=== PATIENT | male | born 1950 | race Caucasian/White ===

== ENCOUNTER 2022-01-23 22:58 | Emergency (ER) | payer MEDICARE, MEDICAID, SELFPAY ==
[2022-01-23 23:01] VITALS: BP 111/49; BP 128/71; PULSE 48; PULSE 75; RESP 16; TEMP 36.4; O2SAT 95; BMI 37.1
[2022-01-23 23:12] LABS: Glucose, Whole Blood 70 mg/dL (60-115)
[2022-01-23 23:23] VITALS: BP 108/51; PULSE 47; RESP 22; O2SAT 96
--- NOTE | 2022-01-23 23:46 | ECG_ITS ---
Test Reason : MD ORDERED Blood Pressure : / mmHG Vent. Rate : 052 BPM Atrial Rate : 052 BPM P-R Int : 178 ms QRS Dur : 162 ms QT Int : 514 ms P-R-T Axes : 037 087 035 degrees QTc Int : 478 ms Sinus bradycardia Right bundle branch block Abnormal ECG No previous ECGs available Referred By: Tita Pérez Electronically Signed By:SVEN CALZADA
[2022-01-24 00:34] LABS: MANUAL DIFF FLAG NO
[2022-01-24 00:38] LABS: Glucose, Whole Blood 109 mg/dL (60-115)
[2022-01-24 00:38] LABS: Basophils Absolute Auto 0.1 X10*3/uL (0.0-0.2); Basophils Percent Auto 0.8 % (0-2); Eosinophils Absolute Auto 0.1 X10*3/uL (0.0-0.4); Eosinophils Percent Auto 1.2 % (0-4); Hematocrit 38.8 % (42.0-52.0); Hemoglobin 12.4 g/dl (14.0-18.0); Imm Gran Abs Auto 0.09 X10*3/uL (0.00-0.03); Imm Gran Pct Auto 0.8 % (0.0-0.4); Lymphocytes Absolute Auto 1.6 X10*3/uL (1.2-4.9); Lymphocytes Percent Auto 14.6 % (20-40); Mean Corpuscular Hemoglobin 28.6 pg (27.0-33.0); Mean Corpuscular Volume 89.4 fL (80.0-98.0); Mean Platelet Volume 10.3 fL (9.4-12.4); Monocytes Absolute Auto 0.8 X10*3/uL (0.1-1.2); Monocytes Percent Auto 7.5 % (2-11); Neutrophils Absolute Auto 8.3 x10*3/uL (2.0-8.3); Neutrophils Percent Auto 75.1 % (45-73); Platelet Count 209 X10*3/uL (160-400); Red Blood Count 4.34 X10*6/uL (4.60-5.80); Red Cell Distribution Width 17.4 % (11.0-16.0)
--- NOTE | 2022-01-24 00:38 | ED_ITS ---
HPI - General Adult General Chief complaint: Altered Mental Status Stated complaint: hypoglycemia Time Seen by Provider: 01/23/22 23:45 Source: patient and EMS Mode of arrival: EMS History of Present Illness HPI narrative: 71-year-old male with history of CKD, diabetes, dementia, who is brought in by EMS from [facility] for acute hypoglycemia with a point of care of 38. Oral glucose was given and when EMS arrived repeat point of care was 47 with additional administration of oral glucose. Patient states that he is otherwise feeling well and denies any shortness of breath/chest pain/palpitations and denies any abdominal pain at this time Related Data Allergies Allergy/AdvReac Type Severity Reaction Status Date / Time No Known Allergies Allergy Verified 01/23/22 23:34 Review of Systems Review of Systems: Pertinent positives and negatives as stated in HPI 10 point review of systems otherwise negative. [facility] Past Medical History Source: nursing notes reviewed Physical Exam ED Vital Signs: Vital Signs - 24 hr 01/23/22 23:01 01/23/22 23:23 01/24/22 02:00 Temperature 97.5 F Pulse Rate 48 L 47 L 61 Respiratory Rate 16 22 H 13 Blood Pressure 111/49 L 108/51 L 168/63 H Pulse Oximetry 96 94 Oxygen Delivery Method Room Air Room Air BMI result Body Mass Index 37.1 VITAL SIGNS: Reviewed. GENERAL: Elderly, chronically ill,, in no acute distress. HEAD: Normocephalic/atraumatic EYES: PERRLA, EOMI EARS: Ext canals without abnormality OROPHARYNX: no oral lesions noted, posterior pharynx clear LUNGS: Normal breath sounds, no tachypnea/wheeze/rhonchi/rales. SpO2<96> CARDIOVASCULAR: Regular rate and rhythm without noted murmurs, no JVD or lower extremity edema. ABDOMEN: Soft, non-tender, non-distended with bowel sounds. MUSCULOSKELETAL: No tenderness, deformities, or effusions noted on gross inspection. EXTREMITIES: No cyanosis, clubbing or edema. SKIN: Inspection of the skin reveals no rashes NEUROLOGIC: Alert and oriented x 4. Strength and sensation to light touch were grossly intact x 4. Course Course Course Narrative: 71-year-old male with history and clinical presentation consistent with acute hypoglycemia likely due to mismatch between insulin administration and oral intake. On review of all investigations there are no acute findings to better explain patient's low blood sugar. Patient has baseline CKD and the noted BUN and creatinine are not felt to be consistent with RODO. Repeat glucose is 140 in patient is otherwise stable for discharge back to the facility. Medical Decision Making Lab Data Result diagrams: 01/24/22 00:29 01/24/22 00:29 Labs: Lab Results 01/23/22 01/24/22 01/24/22 Range/Units 23:08 00:29 00:29 WBC (4.8-10.8) X10*3/uL RBC (4.60-5.80) X10*6/uL Hgb (14.0-18.0) g/dl Hct (42.0-52.0) % MCV (80.0-98.0) fL MCH (27.0-33.0) pg MCHC (31.0-36.0) g/dl RDW (11.0-16.0) % Plt Count (160-400) X10*3/uL MPV (9.4-12.4) fL Immature Gran % (Auto) (0.0-0.4) % Neut % (Auto) (45-73) % Lymph % (Auto) (20-40) % [place] % (Auto) (2-11) % Eos % (Auto) (0-4) % Baso % (Auto) (0-2) % Lymph # (Auto) (1.2-4.9) X10*3/uL [place] # (Auto) (0.1-1.2) X10*3/uL Eos # (Auto) (0.0-0.4) X10*3/uL Baso # (Auto) (0.0-0.2) X10*3/uL Abs Immat Gran (auto) (0.00-0.03) X10*3/uL Absolute Neuts (auto) (2.0-8.3) x10*3/uL Absolute Nucleated RBC (0.0-0.012) X10*3/uL Nucleated RBC % (auto) (0.0-0.2) /100WBC Sodium (135-145) mmol/L Potassium (3.3-5.1) mmol/L Chloride (96-108) mmol/L Carbon Dioxide (22-29) mmol/L Anion Gap (12-20) BUN (9-16) mg/dL Creatinine (0.5-1.4) mg/dL Estim Creat Clear Calc Estimated GFR POC Glucose 70 (60-115) mg/dL Random Glucose (60-115) mg/dL Calcium (8.4-10.2) mg/dL Total Bilirubin (0.0-1.0) mg/dL AST (5-37) U/L ALT (0-40) U/L Alkaline Phosphatase (39-117) U/L Troponin I High Sens 6.0 (<3.5-35.0) ng/L B-Natriuretic Peptide 51 (<100) pg/mL Total Protein (6.5-8.0) g/dL Albumin (3.5-5.0) g/dL COVID-19 (JIMY) Negative (Negative) COVID-19 Clin Com See Note 01/24/22 01/24/22 01/24/22 Range/Units 00:29 00:29 00:33 WBC 11.0 H (4.8-10.8) X10*3/uL RBC 4.34 L (4.60-5.80) X10*6/uL Hgb 12.4 L (14.0-18.0) g/dl Hct 38.8 L (42.0-52.0) % MCV 89.4 (80.0-98.0) fL MCH 28.6 (27.0-33.0) pg MCHC 32.0 (31.0-36.0) g/dl RDW 17.4 H (11.0-16.0) % Plt Count 209 (160-400) X10*3/uL MPV 10.3 (9.4-12.4) fL Immature Gran % (Auto) 0.8 H (0.0-0.4) % Neut % (Auto) 75.1 H (45-73) % Lymph % (Auto) 14.6 L (20-40) % [place] % (Auto) 7.5 (2-11) % Eos % (Auto) 1.2 (0-4) % Baso % (Auto) 0.8 (0-2) % Lymph # (Auto) 1.6 (1.2-4.9) X10*3/uL [place] # (Auto) 0.8 (0.1-1.2) X10*3/uL Eos # (Auto) 0.1 (0.0-0.4) X10*3/uL Baso # (Auto) 0.1 (0.0-0.2) X10*3/uL Abs Immat Gran (auto) 0.09 H (0.00-0.03) X10*3/uL Absolute Neuts (auto) 8.3 (2.0-8.3) x10*3/uL Absolute Nucleated RBC 0.000 (0.0-0.012) X10*3/uL Nucleated RBC % (auto) 0.0 (0.0-0.2) /100WBC Sodium 138 (135-145) mmol/L Potassium 4.3 (3.3-5.1) mmol/L Chloride 104 (96-108) mmol/L Carbon Dioxide 25 (22-29) mmol/L Anion Gap 13 (12-20) BUN 36 H (9-16) mg/dL Creatinine 1.82 H (0.5-1.4) mg/dL Estim Creat Clear Calc 45.5 Estimated GFR 37 POC Glucose 109 (60-115) mg/dL Random Glucose 105 (60-115) mg/dL Calcium 8.7 (8.4-10.2) mg/dL Total Bilirubin 0.3 (0.0-1.0) mg/dL AST 10 (5-37) U/L ALT 11 (0-40) U/L Alkaline Phosphatase 67 (39-117) U/L Troponin I High Sens (<3.5-35.0) ng/L B-Natriuretic Peptide (<100) pg/mL Total Protein 6.3 L (6.5-8.0) g/dL Albumin 3.7 (3.5-5.0) g/dL COVID-19 (JIMY) (Negative) COVID-19 Clin Com 01/24/22 Range/Units 02:01 WBC (4.8-10.8) X10*3/uL RBC (4.60-5.80) X10*6/uL Hgb (14.0-18.0) g/dl Hct (42.0-52.0) % MCV (80.0-98.0) fL MCH (27.0-33.0) pg MCHC (31.0-36.0) g/dl RDW (11.0-16.0) % Plt Count (160-400) X10*3/uL MPV (9.4-12.4) fL Immature Gran % (Auto) (0.0-0.4) % Neut % (Auto) (45-73) % Lymph % (Auto) (20-40) % [place] % (Auto) (2-11) % Eos % (Auto) (0-4) % Baso % (Auto) (0-2) % Lymph # (Auto) (1.2-4.9) X10*3/uL [place] # (Auto) (0.1-1.2) X10*3/uL Eos # (Auto) (0.0-0.4) X10*3/uL Baso # (Auto) (0.0-0.2) X10*3/uL Abs Immat Gran (auto) (0.00-0.03) X10*3/uL Absolute Neuts (auto) (2.0-8.3) x10*3/uL Absolute Nucleated RBC (0.0-0.012) X10*3/uL Nucleated RBC % (auto) (0.0-0.2) /100WBC Sodium (135-145) mmol/L Potassium (3.3-5.1) mmol/L Chloride (96-108) mmol/L Carbon Dioxide (22-29) mmol/L Anion Gap (12-20) BUN (9-16) mg/dL Creatinine (0.5-1.4) mg/dL Estim Creat Clear Calc Estimated GFR POC Glucose 142 H (60-115) mg/dL Random Glucose (60-115) mg/dL Calcium (8.4-10.2) mg/dL Total Bilirubin (0.0-1.0) mg/dL AST (5-37) U/L ALT (0-40) U/L Alkaline Phosphatase (39-117) U/L Troponin I High Sens (<3.5-35.0) ng/L B-Natriuretic Peptide (<100) pg/mL Total Protein (6.5-8.0) g/dL Albumin (3.5-5.0) g/dL COVID-19 (JIMY) (Negative) COVID-19 Clin Com ECG Data Attestation: I personally reviewed and interpreted this ECG as follows: Prior ECG tracings: not available for review Interpretation: Sinus bradycardia, HR -50, RBBB, no STEMI, UT/QTC are within normal limits. Discharge Plan Discharge Clinical Impression: Hypoglycemia, Dementia Patient Disposition: [facility] Instructions: Dementia (ED), Hypoglycemia in a Person with Diabetes (ED) Additional Instructions: 1. Resume all home medications as prescribed. 2. Follow-up with your primary care physician for re-evaluation further outpatient management. Continue to monitor glucose readings every 2 hours until 06:00 Return to the ER for worsening symptoms.
[2022-01-24 00:49] LABS: Alanine Aminotransferase 11 U/L (0-40); Albumin Level 3.7 g/dL (3.5-5.0); Alkaline Phosphatase 67 U/L (39-117); Anion Gap 13 (12-20); Aspartate Amino Transferase 10 U/L (5-37); Bilirubin Total 0.3 mg/dL (0.0-1.0); Blood Urea Nitrogen 36 mg/dL (9-16); Calcium 8.7 mg/dL (8.4-10.2); Carbon Dioxide 25 mmol/L (22-29); Chloride 104 mmol/L (96-108); Creatinine Clr Calc Pharmacy 45.5; Estimated Glomerular Filt Rate 37; Glucose Random 105 mg/dL (60-115); Potassium 4.3 mmol/L (3.3-5.1); Sodium 138 mmol/L (135-145); Total Protein 6.3 g/dL (6.5-8.0)
[2022-01-24 00:50] LABS: COVID-19 Test Negative (Negative)
[2022-01-24 00:54] LABS: B Type Natriuretic Peptide 51 pg/mL (<100)
[2022-01-24] MEDS: 0.9 % Sodium Chloride 1,000 ML 999 ML IV (01:23)
[2022-01-24 02:00] VITALS: BP 168/63; PULSE 61; RESP 13; O2SAT 94
[2022-01-24 02:07] LABS: Glucose, Whole Blood 142 mg/dL (60-115)
--- NOTE | 2022-01-24 02:55 | PC.NURSE ---
CALLED [facility] @0255 SPOKE TO BENJAMIN REGARDING TRANSPORT OF PATIENT WHO IS RETURNING BACK TO [facility]. BENJAMIN GAVE ME AN ETA OF [phone]- [phone] WHEN MORE STAFF IS AVAILABLE
[2022-01-24 07:40] VITALS: BP 166/74; PULSE 61; RESP 14; O2SAT 97
--- NOTE | 2022-01-24 08:55 | PC.NURSE ---
Pt alert and oriented x4. Respirations even and unlabored. Pt resting quietly drinking coffee. Awaiting transport back to [facility]
[2022-01-24 08:57] LABS: Glucose, Whole Blood 149 mg/dL (60-115)
== END 2022-01-24 09:04 | disposition skilled nursing facility (03) ==
PROVIDERS: Emergency Provider Student in an Organized Health Care Education/Training Program
DX: E11.649 Type 2 diabetes mellitus with hypoglycemia without coma (principal); F03.90 Unspecified dementia, unspecified severity, without behavioral disturbance, psychotic disturbance, mood disturbance, and anxiety; E11.22 Type 2 diabetes mellitus with diabetic chronic kidney disease; I12.9 Hypertensive chronic kidney disease with stage 1 through stage 4 chronic kidney disease, or unspecified chronic kidney disease; N18.9 Chronic kidney disease, unspecified; Z20.822 Contact with and (suspected) exposure to COVID-19; Z79.4 Long term (current) use of insulin
CPT/HCPCS: 36415; 80053; 82947; 83880; 84484; 85025; 87635; 93005; 96360; 99284

== ENCOUNTER 2024-05-14 09:57 | Emergency (ER) | payer MEDICARE, MEDICAID, SELFPAY ==
--- NOTE | ~2024-05-14 | XR_ITS ---
EXAMINATION: XR FOOT, LEFT CLINICAL INFORMATION: Rule out osteomyelitis of left foot. COMPARISON: None available. TECHNIQUE: AP and lateral views of the left foot. FINDINGS: No displaced fracture. No dislocation. No periosteal reaction or cortical erosion. No concerning lytic or blastic osseous lesion. No joint space narrowing or marginal osteophytes. No abnormal soft tissue calcification. XR/XR foot LT min 3V IMPRESSION: No displaced fracture or dislocation. No periosteal reaction or cortical erosion to suggest osteomyelitis. Early osteomyelitis may be occult on plain radiographs and if there is clinical concern, MRI of the foot without and with contrast could help further evaluate. Electronically signed by: Jesse Barnett MD 05/14/2024 12:59 PM EST
[2024-05-14 10:11] VITALS: BP 154/67; BP 162/74; PULSE 60; PULSE 74; RESP 18; TEMP 36.5; O2SAT 95; BMI 34.5
--- OUTSIDE RECORDS SUMMARY | 2024-05-14 11:05 | XMS_ITS | Continuity of Care Document ---
Author Organization [facility] Infectious Disease Address [address] [place] [address]- Care Team Providers Care Real Estate Representative Name Role Phone Isac Velazquez MD Primary Care Phys[id number] Date(s[facility]/08/20 - 08/16/20 [facility] Infect[facility] Disease [address] [place] [phone]- Attending Physician: Apollo Godfrey MD Admitting Physician: Apollo Godfrey MD Referring Physician: Isac Velazquez MD Allergies, Adverse Reactions, Alerts Substance Reaction Severity Status Percocet 5/325 1 Persistent Moderate Acti ve 1Rash Medications acetaminophen 325 mg oral tablet 650 mg, By Mouth, Every 4 hours, PRN, greater than 101F or Mild Pain, Refills 0, Maintenance, Temperature, 06/11/20 11:51:00 EST, Partial fill upon patient request if the prescription is for a schedule II opioid drug. Start Date: 06/11/20 Status: Ordered amiodarone 200 mg oral tablet 200 mg, 1, tablet, By Mouth, 2 times a day, # 60 tablet, Refills 0, Tot. Refills 0, Maintenance, 06/07/20 13:16:00 EST, [id number], Partial fill upon patient request if the prescription is for a sched... Start Date: 06/07/20 Status: Ordered amLODIPine 5 mg oral tablet 1 tablet = 5 mg, By Mouth, Daily, # 30 tablet, 0 Refills, Maintenance, 05/19/20 22:11:00 EST, Tablet, Partial fill upon patient request if the prescription is for a schedule II opioid drug. Start Date: 05/19/20 Status: Ordered aspirin 81 mg oral tablet, chewable 81 mg, 1, tablet, Chew, Daily, Refills 0, Maintenance, 05/19/20 22:12:00 EST, Partial fill upon patient request if the prescription is for a schedule II opioid drug. Start Date: 05/19/20 Stop Date: 06/18/20 Status: Ordered atorvastatin 40 mg oral tablet 1 tablet = 40 mg, By Mouth, Daily, # 30 tablet, 0 Refills, Maintenance, 05/22/20 10:29:00 EST, Tablet, [facility], Partial fill upon patient request if the prescription is for a schedule II opioid drug., 174, cm, 05/22/20 8:22:00 EST, He... Start Date: 05/22/20 Status: Ordered clopidogrel 75 mg oral tablet 75 mg, 1, tablet, By Mouth, Daily, # 30 tablet, Refills 0, Tot. Refills 0, Maintenance, 06/07/20 13:16:00 EST, Route to Pharmacy Electronically, [facility] #[id number], Partial fill upon patientrequest if the prescription is for a schedule II op... Start Date: 06/07/20 Status: Ordered Docusate Sodium Capsule 100 mg, 1, capsule, By Mouth, 2 times a day, Refills 0, Maintenance, 06/11/20 11:51:00 EST, Partialfill upon patient request if the prescription is for a schedule II opioid drug. Start Date: 06/11/20 Status: Ordered Enoxaparin 0.4 mL = 40 mg, Subcutaneous Injection, Daily, 0 Refills, Maintenance, 06/11/20 11:51:00 EST, Injection, Partial fill upon patient request if the prescription is for a schedule II opioid drug. Start Date: 06/11/20 Status: Ordered Humalog Kwik Pen 100 units/mL subcutaneous injection See Instructions, Subcutaneous Infusion, << Sliding Scale Comments >> 120 - 159 6 unitsCall if less than 100 160 - 199 8 units 200 - 239 10 units 240 - 279 12 units 280 - 319 14 units Call if greater than 400 15 minutes before or i... Start Date: 06/07/20 Stop Date: 12/04/20 Status: Ordered Lantus 100 u/ml subcutaneous solution = 25 units, Subcutaneous Injection, Daily at bedtime, 2 Refills, Maintenance, 05/20/20 0:21:00 EST,Partial fill upon patient request if the prescription is for a schedule II opioid drug. Start Date: 05/20/20 Stop Date: 08/18/20 Status: Ordered Lasix 40 mg oral tablet 40 mg, 1, tablet, By Mouth, Daily, Refills 0, Maintenance, 06/11/20 11:57:00 EST, Partial fill uponpatient request if the prescription is for a schedule II opioid drug. Start Date: 06/11/20 Status: Ordered Maalox Plus Liquid 15 mL, By Mouth, Every 6 hours, PRN Dyspepsia, 0 Refills, Maintenance, 06/11/20 11:51:00 EST, Suspension, Partial fill upon patient request if the prescription is for a schedule II opioid drug. Start Date: 06/11/20 Status: Ordered metoprolol 50 mg oral tablet 50 mg, 1, tablet, By Mouth, 2 times a day, # 60 tablet, Refills 0, Tot. Refills 0, Maintenance, 06/07/20 13:15:00 EST, Route to Pharmacy Electronically, [facility] #[id number], Partial fill uponpatient request if the prescription is for a schedu... Start Date: 06/07/20 Status: Ordered Milk of Magnesia Liquid 30 mL, By Mouth, Every 8 hours, PRN Constipation, 0 Refills, Maintenance, 06/11/20 11:52:00 EST, Suspension, Partial fill upon patient request if the prescription is for a schedule II opioid drug. Start Date: 06/11/20 Status: Ordered Pen [place], 30 G x 8 mm BD Ultra Fine II See Instructions, # 100 each, Refills 5, Tot. Refills 5, Maintenance, use as directed for Type 2 Diabetes Mellitus, 06/07/20 13:19:00 EST, Supply, 174, cm, 06/07/20 12:34:00 EST, Height, 113.9, kg, 06/02/20 9:14:00 EST, Dry Weight Start Date: 06/07/20 Stop Date: 12/04/20 Status: Ordered tamsulosin 0.4 mg oral capsule 0.4 mg, 1, capsule, By Mouth, Daily at bedtime, # 30 capsule, Refills 0, Maintenance, 05/19/20 22:11:00 EST, Partial fill upon patient request if the prescription is for a schedule II opioid drug. Start Date: 05/19/20 Status: Ordered Problem List Condition Effective Dates Status Health Status Inform ant Chronic kidney disease, stag e 3(Confirmed) Active S/P CABG x 4(Confirmed) Active Hypertension(Confirmed) Active Type 2 diabetes mellitus(Confirmed) Active Social History Social History Type Response Tobacco Use: quit 10 months ago. Sex
--- OUTSIDE RECORDS SUMMARY | 2024-05-14 11:05 | XMS_ITS | Continuity of Care Document ---
Author Organization [facility] Kathy sheila Address [address] [place] [phone]- Care Team Providers Care Barrel Lathe Operator Outside Name Role Phone Sasha CORDERO, Marzena Lee Primary Care Physician Encounter [facility] Date(s): 09/28/20 - 10/28/20 [facility] Cardiac Surgery [address] [phone]- Allergies, Adverse Reactions, Alerts Substance Reaction Severity Status Percocet 5/325 1 Persistent Moderate Acti ve 1Rash Medications acetaminophen 325 mg oral tablet 650 mg, By Mouth, Every 4 hours, PRN, Temperature Greater than 100.5, Refills 0, Maintenance, Pain , Mild, 10/20/20 12:06:00 EDT, Partial fill upon patient request if the prescription is for a schedule II opioid drug. Start Date: 10/20/20 Status: Ordered albuterol CFC free 90 mcg/inh inhalation aerosol 180 mcg, 2, puffs, Inhalation, 3 times a day, Refills 0, Maintenance, 08/19/20 12:51:00 EST, Inhaler Start Date: 08/19/20 Status: Ordered aspirin 81 mg oral tablet, chewable 81 mg, 1, tablet, Chew, Daily, Refills 0, Maintenance, 05/19/20 22:12:00 EST Start Date: 05/19/20 Stop Date: 06/18/20 Status: Ordered atorvastatin 40 mg oral tablet 1 tablet = 40 mg, By Mouth, Daily, # 30 tablet, 0 Refills, Maintenance, 05/22/20 10:29:00 EST, Tablet, [facility], Partial fill upon patient request if the prescription is for a schedule II opioid drug., 174, cm, 05/22/20 8:22:00 EST, He... Start Date: 05/22/20 Status: Ordered Carafate 1 gm oral tablet 1 Gm, 1, tablet, By Mouth, 4 times a day, Refills 0, Maintenance, 08/19/20 12:51:00 EST Start Date: 08/19/20 Status: Ordered ceftriaxone 1 gm/50 ml intravenous solution = 2 Gm, IV Infusion, Daily, for 42 days, # 42 each, 0 Refills, Acute 12/01/20 12:12:00 EDT, 10/20/20 12:12:00 EDT, Partial fill upon patient request if the prescription is for a schedule II opioid drug. Start Date: 10/20/20 Stop Date: 12/01/20 Status: Ordered docusate sodium 100 mg oral capsule 100 mg, 1, capsule, By Mouth, 2 times a day, PRN, Refills 0, Maintenance, Constipation, 10/20/20 12:07:00 EDT, Partial fill upon patient request if the prescription is for a schedule II opioid drug. Start Date: 10/20/20 Status: Ordered Flomax 0.4 mg oral capsule 0.4 mg, 1, capsule, By Mouth, Daily at bedtime, Refills 0, Maintenance, 10/20/20 12:08:00 EDT, Partial fill upon patient request if the prescription is for a schedule II opioid drug. Start Date: 10/20/20 Status: Ordered folic acid 1 mg oral tablet 1 mg, 1, tablet, By Mouth, Daily, Refills 0, Maintenance, 08/19/20 12:51:00 EST Start Date: 08/19/20 Status: Ordered gabapentin 250 mg/5 mL oral solution 1 mL = 50 mg, By Mouth, Daily before dinner, at 5pm, 0 Refills, Maintenance, 08/19/20 12:52:00 EST,Liquid Start Date: 08/19/20 Status: Ordered heparin flush 10 units/mL intravenous solution 5 mL = 50 units, IV Push, Daily, 0 Refills, Maintenance, 10/20/20 12:07:00 EDT, Injection, Partial fill upon patient request if the prescription is for a schedule II opioid drug. Start Date: 10/20/20 Status: Ordered heparin flush 10 units/mL intravenous solution 5 mL = 50 units, IV Push, Every hour, PRN Line/Tube Patency, Post administration of Saline Flush, use 10 mL syringe, Heparin is last med left in line, 0 Refills, Maintenance, 10/20/20 12:07:00 EDT, Injection, Partial fill upon patient request if the p... Start Date: 10/20/20 Status: Ordered Insulin Lispro 12-24 units, Subcutaneous Injection, 3 times a day before meals, 0 Refills, Maintenance, 10/20/20 12:07:00 EDT, Injection, Partial fill upon patient request if the prescription is for a schedule II opioid drug. Start Date: 10/20/20 Status: Ordered Lantus Inj = 26 units, Subcutaneous Injection, Daily at bedtime, 0 Refills, Maintenance, 09/28/20 8:59:00 EDT,Injection Start Date: 09/28/20 Status: Ordered metoprolol 25 mg oral tablet 25 mg, 1, tablet, By Mouth, 2 times a day, Refills 0, Maintenance, 08/19/20 12:50:00 EST Start Date: 08/19/20 Status: Ordered Multivitamin Tablet 1 tablet, By Mouth, Daily, 0 Refills, Maintenance, 10/20/20 12:07:00 EDT, Tablet, Partial fill uponpatient request if the prescription is for a schedule II opioid drug. Start Date: 10/20/20 Status: Ordered Namenda 5 mg oral tablet 1 tablet = 5 mg, By Mouth, 2 times a day before breakfast and dinne, 0 Refills, Maintenance, 08/26/20 13:46:00 EST, Tablet Start Date: 08/26/20 Status: Ordered thiamine 100 mg oral tablet 100 mg, 1, tablet, By Mouth, Daily, Refills 0, Maintenance, 08/19/20 12:52:00 EST Start Date: 08/19/20 Status: Ordered vancomycin 1.5 g intravenous injection = 1.5 Gm, IV Infusion, Every 24 hours, for 42 days, # 42 each, 0 Refills, Acute 12/01/20 12:08:00 EDT, 10/20/20 12:08:00 EDT, Partial fill upon patient request if the prescription is for a schedule II opioid drug. Start Date: 10/20/20 Stop Date: 12/01/20 Status: Ordered Vitamin C 500 mg oral tablet 1 tablet = 500 mg, By Mouth, Daily, 0 Refills, Maintenance, 08/19/20 12:51:00 EST, Tablet Start Date: 08/19/20 Status: Ordered Problem List Condition Effective Dates Status Health Status Inform ant Asthma(Confirmed) Active Chronic kidney disease, stag e 3(Confirmed) Active CAD in [place] artery(Confirmed) Active Alzheimer's disease with delusions(Confirmed) Active Dementia(Confirmed) Active GERD (gastroesophageal reflu x disease)(Confirmed) Active S/P CABG x 4(Confirmed) Active Hyperlipidemia(Confirmed) Active Hypertension(Confirmed) Active Type 2 diabetes mellitus(Confirmed) Active Social History Social History Type Response Tobacco Use: quit 10 months ago. Sex
--- OUTSIDE RECORDS SUMMARY | 2024-05-14 11:05 | XMS_ITS | Continuity of Care Document ---
Author Organization [facility] Kathy sheila Address [address] [place] [phone]- Care Team Providers Care Warranty Manager Name Role Phone Sasha CORDERO, Marzena Lee Primary Care Physician Encounter [facility] [place] Date(s): 10/22/20 - 10/29/20 [facility] Cardiac Surgery [address] [place] [phone]- Attending Physician: Byron GRIFFIN, Lolly Andersen Referring Physician: Sasha CORDERO, Marzena Lee Allergies, Adverse Reactions, Alerts Substance Reaction Severity [...] 0 Refills, Maintenance, 05/22/20 10:29:00 EST, Tablet, [facility], Partial fill upon patient [...] disease, stag e 3(Confirmed) Active CAD in [place] artery(Confirmed) Active Alzheimer's disease with delusions(Confirmed) Active Dementia(Confirmed) Active GERD (gastroesophageal reflu x disease)(Confirmed) Active S/P CABG x 4(Confirmed) Active Hyperlipidemia(Confirmed) Active Hypertension(Confirmed) Active Type 2 diabetes mellitus(Confirmed) Active Vital Signs Most recent to oldest [Reference Range]: 1 Height 174 cm (10/22/20 3:10 PM) Weight 102 kg (10/22/20 3:10 PM) Oxygen Saturation [94-100 %] 99 % (10/22/20 3:10 PM) Pulse Rate [55-90 bpm] 71 bpm (10/22/20 3:10 PM) Body Mass Index [18.5-24.99] 33.69 *>HHI* (10/22/20 3:10 PM) Blood Pressure [90-138/55-84 mm Hg] 116/ 66mm Hg (10/22/20 3:10 PM) Respiratory Rate [16-30 br/min] 18 br/mi n (10/22/20 3:10 PM) Mode of Delivery (Oxygen) Room air (10/22/20 3:10 PM) Blood pressure sites Arm, left (10/22/20 3:10 PM) Weight Obtained Via Patient/family state d (10/22/20 3:10 PM) Social History Social History Type Response Tobacco Use: quit 10 months ago. Sex
--- OUTSIDE RECORDS SUMMARY | 2024-05-14 11:05 | XMS_ITS | Continuity of Care Document ---
Author Organization [facility] Kathy sheila Address [address] [place] [address]- Care Team Providers Care Steam Hammer Operator Name Role Phone Sasha CORDERO, Marzena Lee Primary Care Physician Encounter [facility] [place] Date(s): 12/23/20 - 01/30/21 [facility] [address] [place] [phone]- Attending Physician: David Alexandre MD Referring Physician: Marzena Baez NP Allergies, Adverse Reactions, Alerts Substance Reaction Severity [...] 0 Refills, Maintenance, 05/22/20 10:29:00 EST, Tablet, [facility], Partial fill upon patient request if the prescription is for a schedule II opioid drug., 174, cm, 12/04/20 8:22:00 EST, He... Start Date: 05/22/20 Status: Ordered Carafate 1 gm oral tablet 1 Gm, 1, tablet, By Mouth, 4 times a day, Refills 0, Maintenance, 08/19/20 12:51:00 EST Start Date: 08/19/20 Status: Ordered docusate sodium 100 mg oral [...] mL = 50 units, IV Push, Every 8 hours, 0 Refills, Maintenance, 10/20/20 12:07:00 EDT, Injection, Partial fill upon patient request if the prescription is for a schedule II opioid drug. Start Date: 10/20/20 Status: Ordered Insulin Lispro 5-15 units, Subcutaneous Injection, 3 times a day before meals, << Sliding Scale Comments >> 100 - 149 5 units Call if less than 80 150 - 199 7 units 200 - 249 9 units 250 - 299 11 units 300 - 349 13 units 350 - 399 15 units Call... Start Date: 11/10/20 Status: Ordered Lantus Inj 0.3 mL = 30 units, Subcutaneous Injection, Daily at bedtime, 0 Refills, Maintenance, 11/10/20 9:24:00 EDT, Injection, Partial fill upon patient request if the prescription is for a schedule II opioiddrug. Start Date: 11/10/20 Status: Ordered Lovenox 40 mg/0.4 mL injectable solution = 40 mg, Subcutaneous Injection, Daily, # 7 each, 0 Refills, Maintenance, 11/01/20 1:34:00 EDT, Partial fill upon patient request if the prescription is for a schedule II opioid drug. Start Date: 11/01/20 Status: Ordered metoprolol 25 mg oral tablet [...] 12:52:00 EST Start Date: 08/19/20 Status: Ordered Vitamin C 500 mg oral tablet 1 tablet = 500 mg, By Mouth, Daily, 0 Refills, Maintenance, 08/19/20 12:51:00 EST, Tablet Start Date: 08/19/20 Status: Ordered Problem List Condition Effective Dates Status Health Status Inform ant Asthma(Confirmed) Active Chronic kidney disease, stag e 3(Confirmed) Active CAD in [place] artery(Confirmed) Active Alzheimer's disease with delusions(Confirmed) Active Dementia(Confirmed) Active GERD (gastroesophageal reflu x disease)(Confirmed) Active S/P CABG x 4(Confirmed) Active Hyperlipidemia(Confirmed) Active Hypertension(Confirmed) Active Sternal wound infection(Confirmed) Active Type 2 diabetes mellitus(Confirmed) Active Social History Social History Type Response Tobacco Use: quit 10 months ago. Sex
--- OUTSIDE RECORDS SUMMARY | 2024-05-14 11:05 | XMS_ITS | Continuity of Care Document ---
Author Organization [facility] ter Address [address] [place] [phone]- Care Team Providers Care Senior Recruitment Consultant Name Role Phone Sasha CORDERO, Marzena Lee Primary Care Physician Encounter [facility] [place] Date(s): 01/22/22 - 01/23/[address] [address]- Encounter Diagnosis Aggression(Final) - 01/22/22 UTI (urinary tract infection)(Final) - 01/22/22 Dementia(Final) - 01/23/22 Discharge Disposition: A-D/C Home Attending Physician: Dale Jo MD Admitting Physician: Dale Jo MD Referring Physician: Not on Staff, Referring MD Allergies, Adverse Reactions, Alerts Substance Reaction Severity Status Percocet 1 Persistent Moderate Acti ve 1Rash Immunizations Not Given Vaccine Date Status Refusal Reason SARS-CoV-2 (COVID-19) mRNA-1273 vaccine 11/03/21 N ot Given Patient Refuses Medications acetaminophen 325 mg oral tablet 650 [...] 0 Refills, Maintenance, 05/22/20 10:29:00 EST, Tablet, [facility], Partial fill upon patient request if [...] opioid drug. Start Date: 10/20/20 Status: Ordered Docusate/Senna Tablet 2 tablet, By Mouth, 2 times a day, 0 Refills, Maintenance, 11/07/21 12:44:00 EDT, Tablet, Partial fill upon patient request if the prescription is for a schedule II opioid drug. Start Date: 11/07/21 Status: Ordered Flomax 0.4 mg oral capsule [...] opioid drug. Start Date: 10/20/20 Status: Ordered insulin lispro 100 u/ml subcutaneous injection 12-22 units, Subcutaneous Injection, 3 times a day before meals, << Sliding Scale Comments >> 100 - 149 12 units Call if less than 70 150 - 199 14 units 200 - 249 16 units 250 - 299 18 units 300 - 349 20 units 350 - 399 22 units... Start Date: 11/11/21 Status: Ordered Lantus Inj = 25 units, Subcutaneous Injection, Daily at bedtime, 0 Refills, Maintenance, 11/07/21 12:43:00 EDT, Injection, Partial fill upon patient request if the prescription is for a schedule II opioid drug. Start Date: 11/07/21 Status: Ordered metoprolol 25 mg oral tablet [...] EST, Tablet Start Date: 08/26/20 Status: Ordered pantoprazole 40 mg oral delayed release tablet = 40 mg, By Mouth, Daily, 0 Refills, Maintenance, 11/07/21 12:44:00 EDT, EC Tablet Start Date: 11/07/21 Status: Ordered thiamine 100 mg oral tablet 100 mg, 1, tablet, By Mouth, Daily, Refills 0, Maintenance, 08/19/20 12:52:00 EST Start Date: 08/19/20 Status: Ordered traZODone 50 mg oral tablet 50 mg, 1, tablet, By Mouth, Daily at bedtime, PRN, Refills 0, Maintenance, Sleep, 11/07/21 12:44:00EDT, Partial fill upon patient request if the prescription is for a schedule II opioid drug. Start Date: 11/07/21 Status: Ordered Vitamin C 500 mg oral tablet 1 tablet = 500 mg, By Mouth, Daily, 0 Refills, Maintenance, 08/19/20 12:51:00 EST, Tablet Start Date: 08/19/20 Status: Ordered Problem List Condition Effective Dates Status Health Status Inform ant Asthma(Confirmed) Active Chronic kidney disease, stag e 3(Confirmed) Active CAD in [place] artery(Confirmed) Active Alzheimer's disease with delusions(Confirmed) Active Dementia(Confirmed) Active GERD (gastroesophageal reflu x disease)(Confirmed) Active S/P CABG x 4(Confirmed) Active Hyperlipidemia(Confirmed) Active Hypertension(Confirmed) Active Sternal wound infection(Confirmed) Active Obese class I(Confirmed) Active Type 2 diabetes mellitus(Confirmed) Active Vital Signs Most recent to oldest [Reference Range]: 1 2 Oxygen Saturation [94-100 %] 97 % (01/22/22 7:50 PM) 99 % (01/22/22 4:42 PM) Pulse Rate [55-90 bpm] 67 bpm (01/22/22 7:50 PM) 60 bpm (01/22/22 4:42 PM) Blood Pressure [90-138/55-84 mm Hg] 154/ 82mm Hg *H* (01/22/22 7:50 PM) 139/55mm Hg *H* (01/22/22 4:42 PM) Respiratory Rate [16-30 br/min] 18 br/mi n (01/22/22 7:50 PM) 16 br/min (01/22/22 4:42 PM) Temperature [96.8-100.4 DegF] 98.1 DegF (01/22/22 7:50 PM) 98.7 DegF (01/22/22 4:42 PM) Mode of Delivery (Oxygen) Room air (01/22/22 7:50 PM) Room air (01/22/22 4:42 PM) Blood pressure sites Arm, left (01/22/22 7:50 PM) Arm, left (01/22/22 4:42 PM) Temperature Route Oral (01/22/22 7:50 PM) Oral (01/22/22 4:42 PM) Social History Social History Type Response Tobacco Use: quit 10 months ago. Sex
--- OUTSIDE RECORDS SUMMARY | 2024-05-14 11:05 | XMS_ITS | Continuity of Care Document ---
Author Organization [facility] Cardiac Kathy sheila Address [address] [place] [phone]- Care Team Providers Care Chiller Operator Name Role Phone Caroline GRIFFIN, Isac Haas Primary Care Physician Encounter [facility] [place] Date(s): 06/08/20 - 07/17/20 [facility] Cardiac Surgery [address] [place] [address]- Attending Physician: Byron GRIFFIN, Lolly Andersen Referring Physician: Jaylen GRIFFIN, Pilo Ramires Allergies, Adverse Reactions, Alerts Substance Reaction Severity [...] 06/07/20 13:16:00 EST, Route to Pharmacy Electronically, [id number], Partial fill upon patient request if the [...] 0 Refills, Maintenance, 05/22/20 10:29:00 EST, Tablet, [facility], Partial fill upon patient request if the prescription is for a schedule II opioid drug., 174, cm, 05/22/20 8:22:00 EST, He... Start Date: 05/22/20 Status: Ordered clopidogrel 75 mg oral tablet 75 mg, 1, tablet, By Mouth, Daily, # 30 tablet, Refills 0, Tot. Refills 0, Maintenance, 06/07/20 13:16:00 EST, Route to Pharmacy Electronically, [facility][id number], Partial fill upon patientrequest if the prescription [...] 06/07/20 13:15:00 EST, Route to Pharmacy Electronically, [facility] #[id number], Partial fill uponpatient request if the prescription is for a schedu... Start Date: 06/07/20 Status: Ordered Milk of Magnesia Liquid 30 mL, By Mouth, Every 8 hours, PRN Constipation, 0 Refills, Maintenance, 06/11/20 11:52:00 EST, Suspension, Partial fill upon patient request if the prescription is for a schedule II opioid drug. Start Date: 06/11/20 Status: Ordered Pen [place], 30 G x 8 mm BD Ultra [...]
--- OUTSIDE RECORDS SUMMARY | 2024-05-14 11:05 | XMS_ITS | Continuity of Care Document ---
Author Organization [facility] ter Address [address] [place] [phone]- Care Team Providers Care Investigator Narcotics Name Role Phone Sasha CORDERO, Marzena Lee Primary Care Physician [id number] Date(s): 06/02/21 - 07/02/[address] [address] Attending Physician: Anne-Marie Ventura NP Admitting Physician: Anne-Marie Ventura NP Referring Physician: Anne-Marie Ventura NP Allergies, Adverse Reactions, Alerts Substance Reaction [...] 0 Refills, Maintenance, 05/22/20 10:29:00 EST, Tablet, [facility], Partial fill upon patient request [...] disease, stag e 3(Confirmed) Active CAD in [place] artery(Confirmed) Active Alzheimer's disease with delusions(Confirmed) Active Dementia(Confirmed) Active GERD (gastroesophageal reflu x disease)(Confirmed) Active S/P CABG x 4(Confirmed) Active Hyperlipidemia(Confirmed) Active Hypertension(Confirmed) Active Sternal wound infection(Confirmed) Active Obese class II(Confirmed) Active Type 2 diabetes mellitus(Confirmed) Active Social History Social History Type Response Tobacco Use: quit 10 months ago. Sex
--- OUTSIDE RECORDS SUMMARY | 2024-05-14 11:05 | XMS_ITS | Continuity of Care Document ---
Author Organization [facility] ter Address [address] [place] [phone]- Care Team Providers Care Sox Analyst Name Role Phone Sasha CORDEOR, Marzena Lee Primary Care Physician [place] [facility] [place] [facility] [place] Date(s): 11/01/20 - 11/10/[address] [address]- Discharge Disposition: A-Transfer SNF Attending Physician: Byron GRIFFIN, Lolly Andersen Admitting Physician: Atiya Mcdaniel MD Referring Physician: Not on Staff, Referring [...] 0 Refills, Maintenance, 05/22/20 10:29:00 EST, Tablet, [facility], Partial fill upon patient [...] 12:50:00 EST Start Date: 08/19/20 Status: Ordered metoprolol 25 mg oral tablet 25 mg, Tablet, By Mouth, 11/10/20 9:00:00 EDT Start Date: 11/10/20 Stop Date: 11/10/20 Status: Completed Multivitamin Tablet 1 tablet, By Mouth, Daily, [...] EST Start Date: 08/19/20 Status: Ordered vancomycin 1.25 g intravenous injection = 1.25 Gm, IV Infusion, Every 24 hours, for 21 days, # 21 each, 0 Refills, Acute 12/01/20 9:27:00 EDT, 11/10/20 9:27:00 EDT, [facility], Partial fill upon patient request if the prescription is for a schedule II opioid drug., 173, cm, 10/18... Start Date: 11/10/20 Stop Date: 12/01/20 Status: Ordered Vitamin C 500 mg oral tablet 1 tablet = 500 mg, By Mouth, Daily, 0 Refills, Maintenance, 08/19/20 12:51:00 EST, Tablet Start Date: 08/19/20 Status: Ordered Problem List Condition Effective Dates Status Health Status Inform ant Asthma(Confirmed) Active Chronic kidney disease, stag e 3(Confirmed) Active CAD in [place] artery(Confirmed) Active Alzheimer's disease with delusions(Confirmed) Active Dementia(Confirmed) Active GERD (gastroesophageal reflu x disease)(Confirmed) Active S/P CABG x 4(Confirmed) Active Hyperlipidemia(Confirmed) Active Hypertension(Confirmed) Active Sternal wound infection(Confirmed) Active Type 2 diabetes mellitus(Confirmed) Active Results Orders for Microbiology Reports Name Date AFB Culture w/ AFB Smear, Nonrespiratory (ACID FAST CULT,NON-RESP) 11/02/20 Anaerobic Culture (ANAEROBIC CULTURE) Fungal Culture, Nonrespiratory (FUNGAL C ULT,NON-RESPIRATORY) 11/02/20 Tissue Culture w/ Gram Smear (TISSUE/BIO PSY CULT.) 11/02/20 Blood Culture 10/31/20 Blood Culture #2 10/31/20 Microbiology Reports TEST:Anaerobic Culture STATUS:Auth (Verified) BODY SITE: SOURCE:TISSUE1 COLLECTED DATE/TIME:11/02/20 7:00 PM Anaerobic Culture SPECIMEN DESCRIPTION : TISSUE MANUBRIUM SPECIAL REQUESTS : NONE CULTURE : NO ANAEROBES ISOLATED REPORT STATUS : FINAL 11/08/2020 TEST:Tissue/Biopsy Culture STATUS:Auth (Verified) BODY SITE: SOURCE:TISSUE1 COLLECTED DATE/TIME:11/02/20 7:00 PM Tissue/Biopsy Culture SPECIMEN DESCRIPTION : TISSUE MANUBRIUM SPECIAL REQUESTS : NONE GRAM STAIN : 1+ TISSUE CELLS 1+ RBC'S NO ORGANISMS SEEN CULTURE : NO GROWTH 2 DAYS REPORT STATUS : FINAL 11/05/2020 TEST:Fungal Culture, Non-Respiratory STATUS:Unauthenticated BODY SITE: SOURCE:TISSUE1 COLLECTED DATE/TIME:11/02/20 7:00 PM Fungal Culture, Non-Respiratory SPECIMEN DESCRIPTION : TISSUE MANUBRIUM SPECIAL REQUESTS : NONE DIRECT EXAM : NO FUNGAL ELEMENTS OBSERVED CULTURE : NO FUNGI ISOLATED AFTER 7 DAYS REPORT STATUS : PRELIMINARY REPORT TEST:AFB Culture w/AFB Smear, Non-Respiratory STATUS:Unauthenticated BODY SITE: SOURCE:TISSUE1 COLLECTED DATE/TIME:11/02/20 7:00 PM AFB Culture w/AFB Smear, Non-Respiratory SPECIMEN DESCRIPTION : TISSUE MANUBRIUM SPECIAL REQUESTS : NONE DIRECT EXAM : NO ACID FAST BACILLI SEEN ON DIRECT SMEAR, TEST PERFORMED AT [facility] No acid fast bacilli seen on concentrated smear. Per [facility] protocol, this specimen was concentrated prior to smear preparation. [facility], [address] [place] [id number]. CULTURE : SPECIMEN SENT TO [facility]PT OF [facility], [place], [place] REPORT STATUS : PRELIMINARY REPORT TEST:Blood Culture STATUS:Auth (Verified) BODY SITE: SOURCE:Blood COLLECTED DATE/TIME:10/31/20 8:34 PM Blood Culture SPECIMEN DESCRIPTION : BLOOD LAC SPECIAL REQUESTS : NONE CULTURE : NO GROWTH 5 DAYS. REPORT STATUS : FINAL 11/05/2020 TEST:Blood Culture, Second Order STATUS:Auth (Verified) BODY SITE: SOURCE:Blood COLLECTED DATE/TIME:10/31/20 7:57 PM Blood Culture, Second Order SPECIMEN DESCRIPTION : BLOOD L HAND SPECIAL REQUESTS : NONE CULTURE : NO GROWTH 5 DAYS. REPORT STATUS : FINAL 11/05/2020 Radiology Reports * Exam Date Time Procedure Performing Provider Status 10/31/20 8:38 PM Chest Portable Kellie Matthews; Auth (Verified) Notes: (Chest Portable) Reason For Exam: Shortness of Breath RESULT: Chest Portable Chest Portable Hx of Present Illness: pt found unresponsive and hypoglycemic in [facility] today pt given 1 mgof glucagon pt awoke during transport. Pt is dementia at baseline; Reason: Shortness of Breath; Clinical Question(s): CHF COMPARISON: 10/13/2020 FINDINGS: LINES AND TUBES: Spinal stimulator noted. LUNGS AND PLEURA: Clear lungs. Normal pulmonary vascularity. No pleural effusion. No pneumothorax. HEART, MEDIASTINUM AND CEE: Heart is normal in size. Normal upper mediastinal and hilar contour. BONES AND SOFT TISSUES: No acute abnormality. IMPRESSION: No acute abnormality. WSN: [id number] Ordering Physician: Goldie Reese Dictated By: Yovanny Escobar MD Dictated Date/Time: 10/31/20 8:43 pm Reviewed By: Yovanny Escobar MD Signed By: Yovanny Escobar MD Signed Date/Time: 10/31/20 8:43 pm Transcribed By: MIKALA Transcribed Date/Time: 10/31/20 8:43 pm Vital Signs Most recent to oldest [Reference Range]: 1 2 3 Height 173 cm (11/10/20 7:39 AM) 173 cm (11/10/20 3:58 AM) 173 cm (11/09/20 11:13 PM) Weight 100.0 kg (11/08/20 6:22 AM) 101.1 kg (11/07/20 7:02 AM) 103.6 kg (11/05/20 8:00 AM) Oxygen Saturation [94-100 %] 99 % (11/10/20 7:39 AM) 96 % (11/10/20 3:58 AM) 99 % (11/09/20 11:13 PM) Pulse Rate [55-90 bpm] 84 bpm (11/10/20 8:50 AM) 84 bpm (11/10/20 7:39 AM) 66 bpm (11/10/20 3:58 AM) Body Mass Index [18.5-24.99] 34.62 *>HHI* (11/05/20 8:00 AM) 34.18 *>HHI* (11/02/20 2:39 PM) 34.48 *>HHI* (11/01/20 1:08 AM) Blood Pressure [90-138/55-84 mm Hg] 134/81mm Hg (11/10/20 8:50 AM) 134/81mm Hg (11/10/20 7:39 AM) 137/64mm Hg (11/10/20 3:58 AM) Respiratory Rate [16-30 br/min] 18 br/min (11/10/20 7:39 AM) 18 br/min (11/10/20 3:58 AM) 18 br/min (11/09/20 11:13 PM) Temperature [96.8-100.4 DegF] 98.7 DegF (11/10/20 7:39 AM) 98 DegF (11/10/20 3:58 AM) 98.1 DegF (11/09/20 11:13 PM) Liters per Minute 0 L/min (11/01/20 7:58 AM) 0 L/min (10/31/20 6:50 PM) 2 L/min (10/31/20 6:47 PM) Mode of Delivery (Oxygen) Room air (11/10/20 7:39 AM) Room air (11/10/20 3:58 AM) Room air (11/09/20 11:13 PM) Blood pressure sites Arm, left (11/10/20 7:39 AM) Arm, left (11/10/20 3:58 AM) Arm, left (11/09/20 11:13 PM) Temperature Route Oral (11/10/20 7:39 AM) Oral (11/10/20 3:58 AM) Oral (11/09/20 11:13 PM) Weight Obtained Via Bed scale (11/08/20 6:22 AM) Standing scale (11/07/20 7:02 AM) Bed scale (11/03/20 3:58 AM) Social History Social History Type Response Tobacco Use: quit 10 months ago. Sex
--- OUTSIDE RECORDS SUMMARY | 2024-05-14 11:05 | XMS_ITS | Continuity of Care Document ---
Author Organization [facility] Cardiac Kathy sheila Address [address] [place] [phone]- Care Team Providers Care Motor Vehicle License Clerk Name Role Phone Caroline GRIFFIN, Isac Haas Primary Care Physician [phone] [facility] [place] Date(s): 06/17/20 - 07/26/20 [facility] Cardiac Surgery [address] [place] [phone]- Attending Physician: Lolly [place] MD Allergies, Adverse Reactions, Alerts Substance Reaction [...] 06/07/20 13:16:00 EST, Route to Pharmacy Electronically, [facility] #[id number], Partial fill upon patient request if the [...] 0 Refills, Maintenance, 05/22/20 10:29:00 EST, Tablet, [facility], Partial fill upon patient request if the prescription is for a schedule II opioid drug., 174, cm, 05/22/20 8:22:00 EST, He... Start Date: 05/22/20 Status: Ordered clopidogrel 75 mg oral tablet 75 mg, 1, tablet, By Mouth, Daily, # 30 tablet, Refills 0, Tot. Refills 0, Maintenance, 06/07/20 13:16:00 EST, Route to Pharmacy Electronically, [facility] #[id number], Partial fill upon patientrequest if the prescription [...] 06/07/20 13:15:00 EST, Route to Pharmacy Electronically, [facility] #[id number], Partial fill uponpatient request if the prescription is for a schedu... Start Date: 06/07/20 Status: Ordered Milk of Magnesia Liquid 30 mL, By Mouth, Every 8 hours, PRN Constipation, 0 Refills, Maintenance, 06/11/20 11:52:00 EST, Suspension, Partial fill upon patient request if the prescription is for a schedule II opioid drug. Start Date: 06/11/20 Status: Ordered Pen [place], 30 G x 8 mm BD Ultra [...]
--- OUTSIDE RECORDS SUMMARY | 2024-05-14 11:05 | XMS_ITS | Continuity of Care Document ---
Author Organization [facility] Cardiac Kathy sheila Address [address] [place] [phone]- Care Team Providers Care Emission Technician Name Role Phone Sasha CORDERO, Marzena Lee Primary Care Physician Encounter [facility] Date(s): 11/26/20 - 12/03/20 [facility] Cardiac Surgery [address] [place] [phone]- Attending Physician: David Alexandre MD Referring Physician: [...] 0 Refills, Maintenance, 05/22/20 10:29:00 EST, Tablet, [facility], Partial fill upon [...] disease, stag e 3(Confirmed) Active CAD in [place] artery(Confirmed) Active Alzheimer's disease with delusions(Confirmed) Active Dementia(Confirmed) Active GERD (gastroesophageal reflu x disease)(Confirmed) Active S/P CABG x 4(Confirmed) Active Hyperlipidemia(Confirmed) Active Hypertension(Confirmed) Active Sternal wound infection(Confirmed) Active Type 2 diabetes mellitus(Confirmed) Active Social History Social History Type Response Tobacco Use: quit 10 months ago. Sex
--- OUTSIDE RECORDS SUMMARY | 2024-05-14 11:05 | XMS_ITS | Continuity of Care Document ---
Author Organization [facility] ter Address [address] [place] [address]- Care Team Providers Care Adult Basic Education Teacher Name Role Phone Caroline GRIFFIN, Isac Haas Primary Care Physician [place] [facility] [place] - 08/26/[address] [address]- Discharge Disposition: A-Transfer SNF Attending Physician: Lolly Matthews MD Admitting Physician: Blank Estes MD Referring Physician: Not on Staff, Referring [...] opioid drug. Start Date: 06/11/20 Status: Ordered albuterol CFC free 90 mcg/inh [...] 0 Refills, Maintenance, 05/22/20 10:29:00 EST, Tablet, [facility], Partial fill upon patient request if the prescription is for a schedule II opioid drug., 174, cm, 05/22/20 8:22:00 EST, He... Start Date: 05/22/20 Status: Ordered Carafate 1 gm oral tablet 1 Gm, 1, tablet, By Mouth, 3 times a day before meals and bedtime, Refills 0, Maintenance, 08/20/2111:51:00 EST, Partial fill upon patient request if the prescription is for a schedule II opioid drug. Start Date: 08/19/20 Status: Ordered Docusate Sodium Capsule 100 mg, 1, capsule, By Mouth, 2 times a day, Refills 0, Maintenance, 06/11/20 11:51:00 EST, Partialfill upon patient request if the prescription is for a schedule II opioid drug. Start Date: 06/11/20 Status: Ordered Fleet Enema 19 gm-7 gm rectal enema 1 each, Rectally, Once, PRN as needed for constipation, Maintenance, 08/24/20 14:46:00 EST, Enema Start Date: 08/24/20 Status: Ordered folic acid 1 mg oral tablet 1 mg, 1, tablet, By Mouth, Daily, Refills 0, Maintenance, 08/19/20 12:51:00 EST, Partial fill upon patient request if the prescription is for a schedule II opioid drug. Start Date: 08/19/20 Status: Ordered gabapentin 250 mg/5 mL oral solution 1 mL = 50 mg, By Mouth, Daily before dinner, 0 Refills, Maintenance, 08/19/20 12:52:00 EST, Liquid,Partial fill upon patient request if the prescription is for a schedule II opioid drug. Start Date: 08/19/20 Status: Ordered Heparin Inj 1 mL = 5,000 units, Subcutaneous Injection, 3 times a day, 0 Refills, Maintenance, 08/19/20 12:51:00 EST, Injection, Partial fill upon patient request if the prescription is for a schedule II opioid drug. Start Date: 08/19/20 Status: Ordered HydroCORTisone 1% Topical 1 applicator, Topically, 2 times a day, 0 Refills, Maintenance, Cream Start Date: 08/19/20 Status: Ordered hydrOXYzine hydrochloride 10 mg oral tablet 1 tablet = 10 mg, By Mouth, 4 times a day, PRN Agitation, and itchiness, 0 Refills, Maintenance, 08/19/20 12:51:00 EST, Tablet, Partial fill upon patient request if the prescription is for a scheduleII opioid drug. Start Date: 08/19/20 Status: Ordered Insulin Lispro 10-18 units, Subcutaneous Injection, 3 times a day before meals, << Sliding Scale Comments >> 100 - 149 10 units Call if less than 100 150 - 199 12 units 200 - 249 14 units 250 - 299 16 units 300 - 349 18 units Call if greater than 4... Start Date: 08/26/20 Status: Ordered Lantus Inj 0.26 mL = 26 units, Subcutaneous Injection, Daily before dinner, 0 Refills, Maintenance, 08/26/20 13:45:00 EST, Injection, Partial fill upon patient request if the prescription is for a schedule II opioid drug. Start Date: 08/26/20 Status: Ordered Maalox Plus Liquid 15 mL, By Mouth, Every 6 hours, PRN Dyspepsia, 0 Refills, Maintenance, 06/11/20 11:51:00 EST, Suspension, Partial fill upon patient request if the prescription is for a schedule II opioid drug. Start Date: 06/11/20 Status: Ordered metoprolol 25 mg oral tablet 25 mg, Tablet, By Mouth, 08/26/20 9:00:00 EST Start Date: 08/26/20 Stop Date: 08/26/20 Status: Completed metoprolol 25 mg oral tablet 25 mg, 1, tablet, By Mouth, 2 times a day, Refills 0, Maintenance, 08/19/20 12:50:00 EST, Partial fill upon patient request if the prescription is for a schedule II opioid drug. Start Date: 08/19/20 Status: Ordered Miconazole 2% Topical Ointment 1 applicator, Topically, Daily, 0 Refills, Maintenance, Ointment Start Date: 08/19/20 Status: Ordered Milk of Magnesia Liquid 30 mL, By Mouth, Every 8 hours, PRN Constipation, 0 Refills, Maintenance, 06/11/20 11:52:00 EST, Suspension, Partial fill upon patient request if the prescription is for a schedule II opioid drug. Start Date: 06/11/20 Status: Ordered Multivitamin Tablet 1 tablet, By Mouth, Daily, Maintenance, 08/24/20 14:50:00 EST, Tablet Start Date: 08/24/20 Status: Ordered Namenda 5 mg oral tablet 1 tablet = 5 mg, By Mouth, 2 times a day before breakfast and dinne, 0 Refills, Maintenance, 08/26/20 13:46:00 EST, Tablet, Partial fill upon patient request if the prescription is for a schedule II opioid drug. Start Date: 08/26/20 Status: Ordered Nystatin Powder 1 applicator, Topically, 2 times a day, 0 Refills, Maintenance, Powder Start Date: 08/19/20 Status: Ordered olanzapine 2.5 mg oral tablet 2.5 mg, 1, tablet, By Mouth, Daily at bedtime, PRN, Refills 0, Maintenance, Agitation, 08/19/20 12:51:00 EST, Partial fill upon patient request if the prescription is for a schedule II opioid drug. Start Date: 08/19/20 Status: Ordered Pen [place], 30 G x 8 mm BD Ultra Fine II See Instructions, # 100 each, Refills 5, Tot. Refills 5, Maintenance, use as directed for Type 2 Diabetes Mellitus, 06/07/20 13:19:00 EST, Supply, 174, cm, 06/07/20 12:34:00 EST, Height, 113.9, kg, 06/02/20 9:14:00 EST, Dry Weight Start Date: 06/07/20 Stop Date: 12/04/20 Status: Ordered tamsulosin 0.4 mg oral capsule 0.8 mg, 2, capsule, By Mouth, Daily at bedtime, Refills 0, Maintenance, 08/19/20 12:50:00 EST, Partial fill upon patient request if the prescription is for a schedule II opioid drug. Start Date: 08/19/20 Status: Ordered thiamine 100 mg oral tablet 100 mg, 1, tablet, By Mouth, Daily, Refills 0, Maintenance, 08/19/20 12:52:00 EST, Partial fill upon patient request if the prescription is for a schedule II opioid drug. Start Date: 08/19/20 Status: Ordered Vitamin C 500 mg oral tablet 2 tablet = 1,000 mg, By Mouth, Daily, 0 Refills, Maintenance, 08/19/20 12:51:00 EST, Tablet, Partial fill upon patient request if the prescription is for a schedule II opioid drug. Start Date: 08/19/20 Status: Ordered zinc sulfate 220 mg oral capsule 220 mg, 1, capsule, By Mouth, Daily, Refills 0, Maintenance, 08/19/20 12:52:00 EST, Partial fill upon patient request if the prescription is for a schedule II opioid drug. Start Date: 08/19/20 Status: Ordered Problem List Condition Effective Dates Status Health Status Inform ant Chronic kidney disease, stag e 3(Confirmed) Active Alzheimer's disease with delusions(Confirmed) Active Dementia(Confirmed) Active S/P CABG x 4(Confirmed) Active Hypertension(Confirmed) Active Type 2 diabetes mellitus(Confirmed) Active Results Radiology Reports * Exam Date Time Procedure Performing Provider Status 08/24/20 12:51 AM Chest 2 Views Frontal and Lat Kayden Rubio (Verified) Notes: (Chest 2 Views Frontal and Lat) Reason For Exam: Pain;Other: RESULT: Chest 2 Views Frontal and Lat AP and lateral chest x-ray dated August 24, 2020. Comparison films are from July 29, 2020. HISTORY: Pain. FINDINGS: The cardiac silhouette is increased in size and is unchanged in the prior study. The patient is status post median sternotomy. Since the previous examination, a right-sided chest tube has been removed. A spinal stimulator is present. It extends to the level of T8. No airspace infiltrate or pleural effusion is identified. Minimal elevation of left diaphragm is stable. IMPRESSION: No evidence of acute pulmonary disease and no significant interval change. Examination 39598. Thank you for allowing me to participate in the care of this patient. WSN: [id number] Ordering Physician: Ashley Macedo Dictated By: Paco Guadarrama MD Dictated Date/Time: 08/24/20 7:28 am Reviewed By: Paco Guadarrama MD Signed By: Paco Guadarrama MD Signed Date/Time: 08/24/20 7:28 am Transcribed By: MIKALA Transcribed Date/Time: 08/24/20 7:28 am * Exam Date Time Procedure Performing Provider Status 08/24/20 12:51 AM Shoulder Min 2 Views Right Kayden Rubio (Verified) Notes: (Shoulder Min 2 Views Right) Reason For Exam: with Pain;Trauma RESULT: Shoulder Min 2 Views Right Right shoulder 2 views dated August 24, 2020. Comparison films are from July 10, 2020. HISTORY: Pain. FINDINGS: This examination shows no evidence of fracture or dislocation. Joint spaces are well preserved. Partially imaged are median sternotomy closure devices and a spinal stimulator. IMPRESSION: No evidence of acute osseous abnormality. Examination 03012. Thank you for allowing me to participate in the care of this patient. WSN: [id number] Ordering Physician: Ashley Macedo Dictated By: Paco Guadarrama MD Dictated Date/Time: 08/24/20 7:24 am Reviewed By: Paco Guadarrama MD Signed By: Paco Guadarrama MD Signed Date/Time: 08/24/20 7:24 am Transcribed By: MIKALA Transcribed Date/Time: 08/24/20 7:24 am * Exam Date Time Procedure Performing Provider Status 08/24/20 12:51 AM Humerus Min 2 Views Right Keyla Rubio; Avtar (Verified) Notes: (Humerus Min 2 Views Right) Reason For Exam: with Pain;Trauma RESULT: Humerus Min 2 Views Right Right humerus 2 views dated August 24, 2020. No comparison studies available. HISTORY: Pain. FINDINGS: This examination shows no evidence of fracture or dislocation. In the cortex of the righthumerus this is just distal to the midpoint of the humerus and best seen posteriorly. No radiopaqueforeign body or soft tissue gas is seen. IMPRESSION: No evidence of acute osseous abnormality. Small lucency in the cortex. 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 Other etiologies including multiple myeloma could not be completely excluded. Examination 64287. Thank you for allowing me to participate in the care of this patient. WSN: [id number] Ordering Physician: Ashley Macedo Dictated By: Paco Guadarrama MD Dictated Date/Time: 08/24/20 7:22 am Reviewed By: Paco Guadarrama MD Signed By: Paco Guadarrama MD Signed Date/Time: 08/24/20 7:22 am Transcribed By: MIKALA Transcribed Date/Time: 08/24/20 7:21 am * Exam Date Time Procedure Performing Provider Status 08/24/20 12:51 AM Wrist Comp Min 3 Views Right Kayden Rubio (Verified) Notes: (Wrist Comp Min 3 Views Right) Reason For Exam: with Pain;Trauma RESULT: Wrist Comp Min 3 Views Right Right wrist 3 views dated August 24, 2020. No prior studies are available. HISTORY: Pain. FINDINGS: This examination shows no evidence of fracture or dislocation. Joint spaces are fairly well-preserved. No radiopaque foreign body or soft tissue gas is identified. IMPRESSION: No evidence of acute osseous abnormality. Examination 15603. Thank you for allowing me to participate in the care of this patient. WSN: [id number] Ordering Physician: Ashley Macedo Dictated By: Paco Guadarrama MD Dictated Date/Time: 08/24/20 7:21 am Reviewed By: Paco Guadarrama MD Signed By: Paco Guadarrama MD Signed Date/Time: 08/24/20 7:21 am Transcribed By: MIKALA Transcribed Date/Time: 08/24/20 7:21 am Vital Signs Most recent to oldest [Reference Range]: 1 2 3 Height 174 cm (08/26/20 11:52 AM) 174 cm (08/26/20 8:23 AM) 174 cm (08/26/20 3:34 AM) Weight 99.5 kg (08/26/20 3:35 AM) 101.6 kg (08/25/20 6:41 PM) 101.6 kg (08/25/20 5:53 AM) Oxygen Saturation [94-100 %] 97 % (08/26/20 11:52 AM) 97 % (08/26/20 8:23 AM) 98 % (08/26/20 3:34 AM) Pulse Rate [55-90 bpm] 87 bpm (08/26/20 11:52 AM) 93 bpm *H* (08/26/20 8:50 AM) 93 bpm *H* (08/26/20 8:23 AM) Body Mass Index [18.5-24.99] 33.56 *>HHI* (08/25/20 6:41 PM) Blood Pressure [90-138/55-84 mm Hg] 126/77mm Hg (08/26/20 11:52 AM) 117/70mm Hg (08/26/20 8:50 AM) 117/70mm Hg (08/26/20 8:23 AM) Respiratory Rate [16-30 br/min] 18 br/min (08/26/20 11:52 AM) 18 br/min (08/26/20 8:23 AM) 18 br/min (08/26/20 3:34 AM) Temperature [96.8-100.4 DegF] 98.1 DegF (08/26/20 11:52 AM) 98.7 DegF (08/26/20 8:23 AM) 98.2 DegF (08/26/20 3:34 AM) Mode of Delivery (Oxygen) Room air (08/26/20 11:52 AM) Room air (08/26/20 8:23 AM) Room air (08/26/20 3:34 AM) Blood pressure sites Arm, left (08/26/20 11:52 AM) Arm, left (08/26/20 8:23 AM) Arm, left (08/26/20 3:34 AM) Temperature Route Oral (08/26/20 11:52 AM) Oral (08/26/20 8:23 AM) Oral (08/26/20 3:34 AM) Dry Weight 118 kg (08/25/20 6:41 PM) Weight Obtained Via Bed scale (08/26/20 3:35 AM) Bed scale (08/25/20 5:53 AM) Social History Social History Type Response Tobacco Use: quit 10 months ago. Sex
--- OUTSIDE RECORDS SUMMARY | 2024-05-14 11:05 | XMS_ITS | Continuity of Care Document ---
Author Organization [facility] sheila Address [address] [address]- Care Team Providers Care Gift Consultant Name Role Phone Isac Velazquez MD Primary Care Physician Encounter [facility] [place] Date(s): 09/03/20 - 09/10/20 [facility] [address] [address]- Attending Physician: Lolly Matthews MD Referring Physician: Isac Velazquez MD Allergies, [...] 0 Refills, Maintenance, 05/22/20 10:29:00 EST, Tablet, [facility], Partial fill upon patient [...] drug. Start Date: 08/19/20 Status: Ordered Pen [place], 30 G x 8 mm BD Ultra [...]
--- OUTSIDE RECORDS SUMMARY | 2024-05-14 11:05 | XMS_ITS | Continuity of Care Document ---
Author Organization [facility] sheila Address [address] [place] [phone]- Care Team Providers Care Office Equipment Technician Name Role Phone Sasha CORDERO, Marzena Lee Primary Care Physician Encounter [facility] [place] Date(s): 06/02/21 - 06/09/21 [facility] [address] [place] [id number] Attending Physician: Lolly Matthews MD Referring Physician: Sasha CORDERO, Marzena Lee Allergies, [...] 0 Refills, Maintenance, 05/22/20 10:29:00 EST, Tablet, [facility], Partial fill upon patient request [...] disease, stag e 3(Confirmed) Active CAD in [place] artery(Confirmed) Active Alzheimer's disease with delusions(Confirmed) Active Dementia(Confirmed) Active GERD (gastroesophageal reflu x disease)(Confirmed) Active S/P CABG x 4(Confirmed) Active Hyperlipidemia(Confirmed) Active Hypertension(Confirmed) Active Sternal wound infection(Confirmed) Active Obese class II(Confirmed) Active Type 2 diabetes mellitus(Confirmed) Active Vital Signs Most recent to oldest [Reference Range]: 1 Blood Pressure [90-138/55-84 mm Hg] 136/ 78mm Hg (06/02/21 8:38 AM) Social History Social History Type Response Tobacco Use: quit 10 months ago. Sex
--- OUTSIDE RECORDS SUMMARY | 2024-05-14 11:05 | XMS_ITS | Continuity of Care Document ---
Author Organization [facility] Kathy sheila Address [address] [place] [phone]- Care Team Providers Care Board Certified Family Physician Name Role Phone Sasha CORDERO, Marzena Lee Primary Care Physician Encounter [facility] [place] Date(s): 11/24/20 - 01/06/21 [facility] [address] [place] [address]- Attending Physician: Moose Alonzo MD Referring Physician: Sasha CORDERO, Marzena Lee [...] 0 Refills, Maintenance, 05/22/20 10:29:00 EST, Tablet, [facility], Partial fill upon patient [...] disease, stag e 3(Confirmed) Active CAD in [place] artery(Confirmed) Active Alzheimer's disease with delusions(Confirmed) Active Dementia(Confirmed) Active GERD (gastroesophageal reflu x disease)(Confirmed) Active S/P CABG x 4(Confirmed) Active Hyperlipidemia(Confirmed) Active Hypertension(Confirmed) Active Sternal wound infection(Confirmed) Active Type 2 diabetes mellitus(Confirmed) Active Social History Social History Type Response Tobacco Use: quit 10 months ago. Sex
--- OUTSIDE RECORDS SUMMARY | 2024-05-14 11:05 | XMS_ITS | Continuity of Care Document ---
Author Organization [facility] ter Address [address] [place] [address]- Care Team Providers Care Tattooer Name Role Phone Sasha CORDERO, Marzena Lee Primary Care Physician Encounter [facility] [place] Date(s): 11/02/21 - 11/12/[address] [address]- Discharge Disposition: A-Transfer SNF Attending Physician: Carmita Olmos MD Admitting Physician: Becky GRIFFIN, Deepali Referring Physician: Not on Staff, Referring MD Allergies, Adverse Reactions, Alerts Substance Reaction Severity Status Percocet 1 Persistent Moderate Acti ve 1Rash Immunizations Not Given Vaccine Date Status Refusal Reason SARS-CoV-2 (COVID-19) [id number] vaccine 11/03/21 N ot Given Patient Refuses [...] EST, Tablet, [facility], Partial fill upon patient request [...] oral tablet 25 mg, Tablet, By Mouth, Hold for: bp< 100, hr < 60, 11/12/21 9:00:00 EDT Start Date: 11/12/21 Stop Date: 11/12/21 Status: Completed metoprolol 25 mg oral tablet 25 mg, 1, tablet, By Mouth, 2 times a day, Refills 0, Maintenance, 08/19/20 12:50:00 EST Start Date: 08/19/20 Status: Ordered metoprolol 25 mg oral tablet 25 mg, Tablet, By Mouth, Hold for: bp< 100, hr < 60, 11/11/21 21:00:00 EDT Start Date: 11/11/21 Stop Date: 11/11/21 Status: Completed Multivitamin Tablet 1 tablet, By [...] disease, stag e 3(Confirmed) Active CAD in [place] artery(Confirmed) Active Alzheimer's disease with delusions(Confirmed) Active Dementia(Confirmed) Active GERD (gastroesophageal reflu x disease)(Confirmed) Active S/P CABG x 4(Confirmed) Active Hyperlipidemia(Confirmed) Active Hypertension(Confirmed) Active Sternal wound infection(Confirmed) Active Obese class I(Confirmed) Active Type 2 diabetes mellitus(Confirmed) Active Vital Signs Most recent to oldest [Reference Range]: 1 2 3 Height 174 cm (11/12/21 5:00 AM) 174 cm (11/11/21 7:58 PM) 174 cm (11/11/21 10:33 AM) Weight 96.5 kg (11/02/21 11:32 PM) Oxygen Saturation [94-100 %] 98 % (11/12/21 5:00 AM) 97 % (11/11/21 7:58 PM) 99 % (11/11/21 2:00 PM) Pulse Rate [55-90 bpm] 80 bpm (11/12/21 9:47 AM) 61 bpm (11/12/21 5:00 AM) 76 bpm (11/11/21 9:43 PM) Body Mass Index [18.5-24.99] 31.87 *>HHI* (11/02/21 11:32 PM) Blood Pressure [90-138/55-84 mm Hg] 176/81mm Hg *H* (11/12/21 9:47 AM) 139/71mm Hg *H* (11/12/21 5:00 AM) 162/74mm Hg *H* (11/11/21 9:43 PM) Respiratory Rate [16-30 br/min] 18 br/min (11/12/21 5:00 AM) 18 br/min (11/11/21 7:58 PM) 18 br/min (11/11/21 2:00 PM) Temperature [96.8-100.4 DegF] 97.8 DegF (11/12/21 5:00 AM) 98.0 DegF (11/11/21 7:58 PM) 97.8 DegF (11/11/21 2:00 PM) Mode of Delivery (Oxygen) Room air (11/12/21 5:00 AM) Room air (11/11/21 7:58 PM) Room air (11/11/21 2:00 PM) Blood pressure sites Arm, right (11/12/21 5:00 AM) Arm, left (11/11/21 7:58 PM) Arm, right (11/11/21 2:00 PM) Temperature Route Oral (11/12/21 5:00 AM) Oral (11/11/21 7:58 PM) Oral (11/11/21 2:00 PM) Dry Weight 96.5 kg (11/05/21 11:42 PM) 96.5 kg (11/02/21 11:32 PM) Weight Obtained Via Bed scale (11/02/21 11:32 PM) Dry Weight Obtained Via 97.9 (11/02/21 11:32 PM) Social History Social History Type Response Tobacco Use: quit 10 months ago. Sex
--- OUTSIDE RECORDS SUMMARY | 2024-05-14 11:05 | XMS_ITS | Continuity of Care Document ---
Author Organization [facility] Address [address] [place] [address]- Care Team Providers Care Wood Polisher Name Role Phone Sasha CORDERO, Marzena Lee Primary Care Physician Encounter [facility] Date(s): 02/08/21 - 02/09/[address] [address]- Discharge Disposition: A-D/C Home Attending Physician: Carolina Hampton MD Admitting Physician: Carolina Hampton MD Referring Physician: Not on Staff, Referring [...] Refills, Maintenance, 05/22/20 10:29:00 EST, Tablet, [facility], Partial fill upon [...] disease, stag e 3(Confirmed) Active CAD in [place] artery(Confirmed) Active Alzheimer's disease with delusions(Confirmed) Active Dementia(Confirmed) Active GERD (gastroesophageal reflu x disease)(Confirmed) Active S/P CABG x 4(Confirmed) Active Hyperlipidemia(Confirmed) Active Hypertension(Confirmed) Active Sternal wound infection(Confirmed) Active Type 2 diabetes mellitus(Confirmed) Active Vital Signs Most recent to oldest [Reference Range]: 1 2 3 Height 173 cm (02/09/21 7:19 AM) 173 cm (02/09/21 5:09 AM) 173 cm (02/08/21:17 PM) Weight 105 kg (02/08/21: PM) Oxygen Saturation [94-100 %] 98 % (02/09/21 7:19 AM) 99 % (02/09/21 5:09 AM) 95 % (02/08/21: PM) Pulse Rate [55-90 bpm] 82 bpm (02/09/21:19 AM) 78 bpm (02/09/21 5:09 AM) 66 bpm (02/08/21:17 PM) Blood Pressure [90-138/55-84 mm Hg] 137/90mm Hg (02/09/21: AM) 157/86mm Hg *H* (02/09/21 5:09 AM) 166/79mm Hg *H* (02/08/21: PM) Respiratory Rate [16-30 br/min] 16 br/min (02/09/21 7:19 AM) 18 br/min (02/09/21:09 AM) 20 br/min (02/08/21:17 PM) Temperature [96.8-100.4 DegF] 98.6 DegF (02/08/21: PM) Mode of Delivery (Oxygen) Room air (02/09/21 7:19 AM) Room air (02/09/21 5:09 AM) Room air (02/08/21:17 PM) Blood pressure sites Arm, right (02/09/21 7:19 AM) Arm, right (02/09/21:09 AM) Temperature Route Oral (02/08/21 11:17 PM) Dry Weight 105 kg (02/08/21 11:17 PM) Social History Social History Type Response Tobacco Use: quit 10 months ago. Sex
--- OUTSIDE RECORDS SUMMARY | 2024-05-14 11:05 | XMS_ITS | Continuity of Care Document ---
Author Organization [facility] Address [address] [place] [id number]- Care Team Providers Care Front Office Assistant Name Role Phone Sasha CORDERO, Marzena Lee Primary Care Physician Encounter [facility] [place] Date(s): 11/24/20 - 12/24/20 [facility] [address] [place] [id number] Attending Physician: Trent Diaz Admitting Physician: AdmTrent rock Referring Physician: AdmtrTrent Allergies, Adverse Reactions, Alerts Substance Reaction Severity [...] 0 Refills, Maintenance, 05/22/20 10:29:00 EST, Tablet, [facility], Partial fill upon patient [...] disease, stag e 3(Confirmed) Active CAD in [place] artery(Confirmed) Active Alzheimer's disease with delusions(Confirmed) Active Dementia(Confirmed) Active GERD (gastroesophageal reflu x disease)(Confirmed) Active S/P CABG x 4(Confirmed) Active Hyperlipidemia(Confirmed) Active Hypertension(Confirmed) Active Sternal wound infection(Confirmed) Active Type 2 diabetes mellitus(Confirmed) Active Social History Social History Type Response Tobacco Use: quit 10 months ago. Sex
--- OUTSIDE RECORDS SUMMARY | 2024-05-14 11:05 | XMS_ITS | Continuity of Care Document ---
Author Organization [facility] ter Address [address] [place] [id number]- Care Team Providers Care Ground Water Contractor Name Role Phone Negra GRIFFIN, Angie Crump Primary Care Physician [phone] Encounter [facility] Date(s): 05/30/20 - 06/07/[address] [address]- Discharge Disposition: A-D/C Home Attending Physician: Byron GRIFFIN, Lolly Andersen Admitting Physician: Ivette GRIFFIN, Tad Referring Physician: Not on Staff, Referring MD Allergies, Adverse Reactions, Alerts Substance Reaction Severity Status Percocet 5/325 1 Persistent Moderate Acti ve 1Rash Medications acetaminophen 325 mg oral tablet 975 mg, By Mouth, Every 6 hours, for 3 days, # 36 tablet, Refills 0, Tot. Refills 0, Acute 06/10/2013:16:00 EST, 06/07/20 13:16:00 EST, Route to Pharmacy Electronically, [facility] #[id number],Partial fill upon patient request if the prescripti... Start Date: 06/07/20 Stop Date: 06/10/20 Status: Ordered amiodarone 200 mg oral tablet 200 mg, 1, tablet, By Mouth, 2 times a day, # 60 tablet, Refills 0, Tot. Refills 0, Maintenance, 06/07/20 13:16:00 EST, Route to Pharmacy Electronically, [facility] #[id number], Partial fill upon patient request if the [...] Maintenance, 05/22/20 10:29:00 EST, Tablet, [facility], Partial fill upon patient request if the prescription is for a schedule II opioid drug., 174, cm, 05/22/20 8:22:00 EST, He... Start Date: 05/22/20 Status: Ordered clopidogrel 75 mg oral tablet 75 mg, 1, tablet, By Mouth, Daily, # 30 tablet, Refills 0, Tot. Refills 0, Maintenance, 06/07/20 13:16:00 EST, Route to Pharmacy Electronically, [facility] #[id number], Partial fill upon patientrequest if the prescription is for a schedule II op... Start Date: 06/07/20 Status: Ordered Humalog Kwik Pen 100 units/mL [...] tablet 40 mg, 1, tablet, By Mouth, 2 times a day before breakfast and dinne, # 60 tablet, Refills 0, Tot. Refills 0, Maintenance, 06/07/20 13:17:00 EST, Route to Pharmacy Electronically, [facility] #[id number], Partial fill upon patient request if the p... Start Date: 06/07/20 Status: Ordered metoprolol 50 mg oral tablet 50 mg, 1, tablet, By Mouth, 2 times a day, # 60 tablet, Refills 0, Tot. Refills 0, Maintenance, 06/07/20 13:15:00 EST, Route to Pharmacy Electronically, [facility] #[id number], Partial fill uponpatient request if the prescription is for a schedu... Start Date: 06/07/20 Status: Ordered Pen [place], 30 G x 8 mm BD Ultra [...] opioid drug. Start Date: 05/19/20 Status: Ordered traMADol 50 mg oral tablet 1 tablet = 50 mg, By Mouth, Every 6 hours, PRN Pain , Moderate, for 3 days, # 12 tablet, 0 Refills,Acute 06/10/20 13:20:00 EST, 06/07/20 13:20:00 EST, Tablet, [facility] #[id number], Partial fill upon patient request if the prescription is for a... Start Date: 06/07/20 Stop Date: 06/10/20 Status: Ordered Problem List Condition Effective Dates Status Health Status Inform ant Chronic kidney disease, stag e 3(Confirmed) Active Hypertension(Confirmed) Active Type 2 diabetes mellitus(Confirmed) Active Results Radiology Reports * Exam Date Time Procedure Performing Provider Status 06/03/20 6:20 AM Chest Portable Yanique Jeff; Au th (Verified) Notes: (Chest Portable) Reason For Exam: S/P Cardiac Surgery RESULT: Chest Portable Chest Portable INDICATION: S/p gastric surgery COMPARISON: 06/02/2020 FINDINGS: LINES AND TUBES: Right IJ [place] catheter tip overlies the main pulmonary outflow tract. Left- sided chest tube unchanged. Interval removal of the enteric and endotracheal tubes. LUNGS AND PLEURA: Low lung volumes with persistent pulmonary vascular congestion and prominent interstitial markings.Increased hazy bibasilar opacities. Persistent linear discoid atelectasis in the left lower lung. No pleural effusion. No pneumothorax. HEART, MEDIASTINUM AND CEE: Evidence of cardiac surgery. Heart is normal in size. Normal upper mediastinal and hilar contour. BONES AND SOFT TISSUES: No acute abnormality. A spinal stimulator overlies the mid thoracic spine. Median sternotomy hardware is present. IMPRESSION: 1. Persistent mild interstitial edema. Site worsening of bibasilar hazy airspace opacities. 2. Evidence of cardiac surgery. 3. [place] catheter and left chest tube are unchanged. Interval removal of enteric and endotracheal tubes. I have personally reviewed the images and I agree with this report. WSN: [id number] Ordering Physician: Corky Mccracken Dictated By: Deanne Gaviria MD Dictated Date/Time: 06/03/20 9:23 am Reviewed By: Hawk Blancas MD Signed By: Hawk Blancas MD Signed Date/Time: 06/03/20 9:28 am Transcribed By: MIKALA Transcribed Date/Time: 06/03/20 9:15 am * Exam Date Time Procedure Performing Provider Status 06/02/20 6:00 PM Chest Portable Yovanny Ennis; Auth (V erified) Notes: (Chest Portable) Reason For Exam: S/P Cardiac Surgery RESULT: Chest Portable Chest Portable Reason: S P Cardiac Surgery; Clinical Question(s): Other:; Cardiac Tamponade; Special Instructions:On Admission to [facility] COMPARISON: 05/29/2020 FINDINGS: LINES AND TUBES: Endotracheal tube terminates 2.6 cm above racheal. Right central venous sheath with [place] catheter in place. Enteric tube terminates beyond the GE junction. Partially imaged epidural stimulator terminates over the T7-T9 level. Left-sided chest tube terminates lateral mid hemithorax. Line coursing over the left clavicular region may represent a left-sided central venous catheter. LUNGS AND PLEURA: Low lung volume with prominent central pulmonary vascular markings. Consolidation of the medial lower lungs. No pleural effusion. No pneumothorax. HEART, MEDIASTINUM AND CEE: Postsurgical changes consistent with recent cardiac surgery. BONES AND SOFT TISSUES: Median sternotomy. Soft tissue emphysema left lateral chest wall. IMPRESSION: 1. Support lines and tubes appear well-positioned as above. 2. Postsurgical changes consistent with cardiac surgery. 3. Suspect mild lower lobe atelectasis bilaterally and mild pulmonary vascular congestion. No pneumothorax. WSN: [id number] Ordering Physician: Corky Mccracken Dictated By: Compa Flores DO Dictated Date/Time: 06/02/20 6:08 pm Reviewed By: Compa Flores DO Signed By: Compa Flores DO Signed Date/Time: 06/02/20 6:08 pm Transcribed By: MIKALA Transcribed Date/Time: 06/02/20 6:04 pm * Exam Date Time Procedure Performing Provider Status 06/01/20 4:10 PM Knee 1 or 2 Views Right Phyllis White er; Auth (Verified) Notes: (Knee 1 or 2 Views Right) Reason For Exam: Pain RESULT: Knee 1 or 2 Views Right Knee 1 or 2 Views Right, views Reason: Pain; Clinical Question(s): Fracture COMPARISON: None. FINDINGS: There is no evidence of acute or healing or dislocation. There is a ridgelike bony protuberances from the posterior aspect of the distal femoral metadiaphysis measuring 7 cm craniocaudal and protruding 1.8 cm posterior to the expected cortical margin, with well-defined bony contours, consistent with an exostosis. No arthritic changes. No osteochondral defects or intra-articular loose bodies. No evidence of joint effusion. There appears to be soft tissue swelling of the knee anteriorly. There are several ovoid calcific densities in the soft tissues just superficial to the distal quadriceps tendon, probably incidental calcifications as there is no soft tissue gas to suggest laceration. Mild arterial calcification. IMPRESSION: No evidence of bone injury. Exostosis at the posterior aspect of the distal femur. Anterior soft tissue swelling. 3 small well-defined calcific densities project anterior to the distal quadriceps tendon, probably incidental soft tissue calcifications, correlate clinically to exclude foreign matter. WSN: [id number] Ordering Physician: Dima Joy Dictated By: Bobby Alvarez MD Dictated Date/Time: 06/01/20 5:17 pm Reviewed By: Bobby Alvarez MD Signed By: Bobby Alvarez MD Signed Date/Time: 06/01/20 5:17 pm Transcribed By: MIKALA Transcribed Date/Time: 06/01/20 5:12 pm * Exam Date Time Procedure Performing Provider Status 06/01/20 4:10 PM Knee 1 or 2 Views Left Christopher , Delmafe r; Auth (Verified) Notes: (Knee 1 or 2 Views Left) Reason For Exam: Pain RESULT: Knee 1 or 2 Views Left Knee 2 Views Left, 2 views Reason: Pain; Clinical Question(s): Fracture FINDINGS: No fracture or dislocation. Total knee prosthesis seen, all components in typical location. IMPRESSION: Unremarkable postoperative study. WSN: [id number] Ordering Physician: Dima Joy Dictated By: Jarrett Florez MD Dictated Date/Time: 06/01/20 4:13 pm Reviewed By: Jarrett Florez MD Signed By: Jarrett Florez MD Signed Date/Time: 06/01/20 4:13 pm Transcribed By: MIKALA Transcribed Date/Time: 06/01/20 4:12 pm * Exam Date Time Procedure Performing Provider Status 05/29/20 1:00 PM Chest 2 Views Frontal and Lat Guillermina z , Yojana; Auth (Verified) Notes: (Chest 2 Views Frontal and Lat) Reason For Exam: Angina RESULT: Chest 2 Views Frontal and Lat Chest 2 Views Frontal and Lat Hx of Present Illness: Pt c o midsternal chest pain that came on suddenly. COMPARISON: 10/19/17 FINDINGS: LINES AND TUBES: Thoracic spinal stimulator is noted. LUNGS AND PLEURA: Clear lungs. Normal pulmonary vascularity. No pleural effusion. No pneumothorax. HEART, MEDIASTINUM AND CEE: Heart is normal in size. Normal upper mediastinal and hilar contour. BONES AND SOFT TISSUES: No acute abnormality. Diffuse idiopathic skeletal hyperostosis. Multilevel degenerative changes of the thoracic spine. IMPRESSION: No acute abnormality. WSN: [id number] Ordering Physician: Jacquelin Byrd Dictated By: Erasto Oro MD Dictated Date/Time: 05/29/20 1:07 pm Reviewed By: Erasto Oro MD Signed By: Erasto Oro MD Signed Date/Time: 05/29/20 1:07 pm Transcribed By: MIKALA Transcribed Date/Time: 05/29/20 1:06 pm Vital Signs Most recent to oldest [Reference Range]: 1 2 3 Height 174 cm (06/07/20 12:34 PM) 174 cm (06/07/20 7:46 AM) 174 cm (06/07/20 4:10 AM) Weight 119.8 kg (06/07/20 7:03 AM) 119.9 kg (06/06/20 7:16 AM) 120.0 kg (06/05/20 4:06 AM) Oxygen Saturation [94-100 %] 96 % (06/07/20 12:34 PM) 100 % (06/07/20 7:46 AM) 94 % (06/07/20 4:10 AM) Pulse Rate [55-90 bpm] 62 bpm (06/07/20 12:34 PM) 81 bpm (06/07/20 7:46 AM) 71 bpm (06/07/20 4:10 AM) Body Mass Index [18.5-24.99] 37.62 *>HHI* (06/02/20 7:52 AM) 37.62 *>HHI* (06/02/20 3:18 AM) 39.77 *>HHI* (05/31/20 7:38 AM) Blood Pressure [90-138/55-84 mm Hg] 121/49mm Hg (06/07/20 12:34 PM) 133/56mm Hg (06/07/20 7:46 AM) 139/58mm Hg *H* (06/07/20 4:10 AM) Respiratory Rate [16-30 br/min] 18 br/min (06/07/20 12:34 PM) 18 br/min (06/07/20 7:46 AM) 18 br/min (06/07/20 4:10 AM) Temperature [96.8-100.4 DegF] 98.3 DegF (06/07/20 12:34 PM) 97.9 DegF (06/07/20 7:46 AM) 98.7 DegF (06/07/20 4:10 AM) Liters per Minute 2 L/min (06/05/20 3:30 PM) 2 L/min (06/05/20 11:20 AM) 2 L/min (06/05/20 4:06 AM) Mode of Delivery (Oxygen) Room air (06/07/20 12:34 PM) Room air (06/07/20 7:46 AM) Room air (06/07/20 4:10 AM) Blood pressure sites Arm, right (06/07/20 12:34 PM) Arm, right (06/07/20 7:46 AM) Arm, right (06/07/20 4:10 AM) Temperature Route Oral (06/07/20 12:34 PM) Oral (06/07/20 7:46 AM) Axillary (06/07/20 4:10 AM) Dry Weight 113.9 kg (06/02/20 7:52 AM) 120.4 kg (05/31/20 7:38 AM) 120.4 kg (05/29/20 8:43 PM) Weight Obtained Via Bed scale (06/03/20 4:14 AM) Social History Social History Type Response Smoking Status Former smoker entered on: 10/18/17 Sex
--- OUTSIDE RECORDS SUMMARY | 2024-05-14 11:05 | XMS_ITS | Continuity of Care Document ---
Author Organization [facility] Address [address] [place] [address]- Care Team Providers Care Application Engineer Name Role Phone Sasha CORDERO, Marzena Lee Primary Care Physician Encounter [facility] Date(s): 10/16/20 - 12/06/20 [facility] [address] [place] [address] Attending Physician: Fidencio Courtney MD Admitting Physician: Fidencio Courtney MD Referring Physician: Marzena Baez NP Allergies, [...] 0 Refills, Maintenance, 05/22/20 10:29:00 EST, Tablet, [facility], Partial fill upon patient [...] disease, stag e 3(Confirmed) Active CAD in [place] artery(Confirmed) Active Alzheimer's disease with delusions(Confirmed) Active Dementia(Confirmed) Active GERD (gastroesophageal reflu x disease)(Confirmed) Active S/P CABG x 4(Confirmed) Active Hyperlipidemia(Confirmed) Active Hypertension(Confirmed) Active Sternal wound infection(Confirmed) Active Type 2 diabetes mellitus(Confirmed) Active Social History Social History Type Response Tobacco Use: quit 10 months ago. Sex
--- OUTSIDE RECORDS SUMMARY | 2024-05-14 11:05 | XMS_ITS | Continuity of Care Document ---
Author Organization [facility] Address [address] [place] [address]- Care Team Providers Care Wax Pattern Coater Name Role Phone Sasha CORDERO, Marzena Lee Primary Care Physician Encounter [facility] Date(s): 02/25/21 - 06/25/21 [facility] [address] [place] [address]- Attending Physician: Ran Reyes MD Admitting Physician: Ran Reyes MD Referring Physician: Marzena Baez NP Allergies, [...] 0 Refills, Maintenance, 05/22/20 10:29:00 EST, Tablet, [facility], Partial fill upon patient [...] disease, stag e 3(Confirmed) Active CAD in [place] artery(Confirmed) Active Alzheimer's disease with delusions(Confirmed) Active Dementia(Confirmed) Active GERD (gastroesophageal reflu x disease)(Confirmed) Active S/P CABG x 4(Confirmed) Active Hyperlipidemia(Confirmed) Active Hypertension(Confirmed) Active Sternal wound infection(Confirmed) Active Obese class II(Confirmed) Active Type 2 diabetes mellitus(Confirmed) Active Social History Social History Type Response Tobacco Use: quit 10 months ago. Sex
--- OUTSIDE RECORDS SUMMARY | 2024-05-14 11:05 | XMS_ITS | Continuity of Care Document ---
Author Organization [facility] ter Address [address] [place] [address]- Care Team Providers Care Wood Milling Machine Tender Name Role Phone Zachary Agarwal DO Primary Care Physician Encounter [facility] Date(s): 08/01/19 - 08/01/[address] [address]- [facility] Attending Physician: Minesh Scott MD Allergies, Adverse Reactions, Alerts Substance Reaction Severity Status Percocet 5/325 1 Persistent Moderate Acti ve 1Rash Medications aspirin 81 mg oral tablet 1 tablet = 81 mg, By Mouth, Daily, # 30 tablet, 0 Refills, Maintenance, 10/19/17 17:15:08 EDT, Tablet Start Date: 10/19/17 Status: Ordered CoQ10 = 200 mg, By Mouth, Daily, 0 Refills, Maintenance, 10/19/17 17:15:25 EDT Start Date: 10/19/17 Status: Ordered fentaNYL 50 mcg/hr transdermal film, extended release 1 patch, Topically, Every 72 hours, 0 Refills, Maintenance, 10/19/17 5:02:54 EDT, Patch Start Date: 10/19/17 Status: Ordered furosemide 20 mg oral tablet 20 mg, 1, tablet, By Mouth, Daily, # 30 tablet, Refills 0, Maintenance, 10/19/17 5:02:46 EDT Start Date: 10/19/17 Status: Ordered insulin glargine 100 u/ml subcutaneous solution = 30 units, Subcutaneous Injection, Daily at bedtime, 0 Refills, Maintenance, 10/22/17 12:25:59 EDT, Injection Start Date: 10/22/17 Status: Ordered lisinopril 10 mg oral tablet 10 mg, 1, tablet, By Mouth, Daily, # 30 tablet, Refills 0, Maintenance, 10/19/17 5:02:38 EDT Start Date: 10/19/17 Status: Ordered NovoLog Inj Subcutaneous Infusion, 3 times a day before meals, 0 Refills, Maintenance, 10/18/17 21:30:58 EDT Start Date: 10/18/17 Status: Ordered tamsulosin 0.4 mg oral capsule 0.4 mg, By Mouth, Daily, # 30 tablet, Refills 0, Tot. Refills 0, Maintenance, 10/22/17 12:42:12 EDT, Print Requisition Start Date: 10/22/17 Status: Ordered Vitamin D3 oral tablet 1 tablet = 400 International_Units, By Mouth, Daily, # 30 tablet, 0 Refills, Maintenance, 10/19/17 17:16:11 EDT, Tablet Start Date: 10/19/17 Status: Ordered Walker See Instructions, # 1 units, Maintenance, Impaired mobility, impaired balance, impaired safety, difficulty walking, 10/22/17 13:02:42 EDT, Compound Start Date: 10/22/17 Status: Ordered Wheelchair See Instructions, # 1 units, Maintenance, Impaired mobility, impaired balance, impaired safety, difficulty walking, 10/22/17 13:02:49 EDT, Compound Start Date: 10/22/17 Status: Ordered Social History Social History Type Response Smoking Status Former smoker entered on: 10/18/17 Sex
--- OUTSIDE RECORDS SUMMARY | 2024-05-14 11:05 | XMS_ITS | Continuity of Care Document ---
Author Organization [facility] she[facility] Address [address] [place] [address]- Care Team Providers Care Consumer Affairs Specialist Name Role Phone Isac Velazquez MD Primary Care Physician [place] [facility] Date(s): 05/27/20 - 06/26/20 [facility] [address] [address]- Allergies, Adverse Reactions, Alerts Substance Reaction Severity [...] 06/07/20 13:16:00 EST, Route to Pharmacy Electronically, [facility] #[id number], Partial fill upon patient request if the [...] 0 Refills, Maintenance, 05/22/20 10:29:00 EST, Tablet, [facility], Partial fill upon patient request if the prescription is for a schedule II opioid drug., 174, cm, 05/22/20 8:22:00 EST, He... Start Date: 05/22/20 Status: Ordered clopidogrel 75 mg oral tablet 75 mg, 1, tablet, By Mouth, Daily, # 30 tablet, Refills 0, Tot. Refills 0, Maintenance, 06/07/20 13:16:00 EST, Route to Pharmacy Electronically, [facility] #[id number], Partial fill upon patientrequest if the prescription [...] 06/07/20 13:15:00 EST, Route to Pharmacy Electronically, [facility] #[id number], Partial fill uponpatient request if the prescription is for a schedu... Start Date: 06/07/20 Status: Ordered Milk of Magnesia Liquid 30 mL, By Mouth, Every 8 hours, PRN Constipation, 0 Refills, Maintenance, 06/11/20 11:52:00 EST, Suspension, Partial fill upon patient request if the prescription is for a schedule II opioid drug. Start Date: 06/11/20 Status: Ordered Pen [place], 30 G x 8 mm BD Ultra [...]
--- OUTSIDE RECORDS SUMMARY | 2024-05-14 11:06 | XMS_ITS | Continuity of Care Document ---
Author Organization [facility] Address [address] [place] [address]- Care Team Providers Care Senior Radiation Protection Technician Name Role Phone Sasha CORDERO, Marzena Lee Primary Care Physician Encounter [facility] Date(s): 10/06/20 - 10/07/[address] [address]- Encounter Diagnosis Sternal wound infection(Final) - 10/06/20 Discharge Disposition: [facility] Attending Physician: Nhan Hurd MD Admitting Physician: Nhan Hurd MD Referring Physician: Not on Staff, Referring MD Allergies, Adverse Reactions, Alerts Substance Reaction Severity Status Percocet 5/325 1 Persistent Moderate Acti ve 1Rash Medications albuterol CFC free 90 mcg/inh inhalation aerosol [...] 0 Refills, Maintenance, 05/22/20 10:29:00 EST, Tablet, [facility], Partial fill upon patient request if the prescription is for a schedule II opioid drug., 174, cm, 05/22/20 8:22:00 EST, He... Start Date: 05/22/20 Status: Ordered Carafate 1 gm oral tablet 1 Gm, 1, tablet, By Mouth, 4 times a day, Refills 0, Maintenance, 08/19/20 12:51:00 EST Start Date: 08/19/20 Status: Ordered folic acid 1 mg oral tablet 1 mg, 1, tablet, By Mouth, Daily, Refills 0, Maintenance, 08/19/20 12:51:00 EST Start Date: 08/19/20 Status: Ordered gabapentin 250 mg/5 mL oral solution 1 mL = 50 mg, By Mouth, Daily before dinner, at 5pm, 0 Refills, Maintenance, 08/19/20 12:52:00 EST,Liquid Start Date: 08/19/20 Status: Ordered Lantus Inj = 26 units, Subcutaneous Injection, Daily at bedtime, 0 Refills, Maintenance, 09/28/20 8:59:00 EDT,Injection Start Date: 09/28/20 Status: Ordered metoprolol 25 mg oral tablet 25 mg, 1, tablet, By Mouth, 2 times a day, Refills 0, Maintenance, 08/19/20 12:50:00 EST Start Date: 08/19/20 Status: Ordered Namenda 5 mg oral tablet [...] disease, stag e 3(Confirmed) Active CAD in [place] artery(Confirmed) Active Alzheimer's disease with delusions(Confirmed) Active Dementia(Confirmed) Active GERD (gastroesophageal reflu x disease)(Confirmed) Active S/P CABG x 4(Confirmed) Active Hyperlipidemia(Confirmed) Active Hypertension(Confirmed) Active Type 2 diabetes mellitus(Confirmed) Active Results Orders for Microbiology Reports Name Date Blood Culture 10/06/20 Blood Culture #2 10/06/20 Microbiology Reports TEST:Blood Culture, Second Order STATUS:Unauthenticated BODY SITE: SOURCE:Blood COLLECTED DATE/TIME:10/06/20 10:10 PM Blood Culture, Second Order SPECIMEN DESCRIPTION : BLOOD LAC SPECIAL REQUESTS : NONE CULTURE : NO GROWTH AFTER 24 HOURS REPORT STATUS : PRELIMINARY REPORT TEST:Blood Culture STATUS:Unauthenticated BODY SITE: SOURCE:Blood COLLECTED DATE/TIME:10/06/20 9:50 PM Blood Culture SPECIMEN DESCRIPTION : BLOOD LAC SPECIAL REQUESTS : NONE CULTURE : NO GROWTH AFTER 24 HOURS REPORT STATUS : PRELIMINARY REPORT Vital Signs Most recent to oldest [Reference Range]: 1 2 3 Height 185 cm (10/06/20 7:55 PM) 185 cm (10/06/20 3:36 PM) 185 cm (10/06/20 2:53 PM) Weight 100 kg (10/06/20 7:55 PM) 100 kg (10/06/20 2:53 PM) Oxygen Saturation [94-100 %] 97 % (10/06/20 11:34 PM) 100 % (10/06/20 8:15 PM) 97 % (10/06/20 7:55 PM) Pulse Rate [55-90 bpm] 92 bpm *H* (10/06/20 11:34 PM) 75 bpm (10/06/20 8:15 PM) 76 bpm (10/06/20 7:55 PM) Body Mass Index [18.5-24.99] 29.22 *H* (10/06/20 7:55 PM) Blood Pressure [90-138/55-84 mm Hg] 158/97mm Hg *H* (10/06/20 11:34 PM) 146/75mm Hg *H* (10/06/20 8:15 PM) 152/75mm Hg *H* (10/06/20 7:55 PM) Respiratory Rate [16-30 br/min] 18 br/min (10/06/20 11:34 PM) 18 br/min (10/06/20 8:15 PM) 18 br/min (10/06/20 7:55 PM) Temperature [96.8-100.4 DegF] 97.9 DegF (10/06/20 8:15 PM) 97.2 DegF (10/06/20 5:02 PM) 97.7 DegF (10/06/20 2:45 PM) Mode of Delivery (Oxygen) Room air (10/06/20 11:34 PM) Room air (10/06/20 8:15 PM) Room air (10/06/20 7:55 PM) Blood pressure sites Arm, left (10/06/20 7:55 PM) Arm, left (10/06/20 4:22 PM) Arm, left (10/06/20 3:36 PM) Temperature Route Oral (10/06/20 8:15 PM) Temporal (10/06/20 5:02 PM) Oral (10/06/20 2:45 PM) Dry Weight 100 kg (10/06/20 7:55 PM) 100 kg (10/06/20 2:53 PM) Social History Social History Type Response Tobacco Use: quit 10 months ago. Sex
--- OUTSIDE RECORDS SUMMARY | 2024-05-14 11:06 | XMS_ITS | Continuity of Care Document ---
Author Organization [facility] ter Address [address] [place] [phone]- Care Team Providers Care Metal Furniture Panel Coverer Name Role Phone Not on Staff, PCP Primary Care Physician Unavail able Encounter [facility] [place] Date(s): 06/10/20 - 06/11/[address] [phone]- Encounter Diagnosis CAD (coronary artery disease)(Final) - 06/09/20 Status post cardiac surgery(Final) - 06/09/20 Fluid overload(Final) - 06/09/20 Discharge Disposition: Transfer Alf Care Attending Physician: Lolly Matthews MD Admitting Physician: Lolly Matthews MD Referring Physician: Not on Staff, Referring [...] 06/07/20 13:16:00 EST, Route to Pharmacy Electronically, [id number], Partial fill upon patient request if the prescription is for a sched... Start Date: 06/07/20 Status: Ordered amLODIPine 5 mg oral tablet 5 mg, Tablet, By Mouth, 06/11/20 9:00:00 EST Start Date: 06/11/20 Stop Date: 06/11/20 Status: Completed amLODIPine 5 mg oral tablet 1 tablet [...] Maintenance, 05/22/20 10:29:00 EST, Tablet, [facility], Partial fill upon patient request if the prescription is for a schedule II opioid drug., 174, cm, 05/22/20 8:22:00 EST, He... Start Date: 05/22/20 Status: Ordered clopidogrel 75 mg oral tablet 75 mg, 1, tablet, By Mouth, Daily, # 30 tablet, Refills 0, Tot. Refills 0, Maintenance, 06/07/20 13:16:00 EST, Route to Pharmacy Electronically, [facility] #[id number], Partial fill upon patientrequest if the prescription [...] 06/07/20 13:15:00 EST, Route to Pharmacy Electronically, [facility] #[id number], Partial fill uponpatient request if the prescription is for a schedu... Start Date: 06/07/20 Status: Ordered metoprolol 50 mg oral tablet 50 mg, Tablet, By Mouth, 06/11/20 9:00:00 EST Start Date: 06/11/20 Stop Date: 06/11/20 Status: Completed Milk of Magnesia Liquid 30 mL, By Mouth, Every 8 hours, PRN Constipation, 0 Refills, Maintenance, 06/11/20 11:52:00 EST, Suspension, Partial fill upon patient request if the prescription is for a schedule II opioid drug. Start Date: 06/11/20 Status: Ordered Pen [place], 30 G x 8 mm BD Ultra Fine II See Instructions, # 100 each, Refills 5, Tot. Refills 5, Maintenance, use as directed for Type 2 Diabetes Mellitus, 06/07/20 13:19:00 EST, Supply, 174, cm, 12/20/20 12:34:00 EST, Height, 113.9, kg, 06/02/20 9:14:00 [...] Exam Date Time Procedure Performing Provider Status 06/11/20 9:39 AM Chest Portable Diana Bravo; Auth (Verified) Notes: (Chest Portable) Reason For Exam: Shortness of Breath RESULT: Chest Portable Chest Portable Reason: Shortness of Breath; Clinical Question(s): Pleural Effusion COMPARISON: 06/09/2020 FINDINGS: LINES AND TUBES: Epidural device is present. LUNGS AND PLEURA: Partial atelectasis of both lower lobes, improved. Decreased interstitial edema. Small pleural effusions, decreased since prior. No pneumothorax. HEART, MEDIASTINUM AND CEE: Heart is normal in size. Normal upper mediastinal and hilar contour. BONES AND SOFT TISSUES: No acute abnormality. IMPRESSION: Small pleural effusions and partial atelectasis of the lower lobes, improved. WSN: [id number] Ordering Physician: Aliyah Almendarez Dictated By: Bonita Avila MD Dictated Date/Time: 06/11/20 10:36 a Reviewed By: Bonita Avila MD Signed By: Bonita Avila MD Signed Date/Time: 06/11/20 10:36 am Transcribed By: MIKALA Transcribed Date/Time: 06/11/20 10:35 am * Exam Date Time Procedure Performing Provider Status 06/09/20 11:37 AM Chest Portable Karen Posadas ; Auth (Verified) Notes: (Chest Portable) Reason For Exam: Chest Pain;Other: RESULT: Chest Portable Chest Portable CLINICAL INDICATION: Chest pain. COMPARISON: Chest x-ray, 05/24/2020. FINDINGS: [place]-Andrés catheter has been removed. Intact median sternotomy wires are seen. Spinal stimulator leads are also seen over the mid thoracic spine. The cardiac silhouette is enlarged, unchanged. Mediastinal contour is grossly normal. Lung apices are partially obscured by the patient's chin. Hilar contours are normal. Hazy bibasilar opacity is seen obscuring the diaphragms compatible with layering pleural effusions with adjacent consolidation. There is no CHF or pneumothorax. No acute osseous abnormality is noted. IMPRESSION: Small bilateral pleural effusions with adjacent consolidation, which may represent atelectasis or pneumonia. There is no stable cardiomegaly without congestion. WSN: [id number] Ordering Physician: Surya Daniel Dictated By: Demi George MD Dictated Date/Time: 06/09/20 11:47 a Reviewed By: Demi George MD Signed By: Demi George MD Signed Date/Time: 06/09/20 11:47 am Transcribed By: MIKALA Transcribed Date/Time: 06/09/20 11:46 am Vital Signs Most recent to oldest [Reference Range]: 1 2 3 Height 173 cm (06/11/20 11:42 AM) 173 cm (06/11/20 6:58 AM) 173 cm (06/11/20 3:12 AM) Weight 116.9 kg (06/11/20 3:12 AM) 117.7 kg (06/10/20 8:58 AM) 117.7 kg (06/10/20 4:36 AM) Oxygen Saturation [94-100 %] 96 % (06/11/20 11:42 AM) 99 % (06/11/20 6:58 AM) 96 % (06/11/20 3:12 AM) Pulse Rate [55-90 bpm] 59 bpm (06/11/20 11:42 AM) 63 bpm (06/11/20 9:52 AM) 63 bpm (06/11/20 6:58 AM) Body Mass Index [18.5-24.99] 39.33 *>HHI* (06/10/20 4:36 AM) 39.43 *>HHI* (06/09/20 7:52 PM) Blood Pressure [90-138/55-84 mm Hg] 133/60mm Hg (06/11/20 11:42 AM) 135/75mm Hg (06/11/20 9:52 AM) 135/75mm Hg (06/11/20 9:52 AM) Respiratory Rate [16-30 br/min] 18 br/min (06/11/20 11:42 AM) 18 br/min (06/11/20 6:58 AM) 20 br/min (06/11/20 3:12 AM) Temperature [96.8-100.4 DegF] 97.7 DegF (06/11/20 11:42 AM) 98.5 DegF (06/11/20 6:58 AM) 98.3 DegF (06/11/20 3:12 AM) Liters per Minute 0 L/min (06/09/20 10:28 AM) Mode of Delivery (Oxygen) Room air (06/11/20 11:42 AM) Room air (06/11/20 6:58 AM) Room air (06/11/20 3:12 AM) Blood pressure sites Arm, left (06/11/20 11:42 AM) Arm, right (06/11/20 6:58 AM) Arm, left (06/11/20 3:12 AM) Temperature Route Oral (06/11/20 11:42 AM) Oral (06/11/20 6:58 AM) Oral (06/11/20 3:12 AM) Dry Weight 118 kg (06/09/20 7:52 PM) 122 kg (06/09/20 12:22 PM) 122 kg (06/09/20 10:54 AM) Weight Obtained Via Bed scale (06/11/20 3:12 AM) Bed scale (06/10/20 4:36 AM) Bed scale (06/09/20 7:52 PM) Dry Weight Obtained Via Bed scale (06/09/20 7:52 PM) Patient/family stated (06/09/20 10:28 AM) Social History Social History Type Response Tobacco Use: quit 10 months ago. Sex
--- OUTSIDE RECORDS SUMMARY | 2024-05-14 11:06 | XMS_ITS | Continuity of Care Document ---
Author Organization [facility] Kathy sheila Address [address] [place] [address] [place] [address]- Care Team Providers Care Associate Professor Of Physics Name Role Phone Sasha CORDERO, Marzena Lee Primary Care Physician Encounter [facility] [place] Date(s): 06/16/21 - 07/16/21 [facility] [address] [place] [phone]- Attending Physician: Trent Diaz Admitting Physician: Trent Diaz Referring Physician: Trent Diaz Referring Physician: Dea García Allergies, Adverse Reactions, Alerts Substance Reaction Severity [...] disease, stag e 3(Confirmed) Active CAD in [place] artery(Confirmed) Active Alzheimer's disease with delusions(Confirmed) Active Dementia(Confirmed) Active GERD (gastroesophageal reflu x disease)(Confirmed) Active S/P CABG x 4(Confirmed) Active Hyperlipidemia(Confirmed) Active Hypertension(Confirmed) Active Sternal wound infection(Confirmed) Active Obese class II(Confirmed) Active Type 2 diabetes mellitus(Confirmed) Active Social History Social History Type Response Tobacco Use: quit 10 months ago. Sex
--- OUTSIDE RECORDS SUMMARY | 2024-05-14 11:06 | XMS_ITS | Continuity of Care Document ---
Author Organization [facility] Kathy sheila Address [address] [place] [phone]- Care Team Providers Care Casing Tester Name Role Phone Sasha CORDERO, Marzena Lee Primary Care Physician [place] [facility] [place] Date(s): 09/04/20 - 10/04/20 [facility] [address] [place] [phone]- Allergies, Adverse Reactions, Alerts Substance Reaction Severity Status Percocet 5/325 1 Persistent Moderate Acti ve 1Rash Medications acetaminophen 325 mg oral tablet 650 mg, By Mouth, 4 times a day, PRN, greater than 101F or Mild Pain, [...] 0 Refills, Maintenance, 05/22/20 10:29:00 EST, Tablet, [facility], Partial fill upon patient [...] opioid drug. Start Date: 08/19/20 Status: Ordered cephalexin monohydrate 500 mg oral capsule 1 capsule = 500 mg, By Mouth, Every 8 hours, discontiune after 10/01/2020 pm dose, 0 Refills, Maintenance, 09/29/20 11:31:00 EDT, Capsule, Partial fill upon patient request if the prescription is fora schedule II opioid drug. Start Date: 09/29/20 Stop Date: 10/06/20 Status: Ordered folic acid 1 mg oral [...] opioid drug. Start Date: 08/19/20 Status: Ordered Lantus Inj = 40 units, Subcutaneous Injection, Daily at bedtime, 0 Refills, Maintenance, 09/28/20 8:59:00 EDT,Injection, Partial fill upon patient request if the prescription is for a schedule II opioid drug. Start Date: 09/28/20 Status: Ordered metoprolol 25 mg oral tablet 25 mg, 1, tablet, By Mouth, 2 times a day, Refills 0, Maintenance, 08/19/20 12:50:00 EST, Partial fill upon patient request if the prescription is for a schedule II opioid drug. Start Date: 08/19/20 Status: Ordered Multivitamin Tablet [...] opioid drug. Start Date: 08/26/20 Status: Ordered Pen [place], 30 G x 8 mm BD Ultra Fine II See Instructions, # 100 each, Refills 5, Tot. Refills 5, Maintenance, use as directed for Type 2 Diabetes Mellitus, 06/07/20 13:19:00 EST, Supply, 174, cm, 06/07/20 12:34:00 EST, Height, 113.9, kg, 06/02/20 9:14:00 EST, Dry Weight Start Date: 06/07/20 Stop Date: 12/04/20 Status: Ordered thiamine 100 mg oral tablet [...]
--- OUTSIDE RECORDS SUMMARY | 2024-05-14 11:06 | XMS_ITS | Continuity of Care Document ---
Author Organization [facility] Kathy sheila Address [address] [place] [address]- Care Team Providers Care Electric Dolly Operator Name Role Phone Sasha CORDERO, Marzena Lee Primary Care Physician [place] [facility] [place] 10[place]16/20 [facility] [address] [place] [address]- Attending Physician: Byron GRIFFIN, Lolly Andersen Referring Physician: Isac Velazquez MD Allergies, Adverse [...] 0 Refills, Maintenance, 05/22/20 10:29:00 EST, Tablet, [facility], Partial fill upon patient request [...] disease, stag e 3(Confirmed) Active CAD in [place] artery(Confirmed) Active Alzheimer's disease with delusions(Confirmed) Active Dementia(Confirmed) Active GERD (gastroesophageal reflu x disease)(Confirmed) Active S/P CABG x 4(Confirmed) Active Hyperlipidemia(Confirmed) Active Hypertension(Confirmed) Active Type 2 diabetes mellitus(Confirmed) Active Social History Social History Type Response Tobacco Use: quit 10 months ago. Sex
--- OUTSIDE RECORDS SUMMARY | 2024-05-14 11:06 | XMS_ITS | Continuity of Care Document ---
Author Organization [facility] Kathy sheila Address [address] [address]- Care Team Providers Care Sample Paster Name Role Phone Caroline GRIFFIN, Isac Haas Primary Care Physician Encounter [facility] Date(s): 08/19/20 - 09/26/20 [facility] [address] [address] Attending Physician: Byron GRIFFIN, Lolly Andersen Allergies, Adverse Reactions, Alerts Substance Reaction Severity [...] Refills, Maintenance, 05/22/20 10:29:00 EST, Tablet, [facility], Partial fill upon patient request [...] drug. Start Date: 08/19/20 Status: Ordered Pen [place], 30 G x 8 mm BD Ultra [...]
--- OUTSIDE RECORDS SUMMARY | 2024-05-14 11:06 | XMS_ITS | Continuity of Care Document ---
Author Organization [facility] Kathy sheila Address [address] [place] [address]- Care Team Providers Care Family Caseworker Name Role Phone Sasha CORDERO, Marzena Lee Primary Care Physician [place] [facility] [place]s): 12/30/20 - 01/29/21 [facility] [address] [place] [address]- Allergies, Adverse Reactions, Alerts Substance Reaction Severity [...] 0 Refills, Maintenance, 05/22/20 10:29:00 EST, Tablet, [facility], Partial fill upon patient request [...] disease, stag e 3(Confirmed) Active CAD in [place] artery(Confirmed) Active Alzheimer's disease with delusions(Confirmed) Active Dementia(Confirmed) Active GERD (gastroesophageal reflu x disease)(Confirmed) Active S/P CABG x 4(Confirmed) Active Hyperlipidemia(Confirmed) Active Hypertension(Confirmed) Active Sternal wound infection(Confirmed) Active Type 2 diabetes mellitus(Confirmed) Active Social History Social History Type Response Tobacco Use: quit 10 months ago. Sex
--- OUTSIDE RECORDS SUMMARY | 2024-05-14 11:06 | XMS_ITS | Continuity of Care Document ---
Author Organization [facility] ter Address [address] [place] [address]- Care Team Providers Care White Washer Piler Name Role Phone Sasha CORDERO, Marzena Lee Primary Care Physician [place] [facility] [place] - 09/29/[address] [address]- Encounter Diagnosis Urinary tract infection(Final) - 09/28/20 Discharge Disposition: A-D/C Home Attending Physician: Hilario Montoya MD, Michael Lund Admitting Physician: Savanna Saba MD Referring Physician: Not on Staff, Referring [...] 0 Refills, Maintenance, 05/22/20 10:29:00 EST, Tablet, [facility], Partial fill upon patient [...] drug. Start Date: 08/26/20 Status: Ordered Pen [place], 30 G x 8 mm BD Ultra [...] to oldest [Reference Range]: 1 2 3 Oxygen Saturation [94-100 %] 100 % (09/29/20 4:03 PM) 99 % (09/29/20 2:33 PM) 98 % (09/29/20 11:08 AM) Pulse Rate [55-90 bpm] 84 bpm (09/29/20 4:03 PM) 73 bpm (09/29/20 2:33 PM) 76 bpm (09/29/20 11:08 AM) Blood Pressure [90-138/55-84 mm Hg] 168/89mm Hg *H* (09/29/20 4:03 PM) 152/70mm Hg *H* (09/29/20 2:33 PM) 144/63mm Hg *H* (09/29/20 11:08 AM) Respiratory Rate [16-30 br/min] 16 br/min (09/29/20 4:03 PM) 16 br/min (09/29/20 2:33 PM) 16 br/min (09/29/20 11:08 AM) Temperature [96.8-100.4 DegF] 97.8 DegF (09/29/20 2:33 PM) 97.4 DegF (09/29/20 11:08 AM) 97.5 DegF (09/29/20 8:09 AM) Mode of Delivery (Oxygen) Room air (09/29/20 4:03 PM) Room air (09/29/20 2:33 PM) Room air (09/29/20 11:08 AM) Blood pressure sites Arm, right (09/29/20 4:03 PM) Arm, left (09/29/20 2:33 PM) Arm, left (09/29/20 11:08 AM) Temperature Route Oral (09/29/20 2:33 PM) Oral (09/29/20 11:08 AM) Oral (09/29/20 8:09 AM) Weight Obtained Via UTO (09/28/20 8:02 PM) Dry Weight Obtained Via UTO (09/28/20 8:02 PM) Social History Social History Type Response Tobacco Use: quit 10 months ago. Sex
--- OUTSIDE RECORDS SUMMARY | 2024-05-14 11:06 | XMS_ITS | Continuity of Care Document ---
Author Organization [facility] Kathy sheila Address [address] [place] [address] [place] [address]- Care Team Providers Care Director Of Accounting Name Role Phone Sasha CORDERO, Marzena Lee Primary Care Physician Encounter [facility] [place] Date(s): 05/27/21 - 06/26/21 [facility] [address] [place] [phone]- Allergies, Adverse Reactions, Alerts Substance Reaction Severity [...] Refills, Maintenance, 05/22/20 10:29:00 EST, Tablet, [facility], Partial fill upon patient [...] disease, stag e 3(Confirmed) Active CAD in [place] artery(Confirmed) Active Alzheimer's disease with delusions(Confirmed) Active Dementia(Confirmed) Active GERD (gastroesophageal reflu x disease)(Confirmed) Active S/P CABG x 4(Confirmed) Active Hyperlipidemia(Confirmed) Active Hypertension(Confirmed) Active Sternal wound infection(Confirmed) Active Obese class II(Confirmed) Active Type 2 diabetes mellitus(Confirmed) Active Social History Social History Type Response Tobacco Use: quit 10 months ago. Sex
--- OUTSIDE RECORDS SUMMARY | 2024-05-14 11:06 | XMS_ITS | Continuity of Care Document ---
Author Organization [facility] Address [address] [place] [address]- Care Team Providers Care Grain Farmer Name Role Phone Caroline GRIFFIN, Isac Haas Primary Care Physician En[facility] [place] Date(s): 07/17/20 - 08/16/20 [facility] [address] [place] [address]- Attending Physician: Trent Diaz Admitting Physician: AdmtrTrent Referring Physician: Admtr, Ar8 Allergies, Adverse Reactions, Alerts Substance Reaction Severity [...] 06/07/20 13:16:00 EST, [id number], Partial fill upon patient request if the [...] 06/07/20 13:16:00 EST, [id number], Partial fill upon patientrequest if the prescription [...] 06/07/20 13:15:00 EST, Route to Pharmacy Electronically, [facility] #[id number], Partial fill uponpatient request if the prescription is for a schedu... Start Date: 06/07/20 Status: Ordered Milk of Magnesia Liquid 30 mL, By Mouth, Every 8 hours, PRN Constipation, 0 Refills, Maintenance, 06/11/20 11:52:00 EST, Suspension, Partial fill upon patient request if the prescription is for a schedule II opioid drug. Start Date: 06/11/20 Status: Ordered Pen [place], 30 G x 8 mm BD Ultra [...]
--- OUTSIDE RECORDS SUMMARY | 2024-05-14 11:06 | XMS_ITS | Continuity of Care Document ---
Author Organization [facility] Kathy sheila Address [address] [place] [address] [place] [address]- Care Team Providers Care Automatic Glove Former Name Role Phone Sasha CORDERO, Marzena Lee Primary Care Physician Encounter [facility] [place] Date(s): 06/03/21 - 07/03/21 [facility] Card[facility] [address] [place] [phone]- Allergies, Adverse Reactions, Alerts Substance Reaction Severity [...] 0 Refills, Maintenance, 05/22/20 10:29:00 EST, Tablet, [facility], Partial fill upon patient request [...] disease, stag e 3(Confirmed) Active CAD in [place] artery(Confirmed) Active Alzheimer's disease with delusions(Confirmed) Active Dementia(Confirmed) Active GERD (gastroesophageal reflu x disease)(Confirmed) Active S/P CABG x 4(Confirmed) Active Hyperlipidemia(Confirmed) Active Hypertension(Confirmed) Active Sternal wound infection(Confirmed) Active Obese class II(Confirmed) Active Type 2 diabetes mellitus(Confirmed) Active Social History Social History Type Response Tobacco Use: quit 10 months ago. Sex
--- OUTSIDE RECORDS SUMMARY | 2024-05-14 11:06 | XMS_ITS | Continuity of Care Document ---
Author Organization [facility] Kathy sheila Address [address] [place] [address]- Care Team Providers Care Chopper Feeder Name Role Phone Sasha CORDERO, Marzena Lee Primary Care Physician Encounter [facility] [place] Date(s): 12/10/20 - 12/17/20 [facility] [address] [place] [address]- Attending Physician: Lolly Matthews MD Referring Physician: [...] 0 Refills, Maintenance, 05/22/20 10:29:00 EST, Tablet, [facility], Partial fill upon [...] disease, stag e 3(Confirmed) Active CAD in [place] artery(Confirmed) Active Alzheimer's disease with delusions(Confirmed) Active Dementia(Confirmed) Active GERD (gastroesophageal reflu x disease)(Confirmed) Active S/P CABG x 4(Confirmed) Active Hyperlipidemia(Confirmed) Active Hypertension(Confirmed) Active Sternal wound infection(Confirmed) Active Type 2 diabetes mellitus(Confirmed) Active Vital Signs Most recent to oldest [Reference Range]: 1 Height 173 cm (12/10/20 12:01 PM) Oxygen Saturation [94-100 %] 96 % (12/10/20 12:01 PM) Pulse Rate [55-90 bpm] 74 bpm (12/10/20 12:01 PM) Blood Pressure [90-138/55-84 mm Hg] 118/ 62mm Hg (12/10/20 12:01 PM) Respiratory Rate [16-30 br/min] 18 br/mi n (12/10/20 12:01 PM) Mode of Delivery (Oxygen) Room air (12/10/20 12:01 PM) Blood pressure sites Arm, left (12/10/20 12:01 PM) Social History Social History Type Response Tobacco Use: quit 10 months ago. Sex
--- OUTSIDE RECORDS SUMMARY | 2024-05-14 11:06 | XMS_ITS | Continuity of Care Document ---
Author Organization [facility] Kathy sheila Address [address] [place] [address]- Care Team Providers Care Supervisor Felting Name Role Phone Sasha CORDERO, Marzena Lee Primary Care Physician Encounter [facility] [place] Date(s): 11/24/20 - 12/30/20 [facility] [address] [place] [address]- Attending Physician: David Alexandre MD Referring Physician: [...] 0 Refills, Maintenance, 05/22/20 10:29:00 EST, Tablet, [facility], Partial fill upon patient [...] disease, stag e 3(Confirmed) Active CAD in [place] artery(Confirmed) Active Alzheimer's disease with delusions(Confirmed) Active Dementia(Confirmed) Active GERD (gastroesophageal reflu x disease)(Confirmed) Active S/P CABG x 4(Confirmed) Active Hyperlipidemia(Confirmed) Active Hypertension(Confirmed) Active Sternal wound infection(Confirmed) Active Type 2 diabetes mellitus(Confirmed) Active Social History Social History Type Response Tobacco Use: quit 10 months ago. Sex
--- OUTSIDE RECORDS SUMMARY | 2024-05-14 11:06 | XMS_ITS | Continuity of Care Document ---
Author Organization [facility] Kathy sheila Address [address] [place] [address] [place] [address]- Care Team Providers Care Hull Builder Name Role Phone Sasha CORDERO, Marzena Lee Primary Care Physician [place] [facility] [place] 06/14/21 - 07/14/21 [facility] [address] [place] [phone]- Allergies, Adverse Reactions, Alerts Substance Reaction Severity [...] 0 Refills, Maintenance, 05/22/20 10:29:00 EST, Tablet, [facility], Partial fill upon [...] disease, stag e 3(Confirmed) Active CAD in [place] artery(Confirmed) Active Alzheimer's disease with delusions(Confirmed) Active Dementia(Confirmed) Active GERD (gastroesophageal reflu x disease)(Confirmed) Active S/P CABG x 4(Confirmed) Active Hyperlipidemia(Confirmed) Active Hypertension(Confirmed) Active Sternal wound infection(Confirmed) Active Obese class II(Confirmed) Active Type 2 diabetes mellitus(Confirmed) Active Social History Social History Type Response Tobacco Use: quit 10 months ago. Sex
--- OUTSIDE RECORDS SUMMARY | 2024-05-14 11:06 | XMS_ITS | Continuity of Care Document ---
Author Organization [facility] Kathy sheila Address [address] [place] [id number]- Care Team Providers Care Parts Data Writer Name Role Phone Sasha CORDERO, Marzena Lee Primary Care Physician Encounter [facility] [place] Date(s): 09/15/20 - 10/15/20 [facility] Card[facility] Surgery [address] [place] [id number]- Allergies, Adverse Reactions, Alerts Substance Reaction Severity [...] 0 Refills, Maintenance, 05/22/20 10:29:00 EST, Tablet, [facility], Partial fill [...] disease, stag e 3(Confirmed) Active CAD in [place] artery(Confirmed) Active Alzheimer's disease with delusions(Confirmed) Active Dementia(Confirmed) Active GERD (gastroesophageal reflu x disease)(Confirmed) Active S/P CABG x 4(Confirmed) Active Hyperlipidemia(Confirmed) Active Hypertension(Confirmed) Active Type 2 diabetes mellitus(Confirmed) Active Social History Social History Type Response Tobacco Use: quit 10 months ago. Sex
--- OUTSIDE RECORDS SUMMARY | 2024-05-14 11:06 | XMS_ITS | Continuity of Care Document ---
Author Organization [facility] Address [address] [place] [id number]- Care Team Providers Care Plant Engineering Manager Name Role Phone Sasha CORDERO, Marzena Lee Primary Care Physician En[place] [facility] [place](s): 11/12/20 - 12/12/20 [facility] [address] [place] [id number] Allergies, Adverse Reactions, Alerts Substance Reaction Severity [...] 0 Refills, Maintenance, 05/22/20 10:29:00 EST, Tablet, [facility], Partial fill upon patient [...] disease, stag e 3(Confirmed) Active CAD in [place] artery(Confirmed) Active Alzheimer's disease with delusions(Confirmed) Active Dementia(Confirmed) Active GERD (gastroesophageal reflu x disease)(Confirmed) Active S/P CABG x 4(Confirmed) Active Hyperlipidemia(Confirmed) Active Hypertension(Confirmed) Active Sternal wound infection(Confirmed) Active Type 2 diabetes mellitus(Confirmed) Active Social History Social History Type Response Tobacco Use: quit 10 months ago. Sex
--- OUTSIDE RECORDS SUMMARY | 2024-05-14 11:06 | XMS_ITS | Continuity of Care Document ---
Author Organization [facility] Kathy sheila Address [address] [place] [address] [place] [address]- Care Team Providers Care Book Editor Name Role Phone Sasha CORDERO, Marzena Lee Primary Care Physician [place] [facility] [place] - 07/02/21 [facility] Card[facility] Surgery [address] [place] [id number]- Allergies, Adverse Reactions, Alerts Substance Reaction Severity [...] 0 Refills, Maintenance, 05/22/20 10:29:00 EST, Tablet, [facility], Partial fill upon [...] disease, stag e 3(Confirmed) Active CAD in [place] artery(Confirmed) Active Alzheimer's disease with delusions(Confirmed) Active Dementia(Confirmed) Active GERD (gastroesophageal reflu x disease)(Confirmed) Active S/P CABG x 4(Confirmed) Active Hyperlipidemia(Confirmed) Active Hypertension(Confirmed) Active Sternal wound infection(Confirmed) Active Obese class II(Confirmed) Active Type 2 diabetes mellitus(Confirmed) Active Social History Social History Type Response Tobacco Use: quit 10 months ago. Sex
--- OUTSIDE RECORDS SUMMARY | 2024-05-14 11:06 | XMS_ITS | Continuity of Care Document ---
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
--- OUTSIDE RECORDS SUMMARY | 2024-05-14 11:06 | XMS_ITS | Continuity of Care Document ---
Author Organization [facility] ter Address [address] [place] [id number]- Care Team Providers Care Superintendent Horticulture Name Role Phone Emiliano Hernandez MD Primary Care Physician [phone] Encounter [facility] Date(s): 07/01/22 - 07/04/[address] [address]- Encounter Diagnosis Hypernatremia(Final) - 07/01/22 RODO (acute kidney injury)(Final) - 07/01/22 Dementia(Final) - 07/01/22 Pneumonia(Final) - 07/01/22 CAD in [place] artery(Final) - 07/01/22 Pacemaker(Final) - 07/01/22 Discharge Disposition: A-Transfer SNF Attending Physician: Tad Steele MD Admitting Physician: Vaelntina Meek MD Referring Physician: Not on Staff, Referring MD Allergies, Adverse Reactions, Alerts Substance Reaction Severity Status Percocet 5/325 1 Persistent Moderate Acti ve 1Rash Immunizations Given and Recorded Vaccine Date Status Refusal Reason [id number] 12y+ bivalent booster vax 06/22/22 Recorded SARS-CoV-2 (COVID-19) mRNA-1273 vaccine 11/09/21 R ecorded SARS-CoV-2 (COVID-19) mRNA-1273 vaccine 12/23/20 R ecorded SARS-CoV-2 (COVID-19) mRNA-1273 vaccine 12/07/20 R ecorded tetanus/diphtheria/pertussis, acel(Tdap) 04/29/16 Recorded Not Given Vaccine Date Status Refusal Reason [...] Date: 05/19/20 Stop Date: 06/18/20 Status: Ordered Augmentin 875 mg-125 mg oral tablet 1 tablet, By Mouth, Every 12 hours, for 3 days, # 6 tablet, 0 Refills, Acute 07/08/22 9:00:00 EST, 07/05/22 9:00:00 EST, Tablet, Partial fill upon patient request if the prescription is for a schedule II opioid drug. Start Date: 07/05/22 Stop Date: 07/08/22 Status: Ordered Carafate 1 gm oral tablet 1 Gm, 1, tablet, By Mouth, 3 times a day before meals and bedtime, Refills 0, Maintenance, 08/20/2111:51:00 EST Start Date: 08/19/20 Status: Ordered Depakote 125 mg oral enteric coated tablet 1 tablet = 125 mg, By Mouth, 3 times a day, 0 Refills, Maintenance, 07/01/22 16:46:00 EST, Partial fill upon patient request if the prescription is for a schedule II opioid drug. Start Date: 07/01/22 Status: Ordered docusate sodium 100 mg oral capsule 100 mg, 1, capsule, By Mouth, 2 times a day, PRN, Refills 0, Maintenance, as needed for constipation, 10/20/20 12:07:00 EDT, Partial fill upon patient request if the prescription is for a schedule IIopioid drug. Start Date: 10/20/20 Status: Ordered Docusate/Senna Tablet 2 tablet, By Mouth, 2 times a day, 0 Refills, Maintenance, 11/07/21 12:44:00 EDT, Tablet, Partial fill upon patient request if the prescription is for a schedule II opioid drug. Start Date: 11/07/21 Status: Ordered Dulcolax 10 mg rectal suppository 1 supp = 10 mg, Rectally, Daily, PRN as needed for constipation, 0 Refills, Maintenance, 07/01/22 16:49:00 EST, Partial fill upon patient request if the prescription is for a schedule II opioid drug. Start Date: 07/01/22 Status: Ordered Fleet Enema 19 gm-7 gm rectal enema 118 mL, Rectally, Once, PRN as needed for constipation, 0 Refills, Maintenance, 07/01/22 16:49:00 EST, Partial fill upon patient request if the prescription is for a schedule II opioid drug. Start Date: 07/01/22 Status: Ordered Flomax 0.4 mg oral capsule [...] 12:52:00 EST,Liquid Start Date: 08/19/20 Status: Ordered Glucagon Inj = 1 mg, Intramuscular, Once, PRN Blood Glucose, 0 Refills, Maintenance, 07/01/22 16:51:00 EST, Injection, Partial fill upon patient request if the prescription is for a schedule II opioid drug. Start Date: 07/01/22 Status: Ordered Glucose Gel 15 Gm, By Mouth, Once, PRN, Maintenance, Blood Glucose, 07/01/22 16:50:00 EST, Supply Start Date: 07/01/22 Status: Ordered insulin lispro 100 u/ml subcutaneous [...] Date: 11/11/21 Status: Ordered Lantus Inj = 30 units, Subcutaneous Injection, Daily at bedtime, 0 Refills, Maintenance, 11/07/21 12:43:00 EDT, Injection, Partial fill upon patient request if the prescription is for a schedule II opioid drug. Start Date: 11/07/21 Status: Ordered Lipitor 40 mg oral tablet 1 tablet = 40 mg, By Mouth, Daily at bedtime, 0 Refills, Maintenance, 07/01/22 16:44:00 EST, Partial fill upon patient request if the prescription is for a schedule II opioid drug. Start Date: 07/01/22 Status: Ordered Milk of Magnesia 30 mL, By Mouth, Daily, PRN as needed for constipation, 0 Refills, Maintenance, 07/01/22 16:48:00 EST, Partial fill upon patient request if the prescription is for a schedule II opioid drug. Start Date: 07/01/22 Status: Ordered Multivitamin Tablet 1 tablet, By Mouth, Daily, 0 Refills, Maintenance, 10/20/20 12:07:00 EDT, Tablet, Partial fill uponpatient request if the prescription is for a schedule II opioid drug. Start Date: 10/20/20 Status: Ordered pantoprazole 40 mg oral delayed release tablet = 40 mg, By Mouth, Daily, 0 Refills, Maintenance, 11/07/21 12:44:00 EDT, EC Tablet Start Date: 11/07/21 Status: Ordered thiamine 100 mg oral tablet 100 mg, 1, tablet, By Mouth, Daily, Refills 0, Maintenance, 08/19/20 12:52:00 EST Start Date: 08/19/20 Status: Ordered Toprol XL 25 mg oral tablet, extended release 25 mg, 1, tablet, By Mouth, Daily, Refills 0, Maintenance, 07/01/22 16:44:00 EST, Partial fill uponpatient request if the prescription is for a schedule II opioid drug. Start Date: 07/01/22 Status: Ordered Toprol XL 25 mg oral tablet, extended release 25 mg, XL Tablet, By Mouth, 07/04/22 9:00:00 EST Start Date: 07/04/22 Stop Date: 07/04/22 Status: Completed Vitamin C 500 mg oral tablet 1 tablet = 500 mg, By Mouth, Daily, 0 Refills, Maintenance, 08/19/20 12:51:00 EST, Tablet Start Date: 08/19/20 Status: Ordered ZyPREXA 5 mg oral tablet 5 mg, 1, tablet, By Mouth, 2 times a day, Refills 0, Maintenance, 07/01/22 16:46:00 EST, Partial fill upon patient request if the prescription is for a schedule II opioid drug. Start Date: 07/01/22 Status: Ordered Problem List Condition Confirmation Course Effective Dates Status H ealth Status Informant Asthma Confirmed Active Chronic kidney disease, stage 3 Confirmed Active CAD in [place] artery Confirmed Active Alzheimer's disease with delusions Confirmed Active Dementia Confirmed Active GERD (gastroesophageal reflux disease) Confirmed Active S/P CABG x 4 Confirmed Active Hyperlipidemia Confirmed Active Hypertension Confirmed Active Sternal wound infection Confirmed Active Obese class I Confirmed Active Type 2 diabetes mellitus Confirmed Active Results Radiology Reports * Exam Date Time Procedure Performing Provider Status 07/01/22 2:[address] Abd/Pelvis W/ IV Contrast Only Brie Pedroza; Auth (Verified) Notes: (CT Abd/Pelvis W/ IV Contrast Only) Reason For Exam: LLQ abdominal pain;Other: RESULT: CT Abd/Pelvis W/ IV Contrast Only CT Abd/Pelvis W/ IV Contrast Only INDICATION: Failure to thrive, altered mental status. TECHNIQUE: Spiral CT through the abdomen and pelvis with IV contrast formatted in 3 planes. 100 cc of Omnipaque 300 was administered intravenously. This study was performed without oral contrast. Weight-based protocol using automatic tube modulation was used to optimize exposure parameters. CTDIvolBody: 15.40 mGy, DLP Body: 1066 mGy*cm. COMPARISON: 11/02/2021. FINDINGS: Visualized Chest: Patchy scattered peripheral patchy and consolidative opacities in the dependent lung bases, right greater than left new compared to previous exam. Liver: [Included Gallbladder: Small amount of hyperdense layering material in the gallbladder which may represent orsludge and/or tiny calculi. Bile ducts: No biliary ductal dilation. Spleen: Normal. Pancreas: Atrophic. Adrenal glands: Small 0.8 x 1.8 cm fatty lesion in the body of the right adrenal gland superiorly best seen on coronal image 69 series 202 (axial image 16), consistent with a myelolipoma not as well seen on previous exam due to respiratory motion. No further imaging follow-up is necessary. Kidneys and ureters: Atrophic appearing. No hydronephrosis, stones, or suspicious masses. Mild perinephric stranding, a nonspecific finding. Bladder: Normal. Reproductive organs: Unremarkable. Stomach, small bowel, and large bowel: Stomach is normal. Mild artifact obscuring fine detail of the small and large bowel, however, the small and large bowel appear grossly normal. Colon is stool-filled. Appendix: No evidence of acute appendicitis. Peritoneum and retroperitoneum: No ascites or pneumoperitoneum. No omental or mesenteric lesions. Lymph nodes: No enlarged lymph nodes. Blood vessels: Mild vascular calcifications but no aneurysm. Abdominal and pelvic wall: Ventral hernia just to the right of midline in the umbilical region containing a few loops of small bowel with a 2.8 cm wall defect (axial image 100). No evidence of obstruction or strangulation. Small fat-containing umbilical hernia. Partially visualized spinal stimulator lead with battery pack in the soft tissue of the left upper buttocks. Bones: No acute abnormalities. IMPRESSION: 1. Multifocal opacities in the dependent lung bases, right greater than left, concerning for pneumonia, with aspiration as a possible etiology. 2. Otherwise no evidence of acute process. 3. Trace amount of sludge or tiny calculi layering in the gallbladder without evidence of acute cholecystitis. 4. Right-sided ventral hernia containing nonobstructed small bowel loops. 5. Otherwise largely unremarkable. I have personally reviewed the images and I agree with this report. WSN: [id number] Ordering Physician: Sarah Curry Dictated By: Nhan Malagon MD Dictated Date/Time: 07/01/22 3:28 pm Reviewed By: Young Figueroa MD Signed By: Young Figueroa MD Signed Date/Time: 07/01/22 3:33 pm Transcribed By: MIKALA Transcribed Date/Time: 07/01/22 3:04 pm * Exam Date Time Procedure Performing Provider Status 07/01/22 2:[address] Head/Brain W/O Contrast Brie Beckett; Auth (Verified) Notes: (CT Head/Brain W/O Contrast) Reason For Exam: Headache(s) RESULT: CT Head/Brain W/O Contrast CT Head/Brain W/O Contrast INDICATION: Altered mental status. TECHNIQUE: Noncontrast head CT using axial technique and reconstructed in axial and coronal planes.Iterative reconstruction techniques are used to optimize dose and image quality. CTDIvol Head: 48.30 mGy, DLP Head: 966 mGy*cm. COMPARISON: None. FINDINGS: Ironworker Apprentice view findings, lines and tubes: None. BRAIN AND EXTRA-AXIAL SPACES: No parenchymal hemorrhage, midline shift, or mass effect. [place]-white matter differentiation is wellpreserved. No acute infarct. Negative insular ribbon sign. Atherosclerotic vascular calcification of the carotid arteries but negative hyperdense vessel sign. Moderate prominence of the ventricles and sulci consistent with parenchymal volume loss and ace cisterna magna, unchanged. No white matter lesions. No subarachnoid hemorrhage. No subdural or epidural collection. CALVARIUM, SKULL BASE, AND SOFT TISSUES: No fractures or suspicious bony lesions. Moderate mucosal thickening of the paranasal sinuses. There is a trace amount of fluid in the bilateral mastoid air cells. Status-post bilateral lens extraction. The extracranial soft tissues are unremarkable. IMPRESSION: No acute intracranial abnormality. Moderate mucosal thickening in the paranasal sinuses new compared to previous exam, otherwise age indeterminate. I have personally reviewed the images and I agree with this report. WSN: [id number] Ordering Physician: Sarah Curry Dictated By: Nhan Malagon MD Dictated Date/Time: 07/01/22 2:52 pm Reviewed By: Young Figueroa MD Signed By: oYung Figueroa MD Signed Date/Time: 07/01/22 2:57 pm Transcribed By: MIKALA Transcribed Date/Time: 07/01/22 2:48 pm * Exam Date Time Procedure Performing Provider Status 07/01/22 2:14 PM Chest 2 Views Frontal and Lat Carmita Pedraza; Auth (Verified) Notes: (Chest 2 Views Frontal and Lat) Reason For Exam: Shortness of Breath, Fever;Other: RESULT: Chest 2 Views Frontal and Lat Chest 2 Views Frontal and Lat HX OF PRESENT ILLNESS: AMS from locked dementia unit. Pt responding to questions.; Reason: Shortness of Breath, Fever; Clinical Question(s): Pneumonia COMPARISON: Multiple priors most recently 11/02/2021 FINDINGS: LINES AND TUBES: Spinal stimulator. LUNGS AND PLEURA: Patchy right basilar airspace opacity No pleural effusion. No pneumothorax, although lung apices partially obscured by patient's chin. HEART, MEDIASTINUM AND CEE: Heart is at the upper limits of normal for size. Status post CABG. Normal mediastinal and hilar contour. BONES AND SOFT TISSUES: Status post median sternotomy with intact appearing plates and screws and 2 sternal wires. No acuteosseous abnormality. IMPRESSION: Right basilar airspace opacity, likely representing aspiration or pneumonia. I have personally reviewed the images and I agree with this report. WSN: [id number] Ordering Physician: Sarah Curry Dictated By: Ruth Gupta DO Dictated Date/Time: 07/01/22 2:20 pm Reviewed By: Bobby Juarez MD Signed By: Bobby Juarez MD Signed Date/Time: 07/01/22 2:25 pm Transcribed By: MIKALA Transcribed Date/Time: 07/01/22 2:18 pm Vital Signs Most recent to oldest [Reference Range]: 1 2 3 Height 173 cm (07/04/22 5:28 AM) 173 cm (07/03/22 8:13 PM) 173 cm (07/03/22 2:40 PM) Weight 99.6 kg (07/02/22 4:08 PM) Oxygen Saturation [94-100 %] 93 % *L* (07/04/22 2:00 PM) 99 % (07/04/22 5:28 AM) 95 % (07/03/22 8:13 PM) Pulse Rate [55-90 bpm] 53 bpm *L* (07/04/22 2:00 PM) 66 bpm (07/04/22 8:03 AM) 76 bpm (07/04/22 5:28 AM) Body Mass Index [18.5-24.99 kg/m2] 33.28 kg/m2 *>HHI* (07/02/22 4:08 PM) Blood Pressure [90-138/55-84 mm Hg] 131/68mm Hg (07/04/22 2:00 PM) 140/63mm Hg *H* (07/04/22 8:03 AM) 142/62mm Hg *H* (07/04/22 5:28 AM) Respiratory Rate [16-30 br/min] 16 br/min (07/04/22 2:00 PM) 20 br/min (07/03/22 2:40 PM) 16 br/min (07/03/22 4:00 AM) Temperature [96.8-100.4 DegF] 98.7 DegF (07/04/22 2:00 PM) 98.2 DegF (07/04/22 5:28 AM) 98.3 DegF (07/03/22 8:13 PM) Liters per Minute 2 L/min (07/03/22 4:00 AM) 2 L/min (07/02/22 9:10 PM) 3 L/min (07/02/22 4:08 PM) Mode of Delivery (Oxygen) Room air (07/04/22 2:00 PM) Room air (07/04/22 5:28 AM) Room air (07/03/22 8:13 PM) Blood pressure sites Arm, left (07/04/22 2:00 PM) Arm, right (07/04/22 5:28 AM) Arm, right (07/03/22 8:13 PM) Temperature Route Oral (07/04/22 2:00 PM) Oral (07/04/22 5:28 AM) Oral (07/03/22 8:13 PM) Dry Weight 99.6 kg (07/02/22 4:08 PM) Weight Obtained Via Bed scale (07/02/22 4:08 PM) Dry Weight Obtained Via Bed scale (07/02/22 4:08 PM) Social History Social History Type Response Tobacco Use: quit 10 months ago. Sex History and physical note * Jayant GRIFFIN, [place]: PERFORM, MODIFY Event Display: History and Physical Hospital Authored Date: Patient: ??LAYLA PALENCIA ? Age:??72 Years?Sex:??Male?:??1950?? Chief Complaint/Reason for Consultation From SNF, over last 2 weeks pt has had falure to thrive and AMS. Pt was DO not transfer. Family reverse that today. History of Present Illness Date of exam: 07/01/2022 ?? 72-year-old male with past medical history significant for hypertension, hyperlipidemia, CAD statuspost CABG, Alzheimer's dementia, asthma, GERD, CKD stage III, presented to ED from SNF with alteredmental status.?? Please note patient is unable to provide me with any history.?? He is somnolent, arousable to sternal rub but not able to answer any questions or follow commands.?? Most of my history is obtained from ED signout and documentation.?? Apparently patient has had a decline in his mental status over the last 2 weeks.?? His MOLST form stated do not transfer to hospital. But his son decided to transfer him to the hospital today for evaluation.?? Apparently received COVID vaccination 1 week ago and had a fever for about 24 hours following vaccination. ?? Upon arrival to ED, afebrile, hemodynamically stable, borderline hypoxic requiring 4 L nasal cannula supplementation 20 oxygen saturation.?? Labs with leukocytosis, WBC count 14.5.?? Hypernatremic with sodium 156.?? BUN/creatinine 52/2.3.?? Initial troponin elevated at 58.?? Flu, RSV and COVID-negative.?? UA abnormal with multiple WBCs and 3+ leukocytes.?? Chest x-ray showing right basilar opacity, likely representing aspiration pneumonia.?? CT head with no acute abnormality.?? CT abdomen and pelvis showing multifocal opacities in the dependent lung bases concerning for pneumonia.?? Received ceftriaxone and azithromycin.?? Admitted for further management.?? Also received 1 L IV fluid bolus. ?? During my exam, somnolent as mentioned above.?? Does not appear to be in any acute distress Review of Systems Unable to obtain due to patient condition Objective Vital Signs?? Temperature: 98.5 DegF (07/01/22 19:54:00) Temperature Route: Oral (07/01/22 19:54:00) Pulse Rate: 66 bpm (07/02/22 00:27:00) Respiratory Rate: 18 br/min (07/02/22 00:27:00) Systolic Blood Pressure: 137 mm Hg (07/02/22 00:27:00) Diastolic Blood Pressure: 66 mm Hg (07/02/22 00:27:00) Blood pressure sites: Arm, right (07/02/22 00:27:00) Mean Arterial Pressure: 75 mm Hg (07/01/22 22:49:00) Pulse Pressure: 78 mm Hg (07/01/22 22:49:00) Oxygen Saturation: 96 % (07/02/22 00:27:00) Liters per Minute: 2 L/min (07/02/22 00:27:00) Mode of Delivery (Oxygen): Nasal cannula (07/02/22 00:27:00) Early Warning Score: 3 (07/02/22 00:28:21) ? Physical Exam General: NAD, somnolent HEENT: EOMI, PERRLA Cardiac: S1, S2 heard, no murmurs Pulmonary: Clear to auscultation anteriorly,??could not auscultate??his back Abdomen: Soft, nondistended, bowel sounds heard Extremities: No cyanosis, clubbing, 1+ bilateral lower extremity edema Neuro: Somnolent,??opens eyes to sternal rub, not able to answer any questions or follow commands Assessment/Plan Assessment:??72-year-old male with past medical history significant for hypertension, hyperlipidemia, CAD status post CABG, Alzheimer's dementia, asthma, GERD, CKD stage III,??admitted with??multifocal pneumonia ?? Acute respiratory failure with hypoxia (J96.01):?? Aspiration pneumonia (J69.0):??Reviewed imaging results. Chest x-ray showing right basilar opacity, likely representing aspiration pneumonia. CT head with no acute abnormality. CT abdomen and pelvis showing multifocal opacities in the dependent lung bases concerning for pneumonia. ??Received ceftriaxone and azithromycin in the ED Given concerns for aspiration, I will change antibiotics to Zosyn N.p.o. except for medications, swallow evaluation in a.m. Continue bronchodilators, oxygen supplementation Closely monitor respiratory status ?? RODO (acute kidney injury) (N17.9):??Likely??prerenal, secondary to poor p.o. intake and underlying infection Continue IV hydration Recheck??kidney function and electrolytes in a.m. ?? Hypernatremia (E87.0):??Sodium critically elevated at 156. Likely??hypervolemic hypernatremia from poor p.o. intake. Has received a total of 1 L??normal saline bolus Will continue D5 water at 75 cc an hour Monitor electrolytes tonight and tomorrow a.m. ?? Dementia (F03.90):??Dementia with delirium, likely related to underlying infection,??hypernatremia contributing Currently patient is somnolent and??not able to??follow any commands Closely monitor mental status.??Continue??outpatient medications??Depakote and Zyprexa. Hold gabapentin ?? Type 2 diabetes mellitus (E11.9):??Continue Lantus and SSI with glucose??checks ?? Hyperlipidemia (E78.5):??Continue statin ?? Hypertension (I10):??Continue metoprolol ?? GERD (gastroesophageal reflux disease) (K21.9):??Continue PPI ?? CAD in [place] artery (I25.10):??Continue aspirin, metoprolol, statin ?? VTE Prophylaxis:??Subcutaneous heparin ?VTE Prophylaxis Assessment:??VTE Prophylaxis Ordered ?? Code Status:??DNR/DNI ?Please address goals of care??with HCP during this admission ?? Histories Allergies Allergies ?(Active and Proposed Allergies Only) Percocet 5/325? (Severity: Persistent Moderate, Onset: Unknown) ?Comments: Rash ? Past Medical History/Problem List Active Problems??(12) Alzheimer's disease with delusions Asthma CAD in [place] artery Chronic kidney disease, stage 3 Dementia GERD (gastroesophageal reflux disease) Hyperlipidemia Hypertension Obese class I S/P CABG x 4 Sternal wound infection Type 2 diabetes mellitus ? Past Surgical History No surgery history documented. ? Social History Alcohol Details:??Frequency: 1-2 times per year. Substance Abuse Details:??Use: Never. Tobacco Details:??Use: quit 10 months ago. Details:??Former smoker ? Family History Mother: Diabetes mellitus ? Medications Home Medications Acetaminophen (acetaminophen 325 mg oral tablet)?650?Milligram?By Mouth?Every 4 hours?as needed?Temperature Greater than 100.5?Pain , Mild Albuterol (albuterol CFC free 90 mcg/inh inhalation aerosol)?2?puff(s)?Inhalation?3 times a day Ascorbic Acid (Vitamin C 500 mg oral tablet)?1?tab(s)?500?Milligram?By Mouth?Daily Aspirin (aspirin 81 mg oral tablet, chewable)?81?Milligram?1?tablet?Chew?Daily Atorvastatin (Lipitor 40 mg oral tablet)?1?tab(s)?40?Milligram?By Mouth?Daily at bedtime Bisacodyl (Dulcolax 10 mg rectal suppository)?1?suppository(ies)?10?Milligram?Rectall y?Daily?as needed?as needed for constipation Divalproex Sodium (Depakote 125 mg oral enteric coated tablet)?1?tab(s)?125?Milligram?By Mouth?3 times a day Docusate (docusate sodium 100 mg oral capsule)?100?Milligram?1?capsule?By Mouth?2times a day?as needed?as needed for constipation Docusate-Senna (Docusate/Senna Tablet)?2?tab(s)?By Mouth?2 times a day Durable Medical Equipment (Glucose Gel)?15?gram?Oral?once?as needed?Blood Glucose Folic Acid (folic acid 1 mg oral tablet)?1?Milligram?1?tablet?By Mouth?Daily Gabapentin (gabapentin 250 mg/5 mL oral solution)?1?Milliliter?50?Milligram?By Mouth?Daily before dinner?at 5pm Glucagon (Glucagon Inj)?1?Milligram?Intramuscular?Once?as needed?Blood Glucose Insulin Glargine (Lantus Inj)?30?unit(s)?Subcutaneous Injection?Daily at bedtime Insulin Lispro (insulin lispro 100 u/ml subcutaneous injection)?12-22 units?Subcutaneous Injection?3 times a day before meals?<< Sliding Scale Comments >>100 - 149 ?? 12 unitsCall if less than [id number] - 199 ?? 14 units 200 - 249 ?? 16 units 250 - 299 ?? 18 units 300 - 349 ?? 20 units 350 - 399 ?? 22 units Call if greater than 400<< Sliding Scale Comments >> Metoprolol (Toprol XL 25 mg oral tablet, extended release)?25?Milligram?1?tablet?By Mouth?Daily Milk of Magnesia?30?Milliliter?By Mouth?Daily?as needed?as needed for constipation Multivitamin (Multivitamin Tablet)?1?tab(s)?By Mouth?Daily Olanzapine (ZyPREXA 5 mg oral tablet)?5?Milligram?1?tablet?By Mouth?2 times a day Pantoprazole (pantoprazole 40 mg oral delayed release tablet)?40?Milligram?By Mouth?Daily Sodium Biphosphate-Sodium Phosphate (Fleet Enema 19 gm-7 gm rectal enema)?118?Milliliter?Rectally?Once?as needed?as needed for constipation Sucralfate (Carafate 1 gm oral tablet)?1?gram?1?tablet?By Mouth?3 times a day before meals and bedtime Tamsulosin (Flomax 0.4 mg oral capsule)?0.4?Milligram?1?capsule?By Mouth?Daily atbedtime Thiamine (thiamine 100 mg oral tablet)?100?Milligram?1?tablet?By Mouth?Daily ? Results Recent Labs BLOOD COUNT & DIFF WBC 14.5 k/mm3 (High)?? 07/01/2022 13:52 RBC 4.50 m/mm3 (Low)?? 07/01/2022 13:52 Hgb 13.0 Gm/dL (Low)?? 07/01/2022 13:52 Hct 43.8 % ()?? 07/01/2022 13:52 MCV 97.3 femtoliters (High)?? 07/01/2022 13:52 MCH 28.9 pg ()?? 07/01/2022 13:52 MCHC 29.7 g/dL (Low)?? 07/01/2022 13:52 Platelet Count 335 k/mm3 ()?? 07/01/2022 13:52 RDW-SD 59.9 femtoliters (High)?? 07/01/2022 13:52 MPV 9.9 femtoliters ()?? 07/01/2022 13:52 Nucleated RBC (Automated) 0.0 #/100 WBC'S ()?? 07/01/2022 13:52 Abs. NRBC 0.0 k/mm3 ()?? 07/01/2022 13:52 Abs. Neut 11.3 k/mm3 (High)?? 07/01/2022 13:52 Abs. Lymph 1.9 k/mm3 ()?? 07/01/2022 13:52 Abs. Pender 1.0 k/mm3 ()?? 07/01/2022 13:52 Abs. Eo 0.2 k/mm3 ()?? 07/01/2022 13:52 Abs. Baso 0.1 k/mm3 ()?? 07/01/2022 13:52 Neut % 77.5 % (High)?? 07/01/2022 13:52 Lymph % 12.7 % (Low)?? 07/01/2022 13:52 Pender % 7.0 % ()?? 07/01/2022 13:52 Eos % 1.3 % ()?? 07/01/2022 13:52 Baso % 0.8 % ()?? 07/01/2022 13:52 Imm Gran 0.7 % ()?? 07/01/2022 13:52 Abs. Imm Gran 0.1 k/mm3 ()?? 07/01/2022 13:52 ?? CARDIAC Nt-Probnp 639 pg/mL (High)?? 07/01/2022 13:52 High Sensitivity Troponin (HSTnT) 58 ng/L (Critical)?? 07/01/2022 13:32 ?? CHEM GENERAL Sodium 156 mmol/L (Critical)?? 07/01/2022 13:52 Potassium 5.1 mmol/L ()?? 07/01/2022 13:52 Chloride 116 mmol/L (High)?? 07/01/2022 13:52 Bicarbonate Level 33 mmol/L (High)?? 07/01/2022 13:52 Anion Gap 7 ()?? 07/01/2022 13:52 Glucose Level 383 mg/dL (High)?? 07/01/2022 13:52 Glucose, POC 272 mg/dL (High)?? 07/01/2022 21:45 BUN 52 mg/dL (High)?? 07/01/2022 13:52 Creatinine-Blood 2.3 mg/dL (High)?? 07/01/2022 13:52 Estimated GFR Creatinine 29 ML/MIN/1.73 M2 ()?? 07/01/2022 13:52 Calcium 9.4 mg/dL ()?? 07/01/2022 13:52 Protein, Total 6.8 Gm/dL ()?? 07/01/2022 13:52 Albumin 3.6 Gm/dL ()?? 07/01/2022 13:52 AG Ratio 1.1 ()?? 07/01/2022 13:52 Alkaline Phosphatase 76 units/L ()?? 07/01/2022 13:52 AST (SGOT) 12 units/L ()?? 07/01/2022 13:52 ALT (SGPT) 13 units/L ()?? 07/01/2022 13:52 Bilirubin, Total 0.2 mg/dL ()?? 07/01/2022 13:52 ?? ENDOCRINE/TUMOR MARKER TSH 0.25 uIU/mL (Low)?? 07/01/2022 13:52 Free T4 1.21 ng/dL ()?? 07/01/2022 13:52 ?? UA/URINALYSIS Appear/Color, Urine LIGHT YELLOW ()?? 07/01/2022 15:10 Specific Clyde, Urine 1.034 (High)?? 07/01/2022 15:10 pH, Urine 5.5 ()?? 07/01/2022 15:10 Albumin, Urine 1+ (Abnormal)?? 07/01/2022 15:10 Glucose, Urine 2+ (Abnormal)?? 07/01/2022 15:10 Ketones, Urine NEGATIVE ()?? 07/01/2022 15:10 Bilirubin, Urine NEGATIVE ()?? 07/01/2022 15:10 Hemoglobin, Urine NEGATIVE ()?? 07/01/2022 15:10 Nitrite, Urine NEGATIVE ()?? 07/01/2022 15:10 Leukocyte, Urine 3+ (Abnormal)?? 07/01/2022 15:10 Urobilinogen NORMAL mg/dL ()?? 07/01/2022 15:10 WBC's, Urine 65 /HPF (High)?? 07/01/2022 15:10 RBC's, Urine 2 /HPF ()?? 07/01/2022 15:10 Bacteria SLIGHT HPF (Abnormal)?? 07/01/2022 15:10 Squamous Epith 1 /HPF ()?? 07/01/2022 15:10 Hyaline Cast 7 LPF (High)?? 07/01/2022 15:10 Mucus SLIGHT /LPF ()?? 07/01/2022 15:10 Hold Urine Culture Testing available 48 hours from time of collection. ()?? 07/01/2022 15:10 ?? VIROLOGY Influenza A PCR NEGATIVE ()?? 07/01/2022 13:56 Influenza B PCR NEGATIVE ()?? 07/01/2022 13:56 RSV PCR NEGATIVE ()?? 07/01/2022 13:56 COVID-19 PCR Specimen Source NASAL ()?? 07/01/2022 13:56 COVID-19 PCR Result NEGATIVE ()?? 07/01/2022 13:56 ? EKG study * Event Display: EKG Authored Date: Hospital Progress note * Haley Smith: SIGN, MODIFY, SIGN, PERFORM, SIGN, VERIFY, MODIFY Event Display: Progress Note Hospital Authored Date: Patient: LAYLA PALENCIA Age: 72 years Sex: Male : 1950 Associated Diagnoses: None Author: Haley Smith Findings Problem Related to Alteration in Fluid Electrolyte : Alteration in Fluid Electrolyte Func/new 07/04/2022 9:00 EST Alteration Fluid Electrolytes Related to Electrolyte Imbalance, Other: Hypernatremia Goals & Outcomes, Fluid/Electrolyte Blood glucose levels will stabilize during hospitalization,Vital signs, electrolytes & glucose levels will stabilize, Pt will maintain adequate GI/ function appropriate for pt, Pt will maintain skin turgor, Pt will resume/maintain adequate cardiac output, Pt will resume/maintain adequate hemodynamic status, Pt will state importance of adhering to medication regime, Pt's weight will normalize Interventions, Fluid Electrolyte Monitor effects of dialysis/ultrafiltration, monitor cardiac status, monitor dietary intake, monitor effects of insulin, glucose values, monitor effects of intravenous fluid Goals/Interventions,Fluid Electrolyte Yes Fluid Electrolyte, Problem Start 07/02/2022 16:22 Reviewed plan with, Fluid Electrolyte Patient Patient Progression, Fluid Electrolyte Pt progressing according to plan . Alteration in Respiratory Function (new) : Alteration in Respiratory Function/new 07/04/2022 9:00 EST Alteration in Resp Status Related to Pneumonia, Other: hypoxia Goals & Outcomes, Respiratory Pt will maintain/resume baseline physical assessment, Pt will notdevelop complications r/t mechanical ventilation, Pt will maintain adequate nutritional intake, Pt will maintain/resume normal fluid/electrolyte balance, Pt will not develop complications r/t immobility, Pt will demonstrate proper technique w/self care procedures Interventions, Respiratory Assess/monitor tolerance to IV infusions; verify rate/dose, Assess for and report S&S of respiratory distress, Position for comfort & optimal oxygenation, Initiate pulmonary rehab nurse consult Goals/Interventions, Respiratory Yes Respiratory, Problem Start 07/02/2022 16:21 Reviewed Plan with, Respiratory Patient Patient Progression, Respiratory Patient progressing according to plan . Narrative/Incidental Alert to self only. No evidence of pain or discomfort at this time. X1 Bolus D5/LR during AM shift.Meds taken crushed in applesauce with out difficulties,. consuming 75% meal this morning. Abdomen soft and non tender. Continues to favor right side when sleeping, removes oxygen via nasal cannula. on 3LPM os sats 95, titrated 02 to 2lpm 95% maintaining. Weaned off 02 02 sats 89-90% on room air. Lungs dim, clear. Incontinent of bowels/ bladder. Re-checked again 02 lafter lunch 02 95% on room air and stable. No evidence of resp distress. Bed in lowest locked position. Call malik within reach, safety and comfort maintained. Phone call from [facility] requesting update, update given. . * Haley Smith: PERFORM Event Display: Progress Note Hospital Authored Date: [id number] Patient was discharged to facility via [facility], IV was removed, tip intact. * Torsten GASPAR, Madyson: PERFORM, SIGN, VERIFY Event Display: Progress Note Hospital Authored Date: [id number] Patient: LAYLA PALENCIA Age: 72 years Sex: Male : 1950 Associated Diagnoses: None Author: Madyson Sarmiento RN Findings Narrative/Incidental Patient on unit S64, acute care. Here with change os MS (confusion/dementia at baseline), Patient with continuing care getting IV ABX for PNA and UTI. Patient confused and unable to answer questions when asked. Patient able to talk but answers to questions are not appropriate. Patient in bed, incontinent. . Discharge Information Rehabilitation Discharge : Rehab Discharge Index 07/02/2022 16:42 EST Comments on treatment indicated Comments on treatment indicated Full chart review completed Yes Hospital course Hospital course * Haley Smith: PERFORM, SIGN, VERIFY Event Display: Progress Note Hospital Authored Date: [id number] Patient: LAYLA PALENCIA Age: 72 years Sex: Male : 1950 Associated Diagnoses: None Author: Haley Smith Findings Problem Related to Alteration in Fluid Electrolyte : Alteration in Fluid Electrolyte Func/new 07/03/2022 19:00 EST Alteration Fluid Electrolytes Related to Electrolyte Imbalance, Other: Hypernatremia Goals & Outcomes, Fluid/Electrolyte Blood glucose levels will stabilize during hospitalization,Vital signs, electrolytes & glucose levels will stabilize, Pt will maintain adequate GI/ function appropriate for pt, Pt will maintain skin turgor, Pt will resume/maintain adequate cardiac output, Pt will resume/maintain adequate hemodynamic status, Pt will state importance of adhering to medication regime, Pt's weight will normalize Interventions, Fluid Electrolyte Monitor effects of dialysis/ultrafiltration, monitor cardiac status, monitor dietary intake, Monitor effects of diuretics BH Goals/Interventions,Fluid Electrolyte Yes Fluid Electrolyte, Problem Start 07/02/2022 16:22 Reviewed plan with, Fluid Electrolyte Patient Patient Progression, Fluid Electrolyte Pt progressing according to plan . Narrative/Incidental Alert to self only, intermittent episodes of increase confusion, needing re- direction to not pull at lines. Denies pain or discomfort. D5W d/c during shift. X1 Lokelma adm during shift, tolerated well. Appetite fair, blood glucose consistently high, requiring sliding scale coverage. Pureed diet, 1:1 feed, tolerating well. Incontinent of urine, lizzie care provided. Bed in lowest locked position, safety and comfort maintained. . Note * Haley Smith: PERFORM Event Display: Discharge/Transfer Note Hospital Authored Date: [id number] Nursing Discharge Note Entered On: 07/04/2022 18:47 EST Performed On: 07/04/2022 18:47 EST by Haley Smith Nursing Discharge Note 2 Discharge Time : 07/04/2022 18:46 EST Discharge Level of Care at Discharge : long term facility Discharge Nursing Homes/Rehab Facilities : [facility] Patient Left Unit Via : Ambulance Patient Accompanied Off Unit with : Ambulance/Chair Van Personnel Handover Given to Transport Personnel : Yes DC Instructions Provided & Signed by Pt : Yes Patient Understands D/C Instructions : Yes Patient Instructions Discharge Signed : Yes Did Pt have Specialty Bed or Wound Vac : No Haley Smith - 07/04/2022 18:47 EST * Tad Steele MD: PERFORM Event Display: Discharge/Transfer Note Hospital Authored Date: [id number] Patient: ??TALHA, LAYLA ? Age:??72 Years?Sex:??Male?:??1950?? Patient Information Discharge Location: [facility] Primary Care Physician: Emiliano Hernandez MD Admit Date/Time: 07/01/22 15:28 Discharge Disposition Discharge Disposition: [facility] Facility/Rehab Discharge Diagnosis Hyperlipidemia (E78.5) Hypertension (I10) GERD (gastroesophageal reflux disease) (K21.9) Type 2 diabetes mellitus (E11.9) RODO (acute kidney injury) (N17.9) Acute respiratory failure with hypoxia (J96.01) Aspiration pneumonia (J69.0) CAD in [place] artery (I25.10) Dementia (F03.90) Hypernatremia (E87.0) Pacemaker (Z95.0) Pneumonia (J18.9) ?? _ Discharge Medications Acetaminophen (acetaminophen 325 mg oral tablet)?650?Milligram?By Mouth?Every 4 hours?as needed?Temperature Greater than 100.5?Pain , Mild Albuterol (albuterol CFC free 90 mcg/inh inhalation aerosol)?2?puff(s)?Inhalation?3 times a day Amoxicillin-Clavulanate (Augmentin 875 mg-125 mg oral tablet)?1?tab(s)?By Mouth?Every 12 hours?for 3?Days Ascorbic Acid (Vitamin C 500 mg oral tablet)?1?tab(s)?500?Milligram?By Mouth?Daily Aspirin (aspirin 81 mg oral tablet, chewable)?81?Milligram?1?tablet?Chew?Daily Atorvastatin (Lipitor 40 mg oral tablet)?1?tab(s)?40?Milligram?By Mouth?Daily at bedtime Bisacodyl (Dulcolax 10 mg rectal suppository)?1?suppository(ies)?10?Milligram?Rectall y?Daily?as needed?as needed for constipation Divalproex Sodium (Depakote 125 mg oral enteric coated tablet)?1?tab(s)?125?Milligram?By Mouth?3 times a day Docusate (docusate sodium 100 mg oral capsule)?100?Milligram?1?capsule?By Mouth?2times a day?as needed?as needed for constipation Docusate-Senna (Docusate/Senna Tablet)?2?tab(s)?By Mouth?2 times a day Durable Medical Equipment (Glucose Gel)?15?gram?Oral?once?as needed?Blood Glucose Folic Acid (folic acid 1 mg oral tablet)?1?Milligram?1?tablet?By Mouth?Daily Gabapentin (gabapentin 250 mg/5 mL oral solution)?1?Milliliter?50?Milligram?By Mouth?Daily before dinner?at 5pm Glucagon (Glucagon Inj)?1?Milligram?Intramuscular?Once?as needed?Blood Glucose Insulin Glargine (Lantus Inj)?30?unit(s)?Subcutaneous Injection?Daily at bedtime Insulin Lispro (insulin lispro 100 u/ml subcutaneous injection)?12-22 units?Subcutaneous Injection?3 times a day before meals?<< Sliding Scale Comments >>100 - 149 ?? 12 unitsCall if less than [id number] - 199 ?? 14 units 200 - 249 ?? 16 units 250 - 299 ?? 18 units 300 - 349 ?? 20 units 350 - 399 ?? 22 units Call if greater than 400<< Sliding Scale Comments >> Metoprolol (Toprol XL 25 mg oral tablet, extended release)?25?Milligram?1?tablet?By Mouth?Daily Milk of Magnesia?30?Milliliter?By Mouth?Daily?as needed?as needed for constipation Multivitamin (Multivitamin Tablet)?1?tab(s)?By Mouth?Daily Olanzapine (ZyPREXA 5 mg oral tablet)?5?Milligram?1?tablet?By Mouth?2 times a day Pantoprazole (pantoprazole 40 mg oral delayed release tablet)?40?Milligram?By Mouth?Daily Sodium Biphosphate-Sodium Phosphate (Fleet Enema 19 gm-7 gm rectal enema)?118?Milliliter?Rectally?Once?as needed?as needed for constipation Sucralfate (Carafate 1 gm oral tablet)?1?gram?1?tablet?By Mouth?3 times a day before meals and bedtime Tamsulosin (Flomax 0.4 mg oral capsule)?0.4?Milligram?1?capsule?By Mouth?Daily atbedtime Thiamine (thiamine 100 mg oral tablet)?100?Milligram?1?tablet?By Mouth?Daily ? Allergies Allergies ?(Active and Proposed Allergies Only) Percocet 5/325? (Severity: Persistent Moderate, Onset: Unknown) ?Comments: Rash ? Hospital Course 72-year-old male with past medical history significant for hypertension, hyperlipidemia, CAD statuspost CABG, Alzheimer's dementia, asthma, GERD, CKD stage III,??admitted with??multifocal pneumonia.??He was noted to have critically elevated??sodium??because of dehydration??and??acute kidney injury.?? He is managed with IV antibiotic and??IV hydration.?? With continued medical management??patient clinically felt much better and back to his baseline mentation.?? His renal function??gradually improved.?? Hypernatremia resolved.?? Antibiotics transition to p.o.?? Patient is??hemodynamically stable and ready for discharge.?? He is advised to follow-up closely with PCP. ??All questions answered. ?? Assessment and plan while in the hospital ?? Acute respiratory failure with hypoxia (J96.01):?? Aspiration pneumonia (J69.0):?? Chest x-ray showing right basilar opacity, likely representing aspiration pneumonia. CT head with no acute abnormality. CT abdomen and pelvis showing multifocal opacities in the dependent lung bases concerning for pneumonia. Plan: s/p Zosyn -->??maintain for 3 more days on discharge Completed azithromycin ST eval done- Rec dental soft diet, thin liquids, assistance/supervision with meals Continue bronchodilators Oxygen gradually went down and now saturating well on room air. ?? Hypernatremia Sodium critically elevated on admission 159 Likely??hypervolemic hypernatremia from poor p.o. intake. s/p hypotonic IV hydration Now Na corrected Encourage p.o. hydration ?? RODO (acute kidney injury) (N17.9):??Likely??prerenal, secondary to poor p.o. intake and underlying infection s/p??IV hydration Now improving 2.-->1.4 Encourage p.o. hydration. ?? Dementia (F03.90):??Dementia with delirium, likely related to underlying infection,??hypernatremia contributing Closely monitor mental status.??Continue??outpatient medications Now alert and back to baseline mentation. ?? Type 2 diabetes mellitus (E11.9):??resume home meds ?? Hyperlipidemia (E78.5):??Continue statin ?? Hypertension (I10):??Continue metoprolol ?? GERD (gastroesophageal reflux disease) (K21.9):??Continue PPI ?? CAD in [place] artery (I25.10):??Continue aspirin, metoprolol, statin No signs of fluid overload. Code Status:??DNR/DNI Updated Sarah- HCP. ??Agreed with the plan and verbalized understanding.?? Regarding??transfer to hospital in MOLST form. ??He said he will think about it??in the future. Objective Vital Signs?? Temperature: 98.7 DegF (07/04/22 14:00:00) Temperature Route: Oral (07/04/22 14:00:00) Pulse Rate:??53 bpm??Low (07/04/22 14:00:00) Respiratory Rate: 16 br/min (07/04/22 14:00:00) Systolic Blood Pressure: 131 mm Hg (07/04/22 14:00:00) Diastolic Blood Pressure: 68 mm Hg (07/04/22 14:00:00) Blood pressure sites: Arm, left (07/04/22 14:00:00) Mean Arterial Pressure: 89 mm Hg (07/04/22 05:28:00) Pulse Pressure: 63 mm Hg (07/04/22 14:00:00) Oxygen Saturation:??93 %??Low (07/04/22 14:00:00) Mode of Delivery (Oxygen): Room air (07/04/22 14:00:00) Early Warning Score: 2 (07/04/22 14:27:31) ? . Physical Exam General: NAD, alert and answering questions. Forgetful. HEENT: EOMI, PERRLA Cardiac: S1, S2 heard, no murmurs Pulmonary: Clear to auscultation. Abdomen: Soft, nondistended, bowel sounds heard Extremities: No cyanosis, clubbing, 1+ bilateral lower extremity edema Neuro: Not obvious new focal deficits. Pending Results COVID-19 (2019 Novel Coronavirus) PCR ordered on 07/04/2022 COVID-19 (Novel Coronavirus), Rapid PCR ordered on 07/04/2022 Electrolytes ordered on 07/02/2022 Patient Education Titles Alzheimer's Dementia and Caregiver Support?? Alzheimer Disease?? Pneumonia (Adult)?? Follow-Up Appointments Added Follow Up ?Time Frame ?Comments David GRIFFIN, Emiliano?1 week: call to discuss follow up visit Post Discharge Care Diet: Cardiac diet Activity: Ambulate with assistance ??3 times a day ??unless otherwise specified Code Status: ?? No Resuscitation Prognosis: Fair Discharge Prescriptions ?ePrescribed, ??07/04/22 16:27:00 EST Home Health Face to Face ^HomeHealthFTF Results Discharge Labs BLOOD COUNT & DIFF WBC 12.2 k/mm3 (High)?? 07/04/2022 11:51 RBC 4.39 m/mm3 (Low)?? 07/04/2022 11:51 Hgb 12.6 Gm/dL (Low)?? 07/04/2022 11:51 Hct 41.4 % ()?? 07/04/2022 11:51 MCV 94.3 femtoliters (High)?? 07/04/2022 11:51 MCH 28.7 pg ()?? 07/04/2022 11:51 MCHC 30.4 g/dL (Low)?? 07/04/2022 11:51 Platelet Count 335 k/mm3 ()?? 07/04/2022 11:51 RDW-SD 54.4 femtoliters (High)?? 07/04/2022 11:51 MPV 10.1 femtoliters ()?? 07/04/2022 11:51 Nucleated RBC (Automated) 0.0 #/100 WBC'S ()?? 07/04/2022 11:51 Abs. NRBC 0.0 k/mm3 ()?? 07/04/2022 11:51 Abs. Neut 11.3 k/mm3 (High)?? 07/01/2022 13:52 Abs. Lymph 1.9 k/mm3 ()?? 07/01/2022 13:52 Abs. Pender 1.0 k/mm3 ()?? 07/01/2022 13:52 Abs. Eo 0.2 k/mm3 ()?? 07/01/2022 13:52 Abs. Baso 0.1 k/mm3 ()?? 07/01/2022 13:52 Neut % 77.5 % (High)?? 07/01/2022 13:52 Lymph % 12.7 % (Low)?? 07/01/2022 13:52 Pender % 7.0 % ()?? 07/01/2022 13:52 Eos % 1.3 % ()?? 07/01/2022 13:52 Baso % 0.8 % ()?? 07/01/2022 13:52 Imm Gran 0.7 % ()?? 07/01/2022 13:52 Abs. Imm Gran 0.1 k/mm3 ()?? 07/01/2022 13:52 ?? CARDIAC Nt-Probnp 639 pg/mL (High)?? 07/01/2022 13:52 High Sensitivity Troponin (HSTnT) 59 ng/L (Critical)?? 07/02/2022 03:35 ?? CHEM GENERAL Sodium 143 mmol/L ()?? 07/04/2022 11:51 Potassium HEMOLYZED mmol/L ()?? 07/04/2022 11:51 Chloride 109 mmol/L (High)?? 07/04/2022 11:51 Bicarbonate Level 26 mmol/L ()?? 07/04/2022 11:51 Anion Gap 8 ()?? 07/04/2022 11:51 Glucose Level 244 mg/dL (High)?? 07/04/2022 11:51 Glucose, POC 236 mg/dL (High)?? 07/04/2022 12:33 BUN 23 mg/dL ()?? 07/04/2022 11:51 Creatinine-Blood 1.4 mg/dL (High)?? 07/04/2022 11:51 Estimated GFR Creatinine 53 ML/MIN/1.73 M2 ()?? 07/04/2022 11:51 Calcium 8.9 mg/dL ()?? 07/04/2022 11:51 Phosphorus 2.5 mg/dL ()?? 07/04/2022 11:51 Magnesium 2.2 mg/dL ()?? 07/03/2022 00:07 Protein, Total 6.8 Gm/dL ()?? 07/01/2022 13:52 Albumin 3.6 Gm/dL ()?? 07/01/2022 13:52 AG Ratio 1.1 ()?? 07/01/2022 13:52 Alkaline Phosphatase 76 units/L ()?? 07/01/2022 13:52 AST (SGOT) 12 units/L ()?? 07/01/2022 13:52 ALT (SGPT) 13 units/L ()?? 07/01/2022 13:52 Bilirubin, Total 0.2 mg/dL ()?? 07/01/2022 13:52 ?? ENDOCRINE/TUMOR MARKER TSH 0.25 uIU/mL (Low)?? 07/01/2022 13:52 Free T4 1.21 ng/dL ()?? 07/01/2022 13:52 ?? HEME OTHER Hold Lavender Top SPECIMEN DISCARDED AFTER 24 HOURS. ()?? 07/02/2022 03:35 ? UA/URINALYSIS Appear/Color, Urine LIGHT YELLOW ()?? 07/01/2022 15:10 Specific Clyde, Urine 1.034 (High)?? 07/01/2022 15:10 pH, Urine 5.5 ()?? 07/01/2022 15:10 Albumin, Urine 1+ (Abnormal)?? 07/01/2022 15:10 Glucose, Urine 2+ (Abnormal)?? 07/01/2022 15:10 Ketones, Urine NEGATIVE ()?? 07/01/2022 15:10 Bilirubin, Urine NEGATIVE ()?? 07/01/2022 15:10 Hemoglobin, Urine NEGATIVE ()?? 07/01/2022 15:10 Nitrite, Urine NEGATIVE ()?? 07/01/2022 15:10 Leukocyte, Urine 3+ (Abnormal)?? 07/01/2022 15:10 Urobilinogen NORMAL mg/dL ()?? 07/01/2022 15:10 WBC's, Urine 65 /HPF (High)?? 07/01/2022 15:10 RBC's, Urine 2 /HPF ()?? 07/01/2022 15:10 Bacteria SLIGHT HPF (Abnormal)?? 07/01/2022 15:10 Squamous Epith 1 /HPF ()?? 07/01/2022 15:10 Hyaline Cast 7 LPF (High)?? 07/01/2022 15:10 Mucus SLIGHT /LPF ()?? 07/01/2022 15:10 Hold Urine Culture Testing available 48 hours from time of collection. ()?? 07/01/2022 15:10 ?? VIROLOGY Influenza A PCR NEGATIVE ()?? 07/01/2022 13:56 Influenza B PCR NEGATIVE ()?? 07/01/2022 13:56 RSV PCR NEGATIVE ()?? 07/01/2022 13:56 COVID-19 PCR Specimen Source NASAL ()?? 07/01/2022 13:56 COVID-19 PCR Result NEGATIVE ()?? 07/01/2022 13:56 ? Imaging(s) ?CT Head/Brain W/O Contrast ?? 07/01/2022 14:34??by Young Figueroa MD ?No acute intracranial abnormality. Moderate mucosal thickening in the paranasal sinuses new compared to previous exam, otherwise age indeterminate. ?Chest 2 Views Frontal and Lat ?? 07/01/2022 14:14??by Larry GRIFFIN, Bobby S ?Right basilar airspace opacity, likely representing aspiration or pneumonia. ?CT Abd/Pelvis W/ IV Contrast Only ?? 07/01/2022 14:46??by Young Figueroa MD ?1. Multifocal opacities in the dependent lung bases, right greater than left, concerning for pneumonia, with aspiration as a possible etiology. 2. Otherwise no evidence of acute process. 3. Trace amount of sludge or tiny calculi layering in the gallbladder without evidence of acute cholecystitis. 4. Right-sided ventral hernia containing nonobstructed small bowel loops. 5. Otherwise largely unremarkable. ? 35??minutes spent on discharge * Epifanio GASPAR, Kinza: PERFORM, SIGN, VERIFY Event Display: Case Management Discharge Plan Authored Date: Patient: LAYLA PALENCIA Age: 72 years Sex: Male : 1950 Associated Diagnoses: None Author: Kinza Godfrey RN Discharge Plan Case Management Discharge Plan : Case Management Discharge Plan Data 07/04/2022 15:31 EST Discharge Level of Care at Discharge long term facility Discharge Nursing Homes/Rehab Facilities [facility] Verma Discharge Transportation Arranged [facility] [address] [place] [address] Mode of Transportation Arranged Ambulance Name of Agency #1 [facility] Radio Journalist #1 Intake Service Categories #1 [facility] Service Comments #1 [facility] will be providing your care upondischarge, if any issues or concerns please contact the facility directly * Haley Smith: PERFORM Event Display: Patient Education/Instruction Authored Date: [id number] Inpatient Adult Discharge Instructions [address] [address] Name: LAYLA PALENCIA : 1950 Visit: 07/01/2022 15:28:00 Current Date: 07/04/2022 17:16 Account: [id number] Inpatient Adult Discharge Instructions We would like to thank you for allowing us to assist you with your healthcare needs. The following includes patient education materials and information regarding your injury/illness. Our entire staffstrives to provide an excellent experience for our patients and their families. PLEASE ENSURE YOU FOLLOW-UP PER THE INSTRUCTIONS BELOW! ?? YOUR OPINION IS IMPORTANT TO US! Please complete the survey you may receive by mail or email. Your feedback will be used to make improvements to the healthcare experiences of our patients and their families. Surveys are administered by [employer] ?? If further treatment with your primary care physician or another doctor is recommended, it is important for you to keep the appointment. Call your primary care physician or return to the Emergency Department immediately if your condition worsens, fails to improve, or new symptoms develop. If you need to find a doctor, you can call [facility] for a referral at [phone] or toll free at [phone] ([phone]) or log in to [email or web address].. ?? You can view and manage your care through the patient portal or by using a health care reji of your choosing. [employer] is a website that allows you to securely view your medical information including your hospital discharge summary, office visit summaries, medications and follow-up visits. You can also request appointments, renew medications, and request access to your medical information using a health care reji of your choosing, or just ask a question. You can enroll at [email or web address] or register during your next office visit. You have been discharged from [facility], Patient Care Unit: S64. If you have any questions regarding these instructions after you leave, please call us and we will be happy to assist you. [facility] Your Care Team Attending Physician Ivette GRIFFIN, Tad Discharging Providers Ivette GRIFFIN, Tad Reason for Admission From SNF, over last 2 weeks pt has had falure to thrive and AMS. Pt was DO not transfer. Family reverse that today. Your Diagnosis Hypernatremia RODO (acute kidney injury) Dementia Pneumonia CAD in [place] artery Pacemaker Hyperlipidemia Hypertension GERD (gastroesophageal reflux disease) Type 2 diabetes mellitus Aspiration pneumonia Acute respiratory failure with hypoxia Tests Performed Below is a partial list of the tests performed during your hospitalization. You may have had other tests and procedures not included in this list. Please discuss all test results with your provider. BUN Calcium Level CBC CBC w/ Differential Comprehensive Metabolic Panel COVID-19 (NOVEL CORONAVIRUS), PCR COVID-19, RSV, and Flu A/B, Rapid PCR Creatinine Electrolytes FREE T4 Glucose Level GLUCOSE POC High??Sensitivity??Troponin T HOLD LAVENDER TUBE Mg Level Phosphorus Level ProBNP Troponin T, High Sensitivity TSH with T4 Reflex (Adults Only) Urinalysis w/hold for Urine Culture CT Abd/Pelvis W/ IV Contrast Only CT Head/Brain W/O Contrast XR Chest 2 Views Frontal and Lat Primary Care Provider David GRIFFIN, Emiliano Advance Directive Health Care Proxy on File Yes - Health Care Proxy Yes - MOLST No qualifying data available. Discharge Vitals Temperature: 98.7 DegF Height: 173 cm Pulse Rate:??53 bpm??Low Weight: 99.6 kg Respiratory Rate: 16 br/min Body Mass Index:??33.28 kg/m2??Critical Systolic Blood Pressure: 131 mm Hg Body surface area: 2.19 Diastolic Blood Pressure: 68 mm Hg ?? Oxygen Saturation:??93 %??Low ?? Studies Pending All tests and labs ordered during this hospital stay have been completed unless listed below. Please discuss all pending results with your provider listed above in these instructions. ?? COVID-19 (2019 Novel Coronavirus) PCR Electrolytes What to do next Instructions From Your Doctor Discharge Orders Diet:??Cardiac diet Activity:??Ambulate with assistance 3 times a day unless otherwise specified Code Status:?? No Resuscitation Prognosis:??Fair You Need to Schedule the Following Appointments Follow Up with??David GRIFFIN, Emiliano When??Within 1 week: call to discuss follow up visit Where: [address] [facility] Medicine [place], [place] [id number]- Discharge Medications LAYLA PALENCIA :1950 Visit Date:07/01/2022 Medications: Please continue your medications until treatment is completed or stopped by your provider. Medications not listed below should be discontinued. Discuss any questions related to medications with your provider. What How Much When Instructions Next Dose New Amoxicillin-Clavulanate (Augmentin 875 mg-125 mg oraltablet) 1 tab(s) Oral Every 12 hours Duration: 3 Days 07/04/2022 9pm Unchanged Acetaminophen (acetaminophen 325 mg oral tablet) 650 Milligram Oral Every 4 hours as needed for Pain , Mild Temperature Greater than 100.5 ?? as needed Unchanged Albuterol (albuterol CFC free 90 mcg/ inh inhalation aerosol) 2 puff(s) Inhalation 3 times a day as needed Unchanged Ascorbic Acid (Vitamin C 500 mg oral tablet) 1 tab(s) Oral Daily 07/05/2022 9am Unchanged Aspirin (aspirin 81 mg oral tablet, chewable) 1 tab(s) Chew Daily 07/05/2022 9am Unchanged Atorvastatin (Lipitor 40 mg oral tablet) 1 tab(s) Oral Daily at Bedtime 07/04/2022 9pm Unchanged Bisacodyl (Dulcolax 10 mg rectal suppository) 1 suppository(ies) Per rectum Daily as needed for as needed for constipation as needed Unchanged Divalproex Sodium (Depakote 125 mg oral enteric coated tablet) 1 tab(s) Oral 3 times a day 07/04/2022 9pm Unchanged Docusate (docusate sodium 100 mg oral capsule) 1 capsule Oral Twice a day as needed for as needed for constipation 07/04/2022 9pm Unchanged Docusate-Senna (Docusate/ Senna Tablet) 2 tab(s) Oral Twice a day 07/04/2022 9pm Unchanged Durable Medical Equipment (Glucose Gel) 15 gram Oral Once as needed for Blood Glucose as needed Unchanged Folic Acid (folic acid 1 mg oral tablet) 1 tab(s) Oral Daily 07/05/2022 9am Unchanged Gabapentin (gabapentin 250 mg/ 5 mL oral solution) 1 Milliliter Oral Daily before dinner at 5pm ?? continue home regime-not given during stay Unchanged Glucagon (Glucagon Inj) 1 Milligram Intramuscular Once as needed for Blood Glucose continue home regime- as needed Unchanged Insulin Glargine (Lantus Inj) 30 unit(s) Subcutaneous Injection Daily at Bedtime 07/04/2022 9pm Unchanged Insulin Lispro (insulin lispro 100 u/ ml subcutaneous injection) 12-22 units Subcutaneous Injection 3 times a day before meals << Sliding Scale Comments >> 100 - 149 ?? 12 units Call if less than 70 150 - 199 ?? 14 units 200 - 249 ?? 16 units 250 - 299 ?? 18 units 300 - 349 ?? 20 units 350 - 399 ?? 22 units Call if greater than 400 << Sliding Scale Comments >> ?? follow home regimen Unchanged Metoprolol (Toprol XL 25 mg oral tablet, extended release) 1 tab(s) Oral Daily 07/05/2022 9am Unchanged Milk of Magnesia 30 Milliliter Oral Daily as needed for as needed for constipation as needed Unchanged Multivitamin (Multivitamin Tablet) 1 tab(s) Oral Daily 07/05/2022 9am Unchanged Olanzapine (ZyPREXA 5 mg oral tablet) 1 tab(s) Oral Twice a day Unchanged Pantoprazole (pantoprazole 40 mg oral delayed release tablet) 40 Milligram Oral Daily 07/05/2022 9am Unchanged Sodium Biphosphate-Sodium Phosphate (Fleet Enema 19 gm-7 gm rectal enema) 118 Milliliter Per rectum Once as needed for as needed for constipation as needed Unchanged Sucralfate (Carafate 1 gm oral tablet) 1 tab(s) Oral 3 times a day before meals and bedtime 07/04/2022 9pm Unchanged Tamsulosin (Flomax 0.4 mg oral capsule) 1 capsule Oral Daily at Bedtime 07/04/2022 9pm Unchanged Thiamine (thiamine 100 mg oral tablet) 1 tab(s) Oral Daily 07/05/2022 9am Test Results Below is a partial list of the most recent Laboratory test results done prior to this discharge. You may have had other tests and procedures not included in this list. Please discuss all test resultswith your provider. BUN (07/04/2022) ???BUN - 23 mg/dL Calcium Level (07/04/2022) ???Calcium - 8.9 mg/dL CBC (07/04/2022) ???WBC - 12.2 k/mm3???RBC - 4.39 m/mm3???Hgb - 12.6 Gm/dL???Hct - 41.4 %???MCV - 94.3 femtoliters???MCH - 28.7 pg???MCHC - 30.4 g/dL???Platelet Count - 335 k/mm3???RDW-SD - 54.4 femtoliters???MPV - 10.1 femtoliters???Nucleated RBC (Automated) - 0.0 #/100 WBC'S???Abs. NRBC - 0.0 k/mm3 CBC w/ Differential (07/01/2022) ???WBC - 14.5 k/mm3???RBC - 4.50 m/mm3???Hgb - 13.0 Gm/dL???Hct - 43.8 %???MCV - 97.3 femtoliters???MCH - 28.9 pg???MCHC - 29.7 g/dL???Platelet Count - 335 k/mm3???RDW-SD - 59.9 femtoliters???MPV - 9.9 femtoliters???Nucleated RBC (Automated) - 0.0 #/100 WBC'S???Abs. NRBC - 0.0 k/mm3???Abs. Neut - 11.3 k/mm3???Abs. Lymph - 1.9 k/mm3???Abs. Pender - 1.0 k/mm3???Abs. Eo - 0.2 k/mm3???Abs. Baso - 0.1 k/mm3???Neut % - 77.5 %???Lymph % - 12.7 %???Pender % - 7.0 %???Eos % - 1.3 %???Baso % - 0.8 %???Imm Gran - 0.7 %???Abs. Imm Gran - 0.1 k/mm3 Comprehensive Metabolic Panel (07/01/2022) ???Sodium - 156 mmol/L???Potassium - 5.1 mmol/L???Chloride - 116 mmol/L???Bicarbonate Level - 33 mmol/L???Anion Gap - 7???Glucose Level - 383 mg/dL???BUN - 52 mg/dL???Creatinine-Blood - 2.3 mg/dL???Estimated GFR Creatinine - 29 ML/MIN/1.73 M2???Calcium - 9.4 mg/dL???Protein, Total - 6.8 Gm/dL???Albumin - 3.6 Gm/dL???AG Ratio - 1.1???Alkaline Phosphatase - 76 units/L???AST (SGOT) - 12 units/L???ALT (SGPT) - 13 units/L???Bilirubin, Total - 0.2 mg/dL COVID-19 (NOVEL CORONAVIRUS), PCR (07/04/2022) ???COVID-19 by RT-PCR - NEGATIVE COVID-19, RSV, and Flu A/B, Rapid PCR (07/01/2022) ???Influenza A PCR - NEGATIVE???Influenza B PCR - NEGATIVE???RSV PCR - NEGATIVE???COVID-19 PCR Specimen Source - NASAL???COVID-19 PCR Result - NEGATIVE Creatinine (07/04/2022) ???Creatinine-Blood - 1.4 mg/dL???Estimated GFR Creatinine - 53 ML/MIN/1.73 M2 Electrolytes (07/04/2022) ???Sodium - 143 mmol/L???Potassium - HEMOLYZED???Chloride - 109 mmol/L???Bicarbonate Level - 26 mmol/L???Anion Gap - 8 FREE T4 (07/01/2022) ???Free T4 - 1.21 ng/dL Glucose Level (07/04/2022) ???Glucose Level - 244 mg/dL GLUCOSE POC (07/04/2022) ???Glucose, POC - 236 mg/dL High??Sensitivity??Troponin T (07/01/2022) ???High Sensitivity Troponin (HSTnT) - 58 ng/L HOLD LAVENDER TUBE (07/02/2022) ???Hold Lavender Top - SPECIMEN DISCARDED AFTER 24 HOURS. Mg Level (07/03/2022) ???Magnesium - 2.2 mg/dL Phosphorus Level (07/04/2022) ???Phosphorus - 2.5 mg/dL ProBNP (07/01/2022) ???Nt-Probnp - 639 pg/mL Troponin T, High Sensitivity (07/02/2022) ???High Sensitivity Troponin (HSTnT) - 59 ng/L TSH with T4 Reflex (Adults Only) (07/01/2022) ???TSH - 0.25 uIU/mL Urinalysis w/hold for Urine Culture (07/01/2022) ???Appear/Color, Urine - LIGHT YELLOW???Specific [place], Urine - 1.034???pH, Urine - 5.5???Albumin, Urine - 1+???Glucose, Urine - 2+???Ketones, Urine - NEGATIVE???Bilirubin, Urine - NEGATIVE???Hemoglobin, Urine - NEGATIVE???Nitrite, Urine - NEGATIVE???Leukocyte, Urine - 3+???Urobilinogen - NORMAL???WBC's, Urine - 65 /HPF???RBC's, Urine - 2 /HPF???Bacteria - SLIGHT???Squamous Epith - 1 /HPF???Hyaline Cast - 7 LPF???Mucus - SLIGHT???Hold Urine Culture - Testing available 48 hours from time of collection. Allergies (NKA means No Known Allergies) Percocet 325 Problems Active Problems??(12) Alzheimer's disease with delusions?? Asthma?? CAD in [place] artery?? Chronic kidney disease, stage 3?? Dementia?? GERD (gastroesophageal reflux disease)?? Hyperlipidemia?? Hypertension?? Obese class I?? S/P CABG x 4?? Sternal wound infection?? Type 2 diabetes mellitus?? Education Materials Below is the list of Educational Leaflet Providered with your Discharge Instructions. Alzheimer's Dementia and Caregiver Support?? Alzheimer Disease?? Pneumonia (Adult)?? Valuables and Belongings I fully understand and agree that [facility] accepts no responsibility for all my personal property including clothing, toilet articles, radios, jewelry, dentures, hearing aids, rings, money, or any other property that is in my possession or is brought to me after admission. I understand certain valuables may be placed in a hospital safe for a short period of time. I understand that the hospital is not liable for loss or damage due to accident, fire, or other natural occurrence while said property is in the safe. I accept full responsibility for any personal property that I keep with me, and will not hold the hospital responsible in case of loss or disappearance. I acknowledge that i have been encouraged to send valuables and belongings home. ?? No Valuables/Belongings: No valuables/belongings present Review of Valuable and Belonging List: With witness Possessions released to: no medical devices at bedside Date for Pt to Sign Valuables/Belongings: 07/01/22 16:37:00 ?? Other Discharge Information ? Case Management Discharge Plan?? Discharge Plan?? Discharge Agency Information?? Discharge Level of Care at Discharge: long term facility Name of Agency #1: [facility] Discharge Transportation Arranged: [facility] [address] [facility] ??[phone] Agency Radio Journalist #1: Intake Mode of Transportation Arranged: Ambulance Service Categories #1: [facility] Discharge Nursing Homes/Rehab Facilities: [facility] Service Comments #1: [facility] will be providing your care upon discharge, if any issues or concerns please contact the facility directly ?? Pulmonary Rehab Status?? Pulmonary Rehab Discharge Status?? Respiratory Rate: 16 br/min ? Common Emergency Awareness Tips IS IT A STROKE? Act FAST and Check for these signs: FACE Does the face look uneven? ARM Does one arm drift down? SPEECH Does their speech sound strange? TIME Call at any sign of stroke ?? Heart Attack Signs Chest discomfort: Most heart attacks involve discomfort in the center of the chest and lasts more than a few minutes, or goes away and comes back. It can feel like uncomfortable pressure, squeezing, fullness or pain. Discomfort in upper body: Symptoms can include pain or discomfort in one or both arms, back, neck, jaw or stomach. Shortness of breath: With or without discomfort. Other signs: Breaking out in a cold sweat, nausea, or lightheaded. Remember, MINUTES DO MATTER. If you experience any of these heart attack warning signs, call to get immediate medical attention! ?? Smoking can increase your chances of developing chronic health problems and can cause harmful effects to other family members in your house. If you smoke, you are strongly encouraged to quit. Please call [facility] TapToLearn Link at [phone] or [phone] ([phone]) or log in to www.[facility]org for referrals to smoking cessation programs. ?? The National Suicide Prevention Hotline is available 09/01 if you or someone you know needs to find a reason to keep living. By calling 6-306-144-The Rowing Team (7028) you'll be connected to a skilled, trained counselor at a crisis center in your area. INPATIENT DISCHARGE INSTRUCTIONS SIGNATURE PAGE LAYLA PALENCIA Location:[facility] Registration Date and Time:07/01/2022 15:28 EST Primary Care Physician: Emiliano Hernandez MD, I LAYLA PALENCIA, have received the above patient education materials/instructions and have verbalizedunderstanding. If ambulance or transport services are being used I further acknowledge being given a choice of service. ?? If you need to contact me, please call me at this number: . Patient/Ethnology Professor Name: Patient/Ethnology Professor Signature: Relationship to Patient: Witness Name/Signature: Date: * Tad Steele MD: PERFORM Event Display: Patient Education Leaflets Authored Date: [id number] Alzheimer's Dementia and Caregiver Support ?? [id number] Alzheimer's Dementia and Caregiver Support?? Alzheimer's dementia (AD) is a long-term (chronic) condition that affects the brain. It gets worse over time. It causes a slow loss of memory and thinking functions.??A person with AD may have trouble recognizing familiar people and places, or knowing what day it is. The person???s memory, judgment, and decision-making may also be affected. In severe cases, they may not respond when someone talksto them. AD is the most common form of dementia. Experts don???t fully understand what causes AD. It has no cure. But medicines can treat some of the symptoms. Home care These tips can help you care for a person with AD at home: ??? A responsible person must be with someone who has advanced AD at all times.??They shouldn't be left alone or unsupervised. ??? In the case of advanced AD, keep all medicines in a secure place. They should be under the caregiver???s control. Don't let someone with advanced AD take their own medic hakan. This needs to be supervised by the caregiver. Here are ways to help a person with dementia: Activities Keep to a daily routine. Changes in routine can cause stress for someone with dementia. Make a schedule for common daily tasks. These include bathing, dressing, taking medicines, eating meals, going for walks, and going to bed. Opening curtains will help the person tell if it's day or night and what season it is. It's dangerous for a person with dementia to drive. If you aren't sure, the person can take a special driving skills assessment. Many group programs can help. Communication When talking to a person with dementia, talk slowly and clearly. Use a gentle tone of voice. Chooseshort, simple words and sentences. Ask one question at a time. Don???t interrupt, criticize, or argue. Be calm and supportive. Use friendly facial expressions. Use pointing and touching to help communicate. If the person has a loss of long-term memory, don???t ask questions about past events. Instead talk about what's happening now. Behavioral tips Use lists, signs, family photos, clocks, and calendars as memory aids. Label cabinets and drawers. Try to distract, not confront, the person. When they're frustrated or upset, direct their attention to eating or some other interesting activity. Medical-legal tips Talk with your healthcare provider or decision analyst about getting a power of tax attorney for healthcare and for financial decisions. It's best to do this while the person can still sign legal documents and make their own legal decisions. Otherwise you'll need a court order. ?? Support for the caregiver As the caregiver, you'll need a lot of support for yourself. Caring for a person with dementia is afull-time job. It can drain your emotions. It can lead to frustration and anger toward the one you love. It's common to feel grief over losing the relationship that you once had. As a caregiver to someone with dementia, you're at higher risk for depression, anxiety, and stress. Here are some tips to help you cope with being a caregiver: ??? Learn about dementia and Alzheimer disease so you know what to expect. ??? Find out about the resources in your community, including adult daycare programs. Ask your healthcare provider for a referral to a executive secretary social welfare, if needed. ???Take care of yourself with a healthy diet, exercise, and plenty of rest. ??? Ask for help. Share some of the caretaking duties with family and friends. ??? Make personal time for yourself. This is vital. Think about hiring an in-home sitter or home health aide. ??? Get counseling or join a caregiver???s support group. Don't isolate yourself or try to cope with this alone. In a support group, you can learn from others in a similar situation. ?? To learn more For help and support, try these resources: ??? Alzheimer's Association at https://www.alz.org/ or 262-245-9839 ??? National [place] on Agingat https://www.jacqueline.nih.gov/contact or 728-113-5211 ??? Alzheimer's Foundation of [place] at https://alzfdn.org/ or 224-478-9540 ?? Follow-up care Follow up with the person???s healthcare provider, or as advised. ?? When to get medical advice Call your loved one's healthcare provider right away if any of these occur: ??? Frequent falls ??? The person refuses to eat or drink ??? Headache or nausea that gets worse, or repeated vomiting after a fall ??? Unexplained fever of 100.4?? F (38.0?? C) or higher, or as advised ?? Call 911 Call 911 if any of these occur: ??? Violent behavior (call police) or behavior that becomes too hard to manage at home ??? Increased drowsiness, or failure to respond normally ??? Numbness or weakness of the face, an arm, or a leg ??? Slurred speech or trouble speaking, walking, or seeing ??? Fainting spell, dizziness, or seizure ??? Seizure-like activity, including twitching, staring episodes, lip smacking, or sudden periods of worsening confusion ?? Last Reviewed Date: 2021 ?? 0132-7898 [employer]. All rights reserved. This information is not intended as a substitute for professional medical care. Always follow your healthcare professional's instructions. ?? * Tad Steele MD: PERFORM Event Display: Patient Education Leaflets Authored Date: [id number] Alzheimer Disease ?? 81601 Alzheimer Disease Alzheimer disease is a brain illness that usually occurs in older adults. But it can also happen asearly as age 40. It's the most common cause of dementia and is a progressive disease. This means itgets worse over time. What is Alzheimer disease? Alzheimer disease causes a series of changes to nerves of the brain. Some nerves form into clumps and tangles, and lose some of their connections to other nerves. Healthcare providers??don???t fully understand what causes Alzheimer disease. But they think these may be some of the causes: ??? Age and family history ??? Certain genes ??? Abnormal protein deposits in the brain ??? Environmental factors ??? Problems with a person???s immune system ??? Possibly infections ?? Symptoms of Alzheimer disease The disease causes changes in behavior and thinking known as dementia. The symptoms include: ??? Memory loss ??? Confusion ??? Restlessness ??? Personality and behavior changes ??? Problems with judgment ??? Problems communicating with others ??? Inability to follow directions ??? Lack of emotion ??? Aggression, hallucinations, and delusions ?? Diagnosing Alzheimer disease No single test is able to diagnose Alzheimer disease. Instead, healthcare providers use a series oftests to rule out other health conditions. The tests may include: ??? A complete health history. ??This may include questions about overall health and past health problems. The healthcare provider may ask how well the person can do daily tasks. The healthcare provider may ask family or close friends about any changes in behavior or personality. ??? Mental status test. This is a test of memory, problem solving, attention, counting, and language.? Standard medical tests.??These may include blood and urine tests to find possible causes for the problem. ??? Brain imaging tests. ??CT, MRI, or positron emission tomography (PET) may be used to rule out other causes of the problem. ??? Neuropsychological testing. These are more advanced tests of memory and other brain functions that can determine the extent of brain dysfunction. ?? Treating Alzheimer disease Alzheimer disease has no cure. Instead healthcare providers can help ease some symptoms. This can make a person with Alzheimer more comfortable. Treatment can also make it easier for their caregiversto take care of them. Some medicines may help slow the decline of a person???s memory, thinking, and language skills. They may help with problems of behavior, such as aggression. They can lessen hallucinations and delusions. These medicines can work for some but not all people. And they may help for only a limited time.Medicines include: ??? Donepezil ??? Galantamine ??? Rivastigmine ??? Memantine In some cases, behavior problems can be caused by medicine side effects. Talk with the person???s healthcare provider about all medicines they are taking. Never increase or decrease a person's medicines unless you talk with the provider. Never share medicines or use someone else's prescriptions. Ifyou have trouble paying for the prescriptions, talk to the provider or the pharmacist about how to get help with this. ?? Keeping healthy For a person with Alzheimer, it???s important to stay healthy. Good nutrition and physical and social activity are vital. A calm and well-structured environment will help. Make sure to keep up with healthcare appointments and managing other health conditions, such as diabetes and high blood pressure. Some people benefit from having a loom fixer help to prevent weight loss.? Caring for someone with Alzheimer A person with Alzheimer will need more caregiving over time. Talk with your healthcare provider about caregiving resources.? To learn more ??? Alzheimer's Association, ??? National [place] on Aging, ??? Alzheimer's Foundation of [place], ?? Last Reviewed Date: 2021 ?? [employer]. All rights reserved. This information is not intended as a substitute for professional medical care. Always follow your healthcare professional's instructions. ?? * Tad Steele MD: PERFORM Event Display: Patient Education Leaflets Authored Date: [id number] Pneumonia (Adult) ?? [id number] Pneumonia (Adult) Pneumonia is an infection inside the lungs. It's in the small air sacs (alveoli). It may be caused by a virus, fungus, or bacteria. Pneumonia caused by bacteria??is treated with an antibiotic medicine. Severe cases may need to be treated in the hospital. Milder cases can be treated at home. Symptoms may include fever, chills, and cough (dry or with phlegm). You may have a headache, muscle weakness, trouble breathing, and pain. These symptoms often get worse in the first 2 days. But they often start to get better in the first week of treatment. Home care Follow these guidelines when caring for yourself at home: ??? Get plenty of rest. Take naps as needed. Don???t let yourself get too tired when you go back to your activities. Go back to activities asdirected by your healthcare provider. ??? Stop smoking. This is the most important step you can take to help treat pneumonia. If you need help to stop, talk with your healthcare provider. ??? Stay away from secondhand smoke. Don???t let anyone smoke in your home or your car. ??? Wash your hands often with soap and clean, running water. Rub for at least 20 seconds. Make sure to clean under your nails and between your fingers. When you can't wash your hands, use hand computer customer support specialist with at least 60% al cohol. ??? Cover your mouth and nose when coughing or sneezing. Use a tissue or the inside of your elbow. Don't cough or sneeze into your hands. Throw used tissues away. Be sure to wash your hands after coughing, sneezing, or blowing your nose. ??? Limit close contact with other people while you are sick. ??? Stay away from crowds during cold and flu season. Consider wearing a mask in crowds. ???Use pain medicine as directed. You may use acetaminophen or ibuprofen to control fever or pain, unless another medicine was prescribed. If you have chronic liver or kidney disease, talk with your healthcare provider before using these medicines. Also talk with your provider if you???ve had a stomach ulcer or bleeding in your stomach or intestines. Don???t give aspirin to a child younger than age 19 unless directed by the provider. Taking aspirin can put a child at risk for Sherron syndrome. This is a rare but very serious disorder. It most often affects the brain and the liver. ??? Drink plenty of water and other fluids. This can make mucus thinner and easier to cough up. Ask your healthcare provider how much water you should drink. For many people, 6 to 8 glasses (8 ounces each) a day is a good goal. Other fluids include sport drinks, sodas without caffeine, juices, tea, or soup. If you also have heart or kidney disease, check with your provider before you drink extra fluids. ??? Eat asyou are able. You may not feel hungry, so a light diet is fine. Follow the treatment plan as advised by your healthcare provider. ??? Take medicines as instructed by your healthcare provider. If you were given an antibiotic medicine, take it until it's all gone, even if you are feeling better aftera few days. ??? Try to stay away from air pollution. If you live in an area with air pollution, track the Air Quality Index (AQI) reports. Plan your outdoor activities when air quality is OK. ?? Follow-up care Follow up with your healthcare provider in the next 2 to 3 days, or as advised. Following up with your provider as directed is important to make sure you are getting better. You may need more tests if you aren't getting better. Take steps to prevent future infections. Ask your healthcare provider what vaccines are right for you and when to get them. This may include the influenza (flu), COVID-19, and pneumococcal vaccines. ?? Call 911 Call 911if any of these occur: ??? Unable to speak or swallow ??? Lips or skin looks blue, purple, or newsome ??? Feeling dizzy ??? Fainting ??? Unable to be awake or aware ??? Feeling of doom ??? Trouble breathing or wheezing ??? Shortness of breath gets worse or doesn't get better with treatment ???Rapid breathing (more than 25 breaths per minute) ??? Coughing up blood ??? Chest pain gets worse with breathing or doesn't get better with treatment ?? When to get medical advice Call your healthcare provider right away if any of these occur: ??? You don???t get better in the first 2 to 3 days of treatment ??? Fever of??100.4??F (38??C) or higher, or as directed by your healthcare provider ??? Shaking chills ??? Cough with phlegm that doesn't get better, or get worse ??? Shortness of breath with activities ??? Weakness, dizziness, or fainting that gets worse ??? Thirst ordry mouth that gets worse ??? Sinus pain, headache, or a stiff neck ??? Chest pain with breathing or coughing ??? Symptoms that get worse or don't get better ?? Last Reviewed Date: 2021 ?? [employer]. All rights reserved. This information is not intended as a substitute for professional medical care. Always follow your healthcare professional's instructions. ?? * CARLOS EDUARDO Smith S: Bobby Blunt MD: Ruth Carnes DO: SIGN Event Display: Result: Authored Date: [id number] Chest 2 Views Frontal and Lat HX OF PRESENT ILLNESS: AMS from locked dementia unit. Pt responding to questions.; Reason: Shortness of Breath, Fever; Clinical Question(s): Pneumonia COMPARISON: Multiple priors most recently 11/02/2021 FINDINGS: LINES AND TUBES: Spinal stimulator. LUNGS AND PLEURA: Patchy right basilar airspace opacity No pleural effusion. No pneumothorax, although lung apices partially obscured by patient's chin. HEART, MEDIASTINUM AND CEE: Heart is at the upper limits of normal for size. Status post CABG. Normal mediastinal and hilar contour. BONES AND SOFT TISSUES: Status post median sternotomy with intact appearing plates and screws and 2 sternal wires. No acuteosseous abnormality. IMPRESSION: Right basilar airspace opacity, likely representing aspiration or pneumonia. I have personally reviewed the images and I agree with this report. WSN: [id number] Ordering Physician: Sarah Curry Dictated By: Ruth Gupta DO Dictated Date/Time: 07/01/22 2:20 pm Reviewed By: Bobby Juarez MD Signed By: Bobby Juarez MD Signed Date/Time: 07/01/22 2:25 pm Transcribed By: CSB Transcribed Date/Time: 07/01/22 2:[address] Head WO contrast * CARLOS EDUARDO Smith S: TRANSCJENNIFER Figueroa MD, Young Craig: VERIFY Nhan Malagon MD: SIGN Event Display: Result: Authored Date: [id number] CT Head/Brain W/O Contrast INDICATION: Altered mental status. TECHNIQUE: Noncontrast head CT using axial technique and reconstructed in axial and coronal planes.Iterative reconstruction techniques are used to optimize dose and image quality. CTDIvol Head: 48.30 mGy, DLP Head: 966 mGy*cm. COMPARISON: None. FINDINGS: Ironworker Apprentice view findings, lines and tubes: None. BRAIN AND EXTRA-AXIAL SPACES: No parenchymal hemorrhage, midline shift, or mass effect. [place]-white matter differentiation is wellpreserved. No acute infarct. Negative insular ribbon sign. Atherosclerotic vascular calcification of the carotid arteries but negative hyperdense vessel sign. Moderate prominence of the ventricles and sulci consistent with parenchymal volume loss and ace cisterna magna, unchanged. No white matter lesions. No subarachnoid hemorrhage. No subdural or epidural collection. CALVARIUM, SKULL BASE, AND SOFT TISSUES: No fractures or suspicious bony lesions. Moderate mucosal thickening of the paranasal sinuses. There is a trace amount of fluid in the bilateral mastoid air cells. Status-post bilateral lens extraction. The extracranial soft tissues are unremarkable. IMPRESSION: No acute intracranial abnormality. Moderate mucosal thickening in the paranasal sinuses new compared to previous exam, otherwise age indeterminate. I have personally reviewed the images and I agree with this report. WSN: [id number] Ordering Physician: Sarah Curry Dictated By: Nhan Malagon MD Dictated Date/Time: 07/01/22 2:52 pm Reviewed By: Young Figueroa MD Signed By: Young Figueroa MD Signed Date/Time: 07/01/22 2:57 pm Transcribed By: MIKALA Transcribed Date/Time: 07/01/22 2:[address] Abdomen and Pelvis W contrast IV * BHSPowerscribe , CIS S: TRANSCRIBE Young Figueroa MD: VERIFY Nhan Malagon MD: SIGN Event Display: Result: Authored Date: [id number] CT Abd/Pelvis W/ IV Contrast Only INDICATION: Failure to thrive, altered mental status. TECHNIQUE: Spiral CT through the abdomen and pelvis with IV contrast formatted in 3 planes. 100 cc of Omnipaque 300 was administered intravenously. This study was performed without oral contrast. Weight-based protocol using automatic tube modulation was used to optimize exposure parameters. CTDIvolBody: 15.40 mGy, DLP Body: 1066 mGy*cm. COMPARISON: 11/02/2021. FINDINGS: Visualized Chest: Patchy scattered peripheral patchy and consolidative opacities in the dependent lung bases, right greater than left new compared to previous exam. Liver: [Included Gallbladder: Small amount of hyperdense layering material in the gallbladder which may represent orsludge and/or tiny calculi. Bile ducts: No biliary ductal dilation. Spleen: Normal. Pancreas: Atrophic. Adrenal glands: Small 0.8 x 1.8 cm fatty lesion in the body of the right adrenal gland superiorly best seen on coronal image 69 series 202 (axial image 16), consistent with a myelolipoma not as well seen on previous exam due to respiratory motion. No further imaging follow-up is necessary. Kidneys and ureters: Atrophic appearing. No hydronephrosis, stones, or suspicious masses. Mild perinephric stranding, a nonspecific finding. Bladder: Normal. Reproductive organs: Unremarkable. Stomach, small bowel, and large bowel: Stomach is normal. Mild artifact obscuring fine detail of the small and large bowel, however, the small and large bowel appear grossly normal. Colon is stool-filled. Appendix: No evidence of acute appendicitis. Peritoneum and retroperitoneum: No ascites or pneumoperitoneum. No omental or mesenteric lesions. Lymph nodes: No enlarged lymph nodes. Blood vessels: Mild vascular calcifications but no aneurysm. Abdominal and pelvic wall: Ventral hernia just to the right of midline in the umbilical region containing a few loops of small bowel with a 2.8 cm wall defect (axial image 100). No evidence of obstruction or strangulation. Small fat-containing umbilical hernia. Partially visualized spinal stimulator lead with battery pack in the soft tissue of the left upper buttocks. Bones: No acute abnormalities. IMPRESSION: 1. Multifocal opacities in the dependent lung bases, right greater than left, concerning for pneumonia, with aspiration as a possible etiology. 2. Otherwise no evidence of acute process. 3. Trace amount of sludge or tiny calculi layering in the gallbladder without evidence of acute cholecystitis. 4. Right-sided ventral hernia containing nonobstructed small bowel loops. 5. Otherwise largely unremarkable. I have personally reviewed the images and I agree with this report. WSN: [id number] Ordering Physician: Sarah Curry Dictated By: Nhan Malagon MD Dictated Date/Time: 07/01/22 3:28 pm Reviewed By: Young Figueroa MD Signed By: Young Figueroa MD Signed Date/Time: 07/01/22 3:33 pm Transcribed By: MIKALA Transcribed Date/Time: 07/01/22 3:04 pm Patient Care team information Care Team Personnel Name: Tammy Fu RN Position: [facility] RN Member Role: Primary Care Nurse Name: Becki Soria Position: [facility] ANGELICA Office Staff Member Role: Lifetime Consulting Physician Name: Robel Singh RN Position: [facility] ED RN W/OE and Tasks Member Role: Primary Care Nurse Name: Deanne Warner RN Position: [facility] RN Member Role: Primary Care Nurse Name: Vika Jacobson RN Position: [facility] RN Member Role: Primary Care Nurse Name: Svitlana Boyer RN Position: [facility] RN Member Role: Primary Care Nurse Name: Kavitha Cleveland RN Position: [facility] RN Member Role: Primary Care Nurse Name: Naa Monson RN Position: [facility] RN Member Role: Primary Care Nurse Name: Silva Martell RN Position: [facility] RN Member Role: Primary Care Nurse Name: Griffin Tomlinson RN Position: [facility] RN Member Role: Primary Care Nurse Name: Kristi Westbrook RN Position: [facility] RN Member Role: Primary Care Nurse Name: Mabel Lambert RN Position: [facility] Wheel Braider Member Role: Primary Care Nurse Name: Gabrielle Glez RN Position: [facility] RN Member Role: Primary Care Nurse Name: Armando Vega RN Position: [facility] RN Member Role: Primary Care Nurse Name: Isaac Powers RN Position: [facility] RN Supv Member Role: Primary Care Nurse Name: Hailey De La Rosa RN Position: [facility] RN Member Role: Primary Care Nurse Name: Ciara Barnes RN Position: [facility] RN Member Role: Primary Care Nurse Name: Phong Burns RN Position: [facility] RN Member Role: Primary Care Nurse Name: Haley Smith Position: [facility] RN Member Role: Primary Care Nurse Name: Martha Hardin RN Position: [facility] RN Member Role: Primary Care Nurse Name: Kristina Mcdermott Position: [facility] RN Member Role: Primary Care Nurse Name: Eric Guerrero RN Position: [facility] RN Member Role: Primary Care Nurse Name: Orlando Figueroa RN Position: [facility] RN Member Role: Primary Care Nurse Name: Carla Rich RN Position: [facility] RN Member Role: Primary Care Nurse Name: Juanpablo Stauffer RN Position: [facility] RN Member Role: Primary Care Nurse Name: Joy Caicedo RN Position: [facility] RN Member Role: Primary Care Nurse Name: Ashwini Aleman RN Position: [facility] Hospital Wheel Braider Member Role: Primary Care Nurse Name: Cyn Peterson RN Position: [facility] RN Member Role: Primary Care Nurse Name: Cade Barrett MD Position: [facility] Renal MD Member Role: Lifetime Consulting Physician Address: Address: [address] [place] [address] [address] [facility] [place] [address]- [place] Name: Maryan Ramirez RN Position: [facility] RN Member Role: Primary Care Nurse Name: Kelsi Monsalve Position: [facility] AMB Nurse Member Role: Primary Care Nurse Name: Emiliano Hernandez MD Position: [facility] Outreach Member Role: PCP Address: Address: [address] [place] [address]- [place] Name: Sandra Harden RN Position: [facility] RN Member Role: Primary Care Nurse Name: Karen Mcdonald RN Position: [facility] RN Member Role: Primary Care Nurse Name: Fuentes Sharif MD Position: [facility] Renal MD Member Role: Lifetime Consulting Physician Address: Address: [address] [place] [address] [facility] [place] [place] [address]- [place] Name: Goldie Jeff RN Position: [facility] RN Member Role: Primary Care Nurse Name: Queta Pelletier RN Position: [facility] RN Member Role: Primary Care Nurse Name: Amanda Tovar RN Position: [facility] RN Member Role: Primary Care Nurse Name: Yulisa David RN Position: [facility] RN Member Role: Primary Care Nurse Name: Mer Miguel RN Position: [facility] Wheel Braider Member Role: Primary Care Nurse Name: Suzanne PINK Attending Position: [facility] ED Medicine MD Name: Gilmar Kauffman Position: [facility] ED [facility] Member Role: Patient Care Provider Name: Sandra Wan RN Position: [facility] ED RN W/OE and Tasks Member Role: Patient Care Provider Care Team Related Persons Name: SARAH PALENCIA Address: home [address] [place] [address] Name: KALEB PALENCIA Address: home [address] [place] [address] Name: ALEXANDER PALENCIA Address: home [address] [place] [address]
--- OUTSIDE RECORDS SUMMARY | 2024-05-14 11:06 | XMS_ITS | Continuity of Care Document ---
Author Organization [facility] ter Address [address] [place] [address]- Care Team Providers Care Solderer Dipper Name Role Phone Sasha CORDERO, Marzena Lee Primary Care Physician Encounter [facility] [place] Date(s): 01/23/22 - 01/23/[address] [address]- Encounter Diagnosis Dementia(Final) - 01/23/22 Discharge Disposition: A-D/C Home Attending Physician: Noman Alexander MD Admitting Physician: Noman Alexander MD Referring Physician: Not on Staff, Referring MD Allergies, Adverse Reactions, Alerts Substance Reaction Severity Status Percocet 5/325 1 Persistent Moderate Acti ve 1Rash Immunizations Not Given Vaccine Date Status Refusal Reason SARS-CoV-2 (COVID-19) [id number] vaccine 11/03/21 N ot Given Patient Refuses [...] 0 Refills, Maintenance, 05/22/20 10:29:00 EST, Tablet, [facility], Partial fill upon [...] Most recent to oldest [Reference Range]: 1 Oxygen Saturation [94-100 %] 98 % (01/23/22 4:16 AM) Pulse Rate [55-90 bpm] 62 bpm (01/23/22 4:16 AM) Blood Pressure [90-138/55-84 mm Hg] 148/ 60mm Hg *H* (01/23/22 4:16 AM) Respiratory Rate [16-30 br/min] 18 br/mi n (01/23/22 4:16 AM) Mode of Delivery (Oxygen) Room air (01/23/22 4:16 AM) Blood pressure sites Arm, left (01/23/22 4:16 AM) Social History Social History Type Response Tobacco Use: quit 10 months ago. Sex
--- OUTSIDE RECORDS SUMMARY | 2024-05-14 11:06 | XMS_ITS | Continuity of Care Document ---
Author Organization [facility] Kathy sheila Address [address] [place] [address]- Care Team Providers Care Passenger Locomotive Engineer Name Role Phone Sasha CORDERO, Marzena Lee Primary Care Physician Encounter [facility] Date(s): 11/23/20 - 11/30/20 [facility] [address] [place] [id number]- Attending Physician: Byron GRIFFIN, Lolly Andersen Referring [...] 0 Refills, Maintenance, 05/22/20 10:29:00 EST, Tablet, [facility], Partial fill upon patient [...] a schedule II opioid drug., 173, cm, 2... Start Date: 11/10/20 Stop Date: 12/01/20 Status: Ordered Vitamin C 500 mg oral tablet 1 tablet = 500 mg, By Mouth, Daily, 0 Refills, Maintenance, 08/19/20 12:51:00 EST, Tablet Start Date: 08/19/20 Status: Ordered Problem List Condition Effective Dates Status Health Status Inform ant Asthma(Confirmed) Active Chronic kidney disease, stag e 3(Confirmed) Active CAD in [place] artery(Confirmed) Active Alzheimer's disease with delusions(Confirmed) Active Dementia(Confirmed) Active GERD (gastroesophageal reflu x disease)(Confirmed) Active S/P CABG x 4(Confirmed) Active Hyperlipidemia(Confirmed) Active Hypertension(Confirmed) Active Sternal wound infection(Confirmed) Active Type 2 diabetes mellitus(Confirmed) Active Vital Signs Most recent to oldest [Reference Range]: 1 Height 173 cm (11/23/20 12:09 PM) Weight 100 kg (11/23/20 12:09 PM) Oxygen Saturation [94-100 %] 98 % (11/23/20 12:09 PM) Pulse Rate [55-90 bpm] 78 bpm (11/23/20 12:09 PM) Body Mass Index [18.5-24.99] 33.41 *>HHI* (11/23/20 12:09 PM) Blood Pressure [90-138/55-84 mm Hg] 124/ 80mm Hg (11/23/20 12:09 PM) Respiratory Rate [16-30 br/min] 18 br/mi n (11/23/20 12:09 PM) Mode of Delivery (Oxygen) Room air (11/23/20 12:09 PM) Blood pressure sites Arm, left (11/23/20 12:09 PM) Weight Obtained Via Patient/family state d (11/23/20 12:09 PM) Social History Social History Type Response Tobacco Use: quit 10 months ago. Sex
--- OUTSIDE RECORDS SUMMARY | 2024-05-14 11:06 | XMS_ITS | Continuity of Care Document ---
Author Organization [facility] Address [address] [place] [address]- Care Team Providers Care Veneer Department Manager Name Role Phone Sasha CORDERO, Marzena Lee Primary Care Physician [place] [facility] [place](s): 11/30/20 - 12/30/20 [facility] [address] [place] [id number] Allergies, Adverse Reactions, Alerts Substance Reaction [...] 0 Refills, Maintenance, 05/22/20 10:29:00 EST, Tablet, [facility], Partial fill upon patient [...] disease, stag e 3(Confirmed) Active CAD in [place] artery(Confirmed) Active Alzheimer's disease with delusions(Confirmed) Active Dementia(Confirmed) Active GERD (gastroesophageal reflu x disease)(Confirmed) Active S/P CABG x 4(Confirmed) Active Hyperlipidemia(Confirmed) Active Hypertension(Confirmed) Active Sternal wound infection(Confirmed) Active Type 2 diabetes mellitus(Confirmed) Active Social History Social History Type Response Tobacco Use: quit 10 months ago. Sex
--- OUTSIDE RECORDS SUMMARY | 2024-05-14 11:06 | XMS_ITS | Continuity of Care Document ---
Author Organization [facility] Address [address] [place] [address]- Care Team Providers Care Terrazzo Layer Helper Name Role Phone Isac Velazquez MD Primary Care Physician Encounter [facility] Date(s): 09/23/20 - 09/23/[address] [address]- Discharge Disposition: A-D/C Home Attending Physician: Erwin Chang MD Admitting Physician: Erwin Chang MD Referring Physician: Not on Staff, Referring [...] 0 Refills, Maintenance, 05/22/20 10:29:00 EST, Tablet, [facility], Partial fill upon patient [...] drug. Start Date: 08/19/20 Status: Ordered Pen [place], 30 G x 8 mm BD Ultra [...] Range]: 1 2 3 Height 174 cm (09/23/20 11:41 AM) Weight 103 kg (09/23/20 11:41 AM) Oxygen Saturation [94-100 %] 96 % (09/23/20 2:01 PM) 98 % (09/23/20 11:41 AM) 100 % (09/23/20 11:40 AM) Pulse Rate [55-90 bpm] 80 bpm (09/23/20 2:01 PM) 79 bpm (09/23/20 11:41 AM) 73 bpm (09/23/20 11:40 AM) Blood Pressure [90-138/55-84 mm Hg] 151/71mm Hg *H* (09/23/20 2:01 PM) 159/78mm Hg *H* (09/23/20 11:41 AM) 169/82mm Hg *H* (09/23/20 11:40 AM) Respiratory Rate [16-30 br/min] 20 br/min (09/23/20 2:01 PM) 18 br/min (09/23/20 11:41 AM) 14 br/min *L* (09/23/20 11:40 AM) Temperature [96.8-100.4 DegF] 97.8 DegF (09/23/20 11:41 AM) Liters per Minute 0 L/min (09/23/20 11:40 AM) Mode of Delivery (Oxygen) Room air (09/23/20 2:01 PM) Room air (09/23/20 11:41 AM) Room air (09/23/20 11:40 AM) Blood pressure sites Arm, right (09/23/20 11:41 AM) Arm, right (09/23/20 11:40 AM) Temperature Route Oral (09/23/20 11:41 AM) Dry Weight 103 kg (09/23/20 11:41 AM) Social History Social History Type Response Tobacco Use: quit 10 months ago. Sex
--- OUTSIDE RECORDS SUMMARY | 2024-05-14 11:06 | XMS_ITS | Continuity of Care Document ---
Author Organization [facility] Kathy sheila Address [address] [place] [address]- Care Team Providers Care Barbed Wire Machine Operator Name Role Phone Caroline GRIFFIN, Isac Haas Primary Care Physician [phone] Encounter [facility] [place] Date(s): 08/20/20 - 08/27/20 [facility] [address] [place] [phone]- Attending Physician: Lolly Matthews MD Allergies, Adverse [...] 0 Refills, Maintenance, 05/22/20 10:29:00 EST, Tablet, [facility], Partial fill upon patient [...] drug. Start Date: 08/19/20 Status: Ordered Pen [place], 30 G x 8 mm BD Ultra [...]
--- OUTSIDE RECORDS SUMMARY | 2024-05-14 11:06 | XMS_ITS | Continuity of Care Document ---
Author Organization [facility] ter Address [address] [place] [address]- Care Team Providers Care Dispute Resolution Analyst Name Role Phone Isac Velazquez MD Primary Care Physician Encounter [facility] [place] [place] Date(s): 06/03/20 - 07/03/[address] [address]- Attending Physician: Not on Staff, Attending MD Admitting Physician: Not on Staff, Admitting MD Referring Physician: Not on Staff, Referring [...] 06/07/20 13:16:00 EST, Route to Pharmacy Electronically, [id number], Partial fill upon patient request if the [...] 0 Refills, Maintenance, 05/22/20 10:29:00 EST, Tablet, [facility], Partial fill upon patient request if the prescription is for a schedule II opioid drug., 174, cm, 05/22/20 8:22:00 EST, He... Start Date: 05/22/20 Status: Ordered clopidogrel 75 mg oral tablet 75 mg, 1, tablet, By Mouth, Daily, # 30 tablet, Refills 0, Tot. Refills 0, Maintenance, 06/07/20 13:16:00 EST, Route to Pharmacy Electronically, [facility] #[id number], Partial fill upon patientrequest if the prescription [...] 06/07/20 13:15:00 EST, Route to Pharmacy Electronically, [facility] #[id number], Partial fill uponpatient request if the prescription is for a schedu... Start Date: 06/07/20 Status: Ordered Milk of Magnesia Liquid 30 mL, By Mouth, Every 8 hours, PRN Constipation, 0 Refills, Maintenance, 06/11/20 11:52:00 EST, Suspension, Partial fill upon patient request if the prescription is for a schedule II opioid drug. Start Date: 06/11/20 Status: Ordered Pen [place], 30 G x 8 mm BD Ultra [...]
--- OUTSIDE RECORDS SUMMARY | 2024-05-14 11:06 | XMS_ITS | Continuity of Care Document ---
Author Organization [facility] Kathy sheila Address [address] [place] [address] [place] [address]- Care Team Providers Care Cutter Tender Name Role Phone Sasha CORDERO, Marzena Lee Primary Care Physician Encounter [facility] [place] Date(s): 06/16/21 - 06/23/21 [facility] [address] [place] [address]- Attending Physician: Byron GRIFFIN, Lolly Andersen Referring Physician: Marzena Baez NP Allergies, Adverse [...] 0 Refills, Maintenance, 05/22/20 10:29:00 EST, Tablet, [facility], Partial fill upon patient [...] e 3(Confirmed) Active CAD in [place] artery(Confirmed) Active Alzheimer's disease with delusions(Confirmed) Active Dementia(Confirmed) Active GERD (gastroesophageal reflu x disease)(Confirmed) Active S/P CABG x 4(Confirmed) Active Hyperlipidemia(Confirmed) Active Hypertension(Confirmed) Active Sternal wound infection(Confirmed) Active Obese class II(Confirmed) Active Type 2 diabetes mellitus(Confirmed) Active Vital Signs Most recent to oldest [Reference Range]: 1 Height 173 cm (06/16/21 10:29 AM) Weight 108.6 kg (06/16/21 10:29 AM) Oxygen Saturation [94-100 %] 95 % (06/16/21 10:29 AM) Pulse Rate [55-90 bpm] 78 bpm (06/16/21 10:29 AM) Body Mass Index [18.5-24.99] 36.29 *>HHI* (06/16/21 10:29 AM) Blood Pressure [90-138/55-84 mm Hg] 118/ 74mm Hg (06/16/21 10:29 AM) Respiratory Rate [16-30 br/min] 18 br/mi n (06/16/21 10:29 AM) Mode of Delivery (Oxygen) Room air (06/16/21 10:29 AM) Blood pressure sites Arm, right (06/16/21 10:29 AM) Weight Obtained Via Patient/family state d (06/16/21 10:29 AM) Social History Social History Type Response Tobacco Use: quit 10 months ago. Sex
--- OUTSIDE RECORDS SUMMARY | 2024-05-14 11:06 | XMS_ITS | Continuity of Care Document ---
Author Organization [facility] Kathy sheila Address [address] [place] [address]- Care Team Providers Care Outsole Caser Name Role Phone Caroline GRIFFIN, Isac Haas Primary Care Physician [place] [facility] [place]20 - 06/24/20 [facility] [address] [place] [address]- Attending Physician: Byron GRIFFIN, Lolly Andersen Referring Physician: Keshia RESIDENTIAL PROGRAM DIRECTOR, Yulisa Menezes Allergies, Adverse Reactions, Alerts Substance Reaction Severity [...] 06/07/20 13:16:00 EST, Route to Pharmacy Electronically, [facility][id number], Partial fill upon patient request if the [...] 0 Refills, Maintenance, 05/22/20 10:29:00 EST, Tablet, [facility], Partial fill upon patient request if the prescription is for a schedule II opioid drug., 174, cm, 05/22/20 8:22:00 EST, He... Start Date: 05/22/20 Status: Ordered clopidogrel 75 mg oral tablet 75 mg, 1, tablet, By Mouth, Daily, # 30 tablet, Refills 0, Tot. Refills 0, Maintenance, 06/07/20 13:16:00 EST, Route to Pharmacy Electronically, [facility] #[id number], Partial fill upon patientrequest if the prescription [...] 06/07/20 13:15:00 EST, Route to Pharmacy Electronically, [facility] #[id number], Partial fill uponpatient request if the prescription is for a schedu... Start Date: 06/07/20 Status: Ordered Milk of Magnesia Liquid 30 mL, By Mouth, Every 8 hours, PRN Constipation, 0 Refills, Maintenance, 06/11/20 11:52:00 EST, Suspension, Partial fill upon patient request if the prescription is for a schedule II opioid drug. Start Date: 06/11/20 Status: Ordered Pen [place], 30 G x 8 mm BD Ultra [...]
--- OUTSIDE RECORDS SUMMARY | 2024-05-14 11:06 | XMS_ITS | Continuity of Care Document ---
Author Organization [facility] Kathy sheila Address [address] [place] [address]- Care Team Providers Care Tire Setter Name Role Phone Sasha CORDERO, Marzena Lee Primary Care Physician Encounter [facility] [place] Date(s): 09/09/20 - 10/16/20 [facility] [address] [place] [address]- Attending Physician: Byron GRIFFIN, Lolly Andersen Referring [...] 0 Refills, Maintenance, 05/22/20 10:29:00 EST, Tablet, [facility], Partial fill upon patient request [...] disease, stag e 3(Confirmed) Active CAD in [place] artery(Confirmed) Active Alzheimer's disease with delusions(Confirmed) Active Dementia(Confirmed) Active GERD (gastroesophageal reflu x disease)(Confirmed) Active S/P CABG x 4(Confirmed) Active Hyperlipidemia(Confirmed) Active Hypertension(Confirmed) Active Type 2 diabetes mellitus(Confirmed) Active Social History Social History Type Response Tobacco Use: quit 10 months ago. Sex
--- OUTSIDE RECORDS SUMMARY | 2024-05-14 11:06 | XMS_ITS | Continuity of Care Document ---
Author Organization [facility] Kathy sheila Address [address] [phone]- Care Team Providers Care Product Architect Name Role Phone Iasc Velazquez MD Primary Care Physician Encounter [facility] Date(s): 09/08/20 - 09/15/20 [facility] [address] [phone]- Attending Physician: Lolly Matthews MD Referring Physician: [...] 0 Refills, Maintenance, 05/22/20 10:29:00 EST, Tablet, [facility], Partial fill upon patient [...] drug. Start Date: 08/19/20 Status: Ordered Pen [place], 30 G x 8 mm BD Ultra [...]
--- OUTSIDE RECORDS SUMMARY | 2024-05-14 11:06 | XMS_ITS | Continuity of Care Document ---
Author Organization [facility] Kathy sheila Address [address] [place] [address]- Care Team Providers Care Manager Field Sales Name Role Phone Sasha CORDERO, Marzena Lee Primary Care Physician Encounter [facility] [place] Date(s): 06/16/20 - 10/02/20 [facility] [address] [place] [address]- Attending Physician: Byron GRIFFIN, Lolly Andersen Allergies, [...] 0 Refills, Maintenance, 05/22/20 10:29:00 EST, Tablet, [facility], Partial fill upon patient [...] drug. Start Date: 08/26/20 Status: Ordered Pen [place], 30 G x 8 mm BD Ultra [...]
--- OUTSIDE RECORDS SUMMARY | 2024-05-14 11:07 | XMS_ITS | Continuity of Care Document ---
Author Organization [facility] Kathy sheila Address [address] [place] [address]- Care Team Providers Care Pt Sitter Name Role Phone Sasha CORDERO, Marzena Lee Primary Care Physician Encounter [facility] [place] Date(s): 11/17/20 - 11/24/20 [facility] [address] [place] [address]- Attending Physician: Yulisa Schmitt NP Referring Physician: Sasha CORDERO, Marzena Lee Allergies, [...] 0 Refills, Maintenance, 05/22/20 10:29:00 EST, Tablet, [facility], Partial fill upon patient [...] disease, stag e 3(Confirmed) Active CAD in [place] artery(Confirmed) Active Alzheimer's disease with delusions(Confirmed) Active Dementia(Confirmed) Active GERD (gastroesophageal reflu x disease)(Confirmed) Active S/P CABG x 4(Confirmed) Active Hyperlipidemia(Confirmed) Active Hypertension(Confirmed) Active Sternal wound infection(Confirmed) Active Type 2 diabetes mellitus(Confirmed) Active Social History Social History Type Response Tobacco Use: quit 10 months ago. Sex
--- OUTSIDE RECORDS SUMMARY | 2024-05-14 11:07 | XMS_ITS | Continuity of Care Document ---
Author Organization [facility] Address [address] [place] [address]- Care Team Providers Care Ore Buyer Name Role Phone Sasha CORDERO, Marzena Lee Primary Care Physician Encounter [facility] [place] Date(s): 10/07/20 - 10/20/[address] [phone]- Discharge Disposition: A-D/C Home Attending Physician: Byron GRIFFIN, Lolly Andersen Admitting Physician: Harsha Gilbert MD Referring Physician: Not on Staff, Referring [...] 0 Refills, Maintenance, 05/22/20 10:29:00 EST, Tablet, [facility], Partial fill upon [...] oral tablet 25 mg, Tablet, By Mouth, 10/20/20 9:00:00 EDT Start Date: 10/20/20 Stop Date: 10/20/20 Status: Completed metoprolol 25 mg oral tablet [...] disease, stag e 3(Confirmed) Active CAD in [place] artery(Confirmed) Active Alzheimer's disease with delusions(Confirmed) Active Dementia(Confirmed) Active GERD (gastroesophageal reflu x disease)(Confirmed) Active S/P CABG x 4(Confirmed) Active Hyperlipidemia(Confirmed) Active Hypertension(Confirmed) Active Type 2 diabetes mellitus(Confirmed) Active Results Orders for Microbiology Reports Name Date Anaerobic Culture (ANAEROBIC CULTURE) Fungal Culture, Nonrespiratory (FUNGAL C ULT,NON-RESPIRATORY) 10/13/20 Wound Deep Culture w/ Gram Smear (DEEP W OUND CULTURE) 10/13/20 AFB Culture w/ AFB Smear, Nonrespiratory (ACID FAST CULT,NON-RESP) 10/13/20 Anaerobic Culture (ANAEROBIC CULTURE) Fungal Culture, Nonrespiratory (FUNGAL C ULT,NON-RESPIRATORY) 10/13/20 Tissue Culture w/ Gram Smear (TISSUE/BIO PSY CULT.) 10/13/20 Blood Culture 10/08/20 Blood Culture #2 10/08/20 Wound Superficial Culture W/ Gram Smear (Culture Wound Superficial w/ Gram Smear) 10/07/20 Microbiology Reports (Most Recent Ten) TEST:Anaerobic Culture STATUS:Auth (Verified) BODY SITE: SOURCE:SWAB1 COLLECTED DATE/TIME:10/13/20 8:47 AM Anaerobic Culture SPECIMEN DESCRIPTION : SWAB MEDIASTINAL WOUND CULTURE SPECIAL REQUESTS : NONE CULTURE : STAPH. SPECIES, NOT STAPH. AUREUS ISOLATED FROM BROTH ONLY NO ANAEROBES ISOLATED REPORT STATUS : FINAL 10/18/2020 ORGANISM STAPH. SPECIES, NOT STAPH. AUREUS ISOLATED FROM BROTH ONLY METHOD MIN. INHIB. CONC. (MCG/ML) CIPROFLOXACIN SUSCEPTIBLE ERYTHROMYCIN RESISTANT LEVOFLOXACIN SUSCEPTIBLE RIFAMPIN SUSCEPTIBLE TRIMETH/SULFAMETHOX SUSCEPTIBLE VANCOMYCIN SUSCEPTIBLE TEST:Deep Wound Culture STATUS:Auth (Verified) BODY SITE: SOURCE:SWAB1 COLLECTED DATE/TIME:10/13/20 8:47 AM Deep Wound Culture SPECIMEN DESCRIPTION : SWAB MEDIASTINAL WOUND CULTURE SPECIAL REQUESTS : NONE GRAM STAIN : NO CELLS OR ORGANISMS SEEN CULTURE : NO GROWTH 2 DAYS REPORT STATUS : FINAL 10/15/2020 TEST:Fungal Culture, Non-Respiratory STATUS:Unauthenticated BODY SITE: SOURCE:SWAB1 COLLECTED DATE/TIME:10/13/20 8:47 AM Fungal Culture, Non-Respiratory SPECIMEN DESCRIPTION : SWAB MEDIASTINAL WOUND CULTURE SPECIAL REQUESTS : NONE DIRECT EXAM : NO FUNGAL ELEMENTS OBSERVED CULTURE : NO FUNGI ISOLATED AFTER 16 DAYS REPORT STATUS : PRELIMINARY REPORT TEST:Anaerobic Culture STATUS:Auth (Verified) BODY SITE: SOURCE:BONE COLLECTED DATE/TIME:10/13/20 8:34 AM Anaerobic Culture SPECIMEN DESCRIPTION : BONE CLAVICLE SPECIAL REQUESTS : NONE CULTURE : NO ANAEROBES ISOLATED REPORT STATUS : FINAL 10/18/2020 TEST:AFB Culture w/AFB Smear, Non-Respiratory STATUS:Unauthenticated BODY SITE: SOURCE:BONE COLLECTED DATE/TIME:10/13/20 8:34 AM AFB Culture w/AFB Smear, Non-Respiratory SPECIMEN DESCRIPTION : BONE Clavicle SPECIAL REQUESTS : NONE DIRECT EXAM : NO ACID FAST BACILLI SEEN ON DIRECT SMEAR, TEST PERFORMED AT [facility] No acid fast bacilli seen on concentrated smear. Per [facility] protocol, this specimen was concentrated prior to smear preparation. [facility], [address] [place] [id number]. CULTURE : SPECIMEN SENT TO [facility]PT OF PUBLIC HEALTH, [place], [place] REPORT STATUS : PRELIMINARY REPORT TEST:Fungal Culture, Non-Respiratory STATUS:Unauthenticated BODY SITE: SOURCE:BONE COLLECTED DATE/TIME:10/13/20 8:34 AM Fungal Culture, Non-Respiratory SPECIMEN DESCRIPTION : BONE CLA[place]ICLE SPECIAL REQUESTS : NONE DIRECT EXAM : NO FUNGAL ELEMENTS OBSERVED CULTURE : NO FUNGI ISOLATED AFTER 6 DAYS REPORT STATUS : PRELIMINARY REPORT TEST:Tissue/Biopsy Culture STATUS:Auth (Verified) BODY SITE: SOURCE:BONE COLLECTED DATE/TIME:10/13/20 8:34 AM Tissue/Biopsy Culture SPECIMEN DESCRIPTION : BONE [place] SPECIAL REQUESTS : NONE GRAM STAIN : NO CELLS OR ORGANISMS SEEN CULTURE : NO GROWTH 2 DAYS REPORT STATUS : FINAL 10/15/2020 TEST:Blood Culture, Second Order STATUS:Auth (Verified) BODY SITE: SOURCE:Blood COLLECTED DATE/TIME:10/08/20 3:16 PM Blood Culture, Second Order SPECIMEN DESCRIPTION : BLOOD RT ARM SPECIAL REQUESTS : NONE CULTURE : NO GROWTH 5 DAYS. REPORT STATUS : FINAL 10/13/2020 TEST:Blood Culture STATUS:Auth (Verified) BODY SITE: SOURCE:Blood COLLECTED DATE/TIME:10/08/20 1:13 PM Blood Culture SPECIMEN DESCRIPTION : BLOOD RT ARM SPECIAL REQUESTS : NONE CULTURE : NO GROWTH 5 DAYS. REPORT STATUS : FINAL 10/13/2020 TEST:Superficial Wound Culture STATUS:Auth (Verified) BODY SITE: SOURCE:SWAB1 COLLECTED DATE/TIME:10/07/20 3:40 PM Superficial Wound Culture SPECIMEN DESCRIPTION : SWAB STERNUM SPECIAL REQUESTS : NONE GRAM STAIN : 1+ WHITE BLOOD CELLS NO ORGANISMS SEEN CULTURE : NO GROWTH 2 DAYS REPORT STATUS : FINAL 10/09/2020 Radiology Reports * Exam Date Time Procedure Performing Provider Status 10/13/20 10:59 AM Chest Portable Gloria Rogers; Aut h (Verified) Notes: (Chest Portable) Reason For Exam: S/P Cardiac Surgery RESULT: Chest Portable Chest Portable Reason: S P Cardiac Surgery; Clinical Question(s): Other:; Cardiac Tamponade; Special Instructions:On Admission to COMPARISON: Chest CT dated October 06, 2020. FINDINGS: LINES AND TUBES: Spinal stimulator device is noted. LUNGS AND PLEURA: Lung volumes are low with platelike atelectasis in both mid to lower lungs. Linear vascular is within normal limits. Indistinctness of the right hemidiaphragm suggests the presence of a small right effusion. There is no pneumothorax. HEART, MEDIASTINUM AND CEE: Heart is normal in size. Normal upper mediastinal and hilar contour. BONES AND SOFT TISSUES: No acute abnormality. IMPRESSION: Low lung volumes with bibasilar atelectasis and a possible small right pleural effusion. No pneumothorax or pulmonary edema. WSN: [id number] Ordering Physician: Surya Downey Dictated By: David Mitchell MD Dictated Date/Time: 10/13/20 12:35 p Reviewed By: David [place] MD Signed By: David [place] MD Signed Date/Time: 10/13/20 12:35 pm Transcribed By: MIKALA Transcribed Date/Time: 10/13/20 12:34 pm Vital Signs Most recent to oldest [Reference Range]: 1 2 3 Height 174 cm (10/20/20 11:43 AM) 174 cm (10/20/20 8:01 AM) 174 cm (10/20/20 4:23 AM) Weight 102.7 kg (10/19/20 4:40 AM) 101.3 kg (10/18/20 5:18 AM) 101.3 kg (10/18/20 5:14 AM) Oxygen Saturation [94-100 %] 99 % (10/20/20 11:43 AM) 100 % (10/20/20 8:01 AM) 97 % (10/20/20 4:23 AM) Pulse Rate [55-90 bpm] 73 bpm (10/20/20 11:43 AM) 90 bpm (10/20/20 9:44 AM) 90 bpm (10/20/20 8:01 AM) Body Mass Index [18.5-24.99] 33.46 *>HHI* (10/18/20 5:18 AM) 33.39 *>HHI* (10/17/20 5:23 AM) 33.13 *>HHI* (10/15/20 3:47 PM) Blood Pressure [90-138/55-84 mm Hg] 130/83mm Hg (10/20/20 11:43 AM) 111/87mm Hg (10/20/20 9:44 AM) 111/87mm Hg (10/20/20 8:01 AM) Respiratory Rate [16-30 br/min] 18 br/min (10/20/20 11:43 AM) 18 br/min (10/20/20 8:01 AM) 19 br/min (10/20/20 4:23 AM) Temperature [96.8-100.4 DegF] 98.2 DegF (10/20/20 11:43 AM) 98.5 DegF (10/20/20 8:01 AM) 97.9 DegF (10/20/20 4:23 AM) Liters per Minute 2 L/min (10/15/20 6:00 PM) 6 L/min (10/15/20 5:45 PM) 6 L/min (10/13/20 9:30 AM) Mode of Delivery (Oxygen) Room air (10/20/20 11:43 AM) Room air (10/20/20 8:01 AM) Room air (10/20/20 4:23 AM) Blood pressure sites Arm, left (10/20/20 11:43 AM) Arm, right (10/20/20 8:01 AM) Arm, left (10/20/20 4:23 AM) Temperature Route Oral (10/20/20 11:43 AM) Oral (10/20/20 8:01 AM) Oral (10/20/20 4:23 AM) Dry Weight 100.3 kg (10/15/20 3:47 PM) 100.3 kg (10/07/20 1:13 AM) Weight Obtained Via Bed scale (10/19/20 4:40 AM) Bed scale (10/18/20 5:18 AM) Bed scale (10/18/20 5:14 AM) Social History Social History Type Response Tobacco Use: quit 10 months ago. Sex
--- OUTSIDE RECORDS SUMMARY | 2024-05-14 11:07 | XMS_ITS | Continuity of Care Document ---
Author Organization [facility] Kathy sheila Address [address] [place] [address]- Care Team Providers Care Exterior Interior Specialist Name Role Phone Sasha CORDERO, Marzena Lee Primary Care Physician Encounter [facility] [place] Date(s): 10/29/20 - 11/05/20 [facility] [address] [place] [address]- Attending Physician: Byron GRIFFIN, Lolly Andersen Referring [...] 0 Refills, Maintenance, 05/22/20 10:29:00 EST, Tablet, [facility], Partial fill upon patient [...] 8:59:00 EDT,Injection Start Date: 09/28/20 Status: Ordered Lovenox 40 mg/0.4 mL injectable [...] disease, stag e 3(Confirmed) Active CAD in [place] artery(Confirmed) Active Alzheimer's disease with delusions(Confirmed) Active Dementia(Confirmed) Active GERD (gastroesophageal reflu x disease)(Confirmed) Active S/P CABG x 4(Confirmed) Active Hyperlipidemia(Confirmed) Active Hypertension(Confirmed) Active Type 2 diabetes mellitus(Confirmed) Active Social History Social History Type Response Tobacco Use: quit 10 months ago. Sex
--- OUTSIDE RECORDS SUMMARY | 2024-05-14 11:07 | XMS_ITS | Continuity of Care Document ---
Author Organization [facility] Kathy sheila Address [address] [place] [address]- Care Team Providers Care Call Center Nurse Name Role Phone Sasha CORDERO, Marzena Lee Primary Care Physician Encounter [facility] [place] Date(s): 12/24/20 - 12/31/20 [facility] [address] [place] [address]- Attending Physician: Wilner Muñiz MD Referring Physician: Marzena Baez NP Allergies, [...] 0 Refills, Maintenance, 05/22/20 10:29:00 EST, Tablet, [facility], Partial fill upon [...] disease, stag e 3(Confirmed) Active CAD in [place] artery(Confirmed) Active Alzheimer's disease with delusions(Confirmed) Active Dementia(Confirmed) Active GERD (gastroesophageal reflu x disease)(Confirmed) Active S/P CABG x 4(Confirmed) Active Hyperlipidemia(Confirmed) Active Hypertension(Confirmed) Active Sternal wound infection(Confirmed) Active Type 2 diabetes mellitus(Confirmed) Active Social History Social History Type Response Tobacco Use: quit 10 months ago. Sex
--- OUTSIDE RECORDS SUMMARY | 2024-05-14 11:07 | XMS_ITS | Continuity of Care Document ---
Author Organization [facility] Kathy sheila Address [address] [place] [phone]- Care Team Providers Care Visualization Developer Name Role Phone Sasha CORDERO, Marzena Lee Primary Care Physician [place] [facility] [place]21 - 06/15/21 [facility] [address] [place] [address]- Attending Physician: Byron GRIFFIN, Lolly Andersen Referring [...] 0 Refills, Maintenance, 05/22/20 10:29:00 EST, Tablet, [facility], Partial fill upon patient [...]
--- OUTSIDE RECORDS SUMMARY | 2024-05-14 11:07 | XMS_ITS | Continuity of Care Document ---
Author Organization [facility] Kathy sheila Address [address] [place] [address]- Care Team Providers Care Anchorer Name Role Phone Sasha CORDERO, Marzena Lee Primary Care Physician [place] [facility] [place](s): 09/02/20 - 10/02/20 [facility] [address] [place] [address]- Allergies, Adverse Reactions, Alerts Substance Reaction Severity [...] 0 Refills, Maintenance, 05/22/20 10:29:00 EST, Tablet, [facility], Partial fill upon patient [...] drug. Start Date: 08/26/20 Status: Ordered Pen [place], 30 G x 8 mm BD Ultra [...]
--- OUTSIDE RECORDS SUMMARY | 2024-05-14 11:07 | XMS_ITS | Continuity of Care Document ---
Author Organization [facility] Kathy sheila Address [address] [place] [address]- Care Team Providers Care Lgsw Name Role Phone Sasha CORDERO, Marzena Lee Primary Care Physician [place] [facility] [place](s[place] 12/03/20 - 12/10/20 [facility] [address] [place] [address]- Attending Physician: Byron GRIFFIN, Lolly Andersen Referring [...] 0 Refills, Maintenance, 05/22/20 10:29:00 EST, Tablet, [facility], Partial fill upon patient [...] disease, stag e 3(Confirmed) Active CAD in [place] artery(Confirmed) Active Alzheimer's disease with delusions(Confirmed) Active Dementia(Confirmed) Active GERD (gastroesophageal reflu x disease)(Confirmed) Active S/P CABG x 4(Confirmed) Active Hyperlipidemia(Confirmed) Active Hypertension(Confirmed) Active Sternal wound infection(Confirmed) Active Type 2 diabetes mellitus(Confirmed) Active Social History Social History Type Response Tobacco Use: quit 10 months ago. Sex
--- OUTSIDE RECORDS SUMMARY | 2024-05-14 11:07 | XMS_ITS | Continuity of Care Document ---
Author Organization [facility] Kathy sheila Address [address] [place] [address]- Care Team Providers Care Stockkeeper Name Role Phone Sasha CORDERO, Marzena Lee Primary Care Physician Encounter [facility] [place] Date(s): 11/10/20 - 12/10/20 [facility] [address] [address]- Allergies, Adverse Reactions, Alerts Substance Reaction Severity [...] 0 Refills, Maintenance, 05/22/20 10:29:00 EST, Tablet, [facility], Partial fill upon [...] disease, stag e 3(Confirmed) Active CAD in [place] artery(Confirmed) Active Alzheimer's disease with delusions(Confirmed) Active Dementia(Confirmed) Active GERD (gastroesophageal reflu x disease)(Confirmed) Active S/P CABG x 4(Confirmed) Active Hyperlipidemia(Confirmed) Active Hypertension(Confirmed) Active Sternal wound infection(Confirmed) Active Type 2 diabetes mellitus(Confirmed) Active Social History Social History Type Response Tobacco Use: quit 10 months ago. Sex
--- OUTSIDE RECORDS SUMMARY | 2024-05-14 11:07 | XMS_ITS | Continuity of Care Document ---
Author Organization [facility] Kathy sheila Address [address] [place] [address]- Care Team Providers Care Breast Splitter Name Role Phone Sasha CORDERO, Marzena Lee Primary Care Physician Encounter [facility] [place] Date(s): 01/07/21 - 02/06/21 [facility] [address] [place] [address]- Attending Physician: Trent Diaz Admitting Physician: Trent [...] 0 Refills, Maintenance, 05/22/20 10:29:00 EST, Tablet, [facility], Partial fill upon patient request [...] disease, stag e 3(Confirmed) Active CAD in [place] artery(Confirmed) Active Alzheimer's disease with delusions(Confirmed) Active Dementia(Confirmed) Active GERD (gastroesophageal reflu x disease)(Confirmed) Active S/P CABG x 4(Confirmed) Active Hyperlipidemia(Confirmed) Active Hypertension(Confirmed) Active Sternal wound infection(Confirmed) Active Type 2 diabetes mellitus(Confirmed) Active Social History Social History Type Response Tobacco Use: quit 10 months ago. Sex
--- OUTSIDE RECORDS SUMMARY | 2024-05-14 11:07 | XMS_ITS | Continuity of Care Document ---
Author Organization [facility] Kathy sheila Address [address] [place] [address]- Care Team Providers Care Gas Operations Superintendent Name Role Phone Sasha CORDERO, Marzena [place] Primary Care Physician [place] [facility] [place] 06[place]21 [facility] [address] [place] [address]- Attending Physician: Byron GRIFFIN, Lolly Andersen Referring [...] 05/22/20 10:29:00 EST, Tablet, [facility], Partial fill upon [...] disease, stag e 3(Confirmed) Active CAD in [place] artery(Confirmed) Active Alzheimer's disease with delusions(Confirmed) Active Dementia(Confirmed) Active GERD (gastroesophageal reflu x disease)(Confirmed) Active S/P CABG x 4(Confirmed) Active Hyperlipidemia(Confirmed) Active Hypertension(Confirmed) Active Sternal wound infection(Confirmed) Active Obese class II(Confirmed) Active Type 2 diabetes mellitus(Confirmed) Active Vital Signs Most recent to oldest [Reference Range]: 1 Height 173 cm (05/28/21 9:41 AM) Weight 105 kg (05/28/21 9:41 AM) Oxygen Saturation [94-100 %] 98 % (05/28/21 9:41 AM) Pulse Rate [55-90 bpm] 77 bpm (05/28/21 9:41 AM) Body Mass Index [18.5-24.99] 35.08 *>HHI* (05/28/21 9:41 AM) Blood Pressure [90-138/55-84 mm Hg] 138/ 92mm Hg (05/28/21 9:41 AM) Respiratory Rate [16-30 br/min] 18 br/mi n (05/28/21 9:41 AM) Mode of Delivery (Oxygen) Room air (05/28/21 9:41 AM) Blood pressure sites Arm, left (05/28/21 9:41 AM) Weight Obtained Via Patient/family state d (05/28/21 9:41 AM) Social History Social History Type Response Tobacco Use: quit 10 months ago. Sex
--- OUTSIDE RECORDS SUMMARY | 2024-05-14 11:07 | XMS_ITS | Continuity of Care Document ---
Author Organization [facility] Kathy sheila Address [address] [place] [address]- Care Team Providers Care Butcher Fish Name Role Phone Isac Velazquez MD Primary Care Physician Encounter [facility] [place] Date(s): 06/09/20 - 07/09/20 [facility] [address] [address]- Allergies, Adverse Reactions, Alerts Substance Reaction Severity [...] 06/07/20 13:16:00 EST, Route to Pharmacy Electronically, [facility] #[id number], Partial fill upon patient request if the [...] 06/07/20 13:16:00 EST, Route to Pharmacy Electronically, [facility] #[id number], Partial fill upon patientrequest if the prescription [...] 06/07/20 13:15:00 EST, Route to Pharmacy Electronically, [facility] #[id number], Partial fill uponpatient request if the prescription is for a schedu... Start Date: 06/07/20 Status: Ordered Milk of Magnesia Liquid 30 mL, By Mouth, Every 8 hours, PRN Constipation, 0 Refills, Maintenance, 06/11/20 11:52:00 EST, Suspension, Partial fill upon patient request if the prescription is for a schedule II opioid drug. Start Date: 06/11/20 Status: Ordered Pen [place], 30 G x 8 mm BD Ultra [...]
--- OUTSIDE RECORDS SUMMARY | 2024-05-14 11:07 | XMS_ITS | Continuity of Care Document ---
Author Organization [facility] Address [address] [place] [address]- Care Team Providers Care Restaurant Worker Name Role Phone Sasha CORDERO, Marzena [place] Primary Care Physician [place] [facility] [place]/21 - 06/25/21 [facility] [address] [place] [address]- Attending Physician: Trent Diaz Admitting Physician: Trent Diaz Referring Physician: AdmtrTrent Allergies, Adverse Reactions, Alerts [...] Maintenance, 05/22/20 10:29:00 EST, Tablet, [facility], Partial fill upon patient [...] disease, stag e 3(Confirmed) Active CAD in [place] artery(Confirmed) Active Alzheimer's disease with delusions(Confirmed) Active Dementia(Confirmed) Active GERD (gastroesophageal reflu x disease)(Confirmed) Active S/P CABG x 4(Confirmed) Active Hyperlipidemia(Confirmed) Active Hypertension(Confirmed) Active Sternal wound infection(Confirmed) Active Obese class II(Confirmed) Active Type 2 diabetes mellitus(Confirmed) Active Social History Social History Type Response Tobacco Use: quit 10 months ago. Sex
--- OUTSIDE RECORDS SUMMARY | 2024-05-14 11:07 | XMS_ITS | Continuity of Care Document ---
Author Organization [facility] Kathy sheila Address [address] [address]- Care Team Providers Care Recruiting Assistant Name Role Phone Isac Velazquez MD Primary Care Physician [place] [facility] [place] 06/26/20 - 07/26/20 [facility] [address] [place] [address]- Attending Physician: Joe, Trent Admitting Physician: AdmtrTrent Referring Physician: Admtr, Ar8 [...] 06/07/20 13:16:00 EST, Route to Pharmacy Electronically, [facility] #[id number], Partial fill upon patient request if the [...] 0 Refills, Maintenance, 05/22/20 10:29:00 EST, Tablet, [facility], Partial fill upon patient request if the prescription is for a schedule II opioid drug., 174, cm, 05/22/20 8:22:00 EST, He... Start Date: 05/22/20 Status: Ordered clopidogrel 75 mg oral tablet 75 mg, 1, tablet, By Mouth, Daily, # 30 tablet, Refills 0, Tot. Refills 0, Maintenance, 06/07/20 13:16:00 EST, Route to Pharmacy Electronically, [facility] #[id number], Partial fill upon patientrequest if the prescription [...] 06/07/20 13:15:00 EST, Route to Pharmacy Electronically, [facility] #[id number], Partial fill uponpatient request if the prescription is for a schedu... Start Date: 06/07/20 Status: Ordered Milk of Magnesia Liquid 30 mL, By Mouth, Every 8 hours, PRN Constipation, 0 Refills, Maintenance, 06/11/20 11:52:00 EST, Suspension, Partial fill upon patient request if the prescription is for a schedule II opioid drug. Start Date: 06/11/20 Status: Ordered Pen [place], 30 G x 8 mm BD Ultra [...]
--- OUTSIDE RECORDS SUMMARY | 2024-05-14 11:07 | XMS_ITS | Continuity of Care Document ---
Author Organization [facility] Kathy sheila Address [address] [place] [address]- Care Team Providers Care Night Guard Name Role Phone Sasha CORDERO, Marzena [place] Primary Care Physician [place] [facility] [place] 10[place]28/20 [facility] [address] [address]- Attending Physician: Byron GRIFFIN, Lolly Andersen Referring [...] 0 Refills, Maintenance, 05/22/20 10:29:00 EST, Tablet, [facility], Partial fill upon patient [...] disease, stag e 3(Confirmed) Active CAD in [place] artery(Confirmed) Active Alzheimer's disease with delusions(Confirmed) Active Dementia(Confirmed) Active GERD (gastroesophageal reflu x disease)(Confirmed) Active S/P CABG x 4(Confirmed) Active Hyperlipidemia(Confirmed) Active Hypertension(Confirmed) Active Type 2 diabetes mellitus(Confirmed) Active Social History Social History Type Response Tobacco Use: quit 10 months ago. Sex
--- OUTSIDE RECORDS SUMMARY | 2024-05-14 11:07 | XMS_ITS | Continuity of Care Document ---
Author Organization [facility] Kathy sheila Address [address] [place] [address]- Care Team Providers Care Medical Imaging Technician Name Role Phone Sasha CORDERO, Marzena [place] Primary Care Physician [place] [facility] [place] 11/12/20 - 11/19/20 [facility] [address] [place] [address]- Attending Physician: Byron GRIFFIN, Lolly Andersen Referring [...] oldest [Reference Range]: 1 Height 173 cm (11/12/20 10:43 AM) Weight 100.00 kg (11/12/20 10:43 AM) Oxygen Saturation [94-100 %] 97 % (11/12/20 10:43 AM) Pulse Rate [55-90 bpm] 74 bpm (11/12/20 10:43 AM) Body Mass Index [18.5-24.99] 33.41 *>HHI* (11/12/20 10:43 AM) Blood Pressure [90-138/55-84 mm Hg] 140/ 86mm Hg *H* (11/12/20 10:43 AM) Respiratory Rate [16-30 br/min] 18 br/mi n (11/12/20 10:43 AM) Mode of Delivery (Oxygen) Room air (11/12/20 10:43 AM) Blood pressure sites Arm, left (11/12/20 10:43 AM) Weight Obtained Via Patient/family state d (11/12/20 10:43 AM) Social History Social History Type Response Tobacco Use: quit 10 months ago. Sex
--- OUTSIDE RECORDS SUMMARY | 2024-05-14 11:07 | XMS_ITS | Continuity of Care Document ---
Author Organization [facility] Kathy sheila Address [address] [place] [address]- Care Team Providers Care School Superintendent Name Role Phone Sasha CORDERO, Marzena [place] Primary Care Physician Encounter [facility] [place] Date(s): 10/29/20 - 12/05/20 [facility] [address] [place] [address]- Attending Physician: Byron GRIFFIN, Lolly Andersen Referring [...] 0 Refills, Maintenance, 05/22/20 10:29:00 EST, Tablet, [facility], Partial fill upon [...] disease, stag e 3(Confirmed) Active 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 Sex
--- OUTSIDE RECORDS SUMMARY | 2024-05-14 11:07 | XMS_ITS | Continuity of Care Document ---
Author Organization [facility] Kathy sheila Address [address] [place] [address]- Care Team Providers Care Air Bag Buffer Name Role Phone Sasha CORDERO, Marzena [place] Primary Care Physician [place] [facility] [place] 08/27/20 - 10/03/20 [facility] [address] [place] [address]- Attending Physician: Byron GRIFFIN, Lolly Andersen Allergies, [...] 0 Refills, Maintenance, 05/22/20 10:29:00 EST, Tablet, [facility], Partial fill [...] drug. Start Date: 08/26/20 Status: Ordered Pen [place], 30 G x 8 mm BD Ultra [...]
--- OUTSIDE RECORDS SUMMARY | 2024-05-14 11:07 | XMS_ITS | Continuity of Care Document ---
Author Organization [facility] Kathy sheila Address [address] [place] [address]- Care Team Providers Care Cost Analyst Name Role Phone Sasha CORDERO, Marzena [place] Primary Care Physician [place] [facility] [place]17[place]20 - 12/24/20 [facility] [address] [place] [address]- Attending Physician: Byron GRIFFIN, Lolly Andersen Referring [...] 0 Refills, Maintenance, 05/22/20 10:29:00 EST, Tablet, [facility], Partial fill upon [...] disease, stag e 3(Confirmed) Active CAD in [place] artery(Confirmed) Active Alzheimer's disease with delusions(Confirmed) Active Dementia(Confirmed) Active GERD (gastroesophageal reflu x disease)(Confirmed) Active S/P CABG x 4(Confirmed) Active Hyperlipidemia(Confirmed) Active Hypertension(Confirmed) Active Sternal wound infection(Confirmed) Active Type 2 diabetes mellitus(Confirmed) Active Social History Social History Type Response Tobacco Use: quit 10 months ago. Sex
--- OUTSIDE RECORDS SUMMARY | 2024-05-14 11:07 | XMS_ITS | Continuity of Care Document ---
Author Organization [facility] Kathy sheila Address [address] [place] [address]- Care Team Providers Care Inventory Auditor Name Role Phone Sasha CORDERO, Marzena [place] Primary Care Physician Encounter [facility] [place] Date(s): 01/07/21 - 01/14/21 [facility] [address] [place] [address]- Attending Physician: Lolly Matthews MD Referring Physician: [...] 0 Refills, Maintenance, 05/22/20 10:29:00 EST, Tablet, [facility], Partial fill upon patient request [...] disease, stag e 3(Confirmed) Active CAD in [place] artery(Confirmed) Active Alzheimer's disease with delusions(Confirmed) Active Dementia(Confirmed) Active GERD (gastroesophageal reflu x disease)(Confirmed) Active S/P CABG x 4(Confirmed) Active Hyperlipidemia(Confirmed) Active Hypertension(Confirmed) Active Sternal wound infection(Confirmed) Active Type 2 diabetes mellitus(Confirmed) Active Vital Signs Most recent to oldest [Reference Range]: 1 Height 173 cm (01/07/21 11:39 AM) Weight 100 kg (01/07/21 11:39 AM) Oxygen Saturation [94-100 %] 96 % (01/07/21 11:39 AM) Pulse Rate [55-90 bpm] 72 bpm (01/07/21 11:39 AM) Body Mass Index [18.5-24.99] 33.41 *>HHI* (01/07/21 11:39 AM) Blood Pressure [90-138/55-84 mm Hg] 118/ 72mm Hg (01/07/21 11:39 AM) Respiratory Rate [16-30 br/min] 18 br/mi n (01/07/21 11:39 AM) Mode of Delivery (Oxygen) Room air (01/07/21 11:39 AM) Blood pressure sites Arm, left (01/07/21 11:39 AM) Weight Obtained Via Patient/family state d (01/07/21 11:39 AM) Social History Social History Type Response Tobacco Use: quit 10 months ago. Sex
--- OUTSIDE RECORDS SUMMARY | 2024-05-14 11:07 | XMS_ITS | Continuity of Care Document ---
Author Organization [facility] Address [address] [place] [phone]- Care Team Providers Care Standards Analyst Name Role Phone Emiliano Hernandez MD Primary Care Physician Encounter [facility] [place] Date(s): 02/01/22 - 02/02/[address] [address]- Encounter Diagnosis Agitation(Final) - 02/01/22 Discharge Disposition: A-D/C Home Attending Physician: Goldie Reese MD Admitting Physician: Goldie Reese MD Referring Physician: Not on Staff, Referring MD Allergies, Adverse Reactions, Alerts Substance Reaction Severity Status Percocet 1 Persistent Moderate Acti ve 1Rash Immunizations Not Given Vaccine Date Status Refusal Reason SARS-CoV-2 (COVID-19) [id number] vaccine 11/03/21 N ot Given Patient Refuses [...] 0 Refills, Maintenance, 05/22/20 10:29:00 EST, Tablet, [facility], Partial fill upon patient request if [...] disease, stag e 3(Confirmed) Active CAD in [place] artery(Confirmed) Active Alzheimer's disease with delusions(Confirmed) Active Dementia(Confirmed) Active GERD (gastroesophageal reflu x disease)(Confirmed) Active S/P CABG x 4(Confirmed) Active Hyperlipidemia(Confirmed) Active Hypertension(Confirmed) Active Sternal wound infection(Confirmed) Active Obese class I(Confirmed) Active Type 2 diabetes mellitus(Confirmed) Active Vital Signs Most recent to oldest [Reference Range]: 1 2 Oxygen Saturation [94-100 %] 99 % (02/02/22 12:52 AM) 99 % (02/01/22 4:06 PM) Pulse Rate [55-90 bpm] 71 bpm (02/02/22 12:52 AM) 75 bpm (02/01/22 4:06 PM) Blood Pressure [90-138/55-84 mm Hg] 129/ 71mm Hg (02/02/22 12:52 AM) 136/63mm Hg (02/01/22 4:06 PM) Respiratory Rate [16-30 br/min] 17 br/mi n (02/02/22 12:52 AM) 18 br/min (02/01/22 4:06 PM) Temperature [96.8-100.4 DegF] 98.3 DegF (02/02/22 12:52 AM) 98.6 DegF (02/01/22 4:06 PM) Mode of Delivery (Oxygen) Room air (02/02/22 12:52 AM) Room air (02/01/22 4:06 PM) Temperature Route Oral (02/02/22 12:52 AM) Oral (02/01/22 4:06 PM) Social History Social History Type Response Tobacco Use: quit 10 months ago. Sex
--- OUTSIDE RECORDS SUMMARY | 2024-05-14 11:07 | XMS_ITS | Continuity of Care Document ---
Author Organization [facility] ter Address [address] [place] [id number] Care Team Providers Care X Ray Equipment Mechanic Name Role Phone Caroline GRIFFIN, Isac Haas Primary Care Physician Encounter [facility] Date(s): 06/18/20 - 08/19/[address] [address]- Encounter Diagnosis COVID-19(Final) - 06/18/20 Hypoxemia(Final) - 06/18/20 Altered mental status(Final) - 06/18/20 Discharge Disposition: A-Transfer SNF Attending Physician: Byron GRIFFIN, Lolly Andersen Admitting Physician: Maribel Beard MD Referring Physician: Not on Staff, Referring [...] 2, puffs, Inhalation, 3 times a day, PRN, Refills 0, Maintenance, 08/19/20 12:51:00 EST, Inhaler [...] 0 Refills, Maintenance, 05/22/20 10:29:00 EST, Tablet, [facility], Partial fill upon patient request if the prescription is for a schedule II opioid drug., 174, cm, 05/22/20 8:22:00 EST, He... Start Date: 05/22/20 Status: Ordered bisacodyl 10 mg rectal suppository 1 supp = 10 mg, Rectally, Daily, PRN Constipation, 0 Refills, Maintenance, 08/19/20 12:51:00 EST, Suppository, Partial fill upon patient request if the prescription is for a schedule II opioid drug. Start Date: 08/19/20 Status: Ordered Carafate 1 gm oral tablet [...] opioid drug. Start Date: 06/11/20 Status: Ordered folic acid 1 mg oral [...] Start Date: 08/19/20 Status: Ordered Insulin Lispro 14-28 units, Subcutaneous Injection, 3 times a day before meals, << Sliding Scale Comments >> 100 - 139 14 units Call if less than 100 140 - 179 16 units 180 - 219 18 units 220 - 259 20 units 260 - 299 22 units 300 - 339 24 units... Start Date: 08/19/20 Status: Ordered Lantus Inj 0.28 mL = 28 units, Subcutaneous Injection, Daily before dinner, 0 Refills, Maintenance, 08/19/20 12:50:00 EST, Injection, Partial fill upon patient request if the prescription is for a schedule II opioid drug. Start Date: 08/19/20 Status: Ordered Maalox Plus Liquid 15 mL, [...] opioid drug. Start Date: 08/19/20 Status: Ordered metoprolol 25 mg oral tablet 25 mg, Tablet, By Mouth, 08/19/20 9:00:00 EST Start Date: 08/19/20 Stop Date: 08/19/20 Status: Completed Miconazole 2% Topical Ointment 1 applicator, Topically, Daily, 0 Refills, Maintenance, Ointment Start Date: 08/19/20 Status: Ordered Milk of Magnesia Liquid 30 mL, By Mouth, Every 8 hours, PRN Constipation, 0 Refills, Maintenance, 06/11/20 11:52:00 EST, Suspension, Partial fill upon patient request if the prescription is for a schedule II opioid drug. Start Date: 06/11/20 Status: Ordered Multivit Therapeutic/Minerals Liquid 15 mL, By Mouth, Daily, 0 Refills, Maintenance, 08/19/20 12:51:00 EST, Liquid, Partial fill upon patient request if the prescription is for a schedule II opioid drug. Start Date: 08/19/20 Status: Ordered Nystatin Powder 1 applicator, Topically, 2 times a day, 0 Refills, Maintenance, Powder Start Date: 08/19/20 Status: Ordered olanzapine 2.5 mg oral tablet 2.5 mg, 1, tablet, By Mouth, Daily at bedtime, PRN, Refills 0, Maintenance, Agitation, 08/19/20 12:51:00 EST, Partial fill upon patient request if the prescription is for a schedule II opioid drug. Start Date: 08/19/20 Status: Ordered Pen [place], 30 G x 8 mm BD Ultra [...] opioid drug. Start Date: 08/19/20 Status: Ordered Tylenol 325 mg oral tablet 650 mg, Tablet, By Mouth, 08/19/20 7:00:00 EST Start Date: 08/19/20 Stop Date: 08/19/20 Status: Completed Tylenol 325 mg oral tablet 650 mg, Tablet, By Mouth, 08/19/20 11:00:00 EST Start Date: 08/19/20 Stop Date: 08/19/20 Status: Completed Vitamin C 500 mg oral tablet 2 [...] Results Orders for Microbiology Reports Name Date Urine Culture (URINE CULTURE) 08/19/20 Wound Deep Culture w/ Gram Smear (Deep W ound Culture w/ Gram Smear) 08/18/20 Anaerobic Culture (ANAEROBIC CULTURE) Wound Deep Culture w/ Gram Smear (DEEP W OUND CULTURE) 08/03/20 Wound Superficial Culture W/ Gram Smear 07/28/20 Urine Culture (Culture Urine) 07/22/20 Anaerobic Culture (ANAEROBIC CULTURE) 07/21/20 Sterile Body Fluid Culture W / Gram Smear (Culture Sterile Body Fluid w/ Gram Smear) 07/21/20 Blood Culture 07/04/20 Blood Culture #2 07/04/20 Microbiology Reports (Most Recent Ten) TEST:Urine Culture STATUS:Unauthenticated BODY SITE: SOURCE:URINE COLLECTED DATE/TIME:08/19/20 8:45 AM Urine Culture SPECIMEN DESCRIPTION : URINE SPECIAL REQUESTS : NONE Reflexed from [id number] REPORT STATUS : PRELIMINARY REPORT TEST:Deep Wound Culture STATUS:Unauthenticated BODY SITE: SOURCE:SWAB1 COLLECTED DATE/TIME:08/18/20 11:15 AM Deep Wound Culture SPECIMEN DESCRIPTION : SWAB STERNUM SPECIAL REQUESTS : NONE GRAM STAIN : 2+ WHITE BLOOD CELLS NO ORGANISMS SEEN CULTURE : NO GROWTH TO DATE REPORT STATUS : PRELIMINARY REPORT TEST:Anaerobic Culture STATUS:Auth (Verified) BODY SITE: SOURCE:SWAB1 COLLECTED DATE/TIME:08/03/20 4:08 PM Anaerobic Culture SPECIMEN DESCRIPTION : SWAB STERNUM DEEP WOUND SPECIAL REQUESTS : NONE CULTURE : NO ANAEROBES ISOLATED REPORT STATUS : FINAL 08/08/2020 TEST:Deep Wound Culture STATUS:Auth (Verified) BODY SITE: SOURCE:SWAB1 COLLECTED DATE/TIME:08/03/20 4:08 PM Deep Wound Culture SPECIMEN DESCRIPTION : SWAB STERNUM DEEP WOUND SPECIAL REQUESTS : NONE GRAM STAIN : NO ORGANISMS SEEN 3+ RBC'S 2+ POLYMORPHONUCLEAR LEUKOCYTES CULTURE : 1+ PROTEUS MIRABILIS REPORT STATUS : FINAL 08/06/2020 ORGANISM 1+ PROTEUS MIRABILIS METHOD MIN. INHIB. CONC. (MCG/ML) AMPICILLIN SUSCEPTIBLE AMPICILLIN/SULBACTAM SUSCEPTIBLE AMOXICILLIN/CLAVULAN SUSCEPTIBLE CEFAZOLIN SUSCEPTIBLE CEFEPIME SUSCEPTIBLE CEFTRIAXONE SUSCEPTIBLE CIPROFLOXACIN SUSCEPTIBLE ERTAPENEM SUSCEPTIBLE GENTAMICIN SUSCEPTIBLE LEVOFLOXACIN SUSCEPTIBLE MEROPENEM SUSCEPTIBLE PIPERACILLIN/TAZOBAC SUSCEPTIBLE TRIMETH/SULFAMETHOX SUSCEPTIBLE TETRACYCLINE RESISTANT TEST:Superficial Wound Culture STATUS:Auth (Verified) BODY SITE: SOURCE:SWAB1 COLLECTED DATE/TIME:07/28/20 12:00 PM Superficial Wound Culture SPECIMEN DESCRIPTION : SWAB CHEST PROXIMAL STERNAL WOUND SPECIAL REQUESTS : NONE GRAM STAIN : 3+ POLYMORPHONUCLEAR LEUKOCYTES NO ORGANISMS SEEN CULTURE : NO GROWTH 2 DAYS REPORT STATUS : FINAL 07/30/2020 TEST:Urine Culture STATUS:Auth (Verified) BODY SITE: SOURCE:RICHARDSON COLLECTED DATE/TIME:07/22/20 12:11 PM Urine Culture SPECIMEN DESCRIPTION : RICHARDSON CATHETER SPECIAL REQUESTS : NONE CULTURE : 10-50,000 COL/ML KLEBSIELLA OXYTOCA SUPPLEMENTAL TESTS FOR THIS ORGANISM DO NOT INDICATE PRODUCTION OF ESBL. REPORT STATUS : FINAL 07/25/2020 ORGANISM 10-50,000 COL/ML KLEBSIELLA OXYTOCA METHOD MIN. INHIB. CONC. (MCG/ML) AMPICILLIN RESISTANT AMPICILLIN/SULBACTAM RESISTANT AMOXICILLIN/CLAVULAN INTERMEDIATE CEFAZOLIN RESISTANT CEFEPIME SUSCEPTIBLE CEFTRIAXONE RESISTANT CIPROFLOXACIN SUSCEPTIBLE ERTAPENEM SUSCEPTIBLE GENTAMICIN SUSCEPTIBLE LEVOFLOXACIN SUSCEPTIBLE MEROPENEM SUSCEPTIBLE NITROFURANTOIN SUSCEPTIBLE PIPERACILLIN/TAZOBAC RESISTANT TRIMETH/SULFAMETHOX SUSCEPTIBLE TETRACYCLINE SUSCEPTIBLE TEST:Anaerobic Culture STATUS:Auth (Verified) BODY SITE: SOURCE:Pleura COLLECTED DATE/TIME:07/21/20 3:25 PM Anaerobic Culture SPECIMEN DESCRIPTION : Pleural fluid, left SPECIAL REQUESTS : NONE CULTURE : NO ANAEROBES ISOLATED REPORT STATUS : FINAL 07/26/2020 TEST:Sterile Fluid Culture STATUS:Auth (Verified) BODY SITE: SOURCE:PLEURA COLLECTED DATE/TIME:07/21/20 3:25 PM Sterile Fluid Culture SPECIMEN DESCRIPTION : PLEURAL FLUID SPECIAL REQUESTS : NONE GRAM STAIN : 3+ WHITE BLOOD CELLS NO ORGANISMS SEEN CULTURE : NO GROWTH 2 DAYS REPORT STATUS : FINAL 07/24/2020 TEST:Blood Culture, Second Order STATUS:Auth (Verified) BODY SITE: SOURCE:Blood COLLECTED DATE/TIME:07/04/20 2:20 PM Blood Culture, Second Order SPECIMEN DESCRIPTION : BLOOD R ARM SPECIAL REQUESTS : NONE CULTURE : NO GROWTH 5 DAYS. REPORT STATUS : FINAL 07/09/2020 TEST:Blood Culture STATUS:Auth (Verified) BODY SITE: SOURCE:Blood COLLECTED DATE/TIME:07/04/20 1:10 PM Blood Culture SPECIMEN DESCRIPTION : BLOOD NONE SPECIAL REQUESTS : NONE CULTURE : NO GROWTH 5 DAYS. REPORT STATUS : FINAL 07/09/2020 Radiology Reports (Most Recent Ten) * Exam Date Time Procedure Performing Provider Status 07/29/20 1:04 PM Chest Portable Vika Fong; Auth (Verified) Notes: (Chest Portable) Reason For Exam: rt pigtail disconnected;S/P Cardiac Surgery RESULT: Chest Portable Chest Portable INDICATION: Status post cardiac surgery. Right pigtail disconnected; Clinical Question(s): Pneumothorax COMPARISON: 07/28/2020. FINDINGS: LINES AND TUBES: Right pigtail pleural catheter remains in place. Spinal stimulator wires partially included. LUNGS AND PLEURA: Diminished lung volumes with increased markings. No pleural effusion. No pneumothorax. HEART, MEDIASTINUM AND CEE: Heart is normal in size. Normal upper mediastinal and hilar contour. BONES AND SOFT TISSUES: No acute abnormality. IMPRESSION: No pneumothorax. WSN: [id number] Ordering Physician: Hemant Melvin Dictated By: Young Figueroa MD Dictated Date/Time: 07/29/20 1:08 pm Reviewed By: Young Figueroa MD Signed By: Young Figueroa MD Signed Date/Time: 07/29/20 1:08 pm Transcribed By: MIKALA Transcribed Date/Time: 07/29/20 1:07 pm * Exam Date Time Procedure Performing Provider Status 07/28/20 5:55 AM Chest Portable Madyson Guerrero; Auth (Verified) Notes: (Chest Portable) Reason For Exam: S/P Cardiac Surgery RESULT: Chest Portable Chest Portable performed semiupright at 5:42 AM Reason: S P Cardiac Surgery; Clinical Question(s): Pleural Effusion COMPARISON: Multiple prior chest x-rays, the most recent of which is dated 07/25/2020. FINDINGS: LINES AND TUBES: The metallic marker of the spinal stimulator overlies the lower thoracic spine. There is been interval placement of a right pleural catheter, the tip medially in the right mid hemithorax. LUNGS AND PLEURA: There is improved aeration of the right mild opacity medially in the right lung base. No significant residual pleural effusion. The left lung is clear without evidence of a left pleural effusion. No pneumothorax. HEART, MEDIASTINUM AND CEE: The patient is status post median sternotomy. The cardiac and mediastinal contours are unchanged. BONES AND SOFT TISSUES: No acute abnormality. IMPRESSION: 1. Interval placement of a right pleural catheter with no evidence of pneumothorax. 2. No significant right pleural effusion. Improved aeration of the right lung with mild opacity remaining medially in the right lung base. WSN: [id number] Ordering Physician: Dale Gracia Dictated By: Silva Lewis MD Dictated Date/Time: 07/28/20 8:55 am Reviewed By: Silva Lewis MD Signed By: Silva Lewis MD Signed Date/Time: 07/28/20 8:55 am Transcribed By: MIKALA Transcribed Date/Time: 07/28/20 8:50 am * Exam Date Time Procedure Performing Provider Status 07/28/20 7:45 AM XR Radiology Note Auth (Ve rified) RESULT: XR Radiology Note LAYLA PALENCIA [id number] 70 years Male 1950 SUBJECTIVE: Patient is s/p right tube thoracostomy performed on 07/27/20. Patient feels as though dyspnea has improved, denies significant pain at tube insertion site. OBJECTIVE: General: NAD, breathing comfortably on room air. Chest tube in place, sutures intact, attached to Pleur-evac with serous fluid in tubing. Pleur-evac attached to low wall suction -20 cm. No air leak noted. Tube insertion site is clean, no surrounding erythema or edema. No palpable chest wall crepitus. 24 HOUR OUTPUT 730cc RADS AM CXR in progress ASSESSMENT: Patient is a 70 year old male with a medical hx of CAD s/p CABG 06/07, CKD stage 3, HTN, DM, cardiac cath, R shoulder arthroscopy who presented to [facility] from an area SNF w/ concerns re: fever, cough,febrile, and hypoxic. In the ED he was found to be Tmax 101.3, and with low O2 sat 89% on RA He was also found to be COVID+ therefore he was admitted with hypoxia 2/2 COVID PNA. Current hospital course has been complicated by bacteremia and sternal wound infection/ dehiscence. Requiring BiPAP as of 07/20/20. Bilateral pleural effusions noted. Patient s/p left chest tube placement, removed 07/24. Patient is now s/p right chest tube placement. Sutures intact, output significant since placed. Dyspnea improved since procedure, with no supplemental oxygen at time of evaluation. PLAN: Recommend: Catheter care. -20cm suction. I&Os q shift Repeat imaging, when output decreases to less than 100cc in 24 hours, to assure resolution of collection, prior to drain removal. Patient is being followed by Cardiac Surgery, therefore we will sign off at this time and defer tube management to their service. [place] [phone]. I have personally reviewed the images and I agree with this report. WSN: [id number] Ordering Physician: Omaira Figueroa Dictated By: Omaira Figueroa NP Dictated Date/Time: 07/28/20 10:24 a Reviewed By: Jian Hong MD Signed By: Jian Hong MD Signed Date/Time: 07/28/20 10:29 am Transcribed By: MIKALA Transcribed Date/Time: 07/28/20 7:53 am * Exam Date Time Procedure Performing Provider Status 07/25/20 6:15 AM Chest Portable Hawk Rubio; Avtar (Verified) Notes: (Chest Portable) Reason For Exam: Shortness of Breath RESULT: Chest Portable Chest Portable INDICATION/CLINICAL QUESTION: Reason: Shortness of Breath; Clinical Question(s): Pleural Effusion /07/22/2020.. Prior cardiac surgery. TECHNIQUE: AP chest 0506 hours 07/25/2020. COMPARISON: 07/22/2020. FINDINGS: LINES AND TUBES: Spinal stimulator in place at the midline.. LUNGS AND PLEURA: RIGHT CHEST: Diffuse haziness in the right chest. In a semiupright view is limited due to a combination of the known pleural effusion and atelectasis. It is mildly worsened on the prior exam. There is no pneumothorax.. LEFT CHEST: Left chest tube has been removed. Lung is clear. No effusion or pneumothorax.. HEART AND MEDIASTINAL CONTOURS: Stable. BONES AND SOFT TISSUES: No acute abnormality.. IMPRESSION: 1. Diffuse haziness right chest on semiupright view, probably due to a combination of effusion and atelectasis. It is worse than on on the prior exam. 2. No left chest abnormality. WSN: [id number] Ordering Physician: Armando Landers Dictated By: Rusty Caro MD Dictated Date/Time: 07/25/20 9:49 am Reviewed By: Rusty Caro MD Signed By: Rusty Caro MD Signed Date/Time: 07/25/20 9:49 am Transcribed By: MIKALA Transcribed Date/Time: 07/25/20 9:46 am * Exam Date Time Procedure Performing Provider Status 07/22/20 12:08 PM Chest Portable Annamarie Reyes; Aut h (Verified) Notes: (Chest Portable) Reason For Exam: Shortness of Breath RESULT: Chest Portable Chest Portable Reason: Shortness of Breath; Clinical Question(s): Pulmonary Edema COMPARISON: 07/21/2020 FINDINGS: LINES AND TUBES: Unchanged left pleural drainage catheter. LUNGS AND PLEURA: Unchanged small moderate right pleural effusion. No significant left pleural effusion. HEART, MEDIASTINUM AND CEE: Unchanged.. BONES AND SOFT TISSUES: No acute abnormality. IMPRESSION: Persistent right pleural effusion. No definite interval change. WSN: [id number] Ordering Physician: Armando Landers Dictated By: Neel Benitez MD Dictated Date/Time: 07/22/20 1:25 pm Reviewed By: Neel Benitez MD Signed By: Neel Benitez MD Signed Date/Time: 07/22/20 1:25 pm Transcribed By: MIKALA Transcribed Date/Time: 07/22/20 1:22 pm * Exam Date Time Procedure Performing Provider Status 07/21/20 5:24 PM Chest Portable Eder Barkley (Ve rified) Notes: (Chest Portable) Reason For Exam: Tube Placement RESULT: Chest Portable Chest Portable Reason: Tube Placement; Clinical Question(s): Tube Placement; Order Comment: Not in room @ 1632, covering RN believes he's having a chest tube placed. Will call when back. -KJD COMPARISON: 07/20/2020 FINDINGS: LINES AND TUBES: New small caliber left pigtail catheter, with tip projecting over the left heart. LUNGS AND PLEURA: Small right pleural effusion remains. Mildly improving aeration in the mid to lower right lung, with decreasing opacity that is probably atelectasis. Resolution of left opacity and left pleural effusion, except possibly for mild pleural thickening or fluid peripherally. No pneumothorax. HEART, MEDIASTINUM AND CEE: Heart is normal in size. Median sternotomy. BONES AND SOFT TISSUES: No acute abnormality. Spinal stimulator unchanged. IMPRESSION: Improved aeration of the left lung and resolution or near resolution of left pleural effusion following catheter placement. No pneumothorax. Unchanged right hemithorax. WSN: [id number] Ordering Physician: Omaira Figueroa Dictated By: Bobby Alvarez MD Dictated Date/Time: 07/21/20 5:57 pm Reviewed By: Bobby Alvarez MD Signed By: Bobby Alvarez MD Signed Date/Time: 07/21/20 5:57 pm Transcribed By: MIKALA Transcribed Date/Time: 07/21/20 5:54 pm * Exam Date Time Procedure Performing Provider Status 07/20/20 10:57 PM Chest Portable Gopal Gonzales (Ve rified) Notes: (Chest Portable) Reason For Exam: S/P Cardiac Surgery RESULT: Chest Portable Chest Portable Reason: S P Cardiac Surgery; Clinical Question(s): Atelectasis; Special Instructions: hypercarbic resp failure req per Dr Matthews COMPARISON: Multiple priors, the most recent 07/17/2020 FINDINGS: LINES AND TUBES: None. LUNGS AND PLEURA: Stable haziness throughout the mid and lower portion of each lung with largely obscured hemidiaphragms and blunted costophrenic angles. Lung apices are clear. Bilateral pleural effusions. No pneumothorax. HEART, MEDIASTINUM AND CEE: Stable cardiac size. Evidence of remote CABG procedure. Normal upper mediastinal and hilar contour. BONES AND SOFT TISSUES: Spinal stimulator device in the thoracic spine. Sternal suture wires. IMPRESSION: Stable bilateral interstitial and airspace disease suggestive of pulmonary edema, with bilateral pleural effusions again noted. Note is made that an infiltrate in either lung cannot be excluded. Stable cardiomegaly. WSN: [id number] Ordering Physician: Alayna Vang Dictated By: Nicolas Thompson MD Dictated Date/Time: 07/20/20 11:22 p Reviewed By: Nicolas Thompson MD Signed By: Nicolas Thompson MD Signed Date/Time: 07/20/20 11:22 pm Transcribed By: MIKALA Transcribed Date/Time: 07/20/20 11:17 pm * Exam Date Time Procedure Performing Provider Status 07/17/20 11:12 AM Chest Portable Mayuri Mejias; Auth (V erified) Notes: (Chest Portable) Reason For Exam: Shortness of Breath RESULT: Chest Portable Chest Portable Reason: Shortness of Breath; Clinical Question(s): Pleural Effusion COMPARISON: 07/15/2020. FINDINGS: LINES AND TUBES: None. LUNGS AND PLEURA: The patient is rotated to the right and slightly tilted. Accounting for differences in technique, no significant interval change in the increased interstitial markings and patchy opacities in lower lung ramírez. Small bilateral pleural effusions, right greater than left. No pneumothorax. HEART, MEDIASTINUM AND CEE: Moderate prominence of the cardiac silhouette, unchanged. BONES AND SOFT TISSUES: No acute abnormality. Median sternotomy wires are intact. Spinal stimulator device in place. IMPRESSION: No significant interval change with findings suggesting pulmonary edema and small pleural effusions. Superimposed multifocal pneumonia and lower lung field cannot be excluded. WSN: [id number] Ordering Physician: Makeda Gonzalez Dictated By: Elina Acuna MD Dictated Date/Time: 07/17/20 11:15 a Reviewed By: Elina Acuna MD Signed By: Elina Acuna MD Signed Date/Time: 07/17/20 11:15 am Transcribed By: MIKALA Transcribed Date/Time: 07/17/20 11:13 am * Exam Date Time Procedure Performing Provider Status 07/15/20 12:08 PM Chest Portable Radha Jules; Auth ( Verified) Notes: (Chest Portable) Reason For Exam: CHF RESULT: Chest Portable Examination: Portable chest performed on 07/15/2020 at 11:46 AM. History: CHF. Findings: A frontal view of the chest is compared to a prior study dated 07/14/2020. Sternotomy wires and spinal stimulator are again noted. The cardiac silhouette is at the upper limits of normal for size. Low lung volumes are present. There is minimal pulmonary vascular congestion. A right pleural effusion persists. IMPRESSION: Pulmonary vascular congestion and right pleural effusion. WSN: [id number] Ordering Physician: Makeda Gonzalez Dictated By: Maame Pimentel MD Dictated Date/Time: 07/15/20 12:13 p Reviewed By: Maame Pimentel MD Signed By: Maame Pimentel MD Signed Date/Time: 07/15/20 12:13 pm Transcribed By: MIKALA Transcribed Date/Time: 07/15/20 12:10 pm * Exam Date Time Procedure Performing Provider Status 07/14/20 12:42 PM Chest Portable Karen Posadas; Auth (Verified) Notes: (Chest Portable) Reason For Exam: Shortness of Breath RESULT: Chest Portable Chest Portable AP upright at 12:34 PM REASON: Shortness of Breath; Clinical Question(s): Aspiration / Aspiration COMPARISON: 07/13/2020 FINDINGS: LINES AND TUBES: Spinal stimulator in place. LUNGS AND PLEURA: The central pulmonary vasculature is prominent and indistinct. Mild diffuse interstitial prominenceis less opacity, similar on the right compared to the prior exam and slightly worsened on the left compared to prior exam. Small right pleural effusion, unchanged. No pneumothorax. HEART, MEDIASTINUM AND CEE: Unchanged. BONES AND SOFT TISSUES: No acute abnormality. Status-post median sternotomy. IMPRESSION: Increased hazy opacity in the left lung. This could be due to edema or infection. Otherwise no significant change. WSN: [id number] Ordering Physician: Cy Sharma Dictated By: Bobby Juarez MD Dictated Date/Time: 07/14/20 1:26 pm Reviewed By: Bobby Juarez MD Signed By: Bobby Juarez MD Signed Date/Time: 07/14/20 1:26 pm Transcribed By: MIKALA Transcribed Date/Time: 07/14/20 1:24 pm Vital Signs Most recent to oldest [Reference Range]: 1 2 3 Weight 106.8 kg (08/19/20 6:19 AM) 105 kg (08/18/20 3:22 AM) 104.9 kg (08/17/20 3:45 AM) Oxygen Saturation [94-100 %] 97 % (08/19/20 11:00 AM) 96 % (08/19/20 8:00 AM) 100 % (08/19/20 4:03 AM) Pulse Rate [55-90 bpm] 81 bpm (08/19/20 11:00 AM) 89 bpm (08/19/20 9:13 AM) 89 bpm (08/19/20 8:00 AM) Blood Pressure [90-138/55-84 mm Hg] 131/69mm Hg (08/19/20 11:00 AM) 145/71mm Hg *H* (08/19/20 9:13 AM) 145/71mm Hg *H* (08/19/20 8:00 AM) Respiratory Rate [16-30 br/min] 16 br/min (08/19/20 2:34 PM) 18 br/min (08/19/20 11:27 AM) 18 br/min (08/19/20 8:00 AM) Temperature [96.8-100.4 DegF] 98.0 DegF (08/19/20 11:00 AM) 98.6 DegF (08/19/20 8:00 AM) 98 DegF (08/19/20 4:03 AM) Liters per Minute 0 L/min (08/08/20 4:43 PM) 0 L/min (08/08/20 11:33 AM) 3 L/min (08/03/20 7:10 PM) Mode of Delivery (Oxygen) Room air (08/19/20 11:00 AM) Room air (08/19/20 8:00 AM) Room air (08/19/20 4:03 AM) Blood pressure sites Arm, right (08/19/20 11:00 AM) Arm, right (08/19/20 8:00 AM) Arm, left (08/19/20 4:03 AM) Temperature Route Oral (08/19/20 11:00 AM) Oral (08/19/20 8:00 AM) Oral (08/19/20 4:03 AM) Weight Obtained Via Bed scale (08/19/20 6:19 AM) Bed scale (08/18/20 3:22 AM) Bed scale (08/17/20 3:45 AM) Social History Social History Type Response Tobacco Use: quit 10 months ago. Sex
--- OUTSIDE RECORDS SUMMARY | 2024-05-14 11:07 | XMS_ITS | Continuity of Care Document ---
Author Organization [facility] ter Address [address] [place] [id number]- Care Team Providers Care Stippler Name Role Phone Sasha CORDERO, Marzena Lee Primary Care Physician Encounter [facility] Date(s): 09/27/20 - 09/28/[address] [address]- Encounter Diagnosis Acute angina(Final) - 09/27/20 Acute hyperglycemia(Final) - 09/27/20 Discharge Disposition: A-D/C Home Attending Physician: Hector Blankenship MD Admitting Physician: Aamir Naidu MD Referring Physician: Not on Staff, Referring [...] Start Date: 08/26/20 Status: Ordered Lantus Inj 0.3 mL = 30 units, Subcutaneous Injection, Daily at bedtime, 0 Refills, Maintenance, 09/28/20 8:59:00 EDT, Injection, Partial fill upon patient request if the prescription is for a schedule II opioiddrug. Start Date: 09/28/20 Status: Ordered Maalox Plus Liquid 15 mL, By Mouth, Every 6 hours, PRN Dyspepsia, 0 Refills, Maintenance, 06/11/20 11:51:00 EST, Suspension, Partial fill upon patient request if the prescription is for a schedule II opioid drug. Start Date: 06/11/20 Status: Ordered metoprolol 25 mg oral tablet 25 mg, Tablet, By Mouth, 09/28/20 9:00:00 EDT Start Date: 09/28/20 Stop Date: 09/28/20 Status: Completed metoprolol 25 mg oral tablet [...] drug. Start Date: 08/19/20 Status: Ordered Pen [place], 30 G x 8 mm BD Ultra [...] Exam Date Time Procedure Performing Provider Status 09/27/20 4:20 PM Chest 2 Views Frontal and Lat Cyn Courtney; Auth (Verified) Notes: (Chest 2 Views Frontal and Lat) Reason For Exam: Shortness of Breath RESULT: Chest 2 Views Frontal and Lat Chest 2 Views Frontal and Lat Hx of Present Illness: high POC 490 this am, called PCP and was told to come to the ED. PM open heart surgery may 2020 w dressing on ant chest. 5 10 right sided chest pressure, 7 10 left sided chestpressure. pt reports being dizzy and unsteady on his feet when ambulating; Reason: Shortness of Breath; Clinical Question(s): CHF COMPARISON: 08/24/2020 chest x-ray. FINDINGS: LINES AND TUBES: None. LUNGS AND PLEURA: Clear lungs. Normal pulmonary vascularity. No pleural effusion. No pneumothorax. HEART, MEDIASTINUM AND CEE: Post median sternotomy. Mild prominence of the cardiac silhouette, unchanged. Normal upper mediastinal and hilar contour. BONES AND SOFT TISSUES: No acute abnormality. Thoracic spinal stimulator leads are noted. Moderate thoracic disc space narrowing is present. IMPRESSION: No acute abnormality. Stable cardiac enlargement. WSN: [id number] Ordering Physician: Beatrice Conroy Dictated By: Bobby Hanley MD Dictated Date/Time: 09/27/20 4:24 pm Reviewed By: Bobby Hanley MD Signed By: Bobby Hanley MD Signed Date/Time: 09/27/20 4:24 pm Transcribed By: MIKALA Transcribed Date/Time: 09/27/20 4:23 pm Vital Signs Most recent to oldest [Reference Range]: 1 2 3 Height 172.7 cm (09/28/20 6:54 AM) 172.7 cm (09/28/20 4:22 AM) 172.7 cm (09/28/20 12:45 AM) Weight 103.5 kg (09/27/20 7:39 PM) Oxygen Saturation [94-100 %] 99 % (09/28/20 6:54 AM) 100 % (09/28/20 4:22 AM) 99 % (09/28/20 12:45 AM) Pulse Rate [55-90 bpm] 76 bpm (09/28/20 8:42 AM) 76 bpm (09/28/20 6:54 AM) 76 bpm (09/28/20 4:22 AM) Body Mass Index [18.5-24.99] 34.7 *>HHI* (09/27/20 7:39 PM) Blood Pressure [90-138/55-84 mm Hg] 115/53mm Hg (09/28/20 8:42 AM) 115/53mm Hg (09/28/20 6:54 AM) 116/54mm Hg (09/28/20 4:22 AM) Respiratory Rate [16-30 br/min] 20 br/min (09/28/20 6:54 AM) 17 br/min (09/28/20 4:22 AM) 17 br/min (09/28/20 12:45 AM) Temperature [96.8-100.4 DegF] 97.5 DegF (09/28/20 6:54 AM) 97.8 DegF (09/28/20 4:22 AM) 97.4 DegF (09/27/20 7:39 PM) Mode of Delivery (Oxygen) Room air (09/28/20 6:54 AM) Room air (09/28/20 4:22 AM) Room air (09/28/20 12:45 AM) Blood pressure sites Arm, left (09/28/20 6:54 AM) Arm, left (09/28/20 4:22 AM) Arm, left (09/28/20 12:45 AM) Temperature Route Oral (09/28/20 6:54 AM) Oral (09/28/20 4:22 AM) Oral (09/27/20 7:39 PM) Dry Weight 103.5 kg (09/27/20 7:39 PM) Social History Social History Type Response Tobacco Use: quit 10 months ago. Sex
--- NOTE | 2024-05-14 11:17 | ED_ITS ---
HPI - General Adult General Chief complaint: General Medical Stated complaint: L FOOT WOUND,FROM FACILITY PER EMS Time Seen by Provider: 05/14/24 11:12 Source: patient and EMS Mode of arrival: EMS Limitations: physical limitation ( Patient is a poor historian secondary to dementia and psychotic disorder.) History of Present Illness ED Provider: DR. Mitchell HPI narrative: a 73-year-old male brought in by ambulance From [facility] for evaluation of left foot infection /osteomyelitis. patient was started on Keflex on 05/07/24 without improvement patient was sent for further evaluation and rule out osteomyelitis. Related Data Home Medications ?Medication ?Instructions ?Recorded ?Confirmed acetaminophen 325 mg tablet 650 mg PO Q4H PRN Fever Or Pain 05/14/24 05/14/24 ascorbic acid (vitamin C) 500 mg 500 mg PO DAILY 05/14/24 05/14/24 tablet aspirin 81 mg chewable tablet 81 mg PO DAILY 05/14/24 05/14/24 atorvastatin 40 mg tablet 40 mg PO BEDTIME 05/14/24 05/14/24 cholecalciferol (vitamin D3) 25 25 mcg PO DAILY 05/14/24 05/14/24 mcg (1,000 unit) capsule cyanocobalamin (vitamin B-12) 500 500 mcg PO DAILY 05/14/24 05/14/24 mcg tablet docusate sodium 100 mg capsule 100 mg PO BID PRN Constipation 05/14/24 05/14/24 gabapentin 400 mg capsule 400 mg PO DAILY@1700 05/14/24 05/14/24 insulin glargine-yfgn 100 unit/mL 24 unit subcut BEDTIME 05/14/24 05/14/24 subcutaneous solution insulin lispro 100 unit/mL 1 sliding scale dose subcut 05/14/24 05/14/24 subcutaneous solution USEASDIRECTD pantoprazole 40 mg tablet,delayed 40 mg PO DAILY@0630 05/14/24 05/14/24 release sennosides 8.6 mg-docusate sodium 2 tab-cap PO BID 05/14/24 05/14/24 50 mg tablet (Senna Plus) sucralfate 1 gram tablet 1 g PO QIDACHS 05/14/24 05/14/24 tamsulosin 0.4 mg capsule 0.4 mg PO BEDTIME 05/14/24 05/14/24 thiamine HCl (vitamin B1) 100 mg 100 mg PO DAILY 05/14/24 05/14/24 tablet Previous Rx's ?Medication ?Instructions ?Recorded doxycycline hyclate 100 mg tablet 100 mg PO BID #20 tabs 05/14/24 Allergies Allergy/AdvReac Type Severity Reaction Status Date / Time No Known Allergies Allergy Verified 05/14/24 10:13 Review of Systems 2 Review of Systems: Yes Unobtainable due to mental condition ( Dementia.) [facility] Past Medical History Medical History Essential (primary) hypertension Alcohol use, 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 Unspecified dementia, unspecified severity, with agitation jail (current) use of aspirin jail (current) use of insulin Delusional disorders Anemia, unspecified Ingrowing nail Obesity, unspecified Hyperosmolality and hypernatremia Major depressive disorder, recurrent, moderate Hyperlipidemia, unspecified Adjustment disorder with mixed disturbance of emotions and conduct Alzheimer's disease, unspecified Chronic kidney disease, stage 3a Atherosclerosis of coronary artery of [place] heart Type 2 diabetes mellitus with diabetic chronic kidney disease Cellulitis of right toe Metabolic encephalopathy Social History Social History Advance Directives: Yes Advance Directives on File: Yes Advance Directives Date on File: 05/14/24 Do you have a plan to hurt others: No Plan Physical Exam ED Vital Signs: Vital Signs - 24 hr 05/14/24 10:11 05/14/24 11:39 05/14/24 14:08 Temperature 97.7 F 98.3 F 98.1 F Pulse Rate 60 65 71 Respiratory Rate 18 16 16 Blood Pressure 154/67 H 131/65 118/73 Pulse Oximetry 95 97 97 Oxygen Delivery Method Room Air Room Air Room Air BMI result Body Mass Index 34.5 Vital signs have been reviewed and appear to be correct. Blood pressure elevated. Heart rate normal. Respiratory rate normal. Temperature normal. Oxygen saturation normal. Appearance:No acute distress. Head: Normal external exam. Normocephalic. Atraumatic. No Luciano signs noted. No raccoon eyes noted Eyes: PERRLA. EOMI. Conjunctiva and sclera normal. Eyelids normal. ENT: TM's Normal. Pharynx normal. Uvula midline. Moist mucous membranes. No trismus noted. No drooling noted. No muffled voice noted. Neck: Normal inspection. Neck supple. FROM. No adenopathy. Thyroid Normal. No meningeal signs. No neck mass noted. CVS: Normal heart rate and rhythm. Heart sound normal. No murmurs noted. Pulses normal throughout. Respiratory: No respiratory distress. Painless inspiration. Breath sounds normal. No wheezes/rales/rhonchi noted. Chest nontender. No accessory muscle usage noted or decreased air movement noted. Abdomen: Soft and nontender. Bowel sounds normal in all 4 quadrants. No distention noted. No organomegaly noted. No visible injury noted. Back: No CVA tenderness. Full range of motion noted. Skin: Skin warm and dry. Normal skin color. Normal skin turgor. No rashes/lesions/lacerations noted. Extremities: 2 x 2 cm area of ulcerative lesion surrounded by 4 x 4 cm area redness and hotness. Neuro: Disoriented x3. Cranial nerve exam: II-XII are grossly intact No motor deficit. No sensory deficit. Reflexes normal. Course Reevaluation(s) Reevaluation #1: sent from long-term for concern of left foot osteomyelitis. X-ray of the foot is not suggestive acute osteomyelitis. Patient is on Keflex will add doxycycline for MRSA coverage. slight elevation CRP/ sed rate likely due to the skin cellulitis self. Time: 15:06 Medical Decision Making Differential Diagnosis Differential Diagnoses: The differential diagnosis associated with the presentation includes ( Uncomplicated cellulitis, osteomyelitis, sepsis.) Admission/Observation Consideration of admission/observation: Escalation of care including admission/observation considered Lab Data [facility] Lab Attestation statement: I reviewed the patient's lab results. 05/14/24 12:06 05/14/24 12:06 Labs: Lab Results 05/14/24 Range/Units 12:06 WBC 10.6 (4.8-10.8) X10*3/uL RBC 4.62 (4.60-5.80) X10*6/uL Hgb 13.7 L (14.0-18.0) g/dl Hct 41.5 L (42.0-52.0) % MCV 89.8 (80.0-98.0) fL MCH 29.7 (27.0-33.0) pg MCHC 33.0 (31.0-36.0) g/dl RDW 16.5 H (11.0-16.0) % Plt Count 261 (160-400) X10*3/uL MPV 9.5 (9.4-12.4) fL Immature Gran % (Auto) 0.3 (0.0-0.4) % Neut % (Auto) 67.9 (45-73) % Lymph % (Auto) 22.2 (20-40) % [place] % (Auto) 5.4 (2-11) % Eos % (Auto) 2.8 (0-4) % Baso % (Auto) 1.4 (0-2) % Lymph # (Auto) 2.4 (1.2-4.9) X10*3/uL [place] # (Auto) 0.6 (0.1-1.2) X10*3/uL Eos # (Auto) 0.3 (0.0-0.4) X10*3/uL Baso # (Auto) 0.2 (0.0-0.2) X10*3/uL Abs Immat Gran (auto) 0.03 (0.00-0.03) X10*3/uL Absolute Neuts (auto) 7.2 (2.0-8.3) x10*3/uL Absolute Nucleated RBC 0.000 (0.0-0.012) X10*3/uL Nucleated RBC % (auto) 0.0 (0.0-0.2) /100WBC ESR 16 H (0-15) MM/HR Sodium 138 (135-145) mmol/L Potassium 4.2 (3.3-5.1) mmol/L Chloride 101 (96-108) mmol/L Carbon Dioxide 29 (22-29) mmol/L Anion Gap 12 (12-20) BUN 23 H (9-16) mg/dL Creatinine 1.43 H (0.5-1.4) mg/dL Estim Creat Clear Calc 50.9 Estimated GFR 49 Random Glucose 154 H (60-115) mg/dL Lactic Acid 0.7 (0.5-2.0) mmol/L Calcium 9.3 D (8.4-10.2) mg/dL C-Reactive Protein 0.71 H (< or = 0.50) mg/dL Independent Interpretation I performed an independent interpretation of an: Plain X-Ray ( left foot x- ray:No displaced fracture or dislocation. No periosteal reaction or cortical erosion to suggest osteomyelitis. ) Radiology Impression Discussion of test interpretation with radiology: I have reviewed the radiologist's reading. Discharge Plan Discharge Clinical Impression: Cellulitis of foot, left Patient Disposition: Home, Self-Care Instructions: Cellulitis (ED) Prescriptions: New doxycycline hyclate 100 mg tablet 100 mg PO BID Qty: 20 0RF Print Language: Kiswahili
[2024-05-14 11:39] VITALS: BP 131/65; PULSE 65; RESP 16; TEMP 36.8; O2SAT 97
[2024-05-14 12:14] LABS: MANUAL DIFF FLAG NO
[2024-05-14 12:17] LABS: Basophils Absolute Auto 0.2 X10*3/uL (0.0-0.2); Basophils Percent Auto 1.4 % (0-2); Eosinophils Absolute Auto 0.3 X10*3/uL (0.0-0.4); Eosinophils Percent Auto 2.8 % (0-4); Hematocrit 41.5 % (42.0-52.0); Hemoglobin 13.7 g/dl (14.0-18.0); Imm Gran Abs Auto 0.03 X10*3/uL (0.00-0.03); Imm Gran Pct Auto 0.3 % (0.0-0.4); Lymphocytes Absolute Auto 2.4 X10*3/uL (1.2-4.9); Lymphocytes Percent Auto 22.2 % (20-40); Mean Corpuscular Hemoglobin 29.7 pg (27.0-33.0); Mean Corpuscular Volume 89.8 fL (80.0-98.0); Mean Platelet Volume 9.5 fL (9.4-12.4); Monocytes Absolute Auto 0.6 X10*3/uL (0.1-1.2); Monocytes Percent Auto 5.4 % (2-11); Neutrophils Absolute Auto 7.2 x10*3/uL (2.0-8.3); Neutrophils Percent Auto 67.9 % (45-73); Platelet Count 261 X10*3/uL (160-400); Red Blood Count 4.62 X10*6/uL (4.60-5.80); Red Cell Distribution Width 16.5 % (11.0-16.0); White Blood Count 10.6 X10*3/uL (4.8-10.8)
--- NOTE | 2024-05-14 12:24 | PC.NURSE ---
pt alert to self only, left foot xray performed, labs drawn by tech, currently denying pain/discomfort, call malik within reach, will continue to monitor
[2024-05-14 12:35] LABS: Anion Gap 12 (12-20); Blood Urea Nitrogen 23 mg/dL (9-16); C Reactive Protein 0.71 mg/dL (< or = 0.50); Calcium 9.3 mg/dL (8.4-10.2); Carbon Dioxide 29 mmol/L (22-29); Chloride 101 mmol/L (96-108); Creatinine Clr Calc Pharmacy 50.9; Estimated Glomerular Filt Rate 49; Glucose Random 154 mg/dL (60-115); Potassium 4.2 mmol/L (3.3-5.1); Sodium 138 mmol/L (135-145)
[2024-05-14 12:36] LABS: Lactic Acid 0.7 mmol/L (0.5-2.0)
[2024-05-14 12:55] LABS: Erythrocyte Sedimentation Rate 16 MM/HR (0-15)
[2024-05-14 14:08] VITALS: BP 118/73; PULSE 71; RESP 16; TEMP 36.7; O2SAT 97
--- NOTE | 2024-05-14 15:16 | PC.NURSE ---
pt currently sleeping, vitals continue to be stable, pt awaiting provider. call malik within reach, will continue to monitor
--- NOTE | 2024-05-14 15:16 | PHA.MEDREC ---
Pharmacy Consult ? Medication Reconciliation Pharmacy has completed the medication reconciliation. Med rec complete using list dated 05/14/24, provided by [facility]
[2024-05-14 15:21] VITALS: BP 172/68; PULSE 72; RESP 16; TEMP 36.5; O2SAT 98
--- NOTE | 2024-05-14 15:27 | PC.NURSE ---
report called to Kim at [facility]
[2024-05-14 17:06] VITALS: BP 156/70; PULSE 70; RESP 16; TEMP 36.3; O2SAT 98
== END 2024-05-14 17:07 | disposition home or self-care (01) ==
PROVIDERS: Emergency Provider Emergency Medicine; PCP Internal Medicine
DX: L03.116 Cellulitis of left lower limb (principal); M79.672 Pain in left foot; Z79.899 Other long term (current) drug therapy
CPT/HCPCS: 36415; 73630; 80048; 83605; 85025; 85652; 86140; 87040; 99283; 99284

== ENCOUNTER 2024-08-05 21:21 | Inpatient (IN) | payer MEDICARE, MEDICAID, SELFPAY ==
--- NOTE | ~2024-08-05 | CT_ITS ---
CLINICAL HISTORY: hypoxic r o pna CT abdomen and pelvis without contrast Comparison: None Findings: Mild degenerative change spine and hips. No acute bony abnormalities. Right lower quadrant ventral hernia noted. This contains nondilated bowel loops. No associated acute finding. Large amount of stool in rectal vault. Question rectal fecal impaction. Pain control stimulator in left gluteal region. Leads noted in lower thoracic spine. Liver and spleen within normal limits. Pancreas and adrenal glands unremarkable. Cholelithiasis with moderate gallbladder distention. Nonobstructing right renal stones noted. No bilateral ureteral stone or hydronephrosis. No evidence for aortic aneurysm. No free fluid or adenopathy in the pelvis. No diverticulitis. Appendix unremarkable. Impression: Large amount of stool in rectal vault, question impaction This document has been electronically signed by: Douglas Montaño MD on 08/06/2024 00:52:10
--- NOTE | ~2024-08-05 | XR_ITS ---
CLINICAL HISTORY: ulcer dorsum of L foot Left foot three views Comparison: 05/14/2024 Findings: Limited study, phalanges not visualized. Metatarsal heads also obscured. Suboptimal visualization of the tarsals as well. No acute bony abnormality in visualized region. No soft tissue foreign body noted. Impression: Limited study as above No acute process identified This document has been electronically signed by: Douglas Montaño MD on 08/05/2024 23:31:40
--- NOTE | ~2024-08-05 | CT_ITS ---
CLINICAL HISTORY: abd distention, fever CT chest without contrast Comparison: None Findings: Bilateral lower lobe atelectasis, greater on right. Right upper and lower lobe faint nodular consolidation. Probable pneumonia, please correlate with symptoms. No significant mediastinal adenopathy noted. Prior CABG. Coronary calcifications. Bilateral gynecomastia noted. No acute bony abnormality. Impression: Right upper and lower lobe faint nodular consolidation Probable pneumonia, please correlate Bilateral lower lobe atelectasis, greater on right This document has been electronically signed by: Douglas Montaño MD on 08/06/2024 00:45:56
--- NOTE | ~2024-08-05 | XR_ITS ---
CLINICAL HISTORY: sob 1 view chest x-ray Comparison: None Findings: Bilateral lung base subsegmental atelectasis. No pneumothorax. Heart size normal. No acute bony abnormalities. Pain control stimulator leads t-spine. Impression: Bilateral basilar subsegmental atelectasis This document has been electronically signed by: Douglas Montaño MD on 08/05/2024 23:32:10
--- NOTE | 2024-08-05 21:33 | ECG_ITS ---
Test Reason : AMS/LOW O2 Blood Pressure : */* mmHG Vent. 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 rate has increased by 56 bpm Referred By: Yanet Munoz Electronically Signed By: SVEN CALZDAA
--- NOTE | 2024-08-05 21:39 | ED.GENADULT ---
HPI - General Adult General Chief complaint: Dyspnea Stated complaint: from snf, 78% ra, 90% nrb, altered Source: patient and EMS Mode of arrival: EMS Limitations: altered mental status History of Present Illness ED Provider: Dr. Yanet Munoz HPI narrative: Patient comes to the emergency room via EMS from a [facility] facility. At baseline, patient has dementia and can not make his needs no. Usually alert but mostly nonverbal per EMS. According to EMS, the staff reported that the patient has a low O2 saturation, in the high 70s on room air. Patient is not known to have COPD, does have history of asthma, no wheezing. Patient was put on a non-rebreather, oxygen saturation improves to the low 90s on 15 L. per patient's MOLST form, patient is a DNR, DNI, no CPAP, do not transferred to hospital. Seems that the staff at the nursing facility called the patient's son to inform him of the patient's current deterioration, son asked him to bring him to the hospital. On arrival, patient's oxygen saturation in the low 90s on 15 L Related Data Home Medications ?Medication ?Instructions ?Recorded ?Confirmed acetaminophen 325 mg tablet 650 mg PO Q4H PRN Fever Or Pain 05/14/24 05/14/24 ascorbic acid (vitamin C) 500 mg 500 mg PO DAILY 05/14/24 05/14/24 tablet aspirin 81 mg chewable tablet 81 mg PO DAILY 05/14/24 05/14/24 atorvastatin 40 mg tablet 40 mg PO BEDTIME 05/14/24 05/14/24 cholecalciferol (vitamin D3) 25 25 mcg PO DAILY 05/14/24 05/14/24 mcg (1,000 unit) capsule cyanocobalamin (vitamin B-12) 500 500 mcg PO DAILY 05/14/24 05/14/24 mcg tablet docusate sodium 100 mg capsule 100 mg PO BID PRN Constipation 05/14/24 05/14/24 gabapentin 400 mg capsule 400 mg PO DAILY@1700 05/14/24 05/14/24 insulin glargine-yfgn 100 unit/mL 24 unit subcut BEDTIME 05/14/24 05/14/24 subcutaneous solution insulin lispro 100 unit/mL 1 sliding scale dose subcut 05/14/24 05/14/24 subcutaneous solution USEASDIRECTD pantoprazole 40 mg tablet,delayed 40 mg PO DAILY@0630 05/14/24 05/14/24 release sennosides 8.6 mg-docusate sodium 2 tab-cap PO BID 05/14/24 05/14/24 50 mg tablet (Senna Plus) sucralfate 1 gram tablet 1 g PO QIDACHS 05/14/24 05/14/24 tamsulosin 0.4 mg capsule 0.4 mg PO BEDTIME 05/14/24 05/14/24 thiamine HCl (vitamin B1) 100 mg 100 mg PO DAILY 05/14/24 05/14/24 tablet Previous Rx's ?Medication ?Instructions ?Recorded doxycycline hyclate 100 mg tablet 100 mg PO BID #20 tabs 05/14/24 Allergies Allergy/AdvReac Type Severity Reaction Status Date / Time No Known Allergies Allergy Verified 08/05/24 21:44 Review of Systems Review of Systems: Yes Unobtainable due to mental status PMFSH Past Medical History Medical History Essential (primary) hypertension Alcohol use, 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 Unspecified dementia, unspecified severity, with agitation intermediate frame tender (current) use of aspirin [facility] (current) use of insulin Delusional disorders Anemia, unspecified Ingrowing nail Obesity, unspecified Hyperosmolality and hypernatremia Major depressive disorder, recurrent, moderate Hyperlipidemia, unspecified Adjustment disorder with mixed disturbance of emotions and conduct Alzheimer's disease, unspecified Chronic kidney disease, stage 3a Atherosclerosis of coronary artery of [place] heart Type 2 diabetes mellitus with diabetic chronic kidney disease Cellulitis of right toe Metabolic encephalopathy Social History Social History Advance Directives: Yes Advance Directives on File: Yes Advance Directives Date on File: 05/14/24 Physical Exam ED Vital Signs: Vital Signs - 24 hr 08/05/24 21:41 08/06/24 00:10 Temperature 103.1 F H 100.8 F H Pulse Rate 107 H 95 Respiratory Rate 29 H 23 H Blood Pressure 137/71 126/80 Pulse Oximetry 96 94 Oxygen Delivery Method Non-Rebreather Mask Oxymask Oxygen Flow Rate 6 BMI result Body Mass Index 30.7 Const Other: Appearance: Alert. Minimally awake, ill-appearing Eyes: Pupils equal, round and reactive to light. ENT: Pharynx normal. Neck: Normal inspection. Neck supple. No lymph nodes noted. No crepitus CVS: Normal heart rate and rhythm. Pulses normal. Normal S1 and S2 Respiratory: Tachypneic, oxygen saturation 90% on 15 L Abdomen: Soft and nontender. No rigidity. No distention. Skin: Skin warm and dry. Normal skin color. Normal skin turgor. Extremities: No lower extremity edema. No Lacerations. No Rash Neuro: Minimally awake, does not open his eyes to voice command, minimal response to sternal rub, opens his eyes and falls back asleep. Unable to participating cranial nerve assessment Psych: Minimally responsive Course Course Course Narrative: Patient MOLST form: DNR DNI do not transfer to hospital Patient receiving fluids based on ideal weight of 64 kg, patient is obese. Patient also received empiric antibiotics, ceftriaxone and azithromycin. Also receiving insulin for hyperglycemia. Medications Administered Discontinued Medications Generic Name Dose Route Start Last Admin Trade Name Freq PRN Reason Stop Dose Admin Ceftriaxone Sodium 1 gm 08/05/24 21:36 08/05/24 22:11 Ceftriaxone Sodium 1 Gm Vial IVPUSH 08/05/24 21:37 1 gm ONCE ONE Administration Sodium Chloride 2,000 mls @ 999 mls/hr 08/05/24 21:36 08/06/24 00:14 Ns IVCONT 08/05/24 23:36 Infused .Q2H1M ONE Infusion Azithromycin 500 mg/ Sodium 250 mls @ 125 mls/hr 08/05/24 21:36 08/06/24 00:27 Chloride IV 08/05/24 23:35 Infused ONCE ONE Infusion Insulin Human Regular 5 unit 08/05/24 22:03 08/05/24 22:18 Insulin Regular, Human 100 Unit/Ml 10 Ml Vial IVPUSH 08/05/24 22:04 5 unit ONCE ONE Administration Insulin Human Regular 5 unit 08/05/24 23:27 08/05/24 23:34 Insulin Regular, Human 100 Unit/Ml 10 Ml Vial IVPUSH 08/05/24 23:28 5 unit ONCE ONE Administration Medical Decision Making Medical Decision Making MDM Narrative: My interpretation of labs: Patient's white blood cell count 19, chemistry shows a slightly elevated sodium of 149, creatinine 2.6, glucose 384, normal LFTs. Urinalysis negative for UTI, serology negative for RSV COVID or influenza. Chest x-ray does not show any significant abnormalities With the x-ray does not show any signs concerning signs of osteomyelitis. However can not be ruled out. Unlikely, this is osteomyelitis CT scan show faint right upper and lower consolidations After IV fluids and insulin, patient's glucose 246. Patient's initial lactic acid 3.3, after IV fluids 3.4 We were able to wean down patient's oxygen from 15 L non-rebreather to 6 L OxyMask, currently saturating 94 Differential Diagnosis Differential Diagnoses: The differential diagnosis associated with the presentation includes (Pneumonia, asthma, influenza, RSV, COVID) Admission/Observation Consideration of admission/observation: Escalation of care including admission/observation considered Consult Healthcare Provider Management of the patient was discussed with: Hospitalist Lab Data [facility] Lab Attestation statement: I reviewed the patient's lab results. 08/05/24 21:36 08/05/24 21:36 Labs: Lab Results 08/05/24 08/05/24 08/05/24 Range/Units 21:30 21:36 21:39 WBC 19.0 H (4.8-10.8) X10*3/uL RBC 4.82 (4.60-5.80) X10*6/uL Hgb 14.1 (14.0-18.0) g/dl Hct 44.7 (42.0-52.0) % MCV 92.7 (80.0-98.0) fL MCH 29.3 (27.0-33.0) pg MCHC 31.5 (31.0-36.0) g/dl RDW 17.5 H (11.0-16.0) % Plt Count 336 D (160-400) X10*3/uL MPV 11.0 (9.4-12.4) fL Immature Gran % (Auto) 0.3 (0.0-0.4) % Neut % (Auto) 87.3 H (45-73) % Lymph % (Auto) 7.6 L (20-40) % Travis % (Auto) 4.0 (2-11) % Eos % (Auto) 0.2 (0-4) % Baso % (Auto) 0.6 (0-2) % Lymph # (Auto) 1.5 (1.2-4.9) X10*3/uL Travis # (Auto) 0.8 (0.1-1.2) X10*3/uL Eos # (Auto) 0.0 (0.0-0.4) X10*3/uL Baso # (Auto) 0.1 (0.0-0.2) X10*3/uL Abs Immat Gran (auto) 0.05 H (0.00-0.03) X10*3/uL Absolute Neuts (auto) 16.6 H (2.0-8.3) x10*3/uL Absolute Nucleated RBC 0.000 (0.0-0.012) X10*3/uL Nucleated RBC % (auto) 0.0 (0.0-0.2) /100WBC PT 12.1 (10.9-12.4) SEC INR 1.0 (0.9-1.1) VBG pH 7.35 (7.32-7.43) VBG pCO2 41 mmHg VBG pO2 36 mmHg VBG HCO3 23 (22-26) mmol/L VBG O2 Saturation 55.0 % VBG Base Excess -2.0 mmol/L Sodium 149 H (135-145) mmol/L Potassium 4.5 (3.3-5.1) mmol/L Chloride 116 H (96-108) mmol/L Carbon Dioxide 20 L (22-29) mmol/L Anion Gap 18 (12-20) BUN 55 H (9-16) mg/dL Creatinine 2.60 H (0.5-1.4) mg/dL Estim Creat Clear Calc 30.4 Estimated GFR 24 POC Glucose 352 H* (60-115) mg/dL Random Glucose 384 H* (60-115) mg/dL Lactic Acid (0.5-2.0) mmol/L Lactic Acid F/U @ 2Hr (0.5-2.0) mmol/L Calcium 9.1 (8.4-10.2) mg/dL Total Bilirubin 0.2 (0.0-1.0) mg/dL AST 12 (5-37) U/L ALT 8 (0-40) U/L Alkaline Phosphatase 82 (39-117) U/L Troponin I High Sens 12.5 (<3.5-35.0) ng/L B-Natriuretic Peptide 82 (<100) pg/mL Total Protein 7.5 (6.5-8.0) g/dL Albumin 3.8 (3.5-5.0) g/dL Urine Color Urine Appearance Urine pH (5.0-9.0) Ur Specific [place] (1.005-1.025) Urine Protein (Neg-Trace) mg/dL Urine Glucose (UA) (Negative) mg/dL Urine Ketones (Negative) mg/dL Urine Blood (Negative) Urine Nitrite (Negative) Ur Leukocyte Esterase (Negative) Urine RBC (0-2) /HPF Urine WBC (0-5) /HPF Ur Squamous Epith Cells (0-2) /HPF Urine Bacteria (None Seen) Hyaline Casts (0-2) /LPF Influenza Type A (PCR) NEGATIVE (Negative) Influenza Type B (PCR) NEGATIVE (Negative) RSV RNA Qual (PCR) NEGATIVE (Negative) SARS-CoV-2 RNA (RT-PCR) NEGATIVE (Negative) 08/05/24 08/05/24 08/05/24 Range/Units 21:40 22:07 23:20 WBC (4.8-10.8) X10*3/uL RBC (4.60-5.80) X10*6/uL Hgb (14.0-18.0) g/dl Hct (42.0-52.0) % MCV (80.0-98.0) fL MCH (27.0-33.0) pg MCHC (31.0-36.0) g/dl RDW (11.0-16.0) % Plt Count (160-400) X10*3/uL MPV (9.4-12.4) fL Immature Gran % (Auto) (0.0-0.4) % Neut % (Auto) (45-73) % Lymph % (Auto) (20-40) % Travis % (Auto) (2-11) % Eos % (Auto) (0-4) % Baso % (Auto) (0-2) % Lymph # (Auto) (1.2-4.9) X10*3/uL [place] # (Auto) (0.1-1.2) X10*3/uL Eos # (Auto) (0.0-0.4) X10*3/uL Baso # (Auto) (0.0-0.2) X10*3/uL Abs Immat Gran (auto) (0.00-0.03) X10*3/uL Absolute Neuts (auto) (2.0-8.3) x10*3/uL Absolute Nucleated RBC (0.0-0.012) X10*3/uL Nucleated RBC % (auto) (0.0-0.2) /100WBC PT (10.9-12.4) SEC INR (0.9-1.1) VBG pH (7.32-7.43) VBG pCO2 mmHg VBG pO2 mmHg VBG HCO3 (22-26) mmol/L VBG O2 Saturation % VBG Base Excess mmol/L Sodium (135-145) mmol/L Potassium (3.3-5.1) mmol/L Chloride (96-108) mmol/L Carbon Dioxide (22-29) mmol/L Anion Gap (12-20) BUN (9-16) mg/dL Creatinine (0.5-1.4) mg/dL Estim Creat Clear Calc Estimated GFR POC Glucose 335 H (60-115) mg/dL Random Glucose (60-115) mg/dL Lactic Acid 3.3 H* (0.5-2.0) mmol/L Lactic Acid F/U @ 2Hr (0.5-2.0) mmol/L Calcium (8.4-10.2) mg/dL Total Bilirubin (0.0-1.0) mg/dL AST (5-37) U/L ALT (0-40) U/L Alkaline Phosphatase (39-117) U/L Troponin I High Sens (<3.5-35.0) ng/L B-Natriuretic Peptide (<100) pg/mL Total Protein (6.5-8.0) g/dL Albumin (3.5-5.0) g/dL Urine Color Yellow Urine Appearance Clear Urine pH 5.5 (5.0-9.0) Ur Specific [place] 1.025 (1.005-1.025) Urine Protein 30 (1+) H (Neg-Trace) mg/dL Urine Glucose (UA) 500 H (Negative) mg/dL Urine Ketones Negative (Negative) mg/dL Urine Blood Negative (Negative) Urine Nitrite Negative (Negative) Ur Leukocyte Esterase Negative (Negative) Urine RBC 0-2 (0-2) /HPF Urine WBC 0-5 (0-5) /HPF Ur Squamous Epith Cells 0-2 (0-2) /HPF Urine Bacteria None Seen (None Seen) Hyaline Casts 0-2 (0-2) /LPF Influenza Type A (PCR) (Negative) Influenza Type B (PCR) (Negative) RSV RNA Qual (PCR) (Negative) SARS-CoV-2 RNA (RT-PCR) (Negative) 08/06/24 08/06/24 Range/Units 00:26 00:46 WBC (4.8-10.8) X10*3/uL RBC (4.60-5.80) X10*6/uL Hgb (14.0-18.0) g/dl Hct (42.0-52.0) % MCV (80.0-98.0) fL MCH (27.0-33.0) pg MCHC (31.0-36.0) g/dl RDW (11.0-16.0) % Plt Count (160-400) X10*3/uL MPV (9.4-12.4) fL Immature Gran % (Auto) (0.0-0.4) % Neut % (Auto) (45-73) % Lymph % (Auto) (20-40) % Travis % (Auto) (2-11) % Eos % (Auto) (0-4) % Baso % (Auto) (0-2) % Lymph # (Auto) (1.2-4.9) X10*3/uL [place] # (Auto) (0.1-1.2) X10*3/uL Eos # (Auto) (0.0-0.4) X10*3/uL Baso # (Auto) (0.0-0.2) X10*3/uL Abs Immat Gran (auto) (0.00-0.03) X10*3/uL Absolute Neuts (auto) (2.0-8.3) x10*3/uL Absolute Nucleated RBC (0.0-0.012) X10*3/uL Nucleated RBC % (auto) (0.0-0.2) /100WBC PT (10.9-12.4) SEC INR (0.9-1.1) VBG pH (7.32-7.43) VBG pCO2 mmHg VBG pO2 mmHg VBG HCO3 (22-26) mmol/L VBG O2 Saturation % VBG Base Excess mmol/L Sodium (135-145) mmol/L Potassium (3.3-5.1) mmol/L Chloride (96-108) mmol/L Carbon Dioxide (22-29) mmol/L Anion Gap (12-20) BUN (9-16) mg/dL Creatinine (0.5-1.4) mg/dL Estim Creat Clear Calc Estimated GFR POC Glucose 246 H (60-115) mg/dL Random Glucose (60-115) mg/dL Lactic Acid (0.5-2.0) mmol/L Lactic Acid F/U @ 2Hr 3.4 H* (0.5-2.0) mmol/L Calcium (8.4-10.2) mg/dL Total Bilirubin (0.0-1.0) mg/dL AST (5-37) U/L ALT (0-40) U/L Alkaline Phosphatase (39-117) U/L Troponin I High Sens (<3.5-35.0) ng/L B-Natriuretic Peptide (<100) pg/mL Total Protein (6.5-8.0) g/dL Albumin (3.5-5.0) g/dL Urine Color Urine Appearance Urine pH (5.0-9.0) Ur Specific [place] (1.005-1.025) Urine Protein (Neg-Trace) mg/dL Urine Glucose (UA) (Negative) mg/dL Urine Ketones (Negative) mg/dL Urine Blood (Negative) Urine Nitrite (Negative) Ur Leukocyte Esterase (Negative) Urine RBC (0-2) /HPF Urine WBC (0-5) /HPF Ur Squamous Epith Cells (0-2) /HPF Urine Bacteria (None Seen) Hyaline Casts (0-2) /LPF Influenza Type A (PCR) (Negative) Influenza Type B (PCR) (Negative) RSV RNA Qual (PCR) (Negative) SARS-CoV-2 RNA (RT-PCR) (Negative) Independent Interpretation I performed an independent interpretation of an: EKG (My interpretation of EKG: Sinus tachycardia, heart rate 108, right bundle branch block, more pronounced T-wave inversions in V2 V3 compared to previous EKG, QTC 517) Radiology Impression Discussion of test interpretation with radiology: I have reviewed the radiologist's reading. Radiologist Impression: Bilateral lower lobe atelectasis, greater on right. Right upper and lower lobe faint nodular consolidation. Probable pneumonia, please correlate with symptoms. No significant mediastinal adenopathy noted. Prior CABG. Coronary calcifications. Bilateral gynecomastia noted. No acute bony abnormality. Mild degenerative change spine and hips. No acute bony abnormalities. Right lower quadrant ventral hernia noted. This contains nondilated bowel loops. No associated acute finding. Large amount of stool in rectal vault. Question rectal fecal impaction. Pain control stimulator in left gluteal region. Leads noted in lower thoracic spine. Liver and spleen within normal limits. Pancreas and adrenal glands unremarkable. Cholelithiasis with moderate gallbladder distention. Nonobstructing right renal stones noted. No bilateral ureteral stone or hydronephrosis. No evidence for aortic aneurysm. No free fluid or adenopathy in the pelvis. No diverticulitis. Appendix unremarkable. Independent Historian Clinical information obtained from an independent historian. History obtained from or confirmed by: EMS Critical Care Time Critical Care Time Critical Care Time: Yes Total Critical Care Time: 75 Attestation: I have personally provided critical care time. Time includes review of lab data, radiology results, discussion with consultants, and monitoring for potential decompensation. Intervention performed as documented. Discharge Plan Discharge Clinical Impression: Pneumonia, Respiratory failure Patient Disposition: Admitted As Inpatient Prescriptions: No Action atorvastatin 40 mg Tablet 40 mg PO BEDTIME acetaminophen 325 mg Tablet 650 mg PO Q4H PRN (Reason: Fever Or Pain) sucralfate 1 gram Tablet 1 g PO QIDACHS sennosides-docusate sodium [Senna Plus] 8.6-50 mg Tablet 2 tab-cap PO BID gabapentin 400 mg Capsule 400 mg PO DAILY@1700 thiamine HCl (vitamin B1) 100 mg Tablet 100 mg PO DAILY cyanocobalamin (vitamin B-12) 500 mcg Tablet 500 mcg PO DAILY ascorbic acid (vitamin C) 500 mg Tablet 500 mg PO DAILY tamsulosin 0.4 mg Capsule 0.4 mg PO BEDTIME pantoprazole 40 mg Tablet,Delayed Release (Dr/Ec) 40 mg PO DAILY@0630 docusate sodium 100 mg Capsule 100 mg PO BID PRN (Reason: Constipation) aspirin 81 mg Tablet,Chewable 81 mg PO DAILY insulin lispro 100 unit/mL Solution 1 sliding scale dose SUBCUT USEASDIRECTD Protocol: Insulin Correction Scale Less than or equal to 110 ---- Give (units): 0 111 to 150 Give (units): 0 151 to 200 Give (units): 0 201 to 250 Give (units): 6 251 to 300 Give (units): 8 301 to 350 Give (units): 10 Greater than 350 Give (units): 12 Call MD if Blood Glucose > : 350 cholecalciferol (vitamin D3) 25 mcg (1,000 unit) Capsule 25 mcg PO DAILY insulin glargine-yfgn 100 unit/mL Solution 24 unit SUBCUT BEDTIME Rx Instructions: hold if blood glucose is less than 150 doxycycline hyclate 100 mg tablet 100 mg PO BID Qty: 20 0RF Print Language: Khmer
[2024-08-05 21:40] LABS: MANUAL DIFF FLAG NO
[2024-08-05 21:41] VITALS: BP 112/60; BP 137/71; PULSE 107; PULSE 110; RESP 29; TEMP 39.5; O2SAT 88; O2SAT 96; BMI 30.7
[2024-08-05 21:43] LABS: Basophils Absolute Auto 0.1 X10*3/uL (0.0-0.2); Basophils Percent Auto 0.6 % (0-2); Eosinophils Percent Auto 0.2 % (0-4); Hematocrit 44.7 % (42.0-52.0); Hemoglobin 14.1 g/dl (14.0-18.0); Imm Gran Abs Auto 0.05 X10*3/uL (0.00-0.03); Imm Gran Pct Auto 0.3 % (0.0-0.4); Lymphocytes Absolute Auto 1.5 X10*3/uL (1.2-4.9); Lymphocytes Percent Auto 7.6 % (20-40); Mean Corpuscular HGB Conc 31.5 g/dl (31.0-36.0); Mean Corpuscular Hemoglobin 29.3 pg (27.0-33.0); Mean Corpuscular Volume 92.7 fL (80.0-98.0); Monocytes Absolute Auto 0.8 X10*3/uL (0.1-1.2); Neutrophils Absolute Auto 16.6 x10*3/uL (2.0-8.3); Neutrophils Percent Auto 87.3 % (45-73); Platelet Count 336 X10*3/uL (160-400); Red Blood Count 4.82 X10*6/uL (4.60-5.80); Red Cell Distribution Width 17.5 % (11.0-16.0)
[2024-08-05 21:43] LABS: Venous Blood Gas Refer to POC result
[2024-08-05 21:44] LABS: VBG HCO3 23 mmol/L (22-26); VBG pCO2 41 mmHg; VBG pH 7.35 (7.32-7.43); VBG pO2 36 mmHg
[2024-08-05 21:49] LABS: Prothrombin Time 12.1 SEC (10.9-12.4)
[2024-08-05 22:03] LABS: Alanine Aminotransferase 8 U/L (0-40); Albumin Level 3.8 g/dL (3.5-5.0); Alkaline Phosphatase 82 U/L (39-117); Anion Gap 18 (12-20); Aspartate Amino Transferase 12 U/L (5-37); Bilirubin Total 0.2 mg/dL (0.0-1.0); Blood Urea Nitrogen 55 mg/dL (9-16); Calcium 9.1 mg/dL (8.4-10.2); Carbon Dioxide 20 mmol/L (22-29); Chloride 116 mmol/L (96-108); Creatinine Clr Calc Pharmacy 30.4; Estimated Glomerular Filt Rate 24; Glucose Random 384 mg/dL (60-115); Potassium 4.5 mmol/L (3.3-5.1); Sodium 149 mmol/L (135-145); Total Protein 7.5 g/dL (6.5-8.0)
[2024-08-05 22:08] LABS: Troponin-I High Sensitivity 12.5 ng/L (<3.5-35.0)
[2024-08-05] MEDS: cefTRIAXone sodium 1 GM VIAL IVPUSH (22:11)
[2024-08-05] MEDS: 0.9 % Sodium Chloride 2,000 ML 999 ML IVCONT (22:11)
[2024-08-05 22:17] LABS: Glucose, Whole Blood 352 mg/dL (60-115)
[2024-08-05 22:18] LABS: Lactic Acid 3.3 mmol/L (0.5-2.0)
[2024-08-05] MEDS: Insulin Regular, Human 100 UNIT/ML 10 ML VIAL IVPUSH ×2 (22:18→23:34)
[2024-08-05 22:21] LABS: Appearance Urine Clear; Color Urine Yellow; Glucose Urine UA 500 mg/dL (Negative); Leukocyte Esterase Urine Negative (Negative); Nitrite Urine Negative (Negative); PH 5.5 (5.0-9.0); Specific Gravity - Urine 1.025 (1.005-1.025); UMIC TRIGGER UACC YES; Urine Blood Negative (Negative); Urine Ketones Negative (Negative); Urine Protein 30 (1+) mg/dL (Neg-Trace)
[2024-08-05 22:27] LABS: Bacteria Urine None Seen (None Seen); Hyaline Casts Urine 0-2 /LPF (0-2); RBC Urine 0-2 /HPF (0-2); Squamous Epithelial Cell Urine 0-2 /HPF (0-2); WBC Urine 0-5 /HPF (0-5)
[2024-08-05] MEDS: Azithromycin 500 MG in 0.9 % Sodium Chloride 250 ML 125 MG IV (22:27)
[2024-08-05 22:35] LABS: Influenza A PCR NEGATIVE (Negative); Influenza B PCR NEGATIVE (Negative); Resp Syncy Virus RNA Qual PCR NEGATIVE (Negative); SARS COV2 PCR INHOUSE NEGATIVE (Negative)
[2024-08-05 23:10] LABS: B Type Natriuretic Peptide 82 pg/mL (<100)
[2024-08-05 23:26] LABS: Glucose, Whole Blood 335 mg/dL (60-115)
[2024-08-05 23:55] LABS: Reflex Lactate? Lactic Acid Added
[2024-08-06] VITALS (7 sets, daily range): BP systolic 103–143; BP diastolic 59–90; PULSE 79–102; RESP 14–25; TEMP 36.8–38.2; O2SAT 91–94; BMI 30.7
--- NOTE | 2024-08-06 00:13 | PC.NURSE ---
Patient titrated to 6 LPM via oxymask, saturating 94-95%.
[2024-08-06 00:51] LABS: Glucose, Whole Blood 246 mg/dL (60-115)
[2024-08-06 00:59] LABS: ~Lactic Acid-LAB USE ONLY 3.4 mmol/L (0.5-2.0)
--- NOTE | 2024-08-06 01:01 | PC.NURSE ---
Lab called critical Lactic 3.4. Dr. Munoz notified.
--- NOTE | 2024-08-06 02:15 | P.HPHOSP_ITS ---
History of Present Illness Date of Service: 08/06/24 Chief Complaint: Hypoxia This is a 74-year-old male with pertinent history of Alzheimer's dementia, mostly nonverbal at baseline, insulin-dependent diabetes mellitus, hypertension, asthma not on home oxygen, coronary artery disease, CKD stage IIIA, mood disorder, BPH, gastroesophageal reflux disease who was sent to the emergency department from [facility] for evaluation of hypoxia. Patient is alert at baseline as per EMS but mostly nonverbal. Unable to obtain history from the patient. History obtained from ER provider and chart review. Patient was found to be satting in the 70s on room air and EMS was called. Patient is drowsy at the time of my evaluation. Imaging with right-sided pneumonia and patient was found to be septic in the ER. He was given IV crystalloids and empiric IV antibiotics. Patient is DNR/DNI and do not transfer to the hospital. Staff at nursing facility called the patient's son to inform of the patient's condition and the son asked the patient to bring the patient to a hospital. 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 (current) use of insulin Delusional disorders Anemia, unspecified Ingrowing nail Obesity, unspecified Hyperosmolality and hypernatremia Major depressive disorder, recurrent, moderate Hyperlipidemia, unspecified Adjustment disorder with mixed disturbance of emotions and conduct Alzheimer's disease, unspecified Chronic kidney disease, stage 3a Atherosclerosis of coronary artery of [place] heart Type 2 diabetes mellitus with diabetic chronic kidney disease Cellulitis of right toe Metabolic encephalopathy Social History Advance Directives: Yes Advance Directives on File: Yes Advance Directives Date on File: 05/14/24 Meds Allergies Allergy/AdvReac Type Severity Reaction Status Date / Time No Known Allergies Allergy Verified 08/05/24 21:44 Active Medications: Current Medications Acetaminophen (Acetaminophen 325 Mg Tablet) 650 mg PO Q6H PRN PRN Reason: Pain, Mild 1-3,fever,headache Calcium Carbonate (Calcium Carbonate 750 Mg Tab.Chew) 750 mg PO Q4H PRN PRN Reason: Heartburn Ceftriaxone Sodium (Ceftriaxone Sodium 1 Gm Vial) 1 gm IVPUSH Q24H AL Enoxaparin Sodium (Enoxaparin Sodium 40 Mg/0.4 Ml Syringe) 40 mg SUBCUT Q24H AL Azithromycin 500 mg/ Sodium (Chloride) 250 mls @ 125 mls/hr IV ONCE ONE Stop: 08/06/24 23:11 Magnesium Hydroxide (Milk Of Magnesia 30 Ml Oral.Susp) 30 ml PO DAILY PRN PRN Reason: Constipation Melatonin (Melatonin 3 Mg Tablet) 6 mg PO BEDTIME PRN PRN Reason: Insomnia Ondansetron HCl (Ondansetron Hcl 4 Mg/2 Ml Vial) 4 mg IVPUSH Q8H PRN PRN Reason: Nausea and Vomiting Sodium Chloride (0.9 % Sodium Chloride Flush 3 Ml Syringe) 3 ml IVFLUSH QSHIFT [facility] Home Medications ?Medication ?Instructions ?Recorded ?Confirmed ?Last Taken ?Type acetaminophen 325 mg tablet 650 mg PO Q4H PRN Fever Or Pain 05/14/24 05/14/24 Unknown History ascorbic acid (vitamin C) 500 mg 500 mg PO DAILY 05/14/24 05/14/24 Unknown History tablet aspirin 81 mg chewable tablet 81 mg PO DAILY 05/14/24 05/14/24 Unknown History atorvastatin 40 mg tablet 40 mg PO BEDTIME 05/14/24 05/14/24 Unknown History cholecalciferol (vitamin D3) 25 25 mcg PO DAILY 05/14/24 05/14/24 Unknown History mcg (1,000 unit) capsule cyanocobalamin (vitamin B-12) 500 500 mcg PO DAILY 05/14/24 05/14/24 Unknown History mcg tablet docusate sodium 100 mg capsule 100 mg PO BID PRN Constipation 05/14/24 05/14/24 Unknown History gabapentin 400 mg capsule 400 mg PO DAILY@1700 05/14/24 05/14/24 Unknown History insulin glargine-yfgn 100 unit/mL 24 unit subcut BEDTIME 05/14/24 05/14/24 Unknown History subcutaneous solution insulin lispro 100 unit/mL 1 sliding scale dose subcut 05/14/24 05/14/24 Unknown History subcutaneous solution USEASDIRECTD pantoprazole 40 mg tablet,delayed 40 mg PO DAILY@0630 05/14/24 05/14/24 Unknown History release sennosides 8.6 mg-docusate sodium 2 tab-cap PO BID 05/14/24 05/14/24 Unknown History 50 mg tablet (Senna Plus) sucralfate 1 gram tablet 1 g PO QIDACHS 05/14/24 05/14/24 Unknown History tamsulosin 0.4 mg capsule 0.4 mg PO BEDTIME 05/14/24 05/14/24 Unknown History thiamine HCl (vitamin B1) 100 mg 100 mg PO DAILY 05/14/24 05/14/24 Unknown History tablet Physical Exam 2 Vital Signs and Narrative: Vital Signs: Last Vital Signs Temp 100.8 F H 08/06/24 00:10 Pulse 95 08/06/24 00:10 Resp 23 H 08/06/24 00:10 BP 126/80 08/06/24 00:10 Pulse Ox 94 08/06/24 00:10 O2 Del Method Oxymask 08/06/24 00:10 O2 Flow Rate 6 08/06/24 00:10 Oxygen Flow Rate 15 08/05/24 21:41 BMI result Body Mass Index 30.7 Elderly male lying in bed in on supplemental oxygen Neck supple, no JVD Regular rate and rhythm, S1-S2 heard Right-sided crackles heard no wheezing, tachypnea present Abdomen soft nontender, no guarding, no rigidity Patient is drowsy and does not open eyes to verbal stimulus, eye opening present to painful stimulus, non conversation No pedal edema Results Labs 08/05/24 21:36 08/05/24 21:36 Labs: Laboratory Results - last 24 hr 08/05/24 08/05/24 08/05/24 21:30 21:36 21:39 MCV 92.7 MCH 29.3 MCHC 31.5 RDW 17.5 H Plt Count 336 D MPV 11.0 Immature Gran % (Auto) 0.3 Neut % (Auto) 87.3 H Lymph % (Auto) 7.6 L [place] % (Auto) 4.0 Eos % (Auto) 0.2 Baso % (Auto) 0.6 Lymph # (Auto) 1.5 [place] # (Auto) 0.8 Eos # (Auto) 0.0 Baso # (Auto) 0.1 Abs Immat Gran (auto) 0.05 H Absolute Neuts (auto) 16.6 H Absolute Nucleated RBC 0.000 Nucleated RBC % (auto) 0.0 PT 12.1 INR 1.0 VBG pH 7.35 VBG pCO2 41 VBG pO2 36 VBG HCO3 23 VBG O2 Saturation 55.0 VBG Base Excess -2.0 Anion Gap 18 Estim Creat Clear Calc 30.4 Estimated GFR 24 POC Glucose 352 H* Random Glucose 384 H* Lactic Acid Lactic Acid F/U @ 2Hr Calcium 9.1 Total Bilirubin 0.2 AST 12 ALT 8 Alkaline Phosphatase 82 B-Natriuretic Peptide 82 Total Protein 7.5 Albumin 3.8 Urine Color Urine Appearance Urine pH Ur Specific [place] Urine Protein Urine Glucose (UA) Urine Ketones Urine Blood Urine Nitrite Ur Leukocyte Esterase Urine RBC Urine WBC Ur Squamous Epith Cells Urine Bacteria Hyaline Casts Influenza Type A (PCR) NEGATIVE Influenza Type B (PCR) NEGATIVE RSV RNA Qual (PCR) NEGATIVE SARS-CoV-2 RNA (RT-PCR) NEGATIVE 08/05/24 08/05/24 08/05/24 21:40 22:07 23:20 MCV MCH MCHC RDW Plt Count MPV Immature Gran % (Auto) Neut % (Auto) Lymph % (Auto) [place] % (Auto) Eos % (Auto) Baso % (Auto) Lymph # (Auto) [place] # (Auto) Eos # (Auto) Baso # (Auto) Abs Immat Gran (auto) Absolute Neuts (auto) Absolute Nucleated RBC Nucleated RBC % (auto) PT INR VBG pH VBG pCO2 VBG pO2 VBG HCO3 VBG O2 Saturation VBG Base Excess Anion Gap Estim Creat Clear Calc Estimated GFR POC Glucose 335 H Random Glucose Lactic Acid 3.3 H* Lactic Acid F/U @ 2Hr Calcium Total Bilirubin AST ALT Alkaline Phosphatase B-Natriuretic Peptide Total Protein Albumin Urine Color Yellow Urine Appearance Clear Urine pH 5.5 Ur Specific [place] 1.025 Urine Protein 30 (1+) H Urine Glucose (UA) 500 H Urine Ketones Negative Urine Blood Negative Urine Nitrite Negative Ur Leukocyte Esterase Negative Urine RBC 0-2 Urine WBC 0-5 Ur Squamous Epith Cells 0-2 Urine Bacteria None Seen Hyaline Casts 0-2 Influenza Type A (PCR) Influenza Type B (PCR) RSV RNA Qual (PCR) SARS-CoV-2 RNA (RT-PCR) 08/06/24 08/06/24 00:26 00:46 MCV MCH MCHC RDW Plt Count MPV Immature Gran % (Auto) Neut % (Auto) Lymph % (Auto) [place] % (Auto) Eos % (Auto) Baso % (Auto) Lymph # (Auto) [place] # (Auto) Eos # (Auto) Baso # (Auto) Abs Immat Gran (auto) Absolute Neuts (auto) Absolute Nucleated RBC Nucleated RBC % (auto) PT INR VBG pH VBG pCO2 VBG pO2 VBG HCO3 VBG O2 Saturation VBG Base Excess Anion Gap Estim Creat Clear Calc Estimated GFR POC Glucose 246 H Random Glucose Lactic Acid Lactic Acid F/U @ 2Hr 3.4 H* Calcium Total Bilirubin AST ALT Alkaline Phosphatase B-Natriuretic Peptide Total Protein Albumin Urine Color Urine Appearance Urine pH Ur Specific [place] Urine Protein Urine Glucose (UA) Urine Ketones Urine Blood Urine Nitrite Ur Leukocyte Esterase Urine RBC Urine WBC Ur Squamous Epith Cells Urine Bacteria Hyaline Casts Influenza Type A (PCR) Influenza Type B (PCR) RSV RNA Qual (PCR) SARS-CoV-2 RNA (RT-PCR) Assessment and Plan (1) Respiratory failure: Status: Acute (2) Pneumonia: Status: Acute (3) Hypoxia: Status: Acute (4) Acute kidney injury: Status: Acute Plan This is a 74-year-old male with pertinent history of Alzheimer's dementia, mostly nonverbal at baseline, insulin-dependent diabetes mellitus, hypertension, asthma not on home oxygen, coronary artery disease, CKD stage IIIA, mood disorder, BPH, gastroesophageal reflux disease who was sent to the emergency department from [facility] for evaluation of hypoxia. #. Acute hypoxemic respiratory failure and severe sepsis due to right-sided pneumonia: Will admit patient with supplemental oxygen. Resuscitated with IV crystalloids. Lactic acid and blood culture obtained. Initiating IV ceftriaxone and IV azithromycin. #. Acute lactic acidosis due to sepsis #. Acute kidney injury on CKD stage 3: Monitor with crystalloid resuscitation. Avoid nephrotoxins #. Insulin-dependent diabetes mellitus with hyperglycemia: Initiating basal plus insulin regimen #. Hypertension: Hold home antihypertensives in the setting of sepsis #. CAD: On aspirin and statin once able to take p.o. #. Alzheimer's dementia: High risk for delirium #. BPH: On Flomax #. Gastroesophageal reflux disease: On PPI Med rec pending DNR/DNI DVT prophylaxis: Lovenox Admit as inpatient and will require two night minimum hospital stay for supplemental oxygen, IV antibiotics, monitoring of mentation (as above), which is not possible in a lesser acute setting. Quality Stroke Does the patient have a stroke diagnosis?: No VTE Prior VTE?: No VTE Risk Level:: Medical - moderate - high VTE Device Contraindication: Treatment Not Indicated VTE Drug Contraindication: N/A - Med Ordered
[2024-08-06 02:30] LABS: Reflex Lactate? 2 Y
[2024-08-06 02:45] LABS: Glucose, Whole Blood 310 mg/dL (60-115)
[2024-08-06] MEDS: Insulin Glargine,Hum.rec.anlog 100 UNIT/ML 10 ML VIAL 12 UNIT SUBCUT ×2 (02:45→22:47)
[2024-08-06] MEDS: Insulin Lispro 100 UNIT/ML 3 ML VIAL SUBCUT ×4 (02:46→22:47)
[2024-08-06 04:33] LABS: ~Lactic Acid-LAB USE ONLY 2.7 mmol/L (0.5-2.0)
[2024-08-06 05:16] LABS: Basophils Absolute Auto 0.1 X10*3/uL (0.0-0.2); Basophils Percent Auto 0.4 % (0-2); Hemoglobin 12.4 g/dl (14.0-18.0); Imm Gran Abs Auto 0.09 X10*3/uL (0.00-0.03); Imm Gran Pct Auto 0.4 % (0.0-0.4); Lymphocytes Absolute Auto 1.4 X10*3/uL (1.2-4.9); Lymphocytes Percent Auto 5.9 % (20-40); MANUAL DIFF FLAG SCAN; Mean Corpuscular Volume 93.7 fL (80.0-98.0); Mean Platelet Volume 10.9 fL (9.4-12.4); Monocytes Absolute Auto 1.5 X10*3/uL (0.1-1.2); Monocytes Percent Auto 6.1 % (2-11); Neutrophils Percent Auto 87.2 % (45-73); Platelet Count 229 X10*3/uL (160-400); Red Blood Count 4.27 X10*6/uL (4.60-5.80); Red Cell Distribution Width 17.4 % (11.0-16.0); SCAN SMEAR FLAG 1; White Blood Count 24.1 X10*3/uL (4.8-10.8)
[2024-08-06 05:34] LABS: SLIDE REVIEW VERIFIED
[2024-08-06 05:39] LABS: Anion Gap 16 (12-20); Blood Urea Nitrogen 66 mg/dL (9-16); Calcium 8.5 mg/dL (8.4-10.2); Carbon Dioxide 18 mmol/L (22-29); Chloride 120 mmol/L (96-108); Creatinine Clr Calc Pharmacy 31.4; Estimated Glomerular Filt Rate 25; Glucose Random 363 mg/dL (60-115); Potassium 4.4 mmol/L (3.3-5.1); Sodium 150 mmol/L (135-145)
--- NOTE | 2024-08-06 06:04 | PC.NURSE ---
Dr. Marie is aware of blood glucose level of 363. Per MARION GRIFFIN to administer Lispro 10 units SQ.
[2024-08-06 07:37] LABS: Glucose, Whole Blood 274 mg/dL (60-115)
--- NOTE | 2024-08-06 09:42 | PHA.MEDREC ---
Addendum entered by Fidencio Sylvester RPh 08/07/24 15:05: MED REC CHECKED BY [facility] Original Note: Pharmacy Consult ? Medication Reconciliation Pharmacy has completed the medication reconciliation. Utilized list from [facility] in [place], [place].
[2024-08-06] MEDS: 0.9 % Sodium Chloride Flush 3 ML SYRINGE IVFLUSH ×2 (10:09→22:48)
[2024-08-06] MEDS: Sodium Chloride 0.45 % 1,000 ML 80 ML IVCONT ×2 (10:10→22:47)
[2024-08-06] MEDS: Enoxaparin Sodium 40 MG/0.4 ML SYRINGE SUBCUT (10:14)
--- NOTE | 2024-08-06 10:18 | PC.NURSE ---
pt very lethargic. arouses briefly to his name called loudly and to sternal rub. pt then falls back to sleep. vitals are WNL - pt on oxymask (mouth wide open breathing), NSR on tele. Dr. Quiroz notified of pt presentation. awaiting orders
--- NOTE | 2024-08-06 11:54 | MHC.CLN ---
NUTRITION CONSULT FOR SKIN INTEGRITY. CHRISTIAN=13. NOTED SKIN ISSUES: WOUND TO TOP OF LEFT FOOT AND REDNESS TO COCCYX. CURRENTLY NPO. RD TO REASSESS NUTRITION NEEDS UPON ADM TO UNIT.
[2024-08-06 12:47] LABS: Glucose, Whole Blood 160 mg/dL (60-115)
--- NOTE | 2024-08-06 12:59 | P.CONGS_ITS ---
History of Present Illness Consult details Consult date: 08/06/24 Requesting physician: Denia Marie Narrative: 74-year-old male patient presenting to the emergency department for hypoxemia. His past medical history is significant for Alzheimer's dementia, insulin- dependent diabetes mellitus, hypertension, asthma, CAD, CKD stage IIIA, mood disorder, BPH, GERD and is a resident of a group home facility. The patient is nonverbal at baseline. He is DNR/DNI/do not transferred to hospital however visit to hospital was requested by patient's son. Surgical consultation was requested for fecal impaction noted on CT abdomen and pelvis. 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 Delusional disorders Anemia, unspecified Ingrowing nail Obesity, unspecified Hyperosmolality and hypernatremia Major depressive disorder, recurrent, moderate Hyperlipidemia, unspecified Adjustment disorder with mixed disturbance of emotions and conduct Alzheimer's disease, unspecified Chronic kidney disease, stage 3a Atherosclerosis of coronary artery of [place] heart Type 2 diabetes mellitus with diabetic chronic kidney disease Cellulitis of right toe Metabolic encephalopathy Social History Social History Household Members: Unknown / Unable to assess Housing: Unknown / Unable to assess Unable to assess alcohol history related to: Unable to respond Patient Tobacco Use Status: Tobacco use Unknown Use of substances other than those prescribed or required for medical reasons: Unable to respond Advance Directives: Yes Advance Directives on File: Yes Advance Directives Date on File: 05/14/24 Do you have a plan to hurt others: No Plan Meds Allergies Allergy/AdvReac Type Severity Reaction Status Date / Time No Known Allergies Allergy Verified 08/05/24 21:44 Active Medications: Current Medications Acetaminophen (Acetaminophen 325 Mg Tablet) 650 mg PO Q6H PRN PRN Reason: Pain, Mild 1-3,fever,headache Ascorbic Acid (Ascorbic Acid 500 Mg Tablet) 500 mg PO DAILY AL Aspirin (Aspirin 81 Mg Tab.Chew) 81 mg PO DAILY [facility] Calcium Carbonate (Calcium Carbonate 750 Mg Tab.Chew) 750 mg PO Q4H PRN PRN Reason: Heartburn Ceftriaxone Sodium (Ceftriaxone Sodium 1 Gm Vial) 1 gm IVPUSH Q24H AL Clopidogrel Bisulfate (Clopidogrel Bisulfate 75 Mg Tablet) 75 mg PO DAILY [facility] Collagenase (Collagenase Clostridium Hist. 30 Gm Tube) 1 appl TOPICAL DAILY [facility]; Protocol Cyanocobalamin (Cyanocobalamin (Vitamin B-12) 500 Mcg Tablet) 500 mcg PO DAILY [facility] Dextrose (Dextrose 50 % 25 Gm/50 Ml Syringe) 25 gm IVPUSH Q15M PRN; Protocol PRN Reason: per Hypoglycemia Standing Ord. Docusate Sodium (Docusate Sodium 100 Mg Capsule) 100 mg PO BID PRN PRN Reason: Constipation Enoxaparin Sodium (Enoxaparin Sodium 40 Mg/0.4 Ml Syringe) 40 mg SUBCUT Q24H [facility] Last Admin: 08/06/24 10:14 Dose: 40 mg Folic Acid (Folic Acid 1 Mg Tablet) 1 mg PO DAILY [facility] Gabapentin (Gabapentin 400 Mg Capsule) 400 mg PO DAILY@1700 [facility] Glucose (Glucose Gel 15 Gm Gel..Gram.) 15 gm PO Q15M PRN; Protocol PRN Reason: per Hypoglycemia Standing Ord. Azithromycin 500 mg/ Sodium (Chloride) 250 mls @ 125 mls/hr IV ONCE ONE Stop: 08/06/24 22:59 Sodium Chloride (Sodium Chloride 0.45 %) 1,000 mls @ 80 mls/hr IVCONT .[id number] [facility] Last Admin: 08/06/24 10:10 Dose: 80 mls/hr Insulin Glargine (Insulin Glargine,Hum.Rec.Anlog 100 Unit/Ml 10 Ml Vial) 12 unit SUBCUT BEDTIME [facility] Last Admin: 08/06/24 02:45 Dose: 12 unit Insulin Human Lispro (Insulin Lispro 100 Unit/Ml 3 Ml Vial) 0 unit SUBCUT 0000,0600,1200,1800 [facility]; Protocol Last Admin: 08/06/24 12:44 Dose: Not Given Magnesium Hydroxide (Milk Of Magnesia 30 Ml Oral.Susp) 30 ml PO DAILY PRN PRN Reason: Constipation Melatonin (Melatonin 3 Mg Tablet) 6 mg PO BEDTIME PRN PRN Reason: Insomnia Multivitamins/Vitamin C (Multivitamin Tablet) 1 tab PO DAILY [facility] Ondansetron HCl (Ondansetron Hcl 4 Mg/2 Ml Vial) 4 mg IVPUSH Q8H PRN PRN Reason: Nausea and Vomiting Senna/Docusate Sodium (Sennosides/Docusate Sodium Tablet) 2 tab PO BID [facility] Sodium Chloride (0.9 % Sodium Chloride Flush 3 Ml Syringe) 3 ml IVFLUSH QSHIFT [facility] Last Admin: 08/06/24 10:09 Dose: 3 ml Sucralfate (Sucralfate 1 Gm Tablet) 1 gm PO QIDACHS [facility] Last Admin: 08/06/24 12:45 Dose: Not Given Tamsulosin HCl (Tamsulosin Hcl 0.4 Mg Capsule) 0.4 mg PO BEDTIME [facility] Thiamine HCl (Thiamine Hcl 100 Mg Tablet) 100 mg PO DAILY [facility] Vitamin D (Cholecalciferol (Vitamin D3) 25 Mcg Tablet) 25 mcg PO DAILY [facility] Home Medications ?Medication ?Instructions ?Recorded ?Confirmed ?Last Taken ?Type acetaminophen 325 mg tablet 650 mg PO Q4H PRN Fever Or Pain 05/14/24 08/06/24 Unknown History ascorbic acid (vitamin C) 500 mg 500 mg PO DAILY 05/14/24 08/06/24 Unknown History tablet aspirin 81 mg chewable tablet 81 mg PO DAILY 05/14/24 08/06/24 Unknown History atorvastatin 40 mg tablet 40 mg PO BEDTIME 05/14/24 08/06/24 Unknown History cholecalciferol (vitamin D3) 25 25 mcg PO DAILY 05/14/24 08/06/24 Unknown History mcg (1,000 unit) capsule docusate sodium 100 mg capsule 100 mg PO BID PRN Constipation 05/14/24 08/06/24 Unknown History gabapentin 400 mg capsule 400 mg PO DAILY@1700 05/14/24 08/06/24 Unknown History insulin glargine-yfgn 100 unit/mL 24 unit subcut DAILY@0800 05/14/24 08/06/24 Unknown History subcutaneous solution insulin lispro 100 unit/mL 1 sliding scale dose subcut 05/14/24 08/06/24 Unknown History subcutaneous solution USEASDIRECTD sennosides 8.6 mg-docusate sodium 2 tab-cap PO BID 05/14/24 08/06/24 Unknown History 50 mg tablet (Senna Plus) sucralfate 1 gram tablet 1 g PO QIDACHS 05/14/24 08/06/24 Unknown History tamsulosin 0.4 mg capsule 0.4 mg PO BEDTIME 05/14/24 08/06/24 Unknown History thiamine HCl (vitamin B1) 100 mg 100 mg PO DAILY 05/14/24 08/06/24 Unknown History tablet amlodipine 10 mg tablet 10 mg DAILY 08/06/24 08/06/24 Unknown History clopidogrel 75 mg tablet 75 mg DAILY 08/06/24 08/06/24 Unknown History collagenase clostridium histo. 250 1 appl topical DAILY 08/06/24 08/06/24 Unknown History unit/gram topical ointment (Santyl) cyanocobalamin (vitamin B-12) 500 500 mcg PO DAILY 08/06/24 08/06/24 Unknown History mcg lozenges folic acid 1 mg tablet 1 mg PO DAILY 08/06/24 08/06/24 Unknown History hydralazine 50 mg tablet 50 mg PO TID 08/06/24 08/06/24 Unknown History multivitamin with minerals 1 tab PO DAILY 08/06/24 08/06/24 Unknown History Physical Exam 2 Vital Signs: Vital Signs: Last Vital Signs Temp 99.7 F 08/06/24 02:40 Pulse 92 08/06/24 12:54 Resp 18 08/06/24 12:54 BP 134/90 H 08/06/24 12:54 Pulse Ox 91 L 08/06/24 12:54 O2 Del Method Oxymask 08/06/24 12:54 O2 Flow Rate 2 08/06/24 12:54 Oxygen Flow Rate 15 08/05/24 21:41 BMI result Body Mass Index 30.7 Const: General: ill appearing and patient obtunded O rientation/consciousness: patient obtunded Limitations: altered mental status Resp: Other: On supplemental oxygen Auscultation: crackles and no wheezes GI: Other: Soft, nondistended, nontender, no tympany to percussion Neuro: General: patient obtunded Extrem: Other: No edema Results Labs 08/06/24 04:52 08/06/24 04:52 Labs: Abnormal lab results 08/05/24 08/05/24 08/05/24 Range/Units 21:30 21:36 21:40 WBC 19.0 H (4.8-10.8) X10*3/uL RBC (4.60-5.80) X10*6/uL Hgb (14.0-18.0) g/dl Hct (42.0-52.0) % RDW 17.5 H (11.0-16.0) % Neut % (Auto) 87.3 H (45-73) % Lymph % (Auto) 7.6 L (20-40) % Gem # (Auto) (0.1-1.2) X10*3/uL Abs Immat Gran (auto) 0.05 H (0.00-0.03) X10*3/uL Absolute Neuts (auto) 16.6 H (2.0-8.3) x10*3/uL Sodium 149 H (135-145) mmol/L Chloride 116 H (96-108) mmol/L Carbon Dioxide 20 L (22-29) mmol/L BUN 55 H (9-16) mg/dL Creatinine 2.60 H (0.5-1.4) mg/dL POC Glucose 352 H* (60-115) mg/dL Random Glucose 384 H* (60-115) mg/dL Lactic Acid 3.3 H* (0.5-2.0) mmol/L Lactic Acid F/U @ 2Hr (0.5-2.0) mmol/L Lactic Acid F/U @ 4Hr (0.5-2.0) mmol/L Urine Protein (Neg-Trace) mg/dL Urine Glucose (UA) (Negative) mg/dL 08/05/24 08/05/24 08/06/24 Range/Units 22:07 23:20 00:26 WBC (4.8-10.8) X10*3/uL RBC (4.60-5.80) X10*6/uL Hgb (14.0-18.0) g/dl Hct (42.0-52.0) % RDW (11.0-16.0) % Neut % (Auto) (45-73) % Lymph % (Auto) (20-40) % Gem # (Auto) (0.1-1.2) X10*3/uL Abs Immat Gran (auto) (0.00-0.03) X10*3/uL Absolute Neuts (auto) (2.0-8.3) x10*3/uL Sodium (135-145) mmol/L Chloride (96-108) mmol/L Carbon Dioxide (22-29) mmol/L BUN (9-16) mg/dL Creatinine (0.5-1.4) mg/dL POC Glucose 335 H (60-115) mg/dL Random Glucose (60-115) mg/dL Lactic Acid (0.5-2.0) mmol/L Lactic Acid F/U @ 2Hr 3.4 H* (0.5-2.0) mmol/L Lactic Acid F/U @ 4Hr (0.5-2.0) mmol/L Urine Protein 30 (1+) H (Neg-Trace) mg/dL Urine Glucose (UA) 500 H (Negative) mg/dL 08/06/24 08/06/24 08/06/24 Range/Units 00:46 02:38 04:05 WBC (4.8-10.8) X10*3/uL RBC (4.60-5.80) X10*6/uL Hgb (14.0-18.0) g/dl Hct (42.0-52.0) % RDW (11.0-16.0) % Neut % (Auto) (45-73) % Lymph % (Auto) (20-40) % Gem # (Auto) (0.1-1.2) X10*3/uL Abs Immat Gran (auto) (0.00-0.03) X10*3/uL Absolute Neuts (auto) (2.0-8.3) x10*3/uL Sodium (135-145) mmol/L Chloride (96-108) mmol/L Carbon Dioxide (22-29) mmol/L BUN (9-16) mg/dL Creatinine (0.5-1.4) mg/dL POC Glucose 246 H 310 H (60-115) mg/dL Random Glucose (60-115) mg/dL Lactic Acid (0.5-2.0) mmol/L Lactic Acid F/U @ 2Hr (0.5-2.0) mmol/L Lactic Acid F/U @ 4Hr 2.7 H* (0.5-2.0) mmol/L Urine Protein (Neg-Trace) mg/dL Urine Glucose (UA) (Negative) mg/dL 08/06/24 08/06/24 08/06/24 Range/Units 04:52 07:24 12:43 WBC 24.1 H (4.8-10.8) X10*3/uL RBC 4.27 L (4.60-5.80) X10*6/uL Hgb 12.4 L (14.0-18.0) g/dl Hct 40.0 L (42.0-52.0) % RDW 17.4 H (11.0-16.0) % Neut % (Auto) 87.2 H (45-73) % Lymph % (Auto) 5.9 L (20-40) % Gem # (Auto) 1.5 H (0.1-1.2) X10*3/uL Abs Immat Gran (auto) 0.09 H (0.00-0.03) X10*3/uL Absolute Neuts (auto) 21.0 H (2.0-8.3) x10*3/uL Sodium 150 H (135-145) mmol/L Chloride 120 H (96-108) mmol/L Carbon Dioxide 18 L (22-29) mmol/L BUN 66 H (9-16) mg/dL Creatinine 2.52 H (0.5-1.4) mg/dL POC Glucose 274 H 160 H (60-115) mg/dL Random Glucose 363 H* (60-115) mg/dL Lactic Acid (0.5-2.0) mmol/L Lactic Acid F/U @ 2Hr (0.5-2.0) mmol/L Lactic Acid F/U @ 4Hr (0.5-2.0) mmol/L Urine Protein (Neg-Trace) mg/dL Urine Glucose (UA) (Negative) mg/dL Short CBC 08/05/24 08/06/24 Range/Units 21:36 04:52 WBC 19.0 H 24.1 H (4.8-10.8) X10*3/uL Hgb 14.1 12.4 L (14.0-18.0) g/dl Hct 44.7 40.0 L (42.0-52.0) % Plt Count 336 D 229 D (160-400) X10*3/uL BMP 08/05/24 08/06/24 21:36 04:52 Sodium 149 H 150 H Potassium 4.5 4.4 Chloride 116 H 120 H Carbon Dioxide 20 L 18 L BUN 55 H 66 H Creatinine 2.60 H 2.52 H Calcium 9.1 8.5 D Liver Function 08/05/24 Range/Units 21:36 Total Bilirubin 0.2 (0.0-1.0) mg/dL AST 12 (5-37) U/L ALT 8 (0-40) U/L Alkaline Phosphatase 82 (39-117) U/L Albumin 3.8 (3.5-5.0) g/dL Urine 08/05/24 Range/Units 22:07 Urine Color Yellow Urine Appearance Clear Urine pH 5.5 (5.0-9.0) Ur Specific [place] 1.025 (1.005-1.025) Urine Protein 30 (1+) H (Neg-Trace) mg/dL Urine Glucose (UA) 500 H (Negative) mg/dL All other labs normal. Imaging Abdomen CT scan report/results: image reviewed CT scan - pelvis: image reviewed Assessment and Plan (1) Fecal impaction of rectum: Status: Acute Plan 74-year-old male patient presenting with multiple medical issues including Alzheimer's dementia. Patient is now nonverbal, DNR and DNI. He was found on CT to have a large fecal impaction extending to the proximal rectum. This would not be amenable to digital disimpaction. Recommend starting with gentle enemas (fleets enema followed by soapsuds enema if the fleets is not successful). Lactulose p.o. may also be helpful if the patient is able to tolerate p.o. meds. We will continue to monitor during his hospitalization. Procedures Date of Service Date of Service: 08/06/24
--- NOTE | 2024-08-06 13:27 | P.CONNP_ITS ---
History of Present Illness Reason for Consult Consult date: 08/06/24 Chief Complaint Chief complaint: Hypoxia History of Present Illness Narrative: 74-year-old male with Alzheimer's dementia, mostly nonverbal at baseline, insulin-dependent diabetes mellitus, hypertension, CKD 3 b, coronary artery disease, who was sent to the emergency department from assisted facility for evaluation of hypoxia. Patient is alert at baseline as per EMS but mostly nonverbal. Unable to obtain history from the patient. History obtained from chart review. Patient was found to be satting in the 70s on room air and EMS was called. Imaging showed right-sided pneumonia and patient was found to be septic in the ER. He was given IV crystalloids and empiric IV antibiotics. Patient is DNR/DNI and do not transfer to the hospital. Staff at nursing facility called the patient's son to inform of the patient's condition and the son asked the patient to bring the patient to a hospital. His serum creatinine has gone up from baseline. 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 Unspecified dementia, unspecified severity, with agitation alf (current) use of aspirin alf (current) use of insulin Delusional disorders Anemia, unspecified Ingrowing nail Obesity, unspecified Hyperosmolality and hypernatremia Major depressive disorder, recurrent, moderate Hyperlipidemia, unspecified Adjustment disorder with mixed disturbance of emotions and conduct Alzheimer's disease, unspecified Chronic kidney disease, stage 3a Atherosclerosis of coronary artery of [place] heart Type 2 diabetes mellitus with diabetic chronic kidney disease Cellulitis of right toe Metabolic encephalopathy Social History Social History Household Members: Unknown / Unable to assess Housing: Unknown / Unable to assess Unable to assess alcohol history related to: Unable to respond Patient Tobacco Use Status: Tobacco use Unknown Use of substances other than those prescribed or required for medical reasons: Unable to respond Advance Directives: Yes Advance Directives on File: Yes Advance Directives Date on File: 05/14/24 Do you have a plan to hurt others: No Plan Meds Allergies Allergy/AdvReac Type Severity Reaction Status Date / Time No Known Allergies Allergy Verified 08/05/24 21:44 Active Medications: Current Medications Acetaminophen (Acetaminophen 325 Mg Tablet) 650 mg PO Q6H PRN PRN Reason: Pain, Mild 1-3,fever,headache Ascorbic Acid (Ascorbic Acid 500 Mg Tablet) 500 mg PO DAILY [facility] Aspirin (Aspirin 81 Mg Tab.Chew) 81 mg PO DAILY [facility] Calcium Carbonate (Calcium Carbonate 750 Mg Tab.Chew) 750 mg PO Q4H PRN PRN Reason: Heartburn Ceftriaxone Sodium (Ceftriaxone Sodium 1 Gm Vial) 1 gm IVPUSH Q24H [place] Clopidogrel Bisulfate (Clopidogrel Bisulfate 75 Mg Tablet) 75 mg PO DAILY [facility] Collagenase (Collagenase Clostridium Hist. 30 Gm Tube) 1 appl TOPICAL DAILY [facility]; Protocol Cyanocobalamin (Cyanocobalamin (Vitamin B-12) 500 Mcg Tablet) 500 mcg PO DAILY [facility] Dextrose (Dextrose 50 % 25 Gm/50 Ml Syringe) 25 gm IVPUSH Q15M PRN; Protocol PRN Reason: per Hypoglycemia Standing Ord. Docusate Sodium (Docusate Sodium 100 Mg Capsule) 100 mg PO BID PRN PRN Reason: Constipation Enoxaparin Sodium (Enoxaparin Sodium 40 Mg/0.4 Ml Syringe) 40 mg SUBCUT Q24H [facility] Last Admin: 08/06/24 10:14 Dose: 40 mg Folic Acid (Folic Acid 1 Mg Tablet) 1 mg PO DAILY [facility] Gabapentin (Gabapentin 400 Mg Capsule) 400 mg PO DAILY@1700 [facility] Glucose (Glucose Gel 15 Gm Gel..Gram.) 15 gm PO Q15M PRN; Protocol PRN Reason: per Hypoglycemia Standing Ord. Azithromycin 500 mg/ Sodium (Chloride) 250 mls @ 125 mls/hr IV ONCE ONE Stop: 08/06/24 22:59 Sodium Chloride (Sodium Chloride 0.45 %) 1,000 mls @ 80 mls/hr IVCONT .[id number] [facility] Last Admin: 08/06/24 10:10 Dose: 80 mls/hr Insulin Glargine (Insulin Glargine,Hum.Rec.Anlog 100 Unit/Ml 10 Ml Vial) 12 unit SUBCUT BEDTIME [facility] Last Admin: 08/06/24 02:45 Dose: 12 unit Insulin Human Lispro (Insulin Lispro 100 Unit/Ml 3 Ml Vial) 0 unit SUBCUT 0000,0600,1200,1800 [facility]; Protocol Last Admin: 08/06/24 12:44 Dose: Not Given Magnesium Hydroxide (Milk Of Magnesia 30 Ml Oral.Susp) 30 ml PO DAILY PRN PRN Reason: Constipation Melatonin (Melatonin 3 Mg Tablet) 6 mg PO BEDTIME PRN PRN Reason: Insomnia Multivitamins/Vitamin C (Multivitamin Tablet) 1 tab PO DAILY [facility] Ondansetron HCl (Ondansetron Hcl 4 Mg/2 Ml Vial) 4 mg IVPUSH Q8H PRN PRN Reason: Nausea and Vomiting Senna/Docusate Sodium (Sennosides/Docusate Sodium Tablet) 2 tab PO BID [facility] Sodium Chloride (0.9 % Sodium Chloride Flush 3 Ml Syringe) 3 ml IVFLUSH QSHIFT [facility] Last Admin: 08/06/24 10:09 Dose: 3 ml Sucralfate (Sucralfate 1 Gm Tablet) 1 gm PO QIDACHS [facility] Last Admin: 08/06/24 12:45 Dose: Not Given Tamsulosin HCl (Tamsulosin Hcl 0.4 Mg Capsule) 0.4 mg PO BEDTIME [facility] Thiamine HCl (Thiamine Hcl 100 Mg Tablet) 100 mg PO DAILY [facility] Vitamin D (Cholecalciferol (Vitamin D3) 25 Mcg Tablet) 25 mcg PO DAILY [facility] Home Medications ?Medication ?Instructions ?Recorded ?Confirmed ?Last Taken ?Type acetaminophen 325 mg tablet 650 mg PO Q4H PRN Fever Or Pain 05/14/24 08/06/24 Unknown History ascorbic acid (vitamin C) 500 mg 500 mg PO DAILY 05/14/24 08/06/24 Unknown History tablet aspirin 81 mg chewable tablet 81 mg PO DAILY 05/14/24 08/06/24 Unknown History atorvastatin 40 mg tablet 40 mg PO BEDTIME 05/14/24 08/06/24 Unknown History cholecalciferol (vitamin D3) 25 25 mcg PO DAILY 05/14/24 08/06/24 Unknown History mcg (1,000 unit) capsule docusate sodium 100 mg capsule 100 mg PO BID PRN Constipation 05/14/24 08/06/24 Unknown History gabapentin 400 mg capsule 400 mg PO DAILY@1700 05/14/24 08/06/24 Unknown History insulin glargine-yfgn 100 unit/mL 24 unit subcut DAILY@0800 05/14/24 08/06/24 Unknown History subcutaneous solution insulin lispro 100 unit/mL 1 sliding scale dose subcut 05/14/24 08/06/24 Unknown History subcutaneous solution USEASDIRECTD sennosides 8.6 mg-docusate sodium 2 tab-cap PO BID 05/14/24 08/06/24 Unknown History 50 mg tablet (Senna Plus) sucralfate 1 gram tablet 1 g PO QIDACHS 05/14/24 08/06/24 Unknown History tamsulosin 0.4 mg capsule 0.4 mg PO BEDTIME 05/14/24 08/06/24 Unknown History thiamine HCl (vitamin B1) 100 mg 100 mg PO DAILY 05/14/24 08/06/24 Unknown History tablet amlodipine 10 mg tablet 10 mg DAILY 08/06/24 08/06/24 Unknown History clopidogrel 75 mg tablet 75 mg DAILY 08/06/24 08/06/24 Unknown History collagenase clostridium histo. 250 1 appl topical DAILY 08/06/24 08/06/24 Unknown History unit/gram topical ointment (Santyl) cyanocobalamin (vitamin B-12) 500 500 mcg PO DAILY 08/06/24 08/06/24 Unknown History mcg lozenges folic acid 1 mg tablet 1 mg PO DAILY 08/06/24 08/06/24 Unknown History hydralazine 50 mg tablet 50 mg PO TID 08/06/24 08/06/24 Unknown History multivitamin with minerals 1 tab PO DAILY 08/06/24 08/06/24 Unknown History Physical Exam Vital Signs: Last Vital Signs Temp 99.7 F 08/06/24 02:40 Pulse 92 08/06/24 12:54 Resp 18 08/06/24 12:54 BP 134/90 H 08/06/24 12:54 Pulse Ox 91 L 08/06/24 12:54 O2 Del Method Oxymask 08/06/24 12:54 O2 Flow Rate 2 08/06/24 12:54 Oxygen Flow Rate 15 08/05/24 21:41 BMI result Body Mass Index 30.7 Const General: no acute distress Neck Neck: Yes supple Resp Auscultation: diminished lung sounds Cardio Rate: regular rate GI Palpation (GI): Soft to palpation Neuro General: moves all extremities Results Lab Results 08/06/24 04:52 08/06/24 04:52 Lab results: Chemistry 08/05/24 08/06/24 21:36 04:52 Sodium 149 H 150 H Potassium 4.5 4.4 Carbon Dioxide 20 L 18 L BUN 55 H 66 H Creatinine 2.60 H 2.52 H Calcium 9.1 8.5 D Hematology 08/05/24 08/06/24 21:36 04:52 WBC 19.0 H 24.1 H Hgb 14.1 12.4 L Plt Count 336 D 229 D Urinalysis 08/05/24 22:07 Urine Color Yellow Urine Appearance Clear Urine pH 5.5 Ur Specific [place] 1.025 Urine Protein 30 (1+) H Urine Glucose (UA) 500 H Urine Ketones Negative Urine Blood Negative Urine Nitrite Negative Ur Leukocyte Esterase Negative Urine RBC 0-2 Urine WBC 0-5 Ur Squamous Epith Cells 0-2 Hyaline Casts 0-2 Assessment and Plan (1) Acute kidney injury: Status: Acute Plan RODO due to compromise in renal perfusion due to sepsis No hydronephrosis by imaging; UO OK No reason to suspect GN/AIN No ACEI/ARB/Diuretics/NSAID's No indication for renal replacement C/W current supportive care for now Procedures Date of Service Date of Service: 08/06/24
[2024-08-06 14:01] LABS: Adenovirus PCR Not Detected (Not Detect.); Bordetella parapertussis PCR Not Detected (Not Detect.); Bordetella pertussis PCR Not Detected (Not Detect.); Chlamydia pneumoniae PCR Not Detected (Not Detect.); Coronavirus 229E PCR Not Detected (Not Detect.); Coronavirus HKU1 PCR Not Detected (Not Detect.); Coronavirus NL63 PCR Not Detected (Not Detect.); Coronavirus OC43 PCR Not Detected (Not Detect.); Human metapneumovirus PCR Not Detected (Not Detect.); Influenza A PCR Not Detected (Not Detect.); Influenza B PCR Not Detected (Not Detect.); Mycoplasma pneumoniae PCR Not Detected (Not Detect.); Parainfluenza 1 PCR Not Detected (Not Detect.); Parainfluenza 2 PCR Not Detected (Not Detect.); Parainfluenza 3 PCR Not Detected (Not Detect.); Parainfluenza 4 PCR Not Detected (Not Detect.); RSV PCR Not Detected (Not Detect.); Rhino/Enterovirus PCR Not Detected (Not Detect.)
[2024-08-06 14:22] LABS: SARS-CoV-2 PCR Not Detected (Not Detect.)
--- NOTE | 2024-08-06 14:39 | MHC.SL.SWA ---
Speech Pathologist Impression: Risk of Aspiration, Mild Oropharyngeal Dysphagia Risk of Aspiration Due to: Lethargy Neurological Condition History of Pneumonia Reduced Cognition Dysphasia Diet Status: START on NDD1/THIN Liquid Consistency and Strategies for Safe Swallow: Liquid Intake Recommendation: Thin Liquid Intake Strategies: Small Sips No Straws Liquids by Teaspoon Only Solid Food Consistency: Dietary Recommendations: Pureed (NDD1) Additional Modifications to Solid Foods: Patient w/ mild oropharyngeal phase dysphagia, characterized by discoordinated oral phase, delayed AP transport, delayed swallow trigger, and partial laryngeal elevation. Recommend START on PUREED (NDD1) diet and THIN liquids via teaspoon only, pills CRUSHED in PUREE. This is reportedly patient's baseline per staff at [facility]. Patient will need 1:1 feeding and close monitoring. Oral Medication Intake: Crushed with Puree Please contact the pharmacy regarding appropriate crushable or liquid drug formulations that are available whenever modified delivery is recommended. Compensatory Strategies and Precautions to be Taken for Safe Swallow: Sitting Upright (90 deg) No Straw Liquids from Spoon Small Bites and Sips Rate of Ingestion Change Oral Check Supervision While Eating and Drinking for Safe Swallow: Total Assistance (1:1) Swallowing Recommended Treatments: Compens. Strategy Educat. Recommendation for Speech: Inpatient Speech Therapy Comment: COMMUNITY LIVING SPECIALIST will continue to follow during inpatient stay Frequency/Duration: PRN Date Range for Service Req: Timeline to reassess: Preschool Teacher'S Assistant Clinican/Clinical Fellow: No Supervisory Statement: I have reviewed and agree with the student/clinical fellow's documentation: N/A Speech Language Pathologist: Tammy Bates M.A., CCC-COMMUNITY LIVING SPECIALIST
--- NOTE | 2024-08-06 17:21 | PM.EVENT ---
Event Note Date of Service: 08/06/24 Event Note: This patient is seen and examined by hospitalist service this morning, seen and examined again. Patient seems to be more awake, mumbles few words Shortness shortness of breath somewhat improving, tapering oxygen to 2 L Physical exam and assessment and plan coordinated in H&P note , Agree with the plan in addition: Acute hypoxemic respiratory failure secondary to sepsis/pneumoni: Blood culture pending, continue IV ceftriaxone and azithromycin,weaning oxygen Speech and swallow saw the patient-diet adjusted Please see rest in the H&P note. Time Spent With Patient Time: Total time managing care of this patient today ____ minutes.
[2024-08-06 18:37] LABS: Glucose, Whole Blood 166 mg/dL (60-115)
[2024-08-06] MEDS: Sucralfate 1 GM TABLET PO (18:40)
[2024-08-06] MEDS: cefTRIAXone sodium 1 GM VIAL IVPUSH (22:46)
[2024-08-06] MEDS: Azithromycin 500 MG in 0.9 % Sodium Chloride 250 ML 125 MG IV (22:46)
[2024-08-06 22:48] LABS: Glucose, Whole Blood 282 mg/dL (60-115)
[2024-08-07 03:30] VITALS: BP 166/73; PULSE 94; RESP 19; TEMP 37.1; O2SAT 92
[2024-08-07 05:58] LABS: Glucose, Whole Blood 203 mg/dL (60-115)
[2024-08-07] MEDS: Insulin Lispro 100 UNIT/ML 3 ML VIAL SUBCUT ×3 (05:59→16:53)
[2024-08-07 07:32] VITALS: BP 172/82; PULSE 93; RESP 16; TEMP 37.2; O2SAT 93
[2024-08-07] MEDS: Folic Acid 1 MG TABLET PO (08:13)
[2024-08-07] MEDS: Sennosides/Docusate Sodium TABLET 2 TAB PO ×2 (08:13→21:09)
[2024-08-07] MEDS: Sucralfate 1 GM TABLET PO ×4 (08:13→21:09)
[2024-08-07] MEDS: Multivitamin TABLET 1 TAB PO (08:13)
[2024-08-07] MEDS: Clopidogrel Bisulfate 75 MG TABLET PO (08:13)
[2024-08-07] MEDS: Aspirin 81 MG TAB.CHEW PO (08:13)
[2024-08-07] MEDS: Thiamine HCL 100 MG TABLET PO (08:14)
[2024-08-07] MEDS: Collagenase Clostridium Hist. 30 GM TUBE 1 APPL TOPICAL (08:14)
[2024-08-07] MEDS: Cyanocobalamin (Vitamin B-12) 500 MCG TABLET PO (08:14)
[2024-08-07] MEDS: 0.9 % Sodium Chloride Flush 3 ML SYRINGE IVFLUSH (08:14)
[2024-08-07] MEDS: Enoxaparin Sodium 40 MG/0.4 ML SYRINGE SUBCUT (08:14)
[2024-08-07] MEDS: Ascorbic Acid 500 MG TABLET PO (08:14)
[2024-08-07] MEDS: Cholecalciferol (Vitamin D3) 25 MCG TABLET PO (08:14)
--- NOTE | 2024-08-07 09:50 | MHC.CM.PN ---
Addendum entered by Catherine Sanchez 08/07/24 10:40: DBV confirmed patient is a BH. Original Note: IMM 08/07/24 called to son Deng/HCP DX PNA Fecal impaction Pt lives at [facility]. He is dependent with all functional mobility. Tiana JACOBSEN. DP return to [facility] via BLS
[2024-08-07 11:04] LABS: Amphetamine Screen Urine Not Detected (Not Detect); Barbiturates, Urine Not Detected (Not Detect); Benzodiazepines Screen Urine Not Detected (Not Detect); Buprenorphine Scr Not Detected (Not Detect); Cannabinoid Screen Urine Not Detected (Not Detect); Cocaine Screen Urine Not Detected (Not Detect); Fentanyl, urine Not Detected (Not Detect); Methadone Screen, Urine Not Detected (Not Detect); Opiate Screen Urine Not Detected (Not Detect); Oxycodone Screen Urine Not Detected (Not Detect); Phencyclidine Screen Urine Not Detected (Not Detect)
[2024-08-07 11:07] LABS: Hematocrit 34.3 % (42.0-52.0); Mean Corpuscular HGB Conc 32.1 g/dl (31.0-36.0); Mean Corpuscular Hemoglobin 29.3 pg (27.0-33.0); Mean Corpuscular Volume 91.2 fL (80.0-98.0); Mean Platelet Volume 11.3 fL (9.4-12.4); Platelet Count 230 X10*3/uL (160-400); Red Blood Count 3.76 X10*6/uL (4.60-5.80); Red Cell Distribution Width 17.6 % (11.0-16.0); White Blood Count 28.8 X10*3/uL (4.8-10.8)
[2024-08-07 11:17] LABS: Anion Gap 13 (12-20); Blood Urea Nitrogen 59 mg/dL (9-16); Calcium 8.6 mg/dL (8.4-10.2); Carbon Dioxide 20 mmol/L (22-29); Chloride 122 mmol/L (96-108); Creatinine Clr Calc Pharmacy 38.9; Estimated Glomerular Filt Rate 32; Glucose Random 274 mg/dL (60-115); Potassium 3.6 mmol/L (3.3-5.1); Sodium 151 mmol/L (135-145)
[2024-08-07 11:24] LABS: Glucose, Whole Blood 234 mg/dL (60-115)
--- NOTE | 2024-08-07 11:25 | HO.WOUND ---
Wound Consult: Initial 74yr old?male admitted to [facility] on 08/06/24 - See progress notes and H&P for detailed history.? Wound consult placed for Left foot wound.? Patient agreeable to assessment and photo documentation.? While at bedside sacrum was assessed for DTI see details below. Sacrum Etiology: ??Deep Tissue Injury Present on Admission Wound Bed: red maroon purple nonblanchable tissue intact Drainage / Odor: none Edges: ? irregular and attached Lizzie wound: ?red pink slow to jayshree tissue - and MASD - No Induration, Fluctuance or Warmth noted Pain: denies Goals of Treatment: ? Off load pressure and foam dressing to protect from friction and moisture Left Foot Etiology: Diabetic Wound Measurements: 3cm x 3cm x 0.2cm Wound Bed: dry fluctuant necrotic slough Drainage / Odor: none Edges: ? well defined Lizzie wound: pink redness noted ? No Induration, Fluctuance or Warmth noted Pain: tenderness reported Goals of Treatment: ? Santyl for enzymatic debridement Recommendations: 1. Turn and Reposition every 2 hours and as needed for patient comfort.? Use pillows or wedges to support off loading positions. 2. Off Load all bony prominences with use of pillows and heel boots if needed.? Apply Preventative foams where needed. ? 3. Monitor for incontinence and moisture control, use barrier creams when needed for prevention and treatment. 4. Provide adequate and supplemental nutrition.? 5. Continue low air loss mattress. 6. When applicable maintain blood glucose levels per Providers order. 7. Left Foot - Cleanse with normal saline, pat dry. ?Apply barrier to the immediate lizzie wound, apply thick layer of Santyl to entire wound bed, cover with saline moist gauze, cover with dry gauze, ABD pad and gauze wrap, change Daily. 8. Sacrum -Off Load Pressure with Q2 hr turns and use of pillows - Cleanse with PH balance spray or wipes, pat dry. ?Apply skin prep allow to dry. Apply sacral foam dressing - peel back and assess Q shift and change every 5 days and PRN. Re-consult wound care Nurse for wound deterioration or wound changes.
[2024-08-07 12:25] VITALS: BP 148/74; PULSE 88
[2024-08-07] MEDS: Dextrose 5 % 1,000 ML 100 ML IVCONT (12:57)
--- NOTE | 2024-08-07 13:03 | P.PNNP_ITS ---
Subjective Subjective Date of Service: 08/07/24 Interval history: Events noted. All recent data reviewed. D/W hospitalist; Serum Na rising Physical Exam 2 Vital Signs: Vital Signs: Last Vital Signs Temp 99.0 F 08/07/24 07:32 Pulse 88 08/07/24 12:25 Resp 16 08/07/24 07:32 BP 148/74 H 08/07/24 12:25 Pulse Ox 93 08/07/24 07:32 O2 Del Method Nasal Cannula 08/07/24 07:32 O2 Flow Rate 2 08/07/24 07:32 Oxygen Flow Rate 15 08/05/24 21:41 BMI result Body Mass Index 30.7 Const: General: no acute distress Neck: Neck: Yes supple Resp: Auscultation: diminished lung sounds Cardio: Rate: regular rate GI: Palpation (GI): Soft to palpation Neuro: General: moves all extremities Objective Data Labs 08/07/24 10:53 08/07/24 10:53 Labs: Laboratory Results - last 24 hr 08/06/24 08/06/24 08/06/24 13:00 18:31 22:41 WBC RBC Hgb Hct MCV MCH MCHC RDW Plt Count MPV Absolute Nucleated RBC Nucleated RBC % (auto) Sodium Potassium Chloride Carbon Dioxide Anion Gap BUN Creatinine Estim Creat Clear Calc Estimated GFR POC Glucose 166 H 282 H Random Glucose Calcium Urine Opiates Screen Ur Buprenorphine Scrn Ur Oxycodone Screen Urine Methadone Screen Urine Fentanyl Screen Ur Barbiturates Screen Ur Phencyclidine Scrn Ur Amphetamines Screen U Benzodiazepines Scrn Urine Cocaine Screen U Marijuana (THC) Screen Respiratory Panel [place] See Note Adenovirus (Rapid PCR) Not Detected B.pert (TEM-PCR) Not Detected B.parapertussis DNA PCR Not Detected C. pneumoniae DNA (PCR) Not Detected Coronavirus OC43 (PCR) Not Detected Coronavirus HKU1 (PCR) Not Detected Coronavirus 229E (PCR) Not Detected Coronavirus NL63 (PCR) Not Detected Human Metapneumovir PCR Not Detected Influenza A (RT-PCR) Not Detected Influenza B (RT-PCR) Not Detected M. pneumoniae (PCR) Not Detected Parainfluenza 1 (PCR) Not Detected Parainfluenza 2 (PCR) Not Detected Parainfluenza 3 (PCR) Not Detected Parainfluenza 4 (PCR) Not Detected RSV (PCR) Not Detected Entero/Rhino (PCR) Not Detected SARS-CoV-2 RNA (RT-PCR) Not Detected 08/07/24 08/07/24 08/07/24 05:55 10:23 10:53 WBC 28.8 H RBC 3.76 L Hgb 11.0 L Hct 34.3 L MCV 91.2 MCH 29.3 MCHC 32.1 RDW 17.6 H Plt Count 230 MPV 11.3 Absolute Nucleated RBC 0.000 Nucleated RBC % (auto) 0.0 Sodium 151 H Potassium 3.6 Chloride 122 H Carbon Dioxide 20 L Anion Gap 13 BUN 59 H Creatinine 2.03 H Estim Creat Clear Calc 38.9 Estimated GFR 32 POC Glucose 203 H Random Glucose 274 H Calcium 8.6 Urine Opiates Screen Not Detected Ur Buprenorphine Scrn Not Detected Ur Oxycodone Screen Not Detected Urine Methadone Screen Not Detected Urine Fentanyl Screen Not Detected Ur Barbiturates Screen Not Detected Ur Phencyclidine Scrn Not Detected Ur Amphetamines Screen Not Detected U Benzodiazepines Scrn Not Detected Urine Cocaine Screen Not Detected U Marijuana (THC) Screen Not Detected Respiratory Panel [place] Adenovirus (Rapid PCR) B.pert (TEM-PCR) B.parapertussis DNA PCR C. pneumoniae DNA (PCR) Coronavirus OC43 (PCR) Coronavirus HKU1 (PCR) Coronavirus 229E (PCR) Coronavirus NL63 (PCR) Human Metapneumovir PCR Influenza A (RT-PCR) Influenza B (RT-PCR) M. pneumoniae (PCR) Parainfluenza 1 (PCR) Parainfluenza 2 (PCR) Parainfluenza 3 (PCR) Parainfluenza 4 (PCR) RSV (PCR) Entero/Rhino (PCR) SARS-CoV-2 RNA (RT-PCR) 08/07/24 11:20 WBC RBC Hgb Hct MCV MCH MCHC RDW Plt Count MPV Absolute Nucleated RBC Nucleated RBC % (auto) Sodium Potassium Chloride Carbon Dioxide Anion Gap BUN Creatinine Estim Creat Clear Calc Estimated GFR POC Glucose 234 H Random Glucose Calcium Urine Opiates Screen Ur Buprenorphine Scrn Ur Oxycodone Screen Urine Methadone Screen Urine Fentanyl Screen Ur Barbiturates Screen Ur Phencyclidine Scrn Ur Amphetamines Screen U Benzodiazepines Scrn Urine Cocaine Screen U Marijuana (THC) Screen Respiratory Panel [place] Adenovirus (Rapid PCR) B.pert (TEM-PCR) B.parapertussis DNA PCR C. pneumoniae DNA (PCR) Coronavirus OC43 (PCR) Coronavirus HKU1 (PCR) Coronavirus 229E (PCR) Coronavirus NL63 (PCR) Human Metapneumovir PCR Influenza A (RT-PCR) Influenza B (RT-PCR) M. pneumoniae (PCR) Parainfluenza 1 (PCR) Parainfluenza 2 (PCR) Parainfluenza 3 (PCR) Parainfluenza 4 (PCR) RSV (PCR) Entero/Rhino (PCR) SARS-CoV-2 RNA (RT-PCR) Microbiology Microbiology Results: Microbiology 08/05/24 22:07 Blood - Venous Blood Culture - Preliminary No growth after 24 hours. 08/05/24 21:51 Blood - Venous Blood Culture - Preliminary No growth after 24 hours. Procedures Date of Service Date of Service: 08/07/24 Assessment & Plan Assessment and plan (1) Acute kidney injury: Status: Acute (2) Hypernatremia: Status: Acute Plan RODO due to compromise in renal perfusion due to sepsis No hydronephrosis by imaging; UO OK No reason to suspect GN/AIN No ACEI/ARB/Diuretics/NSAID's No indication for renal replacement Serum Na going up- started D5W@ 100/hour C/W rest of current supportive care for now Progress Note: Quality Stroke Does the patient have a stroke diagnosis?: No
--- NOTE | 2024-08-07 14:44 | HO.PM.IMPN ---
Subjective Subjective Date of Service: 08/07/24 Interval History: hypernatremia Review of Systems no fever since yesterday more awake no cough checked with nh by staff mental status seems near baseline . Physical Exam Vital Signs: Vital Signs: Last Vital Signs Temp 99.0 F 08/07/24 07:32 Pulse 88 08/07/24 12:25 Resp 16 08/07/24 07:32 BP 148/74 H 08/07/24 12:25 Pulse Ox 93 08/07/24 07:32 O2 Del Method Nasal Cannula 08/07/24 07:32 O2 Flow Rate 2 08/07/24 07:32 Oxygen Flow Rate 15 08/05/24 21:41 BMI result Body Mass Index 30.7 Appearance: awake ?. cvs: rrr, [id number] . res: air entry seems diminshed ,right >left abd: no rebound or guarding ,nt, bs present. ext pulses present , no cyanosis . neuro: axo3 , nonfocal. Objective Data Active Medications Acetaminophen (Acetaminophen 325 Mg Tablet) 650 mg PO Q6H PRN PRN Reason: Pain, Mild 1-3,fever,headache Ascorbic Acid (Ascorbic Acid 500 Mg Tablet) 500 mg PO DAILY [facility] Last Admin: 08/07/24 08:14 Dose: 500 mg Documented By: ENEDINA Aspirin (Aspirin 81 Mg Tab.Chew) 81 mg PO DAILY [facility] Last Admin: 08/07/24 08:13 Dose: 81 mg Documented By: ENEDINA Calcium Carbonate (Calcium Carbonate 750 Mg Tab.Chew) 750 mg PO Q4H PRN PRN Reason: Heartburn Ceftriaxone Sodium (Ceftriaxone Sodium 1 Gm Vial) 1 gm IVPUSH Q24H [facility] Last Admin: 08/06/24 22:46 Dose: 1 gm Documented By: VI Clopidogrel Bisulfate (Clopidogrel Bisulfate 75 Mg Tablet) 75 mg PO DAILY [facility] Last Admin: 08/07/24 08:13 Dose: 75 mg Documented By: ENEDINA Collagenase (Collagenase Clostridium Hist. 30 Gm Tube) 1 appl TOPICAL DAILY [facility]; Protocol Last Admin: 08/07/24 08:14 Dose: 1 appl Documented By: ENEDINA Cyanocobalamin (Cyanocobalamin (Vitamin B-12) 500 Mcg Tablet) 500 mcg PO DAILY [facility] Last Admin: 08/07/24 08:14 Dose: 500 mcg Documented By: ENEDINA Dextrose (Dextrose 50 % 25 Gm/50 Ml Syringe) 25 gm IVPUSH Q15M PRN; Protocol PRN Reason: per Hypoglycemia Standing Ord. Docusate Sodium (Docusate Sodium 100 Mg Capsule) 100 mg PO BID PRN PRN Reason: Constipation Enoxaparin Sodium (Enoxaparin Sodium 40 Mg/0.4 Ml Syringe) 40 mg SUBCUT Q24H [facility] Last Admin: 08/07/24 08:14 Dose: 40 mg Documented By: ENEDINA Folic Acid (Folic Acid 1 Mg Tablet) 1 mg PO DAILY [facility] Last Admin: 08/07/24 08:13 Dose: 1 mg Documented By: ENEDINA Gabapentin (Gabapentin 400 Mg Capsule) 400 mg PO DAILY@1700 [facility] Last Admin: 08/06/24 18:29 Dose: Not Given Documented By: RERE Non-Admin Reason: can't crush Glucose (Glucose Gel 15 Gm Gel..Gram.) 15 gm PO Q15M PRN; Protocol PRN Reason: per Hypoglycemia Standing Ord. Dextrose (D5w) 1,000 mls @ 100 mls/hr IVCONT .Q10H [facility] Last Admin: 08/07/24 12:57 Dose: 100 mls/hr Documented By: ENEDINA Insulin Glargine (Insulin Glargine,Hum.Rec.Anlog 100 Unit/Ml 10 Ml Vial) 12 unit SUBCUT BEDTIME [facility] Last Admin: 08/06/24 22:47 Dose: 12 unit Documented By: JAVIER-CAROLINA Insulin Human Lispro (Insulin Lispro 100 Unit/Ml 3 Ml Vial) 0 unit SUBCUT 0000,0600,1200,1800 [facility]; Protocol Last Admin: 08/07/24 12:02 Dose: 4 unit Documented By: ENEDINA Magnesium Hydroxide (Milk Of Magnesia 30 Ml Oral.Susp) 30 ml PO DAILY PRN PRN Reason: Constipation Melatonin (Melatonin 3 Mg Tablet) 6 mg PO BEDTIME PRN PRN Reason: Insomnia Multivitamins/Vitamin C (Multivitamin Tablet) 1 tab PO DAILY [facility] Last Admin: 08/07/24 08:13 Dose: 1 tab Documented By: ENEDINA Ondansetron HCl (Ondansetron Hcl 4 Mg/2 Ml Vial) 4 mg IVPUSH Q8H PRN PRN Reason: Nausea and Vomiting Senna/Docusate Sodium (Sennosides/Docusate Sodium Tablet) 2 tab PO BID [facility] Last Admin: 08/07/24 08:13 Dose: 2 tab Documented By: ENEDINA Sodium Chloride (0.9 % Sodium Chloride Flush 3 Ml Syringe) 3 ml IVFLUSH QSHIFT [facility] Last Admin: 08/07/24 08:14 Dose: 3 ml Documented By: ENEDINA Sucralfate (Sucralfate 1 Gm Tablet) 1 gm PO QIDACHS [facility] Last Admin: 08/07/24 12:02 Dose: 1 gm Documented By: ENEDINA Tamsulosin HCl (Tamsulosin Hcl 0.4 Mg Capsule) 0.4 mg PO BEDTIME [facility] Last Admin: 08/06/24 22:37 Dose: Not Given Documented By: VI Non-Admin Reason: lethargy Thiamine HCl (Thiamine Hcl 100 Mg Tablet) 100 mg PO DAILY [facility] Last Admin: 08/07/24 08:14 Dose: 100 mg Documented By: ENEDINA Vitamin D (Cholecalciferol (Vitamin D3) 25 Mcg Tablet) 25 mcg PO DAILY [facility] Last Admin: 08/07/24 08:14 Dose: 25 mcg Documented By: ENEDINA Labs 08/07/24 10:53 08/07/24 10:53 Labs: Laboratory Results - last 24 hr 08/06/24 08/06/24 08/07/24 18:31 22:41 05:55 MCV MCH MCHC RDW Plt Count MPV Absolute Nucleated RBC Nucleated RBC % (auto) Anion Gap Estim Creat Clear Calc Estimated GFR POC Glucose 166 H 282 H 203 H Random Glucose Calcium Urine Opiates Screen Ur Buprenorphine Scrn Ur Oxycodone Screen Urine Methadone Screen Urine Fentanyl Screen Ur Barbiturates Screen Ur Phencyclidine Scrn Ur Amphetamines Screen U Benzodiazepines Scrn Urine Cocaine Screen U Marijuana (THC) Screen 08/07/24 08/07/24 08/07/24 10:23 10:53 11:20 MCV 91.2 MCH 29.3 MCHC 32.1 RDW 17.6 H Plt Count 230 MPV 11.3 Absolute Nucleated RBC 0.000 Nucleated RBC % (auto) 0.0 Anion Gap 13 Estim Creat Clear Calc 38.9 Estimated GFR 32 POC Glucose 234 H Random Glucose 274 H Calcium 8.6 Urine Opiates Screen Not Detected Ur Buprenorphine Scrn Not Detected Ur Oxycodone Screen Not Detected Urine Methadone Screen Not Detected Urine Fentanyl Screen Not Detected Ur Barbiturates Screen Not Detected Ur Phencyclidine Scrn Not Detected Ur Amphetamines Screen Not Detected U Benzodiazepines Scrn Not Detected Urine Cocaine Screen Not Detected U Marijuana (THC) Screen Not Detected Microbiology Microbiology Results: Microbiology 08/05/24 22:07 Blood Culture - Preliminary Blood - Venous No growth after 24 hours. 08/05/24 21:51 Blood Culture - Preliminary Blood - Venous No growth after 24 hours. Assessment and Plan (1) Hypernatremia: Status: Acute (2) Fecal impaction of rectum: Status: Acute (3) Acute kidney injury: Status: Acute (4) Hypoxia: Status: Acute Plan 74-year-old male with pertinent history of Alzheimer's dementia, mostly nonverbal at baseline, insulin-dependent diabetes mellitus, hypertension, asthma not on home oxygen, coronary artery disease, CKD stage IIIA, mood disorder, BPH, gastroesophageal reflux disease who was sent to the emergency department from [facility] for evaluation of hypoxia. Acute hypoxemic respiratory failure and sepsis due to right-sided pneumonia: wbc trending up no fever tachycardia also improving blood cultures neg @48 hrs lactic acid trending down -no further trending unless clinical detrioration continue supplemental oxygen, IV fluids , IV ceftriaxone and IV azithromycin. Acute lactic acidosis due to sepsis lactic acid trending down -no further trending unless clinical detrioration. acute hypernatremia :onwith ivf,encouraged for po hydration and intake, nephrology following -moniter bmp bid. Acute kidney injury on CKD stage 3: improivng with ivf,encouraged for po hydration and intake, Avoid nephrotoxins. nsulin-dependent diabetes mellitus with hyperglycemia:fs with sliding scale coverage. Hypertension:bp improivng- added amlodipine , hold hydralazine . CAD: On aspirin and statin once able to take p.o. Alzheimer's dementia: High risk for delirium BPH: On Flomax Gastroesophageal reflux disease: On PPI DNR/DNI. DVT prophylaxis: Lovenox ongoing need for inpatient hypoxia/pneumonia, electrolytic abnormalities- for supplemental oxygen, IV antibiotics, monitoring of mentation (as above), which is not possible in a lesser acute setting. Quality Stroke Does the patient have a stroke diagnosis?: No VTE Prior VTE?: No VTE Risk Level:: Medical - moderate - high VTE Device Contraindication: Treatment Not Indicated VTE Drug Contraindication: N/A - Med Ordered
--- NOTE | 2024-08-07 15:03 | MHC.SL.SWA ---
Speech Pathologist Impression: Baseline oropharyngeal coordination, pt on puree with thins, needs 1:1 assistance for PO intake Risk of Aspiration Due to: Lethargy Neurological Condition History of Pneumonia Reduced Cognition Dysphasia Diet Status: Liquid Consistency and Strategies for Safe Swallow: Liquid Intake Recommendation: Thin Liquid Intake Strategies: Small Sips No Straws Liquids by Teaspoon Only Solid Food Consistency: Dietary Recommendations: Pureed (NDD1) Additional Modifications to Solid Foods: Patient w/ mild oropharyngeal phase dysphagia, characterized by discoordinated oral phase, delayed AP transport, delayed swallow trigger, and partial laryngeal elevation. Recommend START on PUREED (NDD1) diet and THIN liquids via teaspoon only, pills CRUSHED in PUREE. This is reportedly patient's baseline per staff at [facility]. Patient will need 1:1 feeding and close monitoring. Oral Medication Intake: Crushed with Puree Please contact the pharmacy regarding appropriate crushable or liquid drug formulations that are available whenever modified delivery is recommended. Compensatory Strategies and Precautions to be Taken for Safe Swallow: Small Bites and Sips Alternate Liquids/Solids Rate of Ingestion Change Supervision While Eating and Drinking for Safe Swallow: Total Assistance (1:1) Foods to Avoid: Swallowing Recommended Treatments: Compens. Strategy Educat. Recommendation for Speech: Inpatient Speech Therapy Comment: [facility] will continue to follow during inpatient stay Frequency/Duration: PRN Date Range for Service Req: Timeline to reassess: Oyster Worker Clinican/Clinical Fellow: No Supervisory Statement: I have reviewed and agree with the student/clinical fellow's documentation: N/A Speech Language Pathologist: Traci Castro M.S., CCC-[facility]
[2024-08-07 15:11] VITALS: BP 164/72; PULSE 87; RESP 16; TEMP 37.2; O2SAT 93
[2024-08-07] MEDS: Azithromycin 500 MG in 0.9 % Sodium Chloride 250 ML 125 MG IV (15:33)
[2024-08-07 16:14] LABS: Glucose, Whole Blood 352 mg/dL (60-115)
[2024-08-07] MEDS: Gabapentin 400 MG CAPSULE PO (16:53)
--- NOTE | 2024-08-07 19:39 | PC.NURSE ---
Unable to assess neurologically, unclear speech, patient mumble, confused, disoriented. Continues on 2L NC with sats above 93%. Compliant with medications and meals. Medication crushed in applesauce. Wound to the R foot, dressed by wound nurse.
[2024-08-07 20:41] LABS: Anion Gap 12 (12-20); Blood Urea Nitrogen 56 mg/dL (9-16); Carbon Dioxide 19 mmol/L (22-29); Chloride 121 mmol/L (96-108); Creatinine Clr Calc Pharmacy 44.4; Estimated Glomerular Filt Rate 38; Glucose Random 337 mg/dL (60-115); Potassium 4.2 mmol/L (3.3-5.1); Sodium 148 mmol/L (135-145)
[2024-08-07 21:01] LABS: Glucose, Whole Blood 289 mg/dL (60-115)
[2024-08-07] MEDS: Tamsulosin HCL 0.4 MG CAPSULE PO (21:09)
[2024-08-07] MEDS: Insulin Glargine,Hum.rec.anlog 100 UNIT/ML 10 ML VIAL 12 UNIT SUBCUT (21:09)
[2024-08-07] MEDS: cefTRIAXone sodium 1 GM VIAL IVPUSH (21:12)
[2024-08-07 23:40] VITALS: BP 178/74; PULSE 89; RESP 18; TEMP 36.5; O2SAT 93
[2024-08-08 00:35] LABS: Glucose, Whole Blood 325 mg/dL (60-115)
[2024-08-08] MEDS: Insulin Lispro 100 UNIT/ML 3 ML VIAL SUBCUT ×4 (00:39→21:03)
--- NOTE | 2024-08-08 01:45 | PC.NURSE ---
pt has been very lethargic, difficult to understand as he mumbles. was able to wake him up for meds, administered w/ applesauce and patient went back to sleep.
[2024-08-08] MEDS: Dextrose 5 % 1,000 ML 100 ML IVCONT (02:03)
[2024-08-08 05:59] LABS: Glucose, Whole Blood 221 mg/dL (60-115)
[2024-08-08 07:12] VITALS: BP 176/84; PULSE 91; RESP 18; TEMP 36.9; O2SAT 92
[2024-08-08 07:33] LABS: Glucose, Whole Blood 228 mg/dL (60-115)
--- NOTE | 2024-08-08 08:04 | PM.PNGS ---
Subjective Subjective Date of Service: 08/08/24 Patient reports: no new complaints Interval history: Patient had several moderate size bowel movements over the past 24 hours Physical Exam Vital Signs: Vital Signs: Last Vital Signs Temp 98.5 F 08/08/24 07:12 Pulse 91 08/08/24 07:12 Resp 18 08/08/24 07:12 BP 176/84 H 08/08/24 07:12 Pulse Ox 92 08/08/24 07:12 O2 Del Method Nasal Cannula 08/08/24 07:12 O2 Flow Rate 2 08/08/24 07:12 Oxygen Flow Rate 15 08/05/24 21:41 BMI result Body Mass Index 30.7 Const: General: confusion Orientation/consciousness: confusion Resp: Effort & Inspection: normal respiratory effort GI: Palpation (GI): Soft to palpation, nontender, no guarding and not rigid Neuro: General: confusion Objective Data Active Medications Acetaminophen (Acetaminophen 325 Mg Tablet) 650 mg PO Q6H PRN PRN Reason: Pain, Mild 1-3,fever,headache Amlodipine Besylate (Amlodipine Besylate 5 Mg Tablet) 5 mg PO DAILY [facility]; Protocol Ascorbic Acid (Ascorbic Acid 500 Mg Tablet) 500 mg PO DAILY [facility] Last Admin: 08/07/24 08:14 Dose: 500 mg Documented By: ENEDINA Aspirin (Aspirin 81 Mg Tab.Chew) 81 mg PO DAILY [facility] Last Admin: 08/07/24 08:13 Dose: 81 mg Documented By: ENEDINA Calcium Carbonate (Calcium Carbonate 750 Mg Tab.Chew) 750 mg PO Q4H PRN PRN Reason: Heartburn Ceftriaxone Sodium (Ceftriaxone Sodium 1 Gm Vial) 1 gm IVPUSH Q24H [facility] Last Admin: 08/07/24 21:12 Dose: 1 gm Documented By: KARIS Clopidogrel Bisulfate (Clopidogrel Bisulfate 75 Mg Tablet) 75 mg PO DAILY [facility] Last Admin: 08/07/24 08:13 Dose: 75 mg Documented By: ENEDINA Collagenase (Collagenase Clostridium Hist. 30 Gm Tube) 1 appl TOPICAL DAILY [facility]; Protocol Last Admin: 08/07/24 08:14 Dose: 1 appl Documented By: ENEDINA Cyanocobalamin (Cyanocobalamin (Vitamin B-12) 500 Mcg Tablet) 500 mcg PO DAILY [facility] Last Admin: 08/07/24 08:14 Dose: 500 mcg Documented By: ENEDINA Dextrose (Dextrose 50 % 25 Gm/50 Ml Syringe) 25 gm IVPUSH Q15M PRN; Protocol PRN Reason: per Hypoglycemia Standing Ord. Docusate Sodium (Docusate Sodium 100 Mg Capsule) 100 mg PO BID PRN PRN Reason: Constipation Enoxaparin Sodium (Enoxaparin Sodium 40 Mg/0.4 Ml Syringe) 40 mg SUBCUT Q24H [facility] Last Admin: 08/07/24 08:14 Dose: 40 mg Documented By: ENEDINA Folic Acid (Folic Acid 1 Mg Tablet) 1 mg PO DAILY [facility] Last Admin: 08/07/24 08:13 Dose: 1 mg Documented By: ENEDINA Gabapentin (Gabapentin 400 Mg Capsule) 400 mg PO DAILY@1700 [facility] Last Admin: 08/07/24 16:53 Dose: 400 mg Documented By: ENEDINA Glucose (Glucose Gel 15 Gm Gel..Gram.) 15 gm PO Q15M PRN; Protocol PRN Reason: per Hypoglycemia Standing Ord. Dextrose (D5w) 1,000 mls @ 100 mls/hr IVCONT .Q10H [facility] Last Admin: 08/08/24 02:03 Dose: 100 mls/hr Documented By: KARIS Azithromycin 500 mg/ Sodium (Chloride) 250 mls @ 125 mls/hr IV Q24H [facility] Last Infusion: 08/07/24 18:24 Dose: Infused Documented By: ENEDINA Insulin Glargine (Insulin Glargine,Hum.Rec.Anlog 100 Unit/Ml 10 Ml Vial) 12 unit SUBCUT BEDTIME [facility] Last Admin: 08/07/24 21:09 Dose: 12 unit Documented By: KARIS Insulin Human Lispro (Insulin Lispro 100 Unit/Ml 3 Ml Vial) 0 unit SUBCUT 0000,0600,1200,1800 [facility]; Protocol Last Admin: 08/08/24 06:04 Dose: 4 unit Documented By: KARIS Magnesium Hydroxide (Milk Of Magnesia 30 Ml Oral.Susp) 30 ml PO DAILY PRN PRN Reason: Constipation Melatonin (Melatonin 3 Mg Tablet) 6 mg PO BEDTIME PRN PRN Reason: Insomnia Multivitamins/Vitamin C (Multivitamin Tablet) 1 tab PO DAILY [facility] Last Admin: 08/07/24 08:13 Dose: 1 tab Documented By: ENEDINA Ondansetron HCl (Ondansetron Hcl 4 Mg/2 Ml Vial) 4 mg IVPUSH Q8H PRN PRN Reason: Nausea and Vomiting Senna/Docusate Sodium (Sennosides/Docusate Sodium Tablet) 2 tab PO BID [facility] Last Admin: 08/07/24 21:09 Dose: 2 tab Documented By: KARIS Sodium Chloride (0.9 % Sodium Chloride Flush 3 Ml Syringe) 3 ml IVFLUSH QSHIFT [facility] Last Admin: 08/08/24 00:41 Dose: Not Given Documented By: KARIS Non-Admin Reason: IV Running Sucralfate (Sucralfate 1 Gm Tablet) 1 gm PO QIDACHS [facility] Last Admin: 08/07/24 21:09 Dose: 1 gm Documented By: KARIS Tamsulosin HCl (Tamsulosin Hcl 0.4 Mg Capsule) 0.4 mg PO BEDTIME [facility] Last Admin: 08/07/24 21:09 Dose: 0.4 mg Documented By: KARIS Thiamine HCl (Thiamine Hcl 100 Mg Tablet) 100 mg PO DAILY [facility] Last Admin: 08/07/24 08:14 Dose: 100 mg Documented By: ENEDINA Vitamin D (Cholecalciferol (Vitamin D3) 25 Mcg Tablet) 25 mcg PO DAILY [facility] Last Admin: 08/07/24 08:14 Dose: 25 mcg Documented By: ENEDINA Labs 08/07/24 10:53 08/07/24 20:05 Labs: Laboratory Results - last 24 hr 08/07/24 08/07/24 08/07/24 10:23 10:53 11:20 MCV 91.2 MCH 29.3 MCHC 32.1 RDW 17.6 H Plt Count 230 MPV 11.3 Absolute Nucleated RBC 0.000 Nucleated RBC % (auto) 0.0 Anion Gap 13 Estim Creat Clear Calc 38.9 Estimated GFR 32 POC Glucose 234 H Random Glucose 274 H Calcium 8.6 Urine Opiates Screen Not Detected Ur Buprenorphine Scrn Not Detected Ur Oxycodone Screen Not Detected Urine Methadone Screen Not Detected Urine Fentanyl Screen Not Detected Ur Barbiturates Screen Not Detected Ur Phencyclidine Scrn Not Detected Ur Amphetamines Screen Not Detected U Benzodiazepines Scrn Not Detected Urine Cocaine Screen Not Detected U Marijuana (THC) Screen Not Detected 08/07/24 08/07/2425 15:59 20:05 20:33 MCV MCH MCHC RDW Plt Count MPV Absolute Nucleated RBC Nucleated RBC % (auto) Anion Gap 12 Estim Creat Clear Calc 44.4 Estimated GFR 38 POC Glucose 352 H* 289 H Random Glucose 337 H Calcium 8.0 L D Urine Opiates Screen Ur Buprenorphine Scrn Ur Oxycodone Screen Urine Methadone Screen Urine Fentanyl Screen Ur Barbiturates Screen Ur Phencyclidine Scrn Ur Amphetamines Screen U Benzodiazepines Scrn Urine Cocaine Screen U Marijuana (THC) Screen 08/08/24 08/08/24 08/08/24 00:31 05:55 07:15 MCV MCH MCHC RDW Plt Count MPV Absolute Nucleated RBC Nucleated RBC % (auto) Anion Gap Estim Creat Clear Calc Estimated GFR POC Glucose 325 H 221 H 228 H Random Glucose Calcium Urine Opiates Screen Ur Buprenorphine Scrn Ur Oxycodone Screen Urine Methadone Screen Urine Fentanyl Screen Ur Barbiturates Screen Ur Phencyclidine Scrn Ur Amphetamines Screen U Benzodiazepines Scrn Urine Cocaine Screen U Marijuana (THC) Screen Microbiology Microbiology Results: Microbiology 08/05/24 22:07 Blood Culture - Preliminary Blood - Venous No growth after 48 hours. 08/05/24 21:51 Blood Culture - Preliminary Blood - Venous No growth after 48 hours. Procedures Date of Service Date of Service: 08/08/24 Progress Note: A&P Assessment and plan (1) Fecal impaction of rectum: Status: Acute Plan Patient now passing bowels. Continue with bowel regime including after discharge. Please reconsult for any new issues. Time Spent With Patient Time: Total time managing care of this patient today ____ minutes. Quality Stroke Does the patient have a stroke diagnosis?: No VTE Prior VTE?: No VTE Risk Level:: Medical - moderate - high VTE Device Contraindication: Treatment Not Indicated VTE Drug Contraindication: N/A - Med Ordered
--- NOTE | 2024-08-08 08:49 | P.PNNP_ITS ---
Subjective Subjective Date of Service: 08/08/24 Interval history: Events noted Physical Exam 2 Vital Signs: Vital Signs: Last Vital Signs Temp 98.5 F 08/08/24 07:12 Pulse 91 08/08/24 07:12 Resp 18 08/08/24 07:12 BP 176/84 H 08/08/24 07:12 Pulse Ox 92 08/08/24 07:12 O2 Del Method Nasal Cannula 08/08/24 07:12 O2 Flow Rate 2 08/08/24 07:12 Oxygen Flow Rate 15 08/05/24 21:41 BMI result Body Mass Index 30.7 Const: General: no acute distress HEENT: Other: Mucosa dry Neck: Neck: Yes supple Resp: Auscultation: diminished lung sounds Cardio: Rate: regular rate GI: Palpation (GI): Soft to palpation Neuro: General: moves all extremities Objective Data Labs 08/07/24 10:53 08/07/24 20:05 Labs: Laboratory Results - last 24 hr 08/07/24 08/07/24 08/07/24 10:23 10:53 11:20 WBC 28.8 H RBC 3.76 L Hgb 11.0 L Hct 34.3 L MCV 91.2 MCH 29.3 MCHC 32.1 RDW 17.6 H Plt Count 230 MPV 11.3 Absolute Nucleated RBC 0.000 Nucleated RBC % (auto) 0.0 Sodium 151 H Potassium 3.6 Chloride 122 H Carbon Dioxide 20 L Anion Gap 13 BUN 59 H Creatinine 2.03 H Estim Creat Clear Calc 38.9 Estimated GFR 32 POC Glucose 234 H Random Glucose 274 H Calcium 8.6 Urine Opiates Screen Not Detected Ur Buprenorphine Scrn Not Detected Ur Oxycodone Screen Not Detected Urine Methadone Screen Not Detected Urine Fentanyl Screen Not Detected Ur Barbiturates Screen Not Detected Ur Phencyclidine Scrn Not Detected Ur Amphetamines Screen Not Detected U Benzodiazepines Scrn Not Detected Urine Cocaine Screen Not Detected U Marijuana (THC) Screen Not Detected 08/07/24 08/07/24 08/07/24 15:59 20:05 20:33 WBC RBC Hgb Hct MCV MCH MCHC RDW Plt Count MPV Absolute Nucleated RBC Nucleated RBC % (auto) Sodium 148 H Potassium 4.2 Chloride 121 H Carbon Dioxide 19 L Anion Gap 12 BUN 56 H Creatinine 1.78 H Estim Creat Clear Calc 44.4 Estimated GFR 38 POC Glucose 352 H* 289 H Random Glucose 337 H Calcium 8.0 L D Urine Opiates Screen Ur Buprenorphine Scrn Ur Oxycodone Screen Urine Methadone Screen Urine Fentanyl Screen Ur Barbiturates Screen Ur Phencyclidine Scrn Ur Amphetamines Screen U Benzodiazepines Scrn Urine Cocaine Screen U Marijuana (THC) Screen 08/08/24 08/08/24 08/08/24 00:31 05:55 07:15 WBC RBC Hgb Hct MCV MCH MCHC RDW Plt Count MPV Absolute Nucleated RBC Nucleated RBC % (auto) Sodium Potassium Chloride Carbon Dioxide Anion Gap BUN Creatinine Estim Creat Clear Calc Estimated GFR POC Glucose 325 H 221 H 228 H Random Glucose Calcium Urine Opiates Screen Ur Buprenorphine Scrn Ur Oxycodone Screen Urine Methadone Screen Urine Fentanyl Screen Ur Barbiturates Screen Ur Phencyclidine Scrn Ur Amphetamines Screen U Benzodiazepines Scrn Urine Cocaine Screen U Marijuana (THC) Screen Microbiology Microbiology Results: Microbiology 08/05/24 22:07 Blood - Venous Blood Culture - Preliminary No growth after 48 hours. 08/05/24 21:51 Blood - Venous Blood Culture - Preliminary No growth after 48 hours. Procedures Date of Service Date of Service: 08/08/24 Assessment & Plan Assessment and plan (1) Acute kidney injury: Status: Acute (2) Hypernatremia: Status: Acute Plan RODO due to compromise in renal perfusion due to sepsis No hydronephrosis by imaging; UO OK No reason to suspect GN/AIN No ACEI/ARB/Diuretics/NSAID's No indication for renal replacement Cr is trending down Hypernatremia due to free water deficit Serum Na treanding down Keep D5W@ 100/hour Encourage PO water intake C/W rest of current supportive care for now Time Spent With Patient Time: Total time managing care of this patient today ____ minutes. Progress Note: Quality Stroke Does the patient have a stroke diagnosis?: No
[2024-08-08] MEDS: Sennosides/Docusate Sodium TABLET 2 TAB PO (09:44)
[2024-08-08] MEDS: Multivitamin TABLET 1 TAB PO (09:44)
[2024-08-08] MEDS: amLODIPine Besylate 5 MG TABLET PO (09:44)
[2024-08-08] MEDS: Thiamine HCL 100 MG TABLET PO (09:44)
[2024-08-08] MEDS: Ascorbic Acid 500 MG TABLET PO (09:44)
[2024-08-08] MEDS: Sucralfate 1 GM TABLET PO ×4 (09:44→20:58)
[2024-08-08] MEDS: Clopidogrel Bisulfate 75 MG TABLET PO (09:45)
[2024-08-08] MEDS: Aspirin 81 MG TAB.CHEW PO (09:45)
[2024-08-08] MEDS: Folic Acid 1 MG TABLET PO (09:45)
[2024-08-08] MEDS: Cholecalciferol (Vitamin D3) 25 MCG TABLET PO (09:45)
[2024-08-08] MEDS: Cyanocobalamin (Vitamin B-12) 500 MCG TABLET PO (09:45)
[2024-08-08] MEDS: Enoxaparin Sodium 40 MG/0.4 ML SYRINGE SUBCUT (09:45)
[2024-08-08] MEDS: Collagenase Clostridium Hist. 30 GM TUBE 1 APPL TOPICAL (09:45)
[2024-08-08 10:17] LABS: Hematocrit 32.8 % (42.0-52.0); Hemoglobin 10.2 g/dl (14.0-18.0); Mean Corpuscular HGB Conc 31.1 g/dl (31.0-36.0); Mean Corpuscular Hemoglobin 28.8 pg (27.0-33.0); Mean Corpuscular Volume 92.7 fL (80.0-98.0); Mean Platelet Volume 12.1 fL (9.4-12.4); Platelet Count 213 X10*3/uL (160-400); Red Blood Count 3.54 X10*6/uL (4.60-5.80); Red Cell Distribution Width 17.5 % (11.0-16.0); White Blood Count 21.9 X10*3/uL (4.8-10.8)
[2024-08-08 10:35] LABS: Anion Gap 13 (12-20); Blood Urea Nitrogen 46 mg/dL (9-16); Calcium 8.2 mg/dL (8.4-10.2); Carbon Dioxide 18 mmol/L (22-29); Chloride 117 mmol/L (96-108); Creatinine Clr Calc Pharmacy 46.8; Estimated Glomerular Filt Rate 40; Glucose Random 402 mg/dL (60-115); Potassium 3.7 mmol/L (3.3-5.1); Sodium 144 mmol/L (135-145)
[2024-08-08 10:46] VITALS: BP 129/60; PULSE 69
[2024-08-08 11:16] LABS: Glucose, Whole Blood 373 mg/dL (60-115)
[2024-08-08] MEDS: Insulin Lispro 100 UNIT/ML 3 ML VIAL 14 UNIT SUBCUT (12:13)
--- NOTE | 2024-08-08 12:54 | HO.PM.IMPN ---
Subjective Subjective Date of Service: 08/08/24 Interval History: hypernatremia , Review of Systems more awake no cough checked with nh by staff mental status seems near baseline . Physical Exam Vital Signs: Vital Signs: Last Vital Signs Temp 98.5 F 08/08/24 07:12 Pulse 69 08/08/24 10:46 Resp 18 08/08/24 07:12 BP 129/60 08/08/24 10:46 Pulse Ox 92 08/08/24 07:12 O2 Del Method Nasal Cannula 08/08/24 07:12 O2 Flow Rate 2 08/08/24 07:12 Oxygen Flow Rate 15 08/05/24 21:41 BMI result Body Mass Index 30.7 Appearance: awake ?. cvs: rrr, [id number] . res: air entry seems diminshed ,right >left abd: no rebound or guarding ,nt, bs present. ext pulses present , no cyanosis . neuro: axo3 , nonfocal. Objective Data Active Medications Acetaminophen (Acetaminophen 325 Mg Tablet) 650 mg PO Q6H PRN PRN Reason: Pain, Mild 1-3,fever,headache Amlodipine Besylate (Amlodipine Besylate 5 Mg Tablet) 5 mg PO DAILY [facility]; Protocol Last Admin: 08/08/24 09:44 Dose: 5 mg Documented By: JANNETTE Ascorbic Acid (Ascorbic Acid 500 Mg Tablet) 500 mg PO DAILY [facility] Last Admin: 08/08/24 09:44 Dose: 500 mg Documented By: JANNETTE Aspirin (Aspirin 81 Mg Tab.Chew) 81 mg PO DAILY [facility] Last Admin: 08/08/24 09:45 Dose: 81 mg Documented By: JANNETTE Calcium Carbonate (Calcium Carbonate 750 Mg Tab.Chew) 750 mg PO Q4H PRN PRN Reason: Heartburn Ceftriaxone Sodium (Ceftriaxone Sodium 1 Gm Vial) 1 gm IVPUSH Q24H [facility] Last Admin: 08/07/24 21:12 Dose: 1 gm Documented By: KARIS Clopidogrel Bisulfate (Clopidogrel Bisulfate 75 Mg Tablet) 75 mg PO DAILY [facility] Last Admin: 08/08/24 09:45 Dose: 75 mg Documented By: JANNETTE Collagenase (Collagenase Clostridium Hist. 30 Gm Tube) 1 appl TOPICAL DAILY [facility]; Protocol Last Admin: 08/08/24 09:45 Dose: 1 appl Documented By: JANNETTE Cyanocobalamin (Cyanocobalamin (Vitamin B-12) 500 Mcg Tablet) 500 mcg PO DAILY [facility] Last Admin: 08/08/24 09:45 Dose: 500 mcg Documented By: JANNETTE Dextrose (Dextrose 50 % 25 Gm/50 Ml Syringe) 25 gm IVPUSH Q15M PRN; Protocol PRN Reason: per Hypoglycemia Standing Ord. Dextrose (Dextrose 50 % 25 Gm/50 Ml Syringe) 25 gm IVPUSH Q15M PRN; Protocol PRN Reason: per Hypoglycemia Standing Ord. Docusate Sodium (Docusate Sodium 100 Mg Capsule) 100 mg PO BID PRN PRN Reason: Constipation Enoxaparin Sodium (Enoxaparin Sodium 40 Mg/0.4 Ml Syringe) 40 mg SUBCUT Q24H [facility] Last Admin: 08/08/24 09:45 Dose: 40 mg Documented By: JANNETTE Folic Acid (Folic Acid 1 Mg Tablet) 1 mg PO DAILY [facility] Last Admin: 08/08/24 09:45 Dose: 1 mg Documented By: JANNETTE Gabapentin (Gabapentin 400 Mg Capsule) 400 mg PO DAILY@1700 [facility] Last Admin: 08/07/24 16:53 Dose: 400 mg Documented By: ENEDINA Glucose (Glucose Gel 15 Gm Gel..Gram.) 15 gm PO Q15M PRN; Protocol PRN Reason: per Hypoglycemia Standing Ord. Azithromycin 500 mg/ Sodium (Chloride) 250 mls @ 125 mls/hr IV Q24H [facility] Last Infusion: 08/07/24 18:24 Dose: Infused Documented By: ENEDINA Insulin Glargine (Insulin Glargine,Hum.Rec.Anlog 100 Unit/Ml 10 Ml Vial) 15 unit SUBCUT BEDTIME [facility] Insulin Human Lispro (Insulin Lispro 100 Unit/Ml 3 Ml Vial) 0 unit SUBCUT QIDACHS [facility]; Protocol Melatonin (Melatonin 3 Mg Tablet) 6 mg PO BEDTIME PRN PRN Reason: Insomnia Multivitamins/Vitamin C (Multivitamin Tablet) 1 tab PO DAILY [facility] Last Admin: 08/08/24 09:44 Dose: 1 tab Documented By: JANNETTE Ondansetron HCl (Ondansetron Hcl 4 Mg/2 Ml Vial) 4 mg IVPUSH Q8H PRN PRN Reason: Nausea and Vomiting Sodium Chloride (0.9 % Sodium Chloride Flush 3 Ml Syringe) 3 ml IVFLUSH QSHIFT [facility] Last Admin: 08/08/24 09:45 Dose: Not Given Documented By: JANNETTE Non-Admin Reason: IV Running Sucralfate (Sucralfate 1 Gm Tablet) 1 gm PO QIDACHS [facility] Last Admin: 08/08/24 12:13 Dose: 1 gm Documented By: JANNETTE Tamsulosin HCl (Tamsulosin Hcl 0.4 Mg Capsule) 0.4 mg PO BEDTIME [facility] Last Admin: 08/07/24 21:09 Dose: 0.4 mg Documented By: KARIS Thiamine HCl (Thiamine Hcl 100 Mg Tablet) 100 mg PO DAILY [facility] Last Admin: 08/08/24 09:44 Dose: 100 mg Documented By: JANNETTE Vitamin D (Cholecalciferol (Vitamin D3) 25 Mcg Tablet) 25 mcg PO DAILY [facility] Last Admin: 08/08/24 09:45 Dose: 25 mcg Documented By: JANNETTE Labs 08/08/24 09:57 08/08/24 09:57 Labs: Laboratory Results - last 24 hr 08/07/24 08/07/24 08/07/24 15:59 20:05 20:33 MCV MCH MCHC RDW Plt Count MPV Absolute Nucleated RBC Nucleated RBC % (auto) Anion Gap 12 Estim Creat Clear Calc 44.4 Estimated GFR 38 POC Glucose 352 H* 289 H Random Glucose 337 H Calcium 8.0 L D 08/08/24 08/08/24 08/08/24 00:31 05:55 07:15 MCV MCH MCHC RDW Plt Count MPV Absolute Nucleated RBC Nucleated RBC % (auto) Anion Gap Estim Creat Clear Calc Estimated GFR POC Glucose 325 H 221 H 228 H Random Glucose Calcium 08/08/24 08/08/24 09:57 11:11 MCV 92.7 MCH 28.8 MCHC 31.1 RDW 17.5 H Plt Count 213 MPV 12.1 Absolute Nucleated RBC 0.000 Nucleated RBC % (auto) 0.0 Anion Gap 13 Estim Creat Clear Calc 46.8 Estimated GFR 40 POC Glucose 373 H* Random Glucose 402 H* Calcium 8.2 L Microbiology Microbiology Results: Microbiology 08/05/24 22:07 Blood Culture - Preliminary Blood - Venous No growth after 48 hours. 08/05/24 21:51 Blood Culture - Preliminary Blood - Venous No growth after 48 hours. Assessment and Plan (1) Hypernatremia: Status: Acute (2) Acute kidney injury: Status: Acute (3) Hypoxia: Status: Acute Assessment and Plan: 74-year-old male with pertinent history of Alzheimer's dementia, mostly nonverbal at baseline, insulin-dependent diabetes mellitus, hypertension, asthma not on home oxygen, coronary artery disease, CKD stage IIIA, mood disorder, BPH, gastroesophageal reflux disease who was sent to the emergency department from [facility] for evaluation of hypoxia. Acute hypoxemic respiratory failure and sepsis due to right-sided pneumonia: wbc improving no fever tachycardia also improving blood cultures neg @48 hrs lactic acid trending down -no further trending unless clinical detrioration continue supplemental oxygen, IV fluids , IV ceftriaxone and IV azithromycin. Acute lactic acidosis due to sepsis lactic acid trending down -no further trending unless clinical detrioration. acute hypernatremia :improved with hydration nephrology following -moniter bmp bid. fecal impaction: passing bm's ,seen by surgery -no acute intervention. hold on luxatives due to had few bm's Acute kidney injury on CKD stage 3: improivng with ivf,encouraged for po hydration and intake, Avoid nephrotoxins. nsulin-dependent diabetes mellitus with hyperglycemia:fs with sliding scale coverage. Hypertension:bp improivng- added amlodipine , hold hydralazine . CAD: On aspirin and statin once able to take p.o. Alzheimer's dementia: High risk for delirium BPH: On Flomax Gastroesophageal reflux disease: On PPI DNR/DNI. DVT prophylaxis: Lovenox ongoing need for inpatient hypoxia/pneumonia, electrolytic abnormalities- for supplemental oxygen, IV antibiotics, monitoring of mentation (as above), which is not possible in a lesser acute setting. Quality Stroke Does the patient have a stroke diagnosis?: No VTE Prior VTE?: No VTE Risk Level:: Medical - moderate - high VTE Device Contraindication: Treatment Not Indicated VTE Drug Contraindication: N/A - Med Ordered
--- NOTE | 2024-08-08 14:53 | MHC.SLORD ---
Speech Language Pathology Order Status: Attempted to see patient at lunch, patient sleeping at the time of visit. Will continue to follow.
[2024-08-08 15:01] VITALS: BMI 30.7
--- NOTE | 2024-08-08 15:07 | MHC.CLN ---
NUTRITION CONSULT FOR SKIN INTEGRITY. DIET=DIABETIC 1800 KCAL, PUREE. INCREASED NUTRITION NEEDS DUE TO DTI SACRUM. ADDING ENSURE MAX PROTEIN (300 KCALS, 60 G PROTEIN) TO PROMOTE SKIN INTEGRITY. FOLLOW FOR PO INTAKE AND WOUND HEALING. SEE CLINICAL NUTRITION ASSESSMENT 08/08/24.
[2024-08-08 15:13] VITALS: BP 141/67; PULSE 63; RESP 16; TEMP 36.5; O2SAT 93
[2024-08-08 16:04] LABS: Glucose, Whole Blood 268 mg/dL (60-115)
[2024-08-08] MEDS: Gabapentin 400 MG CAPSULE PO (17:30)
[2024-08-08] MEDS: 0.9 % Sodium Chloride Flush 3 ML SYRINGE IVFLUSH ×2 (17:31→20:59)
[2024-08-08] MEDS: Azithromycin 500 MG in 0.9 % Sodium Chloride 250 ML 125 MG IV (18:38)
[2024-08-08 20:10] LABS: Glucose, Whole Blood 229 mg/dL (60-115)
[2024-08-08] MEDS: cefTRIAXone sodium 1 GM VIAL IVPUSH (20:58)
[2024-08-08] MEDS: Tamsulosin HCL 0.4 MG CAPSULE PO (20:58)
[2024-08-08] MEDS: Insulin Glargine,Hum.rec.anlog 100 UNIT/ML 10 ML VIAL 15 UNIT SUBCUT (21:03)
[2024-08-08 23:43] VITALS: BP 152/72; PULSE 60; RESP 16; TEMP 36.6; O2SAT 96
[2024-08-09 07:45] VITALS: BP 176/60; PULSE 75; RESP 18; TEMP 36.3; O2SAT 92
--- NOTE | 2024-08-09 07:59 | HO.PM.IMPN ---
Subjective Subjective Date of Service: 08/09/24 Physical Exam Vital Signs: Vital Signs: Last Vital Signs Temp 97.3 F 08/09/24 07:45 Pulse 75 08/09/24 07:45 Resp 18 08/09/24 07:45 BP 176/60 H 08/09/24 07:45 Pulse Ox 92 08/09/24 07:45 O2 Del Method Nasal Cannula 08/09/24 07:45 O2 Flow Rate 2.0 08/09/24 07:45 Oxygen Flow Rate 15 08/05/24 21:41 BMI result Body Mass Index 30.7 Objective Data Active Medications Acetaminophen (Acetaminophen 325 Mg Tablet) 650 mg PO Q6H PRN PRN Reason: Pain, Mild 1-3,fever,headache Amlodipine Besylate (Amlodipine Besylate 2.5 Mg Tablet) 7.5 mg PO DAILY [facility]; Protocol Ascorbic Acid (Ascorbic Acid 500 Mg Tablet) 500 mg PO DAILY [facility] Last Admin: 08/08/24 09:44 Dose: 500 mg Documented By: JANNETTE Aspirin (Aspirin 81 Mg Tab.Chew) 81 mg PO DAILY [facility] Last Admin: 08/08/24 09:45 Dose: 81 mg Documented By: JANNETTE Calcium Carbonate (Calcium Carbonate 750 Mg Tab.Chew) 750 mg PO Q4H PRN PRN Reason: Heartburn Ceftriaxone Sodium (Ceftriaxone Sodium 1 Gm Vial) 1 gm IVPUSH Q24H [facility] Last Admin: 08/08/24 20:58 Dose: 1 gm Documented By: KARIS Clopidogrel Bisulfate (Clopidogrel Bisulfate 75 Mg Tablet) 75 mg PO DAILY [facility] Last Admin: 08/08/24 09:45 Dose: 75 mg Documented By: JANNETTE Collagenase (Collagenase Clostridium Hist. 30 Gm Tube) 1 appl TOPICAL DAILY [facility]; Protocol Last Admin: 08/08/24 09:45 Dose: 1 appl Documented By: JANNETTE Cyanocobalamin (Cyanocobalamin (Vitamin B-12) 500 Mcg Tablet) 500 mcg PO DAILY [facility] Last Admin: 08/08/24 09:45 Dose: 500 mcg Documented By: JANNETTE Dextrose (Dextrose 50 % 25 Gm/50 Ml Syringe) 25 gm IVPUSH Q15M PRN; Protocol PRN Reason: per Hypoglycemia Standing Ord. Docusate Sodium (Docusate Sodium 100 Mg Capsule) 100 mg PO BID PRN PRN Reason: Constipation Enoxaparin Sodium (Enoxaparin Sodium 40 Mg/0.4 Ml Syringe) 40 mg SUBCUT Q24H [facility] Last Admin: 08/08/24 09:45 Dose: 40 mg Documented By: JANNETTE Folic Acid (Folic Acid 1 Mg Tablet) 1 mg PO DAILY [facility] Last Admin: 08/08/24 09:45 Dose: 1 mg Documented By: JANNETTE Gabapentin (Gabapentin 400 Mg Capsule) 400 mg PO DAILY@1700 [facility] Last Admin: 08/08/24 17:30 Dose: 400 mg Documented By: SABRINA Glucose (Glucose Gel 15 Gm Gel..Gram.) 15 gm PO Q15M PRN; Protocol PRN Reason: per Hypoglycemia Standing Ord. Azithromycin 500 mg/ Sodium (Chloride) 250 mls @ 125 mls/hr IV Q24H [facility] Last Infusion: 08/08/24 21:04 Dose: Infused Documented By: KARIS Insulin Glargine (Insulin Glargine,Hum.Rec.Anlog 100 Unit/Ml 10 Ml Vial) 20 unit SUBCUT BEDTIME [facility] Insulin Human Lispro (Insulin Lispro 100 Unit/Ml 3 Ml Vial) 0 unit SUBCUT QIDACHS [facility]; Protocol Last Admin: 08/08/24 21:03 Dose: 4 unit Documented By: KARIS Melatonin (Melatonin 3 Mg Tablet) 6 mg PO BEDTIME PRN PRN Reason: Insomnia Multivitamins/Vitamin C (Multivitamin Tablet) 1 tab PO DAILY [facility] Last Admin: 08/08/24 09:44 Dose: 1 tab Documented By: JANNETTE Ondansetron HCl (Ondansetron Hcl 4 Mg/2 Ml Vial) 4 mg IVPUSH Q8H PRN PRN Reason: Nausea and Vomiting Sodium Chloride (0.9 % Sodium Chloride Flush 3 Ml Syringe) 3 ml IVFLUSH QSHIFT [facility] Last Admin: 08/08/24 20:59 Dose: 3 ml Documented By: KARIS Sucralfate (Sucralfate 1 Gm Tablet) 1 gm PO QIDACHS [facility] Last Admin: 08/08/24 20:58 Dose: 1 gm Documented By: KARIS Tamsulosin HCl (Tamsulosin Hcl 0.4 Mg Capsule) 0.4 mg PO BEDTIME [facility] Last Admin: 08/08/24 20:58 Dose: 0.4 mg Documented By: KARIS Thiamine HCl (Thiamine Hcl 100 Mg Tablet) 100 mg PO DAILY [facility] Last Admin: 08/08/24 09:44 Dose: 100 mg Documented By: JANNETTE Vitamin D (Cholecalciferol (Vitamin D3) 25 Mcg Tablet) 25 mcg PO DAILY [facility] Last Admin: 08/08/24 09:45 Dose: 25 mcg Documented By: JANNETTE Labs 08/08/24 09:57 08/08/24 09:57 Labs: Laboratory Results - last 24 hr 08/08/24 08/08/24 08/08/24 09:57 11:11 15:58 MCV 92.7 MCH 28.8 MCHC 31.1 RDW 17.5 H Plt Count 213 MPV 12.1 Absolute Nucleated RBC 0.000 Nucleated RBC % (auto) 0.0 Anion Gap 13 Estim Creat Clear Calc 46.8 Estimated GFR 40 POC Glucose 373 H* 268 H Random Glucose 402 H* Calcium 8.2 L 08/08/24 20:04 MCV MCH MCHC RDW Plt Count MPV Absolute Nucleated RBC Nucleated RBC % (auto) Anion Gap Estim Creat Clear Calc Estimated GFR POC Glucose 229 H Random Glucose Calcium Assessment and Plan (1) Hypernatremia: Status: Acute (2) Acute kidney injury: Status: Acute (3) Hypoxia: Status: Acute Assessment and Plan: 74-year-old male with pertinent history of Alzheimer's dementia, mostly nonverbal at baseline, insulin-dependent diabetes mellitus, hypertension, asthma not on home oxygen, coronary artery disease, CKD stage IIIA, mood disorder, BPH, gastroesophageal reflux disease who was sent to the emergency department [facility] for evaluation of hypoxia. Acute hypoxemic respiratory failure and sepsis due to right-sided pneumonia: wbc improving no fever tachycardia also improving blood cultures neg @48 hrs lactic acid trending down -no further trending unless clinical detrioration continue supplemental oxygen, IV fluids , IV ceftriaxone and IV azithromycin. Acute lactic acidosis due to sepsis lactic acid trending down -no further trending unless clinical detrioration. acute hypernatremia :improved with hydration nephrology following -moniter bmp bid. fecal impaction: passing bm's ,seen by surgery -no acute intervention. hold on luxatives due to had few bm's Acute kidney injury on CKD stage 3: improivng with ivf,encouraged for po hydration and intake, Avoid nephrotoxins. nsulin-dependent diabetes mellitus with hyperglycemia:fs with sliding scale coverage. Hypertension:bp improivng- added amlodipine , hold hydralazine . CAD: On aspirin and statin once able to take p.o. Alzheimer's dementia: High risk for delirium BPH: On Flomax Gastroesophageal reflux disease: On PPI DNR/DNI. DVT prophylaxis: Lovenox ongoing need for inpatient hypoxia/pneumonia, electrolytic abnormalities- for supplemental oxygen, IV antibiotics, monitoring of mentation (as above), which is not possible in a lesser acute setting. Quality Stroke Does the patient have a stroke diagnosis?: No VTE Prior VTE?: No VTE Risk Level:: Medical - moderate - high VTE Device Contraindication: Treatment Not Indicated VTE Drug Contraindication: N/A - Med Ordered
[2024-08-09 08:04] LABS: Glucose, Whole Blood 193 mg/dL (60-115)
[2024-08-09] MEDS: amLODIPine Besylate 2.5 MG TABLET 7.5 MG PO (08:42)
[2024-08-09] MEDS: Multivitamin TABLET 1 TAB PO (08:42)
[2024-08-09] MEDS: Aspirin 81 MG TAB.CHEW PO (08:42)
[2024-08-09] MEDS: Doxycycline Monohydrate 100 MG CAPSULE PO (08:42)
[2024-08-09] MEDS: Clopidogrel Bisulfate 75 MG TABLET PO (08:42)
[2024-08-09] MEDS: Enoxaparin Sodium 40 MG/0.4 ML SYRINGE SUBCUT (08:43)
[2024-08-09] MEDS: Sucralfate 1 GM TABLET PO ×2 (08:43→12:08)
[2024-08-09] MEDS: Cyanocobalamin (Vitamin B-12) 500 MCG TABLET PO (08:43)
[2024-08-09] MEDS: Ascorbic Acid 500 MG TABLET PO (08:43)
[2024-08-09] MEDS: Insulin Lispro 100 UNIT/ML 3 ML VIAL SUBCUT ×2 (08:43→12:08)
[2024-08-09] MEDS: Folic Acid 1 MG TABLET PO (08:43)
[2024-08-09] MEDS: 0.9 % Sodium Chloride Flush 3 ML SYRINGE IVFLUSH (08:43)
[2024-08-09] MEDS: Cholecalciferol (Vitamin D3) 25 MCG TABLET PO (08:43)
[2024-08-09] MEDS: Thiamine HCL 100 MG TABLET PO (08:54)
[2024-08-09] MEDS: Amoxicillin/Potassium Clav 4,000 MG/50 ML SUSP.RECON 875 MG PO (09:50)
--- NOTE | 2024-08-09 10:06 | MHC.SL.SWA ---
Speech Pathologist Impression: Risk of Aspiration Risk of Aspiration Due to: Lethargy Neurological Condition History of Pneumonia Reduced Cognition Dysphasia Diet Status: No Change Liquid Consistency and Strategies for Safe Swallow: Liquid Intake Recommendation: Thin Liquid Intake Strategies: Small Sips Solid Food Consistency: Dietary Recommendations: Pureed (NDD1) Additional Modifications to Solid Foods: Patient w/ mild oropharyngeal phase dysphagia, characterized by discoordinated oral phase, delayed AP transport, delayed swallow trigger, and partial laryngeal elevation. Recommend PUREED (NDD1) diet and THIN liquids via teaspoon only, pills CRUSHED in PUREE. This is reportedly patient's baseline per staff at [facility]. Patient will need 1:1 feeding and close monitoring. Oral Medication Intake: Crushed with Puree Please contact the pharmacy regarding appropriate crushable or liquid drug formulations that are available whenever modified delivery is recommended. Compensatory Strategies and Precautions to be Taken for Safe Swallow: Sitting Upright (90 deg) Small Bites and Sips Alternate Liquids/Solids Rate of Ingestion Change Supervision While Eating and Drinking for Safe Swallow: Total Assistance (1:1) Swallowing Recommended Treatments: Compens. Strategy Educat. Recommendation for Speech: Inpatient Speech Therapy Comment: LAMINATING MACHINE FEEDER will continue to follow during inpatient stay Frequency/Duration: PRN Date Range for Service Req: Timeline to reassess: Medical Billing Assistant Clinican/Clinical Fellow: No Supervisory Statement: I have reviewed and agree with the student/clinical fellow's documentation: N/A Speech Language Pathologist: Tammy Bates M.A., CCC-LAMINATING MACHINE FEEDER
[2024-08-09 10:23] VITALS: O2SAT 90
--- NOTE | 2024-08-09 11:14 | P.DS_ITS ---
DS: Providers Provider Date of Service: 08/09/24 Date of admission: 08/06/24 02:12 Date of discharge: 08/09/24 Primary care physician: Isac Velazquez MD Consults: 08/06/24 09:11 Consult to Nephrology Routine Consulting Provider: [facility] Reason for consultation: sola,hypernatremia Has provider been notified: No 08/06/24 09:17 Consult to General Surgery Routine Consulting Provider: [facility] Reason for consultation: severe constipation/Impaction 08/06/24 11:16 Consult to Wound Care Routine Reason for consultation: wound to top of left foot 08/06/24 12:03 Consult to Wound Care Routine Reason for consultation: Foot wound Attending physician on discharge: Clifton Quiroz Discharging clinician: Clifton Quiroz DS: Diagnosis Discharge Diagnosis (1) Hypernatremia: Status: Acute (2) Acute kidney injury: Status: Acute (3) Hypoxia: Status: Acute DS: Summary Hospital Course Hospital Course: HPI:74-year-old male with pertinent history of Alzheimer's dementia, mostly nonverbal at baseline, insulin-dependent diabetes mellitus, hypertension, asthma not on home oxygen, coronary artery disease, CKD stage IIIA, mood disorder, BPH, gastroesophageal reflux disease who was sent to the emergency department from assisted facility for evaluation of hypoxia. Patient is alert at baseline as per EMS but mostly nonverbal. Unable to obtain history from the patient. History obtained from ER provider and chart review. Patient was found to be satting in the 70s on room air and EMS was called. Patient is drowsy at the time of my evaluation. Imaging with right-sided pneumonia and patient was found to be septic in the ER. He was given IV crystalloids and empiric IV antibiotics. Patient is DNR/DNI and do not transfer to the hospital. Staff at nursing facility called the patient's son to inform of the patient's condition and the son asked the patient to bring the patient to a hospital. Hospital course: 74-year-old male with pertinent history of Alzheimer's dementia, mostly nonverbal at baseline, insulin-dependent diabetes mellitus, hypertension, asthma not on home oxygen, coronary artery disease, CKD stage IIIA, mood disorder, BPH, gastroesophageal reflux disease who was sent to the emergency department from assisted facility for evaluation of hypoxia, has leukocytosis , blood cultures sent, imaging chest shows right-sided pneumonia: Patient was admitted for acute hypoxemic respiratory failure and sepsis secondary to pneumonia: Patient was started on IV antibiotics-patient hypoxia seems to be improved, sats are in 90 range on room air. Blood culture negative at 48 hours, leukocytosis improving, no fever. moniter cbc outpatient. Acute lactic acidosis due to sepsis: lactic acid trending down -no further trending unless clinical detrioration. acute hypernatremia :improved with hydration.moniter bmp in 1 week. fecal impaction: passing bm's ,seen by surgery -no acute intervention. rectal exam also done -little stool in rectal vault. continue prn luxrative in [facility] to avoid comstipation. Acute kidney injury on CKD stage 3: improved with ivf,encouraged for po hydration and intake, Avoid nephrotoxins. encourage for po intake and free water po 250 ml q6hr . moniter renal function and electrolytes . plan: complete po doxycycline 100 mg po bid and augmentin 875 mg po bid for 7 more days ,repeat chest imaging in 3-4 weeks to see resolution of pneumonia. moniter cbc and bmp in 1 week. Assessment and plan coordination time spent 40 minute. Time Attestation Total time managing care of this patient today: 40 mintues. Discharge Coordination Time (in mins): 40 min Quality: Safe Use of Opioids Does Pt have an Active Cancer Diagnosis on the Problem List?: No Quality: Stroke Does the patient have a stroke diagnosis?: No Physical Exam Vital Signs: Vital Signs: Last Vital Signs Temp 97.3 F 08/09/24 07:45 Pulse 75 08/09/24 07:45 Resp 18 08/09/24 07:45 BP 176/60 H 08/09/24 07:45 Pulse Ox 90 L 08/09/24 10:23 O2 Del Method Room Air 08/09/24 10:23 O2 Flow Rate 2.0 08/09/24 07:45 Oxygen Flow Rate 15 08/05/24 21:41 BMI result Body Mass Index 30.7 Appearance: awake ?. cvs: rrr, [id number] . res: air entry seems diminshed ,right >left abd: no rebound or guarding ,nt, bs present. ext pulses present , no cyanosis . neuro: axo3 , nonfocal. DS: Data Data Completed and Pending Labs on day of discharge: Laboratory Results - last 24 hr 08/08/24 08/08/24 08/08/24 11:11 15:58 20:04 POC Glucose 373 H* 268 H 229 H 08/09/24 07:44 POC Glucose 193 H Preliminary micro results at discharge 08/05/24 22:07 Blood Culture - Preliminary Blood - Venous No growth after 48 hours. 08/05/24 21:51 Blood Culture - Preliminary Blood - Venous No growth after 48 hours. Imaging Chest x-ray: My impression: cxr:Impression: Right upper and lower lobe faint nodular consolidation Probable pneumonia, please correlate Bilateral lower lobe atelectasis, greater on right. ct abd: Impression:Large amount of stool in rectal vault, question impaction Discharge Plan Discharge Anticipated Discharge Date/Time: 08/09/24 10:59 Patient Disposition: Xfer [facility] Discharge Diagnosis: Acute hypoxemic respiratory failure and sepsis due to right-sided pneumonia, acute hypernatremia ,constipation Referrals: [facility] [Outside] - 1 Week Isac Velazquez MD [Primary Care Provider] - 1 Week Discharge Medications: New amoxicillin-pot clavulanate 400-57 mg/5 mL Suspension For Reconstitution 10 ml PO BID Qty: 1 0RF doxycycline monohydrate 100 mg Capsule 100 mg PO Q12H Qty: 1 0RF Continued atorvastatin 40 mg Tablet 40 mg PO BEDTIME acetaminophen 325 mg Tablet 650 mg PO Q4H PRN (Reason: Fever Or Pain) sucralfate 1 gram Tablet 1 g PO QIDACHS sennosides-docusate sodium [Senna Plus] 8.6-50 mg Tablet 2 tab-cap PO BID gabapentin 400 mg Capsule 400 mg PO DAILY@1700 thiamine HCl (vitamin B1) 100 mg Tablet 100 mg PO DAILY ascorbic acid (vitamin C) 500 mg Tablet 500 mg PO DAILY tamsulosin 0.4 mg Capsule 0.4 mg PO BEDTIME docusate sodium 100 mg Capsule 100 mg PO BID PRN (Reason: Constipation) aspirin 81 mg Tablet,Chewable 81 mg PO DAILY insulin lispro 100 unit/mL Solution 1 sliding scale dose SUBCUT USEASDIRECTD Protocol: Insulin Correction Scale Less than or equal to 110 ---- Give (units): 0 111 to 150 Give (units): 0 151 to 200 Give (units): 0 201 to 250 Give (units): 6 251 to 300 Give (units): 8 301 to 350 Give (units): 10 Greater than 350 Give (units): 12 Call MD if Blood Glucose > : 400 Rx Instructions: before meals cholecalciferol (vitamin D3) 25 mcg (1,000 unit) Capsule 25 mcg PO DAILY insulin glargine-yfgn 100 unit/mL Solution 24 unit SUBCUT DAILY@0800 Rx Instructions: hold if blood glucose is less than 150 clopidogrel 75 mg tablet 75 mg DAILY amlodipine 10 mg tablet 10 mg DAILY hydralazine 50 mg tablet 50 mg PO TID folic acid 1 mg Tablet 1 mg PO DAILY Santyl 250 unit/gram ointment 1 appl topical DAILY Rx Instructions: top left dorsal foot wound multivitamin with minerals Tablet 1 tab PO DAILY cyanocobalamin (vitamin B-12) 500 mcg Lozenge 500 mcg PO DAILY Discharge Orders: Discharge Order (Routine); Ordered 08/09/24 Ordered By: Clifton Quiroz Diet: Advance to usual diet Activity on Discharge: As tolerated Stand Alone Forms: Patient Portal Discharge page Print Language: Czech Care Plan Goals: 74-year-old male with pertinent history of Alzheimer's dementia, mostly nonverbal at baseline, insulin-dependent diabetes mellitus, hypertension, asthma not on home oxygen, coronary artery disease, CKD stage IIIA, mood disorder, BPH, gastroesophageal reflux disease who was sent to the emergency department from assisted facility for evaluation of hypoxia, has leukocytosis , blood cultures sent, imaging chest shows right-sided pneumonia: Patient was admitted for acute hypoxemic respiratory failure and sepsis secondary to pneumonia: Patient was started on IV antibiotics-patient hypoxia seems to be improved, sats are in 90 range on room air. Blood culture negative at 48 hours, leukocytosis improving, no fever. moniter cbc outpatient. Acute lactic acidosis due to sepsis: lactic acid trending down -no further trending unless clinical detrioration. acute hypernatremia :improved with hydration.moniter bmp in 1 week. fecal impaction: passing bm's ,seen by surgery -no acute intervention. continue prn luxrative in [facility] to avoid comstipation. Acute kidney injury on CKD stage 3: improved with ivf,encouraged for po hydr ation and intake, Avoid nephrotoxins. encourage for po intake and free water po 250 ml q6hr . moniter renal function and electrolytes Health Concerns: as above. Plan of Treatment: complete po doxycycline 100 mg po bid and augmentin 875 mg po bid for 7 more days ,repeat chest imaging in 3-4 weeks to see resolution of pneumonia. moniter cbc and bmp in 1 week. Assessment: as above. Patient Instructions: Pneumonia (DC)
[2024-08-09 11:20] LABS: Glucose, Whole Blood 282 mg/dL (60-115)
--- NOTE | 2024-08-09 11:22 | MHC.CM.PN ---
PT CLEARED TO RETURN TO [facility]TC AT [facility] TODAY UPDATES SENT TO SNF CM CALLED PTS SON/HCP, SARAH [phone] AND PROVIDED UPDATES BLS TRANSPORT WILL BE BOOKED WITH [facility] FOR [id number]
[2024-08-09] MEDS: Collagenase Clostridium Hist. 30 GM TUBE 1 APPL TOPICAL (12:09)
[2024-08-09 13:08] VITALS: BP 168/79; PULSE 85; RESP 20; TEMP 37.2; O2SAT 90
== END 2024-08-09 13:09 | disposition skilled nursing facility (03) | DRG 871 ==
LOC: HO.ED 08-06 01:54 → HO.EDOVER 08-06 04:45 → HO.S3 08-06 19:04
PROVIDERS: Admitting Provider Student in an Organized Health Care Education/Training Program; Emergency Provider Emergency Medicine; PCP Family Medicine Geriatric Medicine; Visit Provider Internal Medicine
DX: A41.9 Sepsis, unspecified organism (principal); J18.9 Pneumonia, unspecified organism; J96.01 Acute respiratory failure with hypoxia; N17.9 Acute kidney failure, unspecified; E87.0 Hyperosmolality and hypernatremia; E87.21 Acute metabolic acidosis; I25.10 Atherosclerotic heart disease of native coronary artery without angina pectoris; I12.9 Hypertensive chronic kidney disease with stage 1 through stage 4 chronic kidney disease, or unspecified chronic kidney disease; K21.9 Gastro-esophageal reflux disease without esophagitis; Z66 Do not resuscitate; K56.41 Fecal impaction; N40.0 Benign prostatic hyperplasia without lower urinary tract symptoms; G30.9 Alzheimer's disease, unspecified; F02.80 Dementia in other diseases classified elsewhere, unspecified severity, without behavioral disturbance, psychotic disturbance, mood disturbance, and anxiety; N18.31 Chronic kidney disease, stage 3a; E11.22 Type 2 diabetes mellitus with diabetic chronic kidney disease; Z20.822 Contact with and (suspected) exposure to COVID-19; Z79.4 Long term (current) use of insulin; Z79.02 Long term (current) use of antithrombotics/antiplatelets; Z79.82 Long term (current) use of aspirin; Z79.899 Other long term (current) drug therapy
CPT/HCPCS: 0241U; 36415; 71045; 71250; 73630; 74176; 80048; 80053; 80307; 81001; 82803; 82947; 83605; 83880; 84484; 85025; 85027; 85610; 87040; 87633; 92526; 92610; 93005; 99285; J0456; J0696; J1650

== ENCOUNTER → 2024-08-05 21:33 | Outpatient (BNV) | payer MEDICARE, MEDICAID, SELFPAY | PROVIDERS: Admitting Provider Student in an Organized Health Care Education/Training Program; Emergency Provider Emergency Medicine; PCP Family Medicine Geriatric Medicine; Visit Provider Internal Medicine | DX: I45.10 Unspecified right bundle-branch block (principal); I25.2 Old myocardial infarction; R00.0 Tachycardia, unspecified | CPT/HCPCS: 93010 ==

== ENCOUNTER → 2024-08-05 21:33 | Outpatient (BNV) | payer MEDICARE, MEDICAID, SELFPAY | PROVIDERS: Emergency Provider Emergency Medicine; PCP Family Medicine Geriatric Medicine; Visit Provider Radiology Diagnostic Radiology | DX: K56.41 Fecal impaction (principal); J98.11 Atelectasis; R91.8 Other nonspecific abnormal finding of lung field; L97.529 Non-pressure chronic ulcer of other part of left foot with unspecified severity | CPT/HCPCS: 71045; 71250; 73630; 74176 ==

== ENCOUNTER → 2024-08-05 22:10 | Outpatient (BNV) | payer MEDICARE, MEDICAID, SELFPAY | PROVIDERS: Emergency Provider Emergency Medicine; PCP Family Medicine Geriatric Medicine; Visit Provider Student in an Organized Health Care Education/Training Program | DX: E87.0 Hyperosmolality and hypernatremia (principal); N17.9 Acute kidney failure, unspecified; R09.02 Hypoxemia | CPT/HCPCS: 99223; 99231; 99232; 99239; 99499 ==

== ENCOUNTER → 2024-08-06 02:12 | Outpatient (BNV) | payer MEDICARE, MEDICAID, SELFPAY | PROVIDERS: Admitting Provider Student in an Organized Health Care Education/Training Program; Emergency Provider Emergency Medicine; PCP Family Medicine Geriatric Medicine; Visit Provider Surgery | DX: K56.41 Fecal impaction (principal) | CPT/HCPCS: 99222; 99232 ==

== ENCOUNTER → 2024-08-06 02:12 | Outpatient (BNV) | payer MEDICARE, MEDICAID, SELFPAY | PROVIDERS: Admitting Provider Student in an Organized Health Care Education/Training Program; Emergency Provider Emergency Medicine; PCP Family Medicine Geriatric Medicine; Visit Provider Internal Medicine Nephrology | DX: N17.9 Acute kidney failure, unspecified (principal) | CPT/HCPCS: 99222; 99232 ==